=== PATIENT | male | born 1990 | race African-American/Black ===

== ENCOUNTER 2020-01-25 09:58 | Inpatient (IN) | payer SELFPAY ==
[2020-01-25] VITALS (23 sets, daily range): BP systolic 34–147; BP diastolic 19–110; PULSE 34–134; RESP 11–24; TEMP 36.2–38.3; O2SAT 81–100; BMI 35.2; BMI 36.3
--- NOTE | 2020-01-25 10:04 | EKG12_ITS ---
Test Reason : Blood Pressure : / mmHG Vent. Rate : 084 BPM Atrial Rate : 084 BPM P-R Int : 128 ms QRS Dur : 024 ms QT Int : 580 ms P-R-T Axes : 000 000 -76 degrees QTc Int : 685 ms Probable Normal sinus rhythm ;wide QRS Indeterminate axis ST elevation consider anterolateral injury or acute infarct Prolonged QT ACUTE SD / STEMI Abnormal ECG Confirmed by KELLY OLIVAS, TAI ([id number]), food editor AGUEDA ALEXANDER ([id number]) on 01/30/2020 1:46:59 PM Referred By: Confirmed By:MERCEDES MENDOZA MD
--- NOTE | 2020-01-25 10:06 | CT_ITS ---
STUDY: CT BRAIN WITHOUT CONTRAST REASON FOR EXAM: Male, 29 years old. Trauma, fell today c/o numbness and amp; tingling to legs, ETOH and amp; substance abuse last night/this morning, cardiac arrest on arrival to ER. RADIATION DOSAGE (If Supplied By Facility): CTDIvol = ( 44.99 ) mGy, DLP = ( 829.85 ) mGycm TECHNIQUE: Transaxial CT imaging of the brain was performed without administration of intravenous contrast material. Individualized dose optimization techniques were used for this CT. COMPARISON: No relevant priors. FINDINGS: An endotracheal tube is seen. Normal soft tissue structures. Normal calvarium. Normal size ventricles and extra-axial spaces for the patient''s age. Normal white matter tracts of the cerebral hemispheres. Normal basal ganglia and thalami. Normal brainstem. Normal cerebellum. There is no intracranial hemorrhage. There are no findings of an acute ischemic infarction. Normal visualized paranasal sinuses. CT/Brain/Head without Contrast IMPRESSION: Normal unenhanced CT scan of the brain. Electronically Signed: Sam Kamara, at 11:10 EDT , Service support ,
--- NOTE | 2020-01-25 10:06 | CT_ITS ---
STUDY: CT CERVICAL SPINE WITHOUT CONTRAST REASON FOR EXAM: Male, 29 years old. Trauma, fell today c/o numbness and amp; tingling to legs, ETOH and amp; substance abuse last night/this morning, cardiac arrest on arrival to ER. RADIATION DOSAGE (If Supplied By Facility): CTDIvol = ( 26.17 ) mGy, DLP = ( 553.95 ) mGycm TECHNIQUE: High resolution transaxial imaging was performed without contrast material. Sagittal and coronal images were reconstructed. Individualized dose optimization techniques were used for this CT. COMPARISON: None FINDINGS: Normal craniovertebral junction. Normal anterior atlantoaxial articulation. Normal odontoid process. There is straightening of the normal cervical lordosis. Normal vertebral bodies and posterior osseous elements. C2-3: Normal endplates. Normal disc height and morphology. Normal central canal and intervertebral neuroforamina. C3-4: Normal endplates. Normal disc height and morphology. Normal central canal and intervertebral neuroforamina. C4-5: Normal endplates. Normal disc height and morphology. Normal central canal and intervertebral neuroforamina. C5-6: Normal endplates. Normal disc height and morphology. Normal central canal and intervertebral neuroforamina. C6-7: Normal endplates. Normal disc height and morphology. Normal central canal and intervertebral neuroforamina. C7-T1: Normal endplates. Normal disc height and morphology. Normal central canal and intervertebral neuroforamina. And endotracheal tube as well as an orogastric tube is visualized. CT/Spine Cervical without Contras IMPRESSION: Straightening of the normal cervical lordosis. Electronically Signed: Sam Kamara, at 11:11 EDT , Service support ,
--- NOTE | 2020-01-25 10:09 | NURSING ---
NO OLD EKGS
--- NOTE | 2020-01-25 10:11 | ED.DCSUM_ITS ---
History of Present Illness Chief Complaint: ETOH Intox Informant: Senior Officer Limited: Intoxicated, Stupor Onset: Today - History is limited. No family present. Paramedics have left. Quality of Pain: - - Not able to determine Location: Not able to determine Current Severity: Patient with depressed level of consciousness and complains of numbness lower extremities Worsened by: Unknown Relieved by: Unknown Associated Symptoms: Parasthesias, Weakness, Inability to ambulate Length of loss of consciousness: UNkown Narrative: Per report transmitted by paramedics patient has been drinking all night and smoking marijuana. He apparently is from [place]. Nothing else is known. Patient requires verbal and tactile stimuli to answer questions. He appears to have vomited. He he rolls his legs when asked to lift. Brother arrived. Brother was upset with patient because he was doing drugs. Brother states he has a history of drug use. He apparently was at a half-way house. He is from [place]. He was complaining of weakness in his legs last evening. Brother thinks he was drinking. Brother believes he was in checking heroin and possibly fentanyl. He was last seen well at 2200 on January 23. There is no history of fall. He apparently stumbled getting off the sofa. Tetanus Immunization: Unknown Prior similar symptoms: No Recent Illness/Hospitalization: No Past Medical History - Allergies and Home Meds Allergies/Adverse Reactions: Allergies No Known Allergies Allergy (Verified 01/25/20 11:08) Primary Care Physician: NOT,DEFINED [NON-STAFF] - Prior records reviewed: No - Patient from out of town Lives: Alone Alcohol: Heavy Drugs: Marijuana Review of Systems ROS: Unable to Obtain Neurological: Reports: Parasthesia, Numbness Physical Exam Vital Signs/Narrative: Vital Signs Temp Pulse Resp BP Pulse Ox 01/25/20 09:59 98.1 F 57 L 22 H 102/53 L 93 Inital Vital Signs reviewed: Yes General: Well nourished, Well developed, Obese, - - Patient has emesis on face and chest Head: Normocephalic, Atraumatic Eyes: Perrl, EOMI. Negative for: Pale conjunctiva, Scleral icterus ENT: TM's clear, No hemotympanum or drainage, No trauma. Negative for: Otorrhea, Nasal trauma, Nasal septal hematoma Neck: - - C-collar was placed. Unable to assess for tenderness because of altered mental status Cardiovascular: Regular rate, Regular rhythm, Normal S1, Normal S2 Respiratory: CTA bilaterally, Chest nontender, - - Home this is question of apnea versus Abdomen: Soft, Nontender, Nondistended Rectal: Deferred Skin: Normal color, No rash Neurological: Oriented x3, Cranial nerves II-XII grossly intact. Negative for: Alert, Normal Strength, Normal Sensation, Normal DTR, Normal Gait - Glascow Coma Scale Eye Opening: Spontaneous Motor: Localizes to Pain Verbal: Oriented Coma Scale Total: 14 Diagnostic/Tx/Re-eval Chest X-Ray - ED: 1 View Single view portable chest x-ray reveals the left subclavian line to be in proper position. Endotracheal tube is in proper position. The x-ray was read by me at 1051. - Rhythm Strip Rhythm Strip: Wide-complex rhythm with pauses - EKG Initial EKG Interpretation: - - Wide-complex rhythm with a ventricular rate 84. Computer is reading AR interval 128 ms. QRS duration 240 ms. QT duration 580 ms with a QTC of 685 ms. Right computer is reading acute AL. Concerned this represents changes due to intracranial bleed versus hyperkalemia versus other causes Follow-up EKG Interpretation: Sinus Rhythm - Sinus rhythm with a ventricular rate 85. AR interval 200 ms. QRS duration 114 ms. QT duration 394 ms with a QTC of 468 ms. [place] is normal. There are ischemic changes noted in the anterior leads. This may represent a posterior AL. - Medical Decision Making With history of fall altered level of conscious trauma order set was initiated. I was asked to view patient's monitor. Patient has a wide-complex rhythm. This may represent hyperkalemia, patient may have a underlying intraventricular conduction abnormality. CT of the head was obtained to rule out subdural hematoma, epidural hematoma, traumatic subarachnoid hemorrhage or intraparenchymal contusion. C-spine was obtained because of complaint of numbness and unable to move legs and did not withdraw to noxious stimuli. Patient was orotracheally debated by RSI technique. Received 20 mg of etomidate and 100 mg rocuronium. Using glide scope a 8.0 endotracheal tube was placed. Breath sounds were confirmed and appropriate color change on capnometer. Patient subsequently lost pulses. He was treated for hyperkalemia/PEA. Patient's complex narrowed after calcium chloride and bicarb. Since patient has gross hematuria and potentially was lying on the floor for 12 hours a CPK was ordered to assess for rhabdomyolysis and an ultrasound to assess kidney function. The hospitalist was paged/central office equipment installer for admission to ICU. Critical care time 42 minutes which includes history, documentation, discussion with family at length, treatment for dysrhythmia and discussion with hospitalist and central office equipment installer. This excludes time required for procedures i.e. intubation, IO and left subclavian line. Dr. Barajas informed me that patient EF is 20%, which may represent start affect. He has global hypokinesis. Case was discussed with Dr. Jayson Craig. He requested a magnesium. The hospitalist was made aware patient and he will be admitted to the ICU. Procedures Procedure(s): 1. Oral tracheal intubation using glide scope by RSI technique. Endotracheal tube confirmed by chest x-ray. This was performed easily on first attempt. 2. Placement of IO left proximal humerus by me. 3. Attempt at left femoral vein placement by Dr. [place], unsuccessful. 4. Placement of trauma line left subclavian successfully on first attempt on the way in. Using Seldinger technique sheath was placed. Blood was drawn. 5. Transthoracic echo revealing profound global hypokinesis and bradycardia. Dr. Roly Barajas was paged for stat echo. ED Disposition - Plan for ED Patient: Disposition: Acute Care Hospital [facility] Diagnosis: Cardiopulmonary arrest with successful resuscitation, Hypocalcemia, Hyperkalemia, KEITH (acute kidney injury), Metabolic acidosis, increased anion gap, Respiratory failure with hypoxia, Pulseless electrical activity with heart block, Ventricular fibrillation seen on cytology teacher, Gross hematuria Referrals: NOT,DEFINED [NON-STAFF] -
--- NOTE | 2020-01-25 10:32 | CM.ED ---
Social Work Responding to Code [place]. No family present. Per nursing staff, need to get in contact with family. Patient came in through EMS today. No contact information listed on chart. Telephone call to dispatch. Dispatch to send officer out to residence where patient was picked up by EMS ([address] [place] [address]. [place], [place]). Chelsie MORALES, EM
--- NOTE | 2020-01-25 10:40 | CM.ED ---
Social Work Telephone call from dispatch, patient family is on the way. Chelsie Díaz MSW, EM
--- NOTE | 2020-01-25 10:45 | RAD_ITS ---
STUDY: X-RAY CHEST REASON FOR EXAM: Male, 29 years old. PT DRINKING AND DOING MAR [place] LAST NIGHT UNTIL 5AM TODAY. WOKE UP TO URINATE AND FELL. NOW C/O LEGS N/T -- ETT AND OG PLACEMENT TECHNIQUE: Single AP portable view of the chest. COMPARISON: None. FINDINGS: An endotracheal tube is in situ. The tip is at 3.2 cm proximal to the danielito. An orogastric tube is seen with the tip in the fundal portion of the stomach. Increased markings are seen at the lung bases more prominent on the left side suggests some bibasilar atelectasis. Cannot rule out possible aspiration pneumonia in the left lower lobe. There is no demonstrated pleural abnormality. Normal size heart. Normal mediastinum and ricki. Normal visualized pulmonary arteries. Normal visualized aortic arch and descending thoracic aorta. Normal visualized thoracic spine. Normal visualized ribs, clavicles, and shoulders. There is no demonstrated abnormality of the visualized soft tissue structures of the upper abdomen. RAD/Chest 1 View (Portable) IMPRESSION: The tip of the endotracheal tube is at 3.2 cm proximal to the danielito. The tip of the orogastric tube is in the fundal portion of the stomach. Increased markings at the lung bases more prominent on the left side suggestive of atelectasis although an aspiration pneumonia in the left lower lobe cannot be excluded. Electronically Signed: Sma Kamara, at 11:03 EDT , Service support ,
[2020-01-25 10:53] LABS: Hematocrit 39.5 % (40-54); Hemoglobin 12.7 g/dL (13.0-16.5); Mean Corp Hgb Conc 32.2 g/dL (32-36); Mean Corpuscular Hgb 30.3 pg (27.0-32.0); Mean Corpuscular Volume 94.3 fL (80-94); Mean Platelet Vol. 8.9 fl (6.2-12.0); POSITIVE COUNT YES; POSITIVE MORPHOLOGY YES; Platelet Count 250 K/mm3 (150-450); RBC Distribution Width CV 13.9 % (11.6-14.6); RBC Distribution Width SD 47.9 fl (35.1-43.9); Red Blood Count 4.19 M/mm3 (4.6-6.2); White Blood Count 16.3 K/mm3 (4.4-11.0)
[2020-01-25 10:57] LABS: Differential Indicated MANUAL DIFF
[2020-01-25 11:03] LABS: International Normalized Ratio 1.6; Prothrombin Time (Protime)PT. 18.5 SECONDS (11.7-14.9)
[2020-01-25 11:04] LABS: Partial Thromboplast Time 36.5 Seconds (24.1-36.2)
--- NOTE | 2020-01-25 11:15 | CM.ED ---
Social Work Met with patient brother, Nas Murillo and Nas's girlfriend in waiting room. Support provided. Tila Aparicio also present providing support. Dr. Welsh updated that family is here. Dr. Welsh meeting with patient family and providing medical update. This social group worker able to obtain contact information for Nas ([phone]) and patient mother, Jaleesa Murillo ([phone]). Per Nas patient recently moved to [place], [place] from [place]. Nas stating that patient does have a history of substance abuse/use and is concerned that this may have been what triggered patient medical emergency today. Nas concerned with family finding out as per Nas family is rejected patient due to substance abuse in the past. Patient has a history of rehabilitation for substance abuse as well. Nas stating to have helped patient move to [place] from [place] in hopes that patient would have better support to stop abusing/using substances. Active support and listening provided. Nas then wanting to leave as I am freaking out here. Nas not wanting to see patient as patient is not able to respond or talk with Nas at this time. Nas's girlfriend confirming to be able to be with Nas today and that Nas will not be alone. Nas is wanting to call patient mother prior to medical team contacting mother. Nas is wanting medical team to call patient mother. Updated medical team on above information. Chelsie Díaz MSW, EM
[2020-01-25 11:17] LABS: Alcohol, Blood (Medical)-Serum < 3.0 mg/dL
[2020-01-25 11:18] LABS: AST(SGOT) 1825 U/L (15-37); Alanine Aminotransfer ALT/SGPT 310 U/L (16-61); Albumin, Serum 1.9 g/dL (3.2-5.0); Alkaline Phosphatase 60 U/L (45-117); Anion Gap 14 (5-15); BUN 24 mg/dL (7-18); BUN/Creat Ratio 12.2 RATIO (10-20); Bilirubin, Direct 0.15 mg/dL (0.00-0.30); Calcium,Total 5.5 mg/dL (8.5-10.1); Chloride 113 mmol/L (98-107); Creatinine, Serum 1.97 mg/dL (0.70-1.30); EST Glomerular Filtration Rate 42 mL/min (>60); Est Glom Filt Rate - Afr Amer 51 mL/min (>60); Estimated Creatinine Clearance 60.18 ml/min; Globulin 2.7 g/dL (2.2-4.2); Glucose 160 mg/dL (74-106); Lymphocyte 6 % (19-41); Monocyte 5 % (0-10); Neutrophil-Band 4 % (0-5); Neutrophil-Segmented 85 % (47-70); Platelet Estimate ADEQUATE (ADEQ); Potassium 4.9 mmol/L (3.5-5.1); Protein, Total 4.6 g/dL (6.4-8.2); Red Cell Morphology NORM C+C NORMAL (NORM C&C); Sodium Level 144 mmol/L (136-145); Total Cells Counted 100 (MANUAL DIFF)
--- NOTE | 2020-01-25 11:18 | ED.RN ---
calcium 5.5 dr peña
[2020-01-25 11:20] LABS: Absolute Lymphocyte Count 0.98 X10^3/uL (0.83-4.51); Absolute Neutrophil Count 14.5 X10^3/uL (2.0-7.7)
--- NOTE | 2020-01-25 11:23 | US_ITS ---
STUDY: RENAL ULTRASOUND - COMPLETE REASON FOR EXAM: Male, 29 years old. HEMATURIA, RENAL FAILURE -- PATIENT ON VENTILATOR . Study is slightly limited due to the patient''s condition. TECHNIQUE: Ultrasound evaluation of the kidneys was performed with real-time and static andrews-scale imaging. COMPARISON: None. FINDINGS: RIGHT KIDNEY: Normal location of the right kidney, which is normal in size. The right kidney measures 11 cm x 7.7 cm x 5.4 cm. There is a normal cortex of the right kidney. The renal cortex measures 2.0 cm. There is no right renal mass or cyst. There are no right renal calculi. There is no right hydronephrosis. DISTAL RIGHT URETER: There is non-visualization of the distal right ureter. There is no demonstrated right ureterovesical junction calculus. There is no demonstrated right ureteral jet. LEFT KIDNEY: Normal location of the left kidney, which is normal in size. The left kidney measures 10.6 cm x 5.2 cm x 5.3 cm. There is a normal cortex of the left kidney. The renal cortex measures 1.6 cm. There is no left renal mass or cyst. There are no left renal calculi. There is no left hydronephrosis. DISTAL LEFT URETER: There is non-visualization of the distal left ureter. There is no demonstrated left ureterovesical junction calculus. There is no demonstrated left ureteral jet. BLADDER: A Novak catheter is seen within the urinary bladder. The bladder is empty. US/Kidney and Bladder IMPRESSION: Normal ultrasound of the kidneys . Electronically Signed: Sam Kamara, at 13:10 EDT , Service support ,
--- NOTE | 2020-01-25 11:35 | CM.ED ---
Social Work Telephone call to patient mother, Jaleesa. Voicemail left. Chelsie Díaz LYRIC WRITER, EM
--- NOTE | 2020-01-25 11:41 | NURSING ---
HOSPITALIST PAGED DR DIRK JIANG
--- NOTE | 2020-01-25 11:46 | NURSING ---
DR COTTON FOR DR COOLEY
--- NOTE | 2020-01-25 11:48 | CM.ED ---
Social Work Received return phone call for patient mother, Jaleesa. Jaleesa reporting to live in [place] and this is where Jaleesa is at this time. Explaining visitation policy at this time. Support provided and active listening. Jaleesa voices appearing calm and controlled/appropriate to current situation. Jaleesa thanking this social service director. Updated medical team that patient mother called in and contact information is on chart. Chelsie MORALES, EM
[2020-01-25 11:51] LABS: Amphetamine Urine VISTA NEGATIVE (<1000 ng/mL); Barbiturate Urine VISTA NEGATIVE (< 200 ng/mL); Benzodiazepine Urine VISTA NEGATIVE (< 200 ng/mL); Cocaine Urine VISTA POSITIVE (< 300 ng/mL); Ecstacy Urine VISTA NEGATIVE (< 500 ng/mL); Methadone Urine VISTA NEGATIVE (< 300 ng/mL); PCP Urine VISTA NEGATIVE (< 25 ng/mL); THC Urine VISTA POSITIVE (< 50 ng/mL); Vista UDS pH Range 6
--- NOTE | 2020-01-25 11:55 | NURSING ---
ICU [facility] CHF EXAC, HYPOXIC RESP FAILURE, AFIB W RVR
--- NOTE | 2020-01-25 12:00 | NURSING ---
ICU 4
--- NOTE | 2020-01-25 12:02 | CPS ---
Critical values on ABG given to Dr. Welsh
--- NOTE | 2020-01-25 12:10 | CHAPLAIN ---
Type of Pastoral Visit ___ Initial Visit ___ Follow-up Visit ___ On-call Visit ___ General Patient Visit ___ Spiritual Assessment ___ Family Conference ___ Bereavement ___ Rapid Response _x__ Code Blue ___ Other (describe below) Pastoral Care Referral From ___ Patient ___ Family ___ Nurse ___ Physician ___ Junior Account Executive ___ Remedial Teacher _x__ Other (describe below) Sacrament/Intervention ___ Active listening ___ Anointing ___ Rastafarian ___ Bereavement ___ Communion ___ Isidra exploration ___ ___ Life review ___ Prayer ___ Reconciliation ___ Sacrament of Sick _x__ Supportive presence ___ Wedding _x__ Other (describe below) Pastoral Comments met with brother of patient and his girlfriend when they arrived at ED; sat with family members as they learned of condition and offered supportive presence; family members left the building; stood at doorway to offer silent prayers for the patient
[2020-01-25 12:26] LABS: Base Excess -9 mmol/L (-2 to +2); Bicarbonate 19.5 mmol/L (22-26); PO2 321 mmHG (75-100); SO2 100 % (95-99); Total Carbon Dioxide 21 mmol/L; pCO2 56.1 mmHg (35-45); pH 7.15 (7.35-7.45)
--- NOTE | 2020-01-25 12:28 | EKG12_ITS ---
Test Reason : CODE Blood Pressure : / mmHG Vent. Rate : 085 BPM Atrial Rate : 085 BPM P-R Int : 200 ms QRS Dur : 114 ms QT Int : 394 ms P-R-T Axes : 000 071 066 degrees QTc Int : 468 ms Normal sinus rhythm ST & T wave abnormality, consider anterior ischemia Prolonged QT Abnormal ECG Confirmed by KELLY OLIVAS, TAI ([id number]), health editor AGUEDA ALEXANDER ([id number]) on 01/30/2020 1:50:23 PM Referred By: YASIR Confirmed By:MERCEDES MENDOZA MD
[2020-01-25 12:37] LABS: Blood Gas Specimen Type ART; SITE R BRACHIAL
[2020-01-25 12:38] LABS: FI02 100; Mode A-C; O2 Delivery Device Vent; PEEP 5; RR 16; Vt 500
--- NOTE | 2020-01-25 12:40 | HP.PCM_ITS ---
Problem List (1) Cardiopulmonary arrest with successful resuscitation Status: Acute (2) Hypocalcemia Status: Acute (3) Hyperkalemia Status: Acute (4) KEITH (acute kidney injury) Status: Acute History of Present Illness Date of Admission: 01/25/20 Chief Complaint: Lethargy, cardiopulmonary arrest - 1 day The patient is a 29 year old M with PMHx of polysubstance use who has been living in [place] with his uncle. Patient is originally from [place]. The EMS was called for patient was not complaining of leg pain since the night before. Patient was found lying on his back in front of the door. He was alert oriented x3. He was vomiting. He complained that he could not move his legs and that it went numb. He admitted to drinking and smoking marijuana. She was brought to the ED and apparently had evidence of emesis on his face and chest. His EKG had evidence of LVH, no ST segment elevation. Patient subsequently developed wide-complex rhythm on the monitor with no pulse. He underwent resuscitation with regain of spontaneous circulation. He was subsequently intubated and started on sedation. A subclavian line was placed. Received calcium chloride and bicarbonate. Vitals in the ED showed temperature of 98.1F, heart rate 57, blood pressure 102/53, respiratory rate was 22, SPO2 is 93% on room air. WBC count is 16.3, hemoglobin 12.7, platelet count 250, INR 1.6, odium 144, potassium 4.9, chloride 113, bicarbonate 17, BUN 24, creatinine 1.97, serum is 5.5, total bilirubin 0.6, WB 0.15, AST 1825, ALT 310, CK 147, 973. Patient's blood pressure dropped and was started also on Levophed. CT Scan of the brain, cervical spine CT were unremarkable. Renal ultrasound was also unremarkable. The echo showed an EF of 25%, severe global hypokinesis of the left ventricle. RVSP was 31. Discussed on phone with the patient's mother, Jaleesa( [phone]), has had a history of similar presentation in [place] and she believes it was rhabdomyolysis. Past Medical History Allergies No Known Allergies Allergy (Verified 01/25/20 11:08) Home Medications: Ambulatory Orders Medication Instructions Recorded NK 01/25/20 Surgical History: no surgical history Psychiatric History: No pertinent psych hx Lives: With Family Smoking Status: Current every day smoker Tobacco Use: Cigarettes Alcohol: Heavy Drugs: Marijuana Review of Systems Unable to obtain accurate/complete ROS d/t: Unable to do review of systems as patient is intubated and sedated VTE Information - Inpt Only VTE Present on Admission: No VTE Pharm Prophylaxis ordered?: Yes Patient Problems: Active and Suspected Problems Cardiopulmonary arrest with successful resuscitation (Acute) Hypocalcemia (Acute) Hyperkalemia (Acute) KEITH (acute kidney injury) (Acute) Metabolic acidosis, increased anion gap (Acute) Respiratory failure with hypoxia (Acute) Pulseless electrical activity with heart block (Acute) Ventricular fibrillation seen on cardiac rehabilitation specialist (Acute) Gross hematuria (Acute) - Physical Exam Vitals/I&O's: Vital Signs Temp Pulse Resp BP Pulse Ox 98.1 F 96 16 118/83 H 93 01/25/20 09:59 01/25/20 11:09 01/25/20 11:10 01/25/20 11:09 01/25/20 09:59 Oxygen Delivery Method Ambu-Bag Weight: 117.8 kg Body Mass Index (BMI) 35.2 General: Cooperative, - - sedated, intubated, on mechanical ventilator HEENT: Atraumatic, PERRLA, EOMI, Normocephalic Oral: Dry Mucosa Neck: Supple Lungs: Normal air movement, Diminished, - - left subclavian central line, bilateral gynaecomastia Cardiovascular: Regular rate, Regular Rhythm, Normal S1, Normal S2 Abdomen: Bowel Sounds Present, Soft, Non Tender, Non-Distended, No Hepato- splenomegaly, - - Novak catheter has gross hematuria Extremities: No edema Skin: No rashes Musculoskeletal: No Tenderness to Palpation of Joints or Extremities Lymphatic: No Cervical, Supraclavicular, or Inguinal Adenopathy Neurological: Cranial nerves II-XII grossly intact, Neuro grossly intact Psych/Mental Status: Normal Affect, Appropriate Laboratory Results 01/25/20 10:38: WBC 16.3 H, RBC 4.19 L, Hgb 12.7 L, Hct 39.5 L, MCV 94.3 H, MCH 30.3, MCHC 32.2, RDW Std Deviation 47.9 H, RDW Coeff of Jennifer 13.9, Plt Count 250, MPV 8.9, Neut % (Auto) Not Reportable, Absolute Neuts (auto) 14.5 H, Absolute Lymphs (auto) 0.98, Total Counted 100, Neutrophils % (Manual) 85 H, Band Neutrophils % 4, Lymphocytes % (Manual) 6 L, Monocytes % (Manual) 5, Diff Path Review December, Platelet Estimate ADEQUATE, RBC Morphology NORM C+C 01/25/20 10:38: Sodium 144, Potassium 4.9, Chloride 113 H, Carbon Dioxide 17.0 L , Anion Gap 14, BUN 24 H, Creatinine 1.97 H, Estim Creat Clear Calc 60.18, Est GFR (MDRD) Af Amer 51 L, Est GFR (MDRD) Non-Af 42 L, BUN/Creatinine Ratio 12.2, Glucose 160 H, Calcium 5.5 L*, Total Bilirubin 0.60, Direct Bilirubin 0.15, AST 1825 H, ALT 310 H, Alkaline Phosphatase 60, Total Protein 4.6 L, Albumin 1.9 L, Globulin 2.7 01/25/20 10:38: Ethyl Alcohol < 3.0 01/25/20 10:38: PT 18.5 H, INR 1.6, APTT 36.5 H 01/25/20 11:15: Urine Opiates Screen NEGATIVE, Urine Methadone Screen NEGATIVE, Ur Barbiturates Screen NEGATIVE, Ur Phencyclidine Scrn NEGATIVE, Ur Amphetamines Screen NEGATIVE, U Methamphetamin-MDMA NEGATIVE, U Benzodiazepines Scrn NEGATIVE, Urine Cocaine Screen POSITIVE H, U Cannabinoids Screen POSITIVE H, Ur Drug Screen Comment 01/25/20 11:58: Specimen Type ART, Sample Site R BRACHIAL, pH 7.15 L*, Bicarbonate Actual 19.5 L, POC Total CO2 21, Base Excess -9 L, O2 Saturation 100 H, O2 % 100, ABG pCO2 56.1 H, ABG pO2 321 H*, Jeffrey Test NA, Respiration Rate 16, O2 Delivery Device Vent, Vent Mode A-C, Tidal Volume 500, POC PEEP 5, Blood Gas Notified Whom ED 01/25/20 12:07: Sodium Pending, Potassium Pending, Chloride Pending, Carbon Dioxide Pending, Anion Gap Pending, BUN Pending, Creatinine Pending, Est GFR (MDRD) Af Amer Pending, Est GFR (MDRD) Non-Af Pending, BUN/Creatinine Ratio Pending, Glucose Pending, Calcium Pending, Magnesium Pending, Total Bilirubin Pending, AST Pending, ALT Pending, Alkaline Phosphatase Pending, Total Creatine Kinase Pending, Troponin I Pending, Total Protein Pending, Albumin Pending 01/25/20 12:07: Ionized Calcium Pending Current Medications Norepinephrine Bitartrate 8 mg (/ Sodium Chloride) 250 mls @ 9.375 mls/hr CONT INF .[id number] [facility]; Protocol Assessment/Plan All Active Problems Cardiopulmonary arrest with successful resuscitation (Acute) Hypocalcemia (Acute) Hyperkalemia (Acute) KEITH (acute kidney injury) (Acute) Metabolic acidosis, increased anion gap (Acute) Respiratory failure with hypoxia (Acute) Pulseless electrical activity with heart block (Acute) Ventricular fibrillation seen on cardiac rehabilitation specialist (Acute) Gross hematuria (Acute) 1. Acute respiratory failure secondary to cardiac arrest/possible aspiration pneumonia Patient is intubated On mechanical ventilator, relations manager consulted, Continue on propofol and fentanyl 2. Hypotension, possibly cardiogenic, unclear, less likely septic shock Patient is on Levophed, will continue to monitor vitals, Keep map more than 65 3. Acute rhabdomyolysis secondary to cocaine use CK is more than 1 47,000, Novak catheter has gross hematuria On IV fluids, repeat CK in a.m. 4. Acute kidney injury, likely prerenal, secondary to #3 We will continue on IV fluids and vasopressors Repeat blood work in a.m. 5. Hyperkalemia secondary to #3, repeat potassium is pending We will continue to trend potassium 6. Hypocalcemia secondary to #3, status post replacement Repeat blood work in a.m. 7. Elevated troponins, likely secondary to #3, Possible underlining cardiomyopathy, EF of 20%, Cardiology consulted 8. Polysubstance use, urine tox positive for cocaine and marijuana 9. Elevated liver function test secondary to #3, ALP is normal, Continue to trend liver enzymes 10. Possible aspiration pneumonia, patient is on Unasyn, will continue 11. DVT PPx- SCDs on account of gross hematoma 12. GI PPx - famotidine IV
[2020-01-25 12:41] LABS: VBG BASE EXCESS -13 mmol/L (-1.0-3.5); VBG Bicarbonate 15 mmol/L (22-26); VBG Oxygen Content 16 mmol/L (23-33); VBG PO2 53 mmHg (25-40); VBG SO2 79 % (50-70); VBG pCO2 39.5 mmHg (41-51); VBG pH 7.19 (7.32-7.42)
[2020-01-25 13:04] LABS: Blood Gas Specimen Type VEN; FI02 100
[2020-01-25 13:05] LABS: Time Given 1047
[2020-01-25] MEDS: Dextrose 50%-Water 25 GM/50 ML DISP.SYRIN IV (13:58)
[2020-01-25] MEDS: Calcium Gluconate 1 GM/10 ML Vial IV (13:58)
[2020-01-25] MEDS: Insulin Lispro 5 UNIT in Syringe 0 ML 3 UNIT IV (13:59)
[2020-01-25 14:04] LABS: ALB/GLOB Ratio 0.7 RATIO (0.9-2.4); AST(SGOT) 3395 U/L (15-37); Alanine Aminotransfer ALT/SGPT 682 U/L (16-61); Albumin, Serum 3.1 g/dL (3.2-5.0); Alkaline Phosphatase 103 U/L (45-117); Anion Gap 14 (5-15); BUN 29 mg/dL (7-18); BUN/Creat Ratio 10.8 RATIO (10-20); Calcium,Total 6.8 mg/dL (8.5-10.1); Chloride 100 mmol/L (98-107); Creatinine, Serum 2.69 mg/dL (0.70-1.30); EST Glomerular Filtration Rate 30 mL/min (>60); Est Glom Filt Rate - Afr Amer 36 mL/min (>60); Estimated Creatinine Clearance 44.07 ml/min; Globulin 4.4 g/dL (2.2-4.2); Glucose 166 mg/dL (74-106); Magnesium 4.1 mg/dL (1.6-2.6); Potassium 7.1 mmol/L (3.5-5.1); Protein, Total 7.5 g/dL (6.4-8.2); Sodium Level 136 mmol/L (136-145)
[2020-01-25] MEDS: Sodium Bicarbonate 8.4% 50 ML Syringe 50 MEQ IV (14:05)
[2020-01-25] MEDS: fentaNYL drip 100 ML 5 MCG IV (14:45)
[2020-01-25] MEDS: Propofol 10MG/Ml 1,000 MG/100 ML Bottle 7.7 MG CONT INF (14:45)
--- NOTE | 2020-01-25 14:57 | CON.PCM_ITS ---
Problem List (1) Cardiopulmonary arrest with successful resuscitation Status: Acute (2) Hypocalcemia Status: Acute (3) Hyperkalemia Status: Acute (4) KEITH (acute kidney injury) Status: Acute (5) Metabolic acidosis, increased anion gap Status: Acute (6) Respiratory failure with hypoxia Status: Acute Qualifiers: Chronicity: acute Qualified Code(s): J96.01 - Acute respiratory failure with hypoxia (7) Pulseless electrical activity with heart block Status: Acute (8) Ventricular fibrillation seen on laboratory monitor Status: Acute (9) Gross hematuria Status: Acute Reason for Consult Date of Consultation: 01/25/20 Reason for Consultation: Respiratory failure/arrest History of Present Illness: The patient is a 29 year old M, with unknown past medical history, who presented was [facility] [place], [place] on 01/25/2020 by paramedics secondary to inability to move his legs. Patient reportedly has been drinking all night and smoking marijuana. Patient had reportedly vomited on the scene and was unable to lift his legs. Patient's brother was reportedly upset in the ER secondary to concerns that the patient was using drugs. Patient is reportedly from [place] and had started to complain of leg weakness to his brother last evening. Patient reportedly is used heroin and fentanyl in the past. Patient was last seen well at 10 PM on January 23. Patient reportedly stumbled trying to get out of a sofa and EMS was called. In the ER, patient had a GCS of 14 initially. Patient's blood pressure was slightly low, but then he developed a wide-complex rhythm with pauses on telemetry. Patient's condition deteriorated and he had to be intubated by rapid sequence. Patient also had ventricular fibrillation noted and ACLS was performed. Patient was successfully resuscitated. Patient has started to have spontaneous movements following rocuronium used for intubation. Initial laboratory work-up did show significant hypocalcemia and hyperkalemia. Patient also had an emergent echocardiogram completed showing an EF of 20% with global hypokinesis. Patient had a left humeral IO and left subclavian trauma line placed while in the ER. Patient was evaluated by myself in the ER. Patient was unresponsive. Patient's uncles were at the bedside and did confirm that he has had some lifestyle issues in [place]. They could not elicit whether he had any past medical history or what the events overnight pertained. Patient's brother is reportedly the best historian and was not present during my evaluation. Patient reportedly is not and has no children leaving his mother as his next of kin. She is reportedly on her way from [place] at this time. Past Medical History Allergies No Known Allergies Allergy (Verified 01/25/20 11:08) Home Medications: Ambulatory Orders Medication Instructions Recorded NK 01/25/20 Lives: Alone Smoking Status: Unknown if ever smoked Alcohol: Heavy Drugs: Marijuana Review of Systems Unable to obtain accurate/complete ROS d/t: Intubated and paralyzed. Patient Problems: Active and Suspected Problems Cardiopulmonary arrest with successful resuscitation (Acute) Hypocalcemia (Acute) Hyperkalemia (Acute) KEITH (acute kidney injury) (Acute) Metabolic acidosis, increased anion gap (Acute) Respiratory failure with hypoxia (Acute) Pulseless electrical activity with heart block (Acute) Ventricular fibrillation seen on laboratory monitor (Acute) Gross hematuria (Acute) Objective: All imaging was personally reviewed. Echocardiogram in the ER showed an EF of 20% with global left ventricular stunning and slightly elevated pulmonary artery pressures. Chest x-ray was personally reviewed and showed a possible right lower lobe infiltrate. Patient also had a renal ultrasound showing no obstruction. CT of the head showed no acute bleed. - Physical Exam Vitals/I&O's: Vital Signs Temp Pulse Resp BP Pulse Ox 36.3 C L 88 16 119/72 100 01/25/20 13:04 01/25/20 14:45 01/25/20 14:45 01/25/20 13:04 01/25/20 14:45 Oxygen Delivery Method Mechanical Ventilator Weight: 128.7 kg Body Mass Index (BMI) 35.2 Finger Stick Blood Glucose 160 Intake and Output for Last 24 Hours 01/23/20 01/24/20 01/25/20 23:59 23:59 23:59 Intake Total 0.05 / 0.05 Balance 0.05 / 0.05 General: - - Intubated and paralyzed. Obese. Good ventilator synchrony. HEENT: Atraumatic, PERRLA, EOMI, Normocephalic, - - No scleral icterus or injection noted Oral: Moist Mucosa, No Gingival or Mucosal Lesions/ Ulcerations, - - Fair dentition Neck: Supple, No JVD, No Nodes, Trachea Midline Lungs: No wheeze, No rales, Diminished, Rhonchi - Right base, - - Symmetric expansion Cardiovascular: Regular rate, Regular Rhythm, Normal S1, Normal S2, No murmurs, No rub noted, No Gallop, - - Normal sinus rhythm noted on telemetry. Gynecomastia. Abdomen: Bowel Sounds Present, Soft, Non Tender, Non-Distended, Obese Extremities: No clubbing, No cyanosis, No edema, Capillary Refill Less than 3 Seconds Skin: No rashes, No breakdown, - - Bilateral hammertoes with skin changes Musculoskeletal: No Tenderness to Palpation of Joints or Extremities Lymphatic: No Cervical, Supraclavicular, or Inguinal Adenopathy Neurological: - - Recently paralyzed. Minimal spontaneous movements. Psych/Mental Status: Flat Affect Laboratory Results 01/25/20 10:38: WBC 16.3 H, RBC 4.19 L, Hgb 12.7 L, Hct 39.5 L, MCV 94.3 H, MCH 30.3, MCHC 32.2, RDW Std Deviation 47.9 H, RDW Coeff of Jennifer 13.9, Plt Count 250, MPV 8.9, Neut % (Auto) Not Reportable, Absolute Neuts (auto) 14.5 H, Absolute Lymphs (auto) 0.98, Total Counted 100, Neutrophils % (Manual) 85 H, Band Neutrophils % 4, Lymphocytes % (Manual) 6 L, Monocytes % (Manual) 5, Diff Path Review December, Platelet Estimate ADEQUATE, RBC Morphology NORM C+C 01/25/20 10:38: Sodium 144, Potassium 4.9, Chloride 113 H, Carbon Dioxide 17.0 L , Anion Gap 14, BUN 24 H, Creatinine 1.97 H, Estim Creat Clear Calc 60.18, Est GFR (MDRD) Af Amer 51 L, Est GFR (MDRD) Non-Af 42 L, BUN/Creatinine Ratio 12.2, Glucose 160 H, Calcium 5.5 L*, Total Bilirubin 0.60, Direct Bilirubin 0.15, AST 1825 H, ALT 310 H, Alkaline Phosphatase 60, Total Protein 4.6 L, Albumin 1.9 L, Globulin 2.7 01/25/20 10:38: Ethyl Alcohol < 3.0 01/25/20 10:38: PT 18.5 H, INR 1.6, APTT 36.5 H 01/25/20 10:47: Specimen Type ESTRELLITA, O2 % 100, VBG pH 7.19 L*, VBG pO2 53 H, VBG O2 Sat (Calc) 79 H, VBG O2 Content 16 L, VBG Base Excess -13 L, POC Mix VBG pCO2 Pt Tmp 39.5 L, O2 Delivery Device Ambu, Liter Flow 15.0, Blood Gas Notified Whom ED , Blood Gas Notified Time 1047 01/25/20 11:15: Urine Opiates Screen NEGATIVE, Urine Methadone Screen NEGATIVE, Ur Barbiturates Screen NEGATIVE, Ur Phencyclidine Scrn NEGATIVE, Ur Amphetamines Screen NEGATIVE, U Methamphetamin-MDMA NEGATIVE, U Benzodiazepines Scrn NEGATIVE, Urine Cocaine Screen POSITIVE H, U Cannabinoids Screen POSITIVE H, Ur Drug Screen Comment 01/25/20 11:58: Specimen Type ART, Sample Site R BRACHIAL, pH 7.15 L*, Bicarbonate Actual 19.5 L, POC Total CO2 21, Base Excess -9 L, O2 Saturation 100 H, O2 % 100, ABG pCO2 56.1 H, ABG pO2 321 H*, Jeffrey Test NA, Respiration Rate 16, O2 Delivery Device Vent, Vent Mode A-C, Tidal Volume 500, POC PEEP 5, Blood Gas Notified Whom ED 01/25/20 12:07: Sodium 136, Potassium 7.1 H*, Chloride 100, Carbon Dioxide 22.0, Anion Gap 14, BUN 29 H, Creatinine 2.69 H, Estim Creat Clear Calc 44.07, Est GFR (MDRD) Af Amer 36 L, Est GFR (MDRD) Non-Af 30 L, BUN/Creatinine Ratio 10.8, Glucose 166 H, Calcium 6.8 L, Magnesium 4.1 H, Total Bilirubin 1.20 H, AST 3395 H, ALT 682 H, Alkaline Phosphatase 103, Total Creatine Kinase 657807 H, Troponin I 1.090 H*, Total Protein 7.5, Albumin 3.1 L, Globulin 4.4 H, Albumin/Globulin Ratio 0.7 L 01/25/20 12:07: Ionized Calcium Pending Current Medications Albuterol Sulfate (Ventolin Aerosols) 2.5 mg INHALATION Q2H PRN PRN PRN Reason: WHEEZING Enoxaparin Sodium (Lovenox) 40 mg SC DAILY [facility] Norepinephrine Bitartrate 8 mg (/ Sodium Chloride) 250 mls @ 9.375 mls/hr CONT INF .[id number] [facility]; Protocol Last Admin: 01/25/20 13:02 Dose: Not Given Documented by: Fentanyl () 100 mls @ 5 mls/hr IV UD [facility]; Protocol Propofol (Diprivan) 1,000 mg in 100 mls @ 7.722 mls/hr CONT INF .Q12H [facility]; Protocol Clinical Impression(s) from Imaging Studies Brain CT 01/25/20 10:06 IMPRESSION: Normal unenhanced CT scan of the brain. Electronically Signed: Sam Kamara, at 11:10 EDT , Service support , Cervical Spine CT 01/25/20 10:06 IMPRESSION: Straightening of the normal cervical lordosis. Electronically Signed: Sam Kamara, at 11:11 EDT , Service support , Chest X-Ray 01/25/20 10:45 IMPRESSION: The tip of the endotracheal tube is at 3.2 cm proximal to the danielito. The tip of the orogastric tube is in the fundal portion of the stomach. Increased markings at the lung bases more prominent on the left side suggestive of atelectasis although an aspiration pneumonia in the left lower lobe cannot be excluded. Electronically Signed: Sam Kamara at 11:03 EDT , Service support , Renal Ultrasound 01/25/20 11:23 IMPRESSION: Normal ultrasound of the kidneys . Electronically Signed: Sam Kamara at 13:10 EDT , Service support , Assessment/Plan Active and Suspected Problems Cardiopulmonary arrest with successful resuscitation (Acute) Hypocalcemia (Acute) Hyperkalemia (Acute) KEITH (acute kidney injury) (Acute) Metabolic acidosis, increased anion gap (Acute) Respiratory failure with hypoxia (Acute) Pulseless electrical activity with heart block (Acute) Ventricular fibrillation seen on laboratory monitor (Acute) Gross hematuria (Acute) RECOMMENDATIONS: 1. Initiate empiric antibiotics 2. Aggressive fluid resuscitation 3. Bicarbonate drip to assist with urine alkalinization 4. Wean oxygen as tolerated 5. Initiate propofol and fentanyl 6. Spontaneous breathing and awakening trials per protocol 7. Attempt to obtain more information about past medical history IMPRESSIONS: 1. Acute hypoxic respiratory failure with possible aspiration secondary to possible opiates Unclear surrounding history. Patient appears to be developing a right lower lobe infiltrate and was found with emesis around his mouth. Concern for aspiration. Would start empiric therapy. Will initiate propofol and fentanyl to help with vent synchrony given recovery from paralytics. Spontaneous awakening and breathing trials per protocol. 2. Acute kidney injury secondary to rhabdomyolysis/hyperkalemia/hypocalcemia Concern for myoglobinuria leading to what appears to be hematuria. Patient had been reporting leg pain weakness prior to presentation. Patient may be having breakdown from toxic drug effects. Patient should have urine alkalized. Monitor renal function. Aggressive volume resuscitation. If not improving in the next 24 to 48 hours, may need to involve nephrology for renal replacement therapy. 3. Systolic congestive heart failure/ventricular fibrillation Patient with EF of 20% following arrest. Unclear if this is baseline versus new onset with shock. Patient was ordered Levophed initially, but this did not need to be initiated. Patient has tested positive for cocaine. Given young age and global defects, coronary artery disease is unlikely. Defer to hospitalist on possible involvement of cardiology 4. Polysubstance abuse Patient has tested positive for marijuana and cocaine on his tox screen. Patient also has reportedly used heroin and fentanyl in the past. Patient will be placed on fentanyl and propofol for vent synchrony, but will need to watch for withdrawal symptoms through the hospitalization. Will attempt to obtain more information from the family. 5. Poor history/obesity Complicates care, management, recovery and prognosis. DVT and GI prophylaxis. TIME: 45 minutes critical care time spent addressing patient's respiratory failure, acute kidney injury, CHF, review of all data and collaboration with care team. (2 PM to 3:13 PM) [phone]: [id number] Critical care first hour
[2020-01-25] MEDS: 0.9% Normal Saline 1,000 ML 500 ML IV (15:30)
[2020-01-25] MEDS: Lactated Ringers 1,000 ML 150 ML IV ×2 (15:30→22:40)
[2020-01-25] MEDS: 0.9% Saline Lock 10 ML Syringe IV (17:34)
--- NOTE | 2020-01-25 17:53 | NURSING ---
Spoke w/ pt's mother Jaleesa. Update given and questions answered.
[2020-01-25] MEDS: Aspirin 81 MG TAB.CHEW 324 MG PO (18:37)
[2020-01-25] MEDS: Sodium Polystyrene Sulfonate 15 GM/60 ML UDC 30 GM GT (20:26)
[2020-01-25] MEDS: Propofol 10MG/Ml 1,000 MG/100 ML Bottle 15.4 MG CONT INF (20:34)
[2020-01-25] MEDS: Famotidine 200 MG/20 ML MDV 20 MG in 0.9% Normal Saline (Pres. free 8 ML 300 MG IV (21:04)
[2020-01-25 21:12] LABS: Anion Gap 8 (5-15); BUN 35 mg/dL (7-18); BUN/Creat Ratio 12.9 RATIO (10-20); CPK Total, Creatine Kinase > 160000 U/L (39-308); Calcium,Total 6.4 mg/dL (8.5-10.1); Chloride 103 mmol/L (98-107); Creatinine, Serum 2.71 mg/dL (0.70-1.30); EST Glomerular Filtration Rate 29 mL/min (>60); Est Glom Filt Rate - Afr Amer 36 mL/min (>60); Estimated Creatinine Clearance 43.75 ml/min; Glucose 135 mg/dL (74-106); Potassium 7.8 mmol/L (3.5-5.1); Sodium Level 135 mmol/L (136-145); Triglycerides 112 mg/dL
[2020-01-25] MEDS: Chlorhexidine 15 ML PO (22:51)
[2020-01-26] VITALS (36 sets, daily range): BP systolic 116–163; BP diastolic 86–117; PULSE 83–114; RESP 13–26; TEMP 37.6–38.3; O2SAT 97–100; BMI 36.3
[2020-01-26] MEDS: fentaNYL drip 100 ML 12.5 MCG IV (01:15)
[2020-01-26] MEDS: Propofol 10MG/Ml 1,000 MG/100 ML Bottle 15.4 MG CONT INF (01:15)
[2020-01-26 04:51] LABS: Absolute Lymphocyte Count 0.77 X10^3/uL (0.83-4.51); Basophil# 0.05 X10^3/uL; Basophil% 0.2 % (0-1); Hematocrit 51.9 % (40-54); Hemoglobin 17.2 g/dL (13.0-16.5); Lymphocyte # 0.77 X10^3/ul (4.0); Lymphocyte % 3.6 % (19-41); Mean Corp Hgb Conc 33.1 g/dL (32-36); Mean Corpuscular Hgb 29.9 pg (27.0-32.0); Mean Corpuscular Volume 90.3 fL (80-94); Mean Platelet Vol. 8.9 fl (6.2-12.0); Monocyte# 2.29 X10^3/uL; Monocyte% 10.7 % (0-10); NRBC Flagged by Analyzer 0 % (0-5); Neutrophil # 18.02 X10^3/uL (2.7-7.7); Neutrophil % 84.4 % (47-70); POSITIVE DIFFERENTIAL YES; POSITIVE MORPHOLOGY YES; Platelet Count 277 K/mm3 (150-450); RBC Distribution Width CV 14.4 % (11.6-14.6); RBC Distribution Width SD 46.9 fl (35.1-43.9); Red Blood Count 5.75 M/mm3 (4.6-6.2); White Blood Count 21.4 K/mm3 (4.4-11.0)
[2020-01-26 04:57] LABS: Differential Indicated SCAN CRITERIA MET
[2020-01-26 05:11] LABS: Atypical Lymphocyte RARE %; Differential Comment SCANNED
[2020-01-26] MEDS: Lactated Ringers 1,000 ML 150 ML IV (05:24)
[2020-01-26] MEDS: Propofol 10MG/Ml 1,000 MG/100 ML Bottle 19.3 MG CONT INF (05:25)
[2020-01-26] MEDS: TITRATION PARAMETER CHANGE 1 EACH IV (05:46)
--- NOTE | 2020-01-26 05:55 | EKG12_ITS ---
Test Reason : AM EKG Blood Pressure : / mmHG Vent. Rate : 108 BPM Atrial Rate : 108 BPM P-R Int : 156 ms QRS Dur : 122 ms QT Int : 390 ms P-R-T Axes : 044 043 035 degrees QTc Int : 522 ms Sinus tachycardia Left ventricular hypertrophy with QRS widening Abnormal ECG Confirmed by JAH OLIVAS, PATRICK ([id number]), editor farm journal AGUEDA ALEXANDER ([id number]) on 02/01/2020 1:17:12 PM Referred By: LULA Confirmed By:PATRICK TYSON MD
[2020-01-26 06:23] LABS: ALB/GLOB Ratio 0.5 RATIO (0.9-2.4); AST(SGOT) 5198 U/L (15-37); Alanine Aminotransfer ALT/SGPT 922 U/L (16-61); Albumin, Serum 2.4 g/dL (3.2-5.0); Alkaline Phosphatase 96 U/L (45-117); Anion Gap 8 (5-15); BUN 44 mg/dL (7-18); BUN/Creat Ratio 12.1 RATIO (10-20); Chloride 100 mmol/L (98-107); Creatinine, Serum 3.63 mg/dL (0.70-1.30); EST Glomerular Filtration Rate 21 mL/min (>60); Est Glom Filt Rate - Afr Amer 25 mL/min (>60); Estimated Creatinine Clearance 32.66 ml/min; Globulin 4.5 g/dL (2.2-4.2); Glucose 123 mg/dL (74-106); Magnesium 3.4 mg/dL (1.6-2.6); Phosphorus 7.2 mg/dL (2.5-4.9); Potassium 7.8 mmol/L (3.5-5.1); Protein, Total 6.9 g/dL (6.4-8.2); Sodium Level 134 mmol/L (136-145)
[2020-01-26] MEDS: Polyethylene Glycol 3350 17 GM PACKET PO (06:27)
--- NOTE | 2020-01-26 06:35 | PCM.PN.INT ---
Subjective: Patient did okay overnight. Patient continues to have urine output, but has remained dark. Patient with elevated troponins overnight, but no significant ectopy was reported. No endotracheal secretions were reported. Patient with significant discomfort with palpation of any extremities, especially lower. General: - - Intubated and sedated. RASS -1. Good ventilator synchrony. Obese. HEENT: Atraumatic, PERRLA, EOMI, Normocephalic, - - No scleral icterus or injection noted Oral: No Gingival or Mucosal Lesions/ Ulcerations, Dry Mucosa Neck: Supple, No JVD, No Nodes, Trachea Midline Lungs: Clear to auscultation, Normal air movement, No rhonchi, No wheeze, No rales, - - Symmetric expansion. No dullness to percussion. Cardiovascular: Normal S1, Normal S2, No murmurs, No rub noted, No Gallop, Tachycardic Abdomen: Bowel Sounds Present, Soft, Non Tender, Distended - Slightly Extremities: No clubbing, No cyanosis, Capillary Refill Less than 3 Seconds, Edema Skin: - Musculoskeletal: Tenderness - No significant change compared to previous Lymphatic: No Cervical, Supraclavicular, or Inguinal Adenopathy Neurological: Cranial nerves II-XII grossly intact, Neuro grossly intact - Weak Muscle strength, but nonfocal exam Psych/Mental Status: Flat Affect Vital Signs Temp Pulse Resp BP Pulse Ox 38.1 C H 105 H 24 H 138/100 H 99 01/26/20 06:00 01/26/20 06:00 01/26/20 06:00 01/26/20 06:00 01/26/20 06:00 Oxygen Delivery Method Mechanical Ventilator Weight: 121.9 kg Body Mass Index (BMI) 36.3 Finger Stick Blood Glucose 160 Intake and Output for Last 24 Hours 01/24/20 01/25/20 01/26/20 23:59 23:59 23:59 Intake Total 3395.49 / 3417.14 1789.13 / 1789.13 Output Total 1350 / 1350 250 / 250 Balance 2045.49 / 2067.14 1539.13 / 1539.13 Labs (Last 48 Hours) 01/25/20 01/25/20 01/25/20 10:38 10:38 10:38 WBC 16.3 H RBC 4.19 L Hgb 12.7 L Hct 39.5 L MCV 94.3 H MCH 30.3 MCHC 32.2 RDW Std Deviation 47.9 H RDW Coeff of Jennifer 13.9 Plt Count 250 MPV 8.9 Immature Gran % (Auto) Neut % (Auto) Not Reportable Lymph % (Auto) [place] % (Auto) Eos % (Auto) Baso % (Auto) Absolute Neuts (auto) 14.5 H Absolute Lymphs (auto) 0.98 Total Counted 100 Neutrophils % (Manual) 85 H Band Neutrophils % 4 Lymphocytes % (Manual) 6 L Monocytes % (Manual) 5 Nucleated RBC % Differential Comment Diff Path Review May foll Atypical Lymphocytes Platelet Estimate ADEQUATE RBC Morphology NORM C+C PT INR APTT Specimen Type Sample Site pH Bicarbonate Actual POC Total CO2 Base Excess O2 Saturation O2 % ABG pCO2 ABG pO2 Jeffrey Test VBG pH VBG pO2 VBG O2 Sat (Calc) VBG O2 Content VBG Base Excess POC Mix VBG pCO2 Pt Tmp Respiration Rate O2 Delivery Device Liter Flow Vent Mode Tidal Volume POC PEEP Blood Gas Notified Whom Blood Gas Notified Time Sodium 144 Potassium 4.9 Chloride 113 H Carbon Dioxide 17.0 L Anion Gap 14 BUN 24 H Creatinine 1.97 H Estim Creat Clear Calc 60.18 Est GFR (MDRD) Af Amer 51 L Est GFR (MDRD) Non-Af 42 L BUN/Creatinine Ratio 12.2 Glucose 160 H Calcium 5.5 L* Ionized Calcium Phosphorus Magnesium Total Bilirubin 0.60 Direct Bilirubin 0.15 AST 1825 H ALT 310 H Alkaline Phosphatase 60 Total Creatine Kinase Troponin I Total Protein 4.6 L Albumin 1.9 L Globulin 2.7 Albumin/Globulin Ratio Triglycerides Urine Opiates Screen Urine Methadone Screen Ur Barbiturates Screen Ur Phencyclidine Scrn Ur Amphetamines Screen U Methamphetamin-MDMA U Benzodiazepines Scrn Urine Cocaine Screen U Cannabinoids Screen Ur Drug Screen Comment Ethyl Alcohol < 3.0 01/25/20 01/25/20 01/25/20 10:38 10:47 11:15 WBC RBC Hgb Hct MCV MCH MCHC RDW Std Deviation RDW Coeff of Jennifer Plt Count MPV Immature Gran % (Auto) Neut % (Auto) Lymph % (Auto) [place] % (Auto) Eos % (Auto) Baso % (Auto) Absolute Neuts (auto) Absolute Lymphs (auto) Total Counted Neutrophils % (Manual) Band Neutrophils % Lymphocytes % (Manual) Monocytes % (Manual) Nucleated RBC % Differential Comment Diff Path Review Atypical Lymphocytes Platelet Estimate RBC Morphology PT 18.5 H INR 1.6 APTT 36.5 H Specimen Type ESTRELLITA Sample Site pH Bicarbonate Actual POC Total CO2 Base Excess O2 Saturation O2 % 100 ABG pCO2 ABG pO2 Jeffrey Test VBG pH 7.19 L* VBG pO2 53 H VBG O2 Sat (Calc) 79 H VBG O2 Content 16 L VBG Base Excess -13 L POC Mix VBG pCO2 Pt Tmp 39.5 L Respiration Rate O2 Delivery Device Ambu Liter Flow 15.0 Vent Mode Tidal Volume POC PEEP Blood Gas Notified Whom ED MD Blood Gas Notified Time 1047 Sodium Potassium Chloride Carbon Dioxide Anion Gap BUN Creatinine Estim Creat Clear Calc Est GFR (MDRD) Af Amer Est GFR (MDRD) Non-Af BUN/Creatinine Ratio Glucose Calcium Ionized Calcium Phosphorus Magnesium Total Bilirubin Direct Bilirubin AST ALT Alkaline Phosphatase Total Creatine Kinase Troponin I Total Protein Albumin Globulin Albumin/Globulin Ratio Triglycerides Urine Opiates Screen NEGATIVE Urine Methadone Screen NEGATIVE Ur Barbiturates Screen NEGATIVE Ur Phencyclidine Scrn NEGATIVE Ur Amphetamines Screen NEGATIVE U Methamphetamin-MDMA NEGATIVE U Benzodiazepines Scrn NEGATIVE Urine Cocaine Screen POSITIVE H U Cannabinoids Screen POSITIVE H Ur Drug Screen Comment Ethyl Alcohol 01/25/20 01/25/20 01/25/20 11:58 12:07 12:07 WBC RBC Hgb Hct MCV MCH MCHC RDW Std Deviation RDW Coeff of Jennifer Plt Count MPV Immature Gran % (Auto) Neut % (Auto) Lymph % (Auto) [place] % (Auto) Eos % (Auto) Baso % (Auto) Absolute Neuts (auto) Absolute Lymphs (auto) Total Counted Neutrophils % (Manual) Band Neutrophils % Lymphocytes % (Manual) Monocytes % (Manual) Nucleated RBC % Differential Comment Diff Path Review Atypical Lymphocytes Platelet Estimate RBC Morphology PT INR APTT Specimen Type ART Sample Site R BRACHIAL pH 7.15 L* Bicarbonate Actual 19.5 L POC Total CO2 21 Base Excess -9 L O2 Saturation 100 H O2 % 100 ABG pCO2 56.1 H ABG pO2 321 H* Jeffrey Test NA VBG pH VBG pO2 VBG O2 Sat (Calc) VBG O2 Content VBG Base Excess POC Mix VBG pCO2 Pt Tmp Respiration Rate 16 O2 Delivery Device Vent Liter Flow Vent Mode A-C Tidal Volume 500 POC PEEP 5 Blood Gas Notified Whom ED Blood Gas Notified Time Sodium 136 Potassium 7.1 H* Chloride 100 Carbon Dioxide 22.0 Anion Gap 14 BUN 29 H Creatinine 2.69 H Estim Creat Clear Calc 44.07 Est GFR (MDRD) Af Amer 36 L Est GFR (MDRD) Non-Af 30 L BUN/Creatinine Ratio 10.8 Glucose 166 H Calcium 6.8 L Ionized Calcium Pending Phosphorus Magnesium 4.1 H Total Bilirubin 1.20 H Direct Bilirubin AST 3395 H ALT 682 H Alkaline Phosphatase 103 Total Creatine Kinase 995700 H Troponin I 1.090 H* Total Protein 7.5 Albumin 3.1 L Globulin 4.4 H Albumin/Globulin Ratio 0.7 L Triglycerides Urine Opiates Screen Urine Methadone Screen Ur Barbiturates Screen Ur Phencyclidine Scrn Ur Amphetamines Screen U Methamphetamin-MDMA U Benzodiazepines Scrn Urine Cocaine Screen U Cannabinoids Screen Ur Drug Screen Comment Ethyl Alcohol 01/25/20 01/25/20 01/25/20 15:40 16:58 17:50 WBC RBC Hgb Hct MCV MCH MCHC RDW Std Deviation RDW Coeff of Jennifer Plt Count MPV Immature Gran % (Auto) Neut % (Auto) Lymph % (Auto) [place] % (Auto) Eos % (Auto) Baso % (Auto) Absolute Neuts (auto) Absolute Lymphs (auto) Total Counted Neutrophils % (Manual) Band Neutrophils % Lymphocytes % (Manual) Monocytes % (Manual) Nucleated RBC % Differential Comment Diff Path Review Atypical Lymphocytes Platelet Estimate RBC Morphology PT INR APTT Specimen Type Sample Site pH Bicarbonate Actual POC Total CO2 Base Excess O2 Saturation O2 % ABG pCO2 ABG pO2 Jeffrey Test VBG pH VBG pO2 VBG O2 Sat (Calc) VBG O2 Content VBG Base Excess POC Mix VBG pCO2 Pt Tmp Respiration Rate O2 Delivery Device Liter Flow Vent Mode Tidal Volume POC PEEP Blood Gas Notified Whom Blood Gas Notified Time Sodium Cancelled Cancelled 135 L Potassium Cancelled Cancelled 7.8 H* Chloride Cancelled Cancelled 103 Carbon Dioxide Cancelled Cancelled 24.0 Anion Gap Cancelled Cancelled 8 BUN Cancelled Cancelled 35 H Creatinine Cancelled Cancelled 2.71 H Estim Creat Clear Calc Cancelled Cancelled 43.75 Est GFR (MDRD) Af Amer Cancelled Cancelled 36 L Est GFR (MDRD) Non-Af Cancelled Cancelled 29 L BUN/Creatinine Ratio Cancelled Cancelled 12.9 Glucose Cancelled Cancelled 135 H Calcium Cancelled Cancelled 6.4 L* Ionized Calcium Phosphorus Magnesium Total Bilirubin Direct Bilirubin AST ALT Alkaline Phosphatase Total Creatine Kinase > 310867 H Troponin I Cancelled Cancelled 14.400 H* Total Protein Albumin Globulin Albumin/Globulin Ratio Triglycerides 112 Urine Opiates Screen Urine Methadone Screen Ur Barbiturates Screen Ur Phencyclidine Scrn Ur Amphetamines Screen U Methamphetamin-MDMA U Benzodiazepines Scrn Urine Cocaine Screen U Cannabinoids Screen Ur Drug Screen Comment Ethyl Alcohol 01/25/20 01/26/20 01/26/20 20:41 04:45 04:45 WBC 21.4 H RBC 5.75 Hgb 17.2 H Hct 51.9 MCV 90.3 MCH 29.9 MCHC 33.1 RDW Std Deviation 46.9 H RDW Coeff of Jennifer 14.4 Plt Count 277 MPV 8.9 Immature Gran % (Auto) 1.100 H Neut % (Auto) 84.4 H Lymph % (Auto) 3.6 L [place] % (Auto) 10.7 H Eos % (Auto) 0.0 Baso % (Auto) 0.2 Absolute Neuts (auto) 18.0 H Absolute Lymphs (auto) 0.77 L Total Counted Neutrophils % (Manual) Band Neutrophils % Lymphocytes % (Manual) Monocytes % (Manual) Nucleated RBC % 0 Differential Comment SCANNED Diff Path Review May foll Atypical Lymphocytes RARE Platelet Estimate RBC Morphology PT INR APTT Specimen Type Sample Site pH Bicarbonate Actual POC Total CO2 Base Excess O2 Saturation O2 % ABG pCO2 ABG pO2 Jeffrey Test VBG pH VBG pO2 VBG O2 Sat (Calc) VBG O2 Content VBG Base Excess POC Mix VBG pCO2 Pt Tmp Respiration Rate O2 Delivery Device Liter Flow Vent Mode Tidal Volume POC PEEP Blood Gas Notified Whom Blood Gas Notified Time Sodium 134 L Potassium 7.8 H* Chloride 100 Carbon Dioxide 26.0 Anion Gap 8 BUN 44 H Creatinine 3.63 H Estim Creat Clear Calc 32.66 Est GFR (MDRD) Af Amer 25 L Est GFR (MDRD) Non-Af 21 L BUN/Creatinine Ratio 12.1 Glucose 123 H Calcium 6.0 L* Ionized Calcium Phosphorus 7.2 H Magnesium 3.4 H Total Bilirubin 0.90 Direct Bilirubin AST 5198 H ALT 922 H Alkaline Phosphatase 96 Total Creatine Kinase 810677 H Troponin I 20.200 H* Total Protein 6.9 Albumin 2.4 L Globulin 4.5 H Albumin/Globulin Ratio 0.5 L Triglycerides Urine Opiates Screen Urine Methadone Screen Ur Barbiturates Screen Ur Phencyclidine Scrn Ur Amphetamines Screen U Methamphetamin-MDMA U Benzodiazepines Scrn Urine Cocaine Screen U Cannabinoids Screen Ur Drug Screen Comment Ethyl Alcohol Clinical Impression(s) from Imaging Studies Brain CT 01/25/20 10:06 IMPRESSION: Normal unenhanced CT scan of the brain. Electronically Signed: Sam Kamara, at 11:10 EDT , Service support , Cervical Spine CT 01/25/20 10:06 IMPRESSION: Straightening of the normal cervical lordosis. Electronically Signed: Sam Kamara at 11:11 EDT , Service support , Chest X-Ray 01/25/20 10:45 IMPRESSION: The tip of the endotracheal tube is at 3.2 cm proximal to the danielito. The tip of the orogastric tube is in the fundal portion of the stomach. Increased markings at the lung bases more prominent on the left side suggestive of atelectasis although an aspiration pneumonia in the left lower lobe cannot be excluded. Electronically Signed: Sam Kamara at 11:03 EDT , Service support , Renal Ultrasound 01/25/20 11:23 IMPRESSION: Normal ultrasound of the kidneys . Electronically Signed: Sam Kamara at 13:10 EDT , Service support , Medical Necessity - Tobacco Use Smoking Status: Current every day smoker Tobacco Use: Cigarettes Assessment/Plan All Active Problems Cardiopulmonary arrest with successful resuscitation (Acute) Hypocalcemia (Acute) Hyperkalemia (Acute) KEITH (acute kidney injury) (Acute) Metabolic acidosis, increased anion gap (Acute) Respiratory failure with hypoxia (Acute) Pulseless electrical activity with heart block (Acute) Ventricular fibrillation seen on cardiac care nurse (Acute) Gross hematuria (Acute) LV dysfunction (Acute) Non-STEMI (non-ST elevated myocardial infarction) (Acute) RECOMMENDATIONS: 1. Continue empiric antibiotics until culture negative 2. Continue aggressive fluid resuscitation with bicarbonate drip for urine alkalinization 3. Consult nephrology for probable hemodialysis 4. Initiate tube feeds 5. Continue propofol and fentanyl for vent synchrony 6. Spontaneous breathing and awakening trials per protocol 7. Await cardiology recommendations IMPRESSIONS: 1. Acute hypoxic respiratory failure with possible aspiration secondary to possible opiates Unclear surrounding history. Patient appears to be developing a right lower lobe infiltrate and was found with emesis around his mouth. Concern for aspiration. Patient remains on empiric therapy for now. Lung exam is relatively unremarkable. Oxygenation has improved dramatically, so will hold off on repeat imaging for now. Spontaneous awakening and breathing trials per protocol. 2. Acute kidney injury secondary to rhabdomyolysis/hyperkalemia/hypocalcemia Concern for myoglobinuria leading to what appears to be hematuria. Patient had been reporting leg pain weakness prior to presentation. Patient may be having breakdown from toxic drug effects. Patient has not responded to alkalinization of urine and CPK continues to increase. Will consult nephrology as patient will likely require hemodialysis. This should address the hyperkalemia, hypocalcemia and CPK. Aggressive volume resuscitation. 3. Systolic congestive heart failure/ventricular fibrillation/non-ST elevation VT Patient with EF of 20% following arrest. Significant increase in troponin overnight. Unclear if this is baseline versus new onset with shock. Patient was ordered Levophed initially, but this did not need to be initiated. This will be discontinued. Patient has tested positive for cocaine. Given young age and global defects, coronary artery disease is unlikely. Await cardiology recommendations 4. Polysubstance abuse Patient has tested positive for marijuana and cocaine on his tox screen. Patient also has reportedly used heroin and fentanyl in the past. Patient will be placed on fentanyl and propofol for vent synchrony, but will need to watch for withdrawal symptoms through the hospitalization. Will attempt to obtain more information from the family. 5. Shock liver Significant elevation of AST and ALT despite normotension. Cannot exclude toxic effects versus decreased perfusion during code leading to current findings. Will check coagulation studies for metabolic function. Albumin is decreased, but there has been significant volume resuscitation efforts. 6. Poor history/obesity Complicates care, management, recovery and prognosis. DVT and GI prophylaxis. TIME: 55 minutes critical care time spent, excluding procedures, addressing patient's respiratory failure, acute kidney injury, CHF, review of all data and collaboration with care team. (5:30 AM to 6:45 AM) [id number]: [id number] Critical care first hour
[2020-01-26] MEDS: Calcium Chloride 1 GM/10 ML Syringe 2 GM IV (06:37)
[2020-01-26] MEDS: 0.9% Saline Lock 10 ML Syringe IV ×3 (06:46→22:29)
--- NOTE | 2020-01-26 07:10 | PN_ITS ---
Patient Problems: Active and Suspected Problems Cardiopulmonary arrest with successful resuscitation (Acute) Hypocalcemia (Acute) Hyperkalemia (Acute) KEITH (acute kidney injury) (Acute) Metabolic acidosis, increased anion gap (Acute) Respiratory failure with hypoxia (Acute) Pulseless electrical activity with heart block (Acute) Ventricular fibrillation seen on court recording monitor (Acute) Gross hematuria (Acute) LV dysfunction (Acute) Non-STEMI (non-ST elevated myocardial infarction) (Acute) Reason for Visit: Follow-up for acute rhabdo myelitis/acute kidney injury/shock liver Subjective: Patient was seen and examined. Urine output has been fair overnight. He remains hyperkalemic with EKG changes. He was given Kayexalate last night. No bowel movements. Discussed with nephrology, patient will be getting a temporary dialysis catheter for emergent dialysis. Noted low-grade fevers; 100.7F Objective: Physical exam: General: Cooperative, - - sedated, intubated, on mechanical ventilator HEENT: Atraumatic, PERRLA, EOMI, Normocephalic Oral: Dry Mucosa Neck: Supple Lungs: Normal air movement, Diminished, - - left subclavian central line, bilateral gynaecomastia Cardiovascular: Regular rate, Regular Rhythm, Normal S1, Normal S2 Abdomen: Bowel Sounds Present, Soft, Non Tender, Non-Distended, No Hepato- splenomegaly, - - Novak catheter has gross hematuria Extremities: No edema Skin: No rashes Musculoskeletal: No Tenderness to Palpation of Joints or Extremities Lymphatic: No Cervical, Supraclavicular, or Inguinal Adenopathy Neurological: Cranial nerves II-XII grossly intact, Neuro grossly intact Psych/Mental Status: Normal Affect, Appropriate Vitals/I&O's: Vital Signs Temp Pulse Resp BP Pulse Ox 100.5 F H 105 H 24 H 138/100 H 99 01/26/20 06:00 01/26/20 06:00 01/26/20 06:00 01/26/20 06:00 01/26/20 06:00 Oxygen Delivery Method Mechanical Ventilator Weight: 121.9 kg Body Mass Index (BMI) 36.3 Finger Stick Blood Glucose 160 Intake and Output for Last 24 Hours 01/24/20 01/25/20 01/26/20 23:59 23:59 23:59 Intake Total 3395.49 / 3417.14 1789.13 / 1789.13 Output Total 1350 / 1350 250 / 250 Balance 2045.49 / 2067.14 1539.13 / 1539.13 Laboratory Results 01/25/20 10:38: WBC 16.3 H, RBC 4.19 L, Hgb 12.7 L, Hct 39.5 L, MCV 94.3 H, MCH 30.3, MCHC 32.2, RDW Std Deviation 47.9 H, RDW Coeff of Jennifer 13.9, Plt Count 250, MPV 8.9, Neut % (Auto) Not Reportable, Absolute Neuts (auto) 14.5 H, Absolute Lymphs (auto) 0.98, Total Counted 100, Neutrophils % (Manual) 85 H, Band Neutrophils % 4, Lymphocytes % (Manual) 6 L, Monocytes % (Manual) 5, Diff Path Review December, Platelet Estimate ADEQUATE, RBC Morphology NORM C+C 01/25/20 10:38: Sodium 144, Potassium 4.9, Chloride 113 H, Carbon Dioxide 17.0 L , Anion Gap 14, BUN 24 H, Creatinine 1.97 H, Estim Creat Clear Calc 60.18, Est GFR (MDRD) Af Amer 51 L, Est GFR (MDRD) Non-Af 42 L, BUN/Creatinine Ratio 12.2, Glucose 160 H, Calcium 5.5 L*, Total Bilirubin 0.60, Direct Bilirubin 0.15, AST 1825 H, ALT 310 H, Alkaline Phosphatase 60, Total Protein 4.6 L, Albumin 1.9 L, Globulin 2.7 01/25/20 10:38: Ethyl Alcohol < 3.0 01/25/20 10:38: PT 18.5 H, INR 1.6, APTT 36.5 H 01/25/20 10:47: Specimen Type ESTRELLITA, O2 % 100, VBG pH 7.19 L*, VBG pO2 53 H, VBG O2 Sat (Calc) 79 H, VBG O2 Content 16 L, VBG Base Excess -13 L, POC Mix VBG pCO2 Pt Tmp 39.5 L, O2 Delivery Device Ambu, Liter Flow 15.0, Blood Gas Notified Whom ED , Blood Gas Notified Time 1045 01/25/20 11:15: Urine Opiates Screen NEGATIVE, Urine Methadone Screen NEGATIVE, Ur Barbiturates Screen NEGATIVE, Ur Phencyclidine Scrn NEGATIVE, Ur Amphetamines Screen NEGATIVE, U Methamphetamin-MDMA NEGATIVE, U Benzodiazepines Scrn NEGATIVE, Urine Cocaine Screen POSITIVE H, U Cannabinoids Screen POSITIVE H, Ur Drug Screen Comment 01/25/20 11:58: Specimen Type ART, Sample Site R BRACHIAL, pH 7.15 L*, Bicarbonate Actual 19.5 L, POC Total CO2 21, Base Excess -9 L, O2 Saturation 100 H, O2 % 100, ABG pCO2 56.1 H, ABG pO2 321 H*, Jeffrey Test NA, Respiration Rate 16, O2 Delivery Device Vent, Vent Mode A-C, Tidal Volume 500, POC PEEP 5, Blood Gas Notified Whom ED 01/25/20 12:07: Sodium 136, Potassium 7.1 H*, Chloride 100, Carbon Dioxide 22.0, Anion Gap 14, BUN 29 H, Creatinine 2.69 H, Estim Creat Clear Calc 44.07, Est GFR (MDRD) Af Amer 36 L, Est GFR (MDRD) Non-Af 30 L, BUN/Creatinine Ratio 10.8, Glucose 166 H, Calcium 6.8 L, Magnesium 4.1 H, Total Bilirubin 1.20 H, AST 3395 H, ALT 682 H, Alkaline Phosphatase 103, Total Creatine Kinase 763611 H, Troponin I 1.090 H*, Total Protein 7.5, Albumin 3.1 L, Globulin 4.4 H, Albumin/Globulin Ratio 0.7 L 01/25/20 12:07: Ionized Calcium Pending 01/25/20 15:40: Sodium Cancelled, Potassium Cancelled, Chloride Cancelled, Carbon Dioxide Cancelled, Anion Gap Cancelled, BUN Cancelled, Creatinine Cancelled, Estim Creat Clear Calc Cancelled, Est GFR (MDRD) Af Amer Cancelled, Est GFR (MDRD) Non-Af Cancelled, BUN/Creatinine Ratio Cancelled, Glucose Cancelled, Calcium Cancelled, Troponin I Cancelled 01/25/20 16:58: Sodium Cancelled, Potassium Cancelled, Chloride Cancelled, Carbon Dioxide Cancelled, Anion Gap Cancelled, BUN Cancelled, Creatinine Cancelled, Estim Creat Clear Calc Cancelled, Est GFR (MDRD) Af Amer Cancelled, Est GFR (MDRD) Non-Af Cancelled, BUN/Creatinine Ratio Cancelled, Glucose Cancelled, Calcium Cancelled, Troponin I Cancelled 01/25/20 17:50: Sodium 135 L, Potassium 7.8 H*, Chloride 103, Carbon Dioxide 24.0, Anion Gap 8, BUN 35 H, Creatinine 2.71 H, Estim Creat Clear Calc 43.75, Est GFR (MDRD) Af Amer 36 L, Est GFR (MDRD) Non-Af 29 L, BUN/Creatinine Ratio 12.9, Glucose 135 H, Calcium 6.4 L*, Total Creatine Kinase > 817115 H, Troponin I 14.400 H*, Triglycerides 112 01/25/20 20:41: Troponin I 20.200 H* 01/26/20 04:45: WBC 21.4 H, RBC 5.75, Hgb 17.2 H, Hct 51.9, MCV 90.3, MCH 29.9, MCHC 33.1, RDW Std Deviation 46.9 H, RDW Coeff of Jennifer 14.4, Plt Count 277, MPV 8.9, Immature Gran % (Auto) 1.100 H, Neut % (Auto) 84.4 H, Lymph % (Auto) 3.6 L, [place] % (Auto) 10.7 H, Eos % (Auto) 0.0, Baso % (Auto) 0.2, Absolute Neuts (auto) 18.0 H, Absolute Lymphs (auto) 0.77 L, Nucleated RBC % 0, Differential Comment SCANNED, Diff Path Review [facility], Atypical Lymphocytes RARE 01/26/20 04:45: Sodium 134 L, Potassium 7.8 H*, Chloride 100, Carbon Dioxide 26.0, Anion Gap 8, BUN 44 H, Creatinine 3.63 H, Estim Creat Clear Calc 32.66, Est GFR (MDRD) Af Amer 25 L, Est GFR (MDRD) Non-Af 21 L, BUN/Creatinine Ratio 12.1, Glucose 123 H, Calcium 6.0 L*, Phosphorus 7.2 H, Magnesium 3.4 H, Total Bilirubin 0.90, AST 5198 H, ALT 922 H, Alkaline Phosphatase 96, Total Creatine Kinase 744974 H, Total Protein 6.9, Albumin 2.4 L, Globulin 4.5 H, Albumin/Globulin Ratio 0.5 L Current Medications Albuterol Sulfate (Ventolin Aerosols) 2.5 mg INHALATION Q2H PRN PRN PRN Reason: WHEEZING Chlorhexidine Gluconate () 15 ml PO BID HEMAL Last Admin: 01/25/20 22:51 Dose: 15 ml Documented by: Fentanyl () 100 mls @ 5 mls/hr IV UD FOR[facility]LY [facility], 1928[facility]1983; Protocol Last Titration: 01/26/20 06:00 Dose: 150 mcg/hr, 15 mls/hr Documented by: Propofol (Diprivan) 1,000 mg in 100 mls @ 7.314 mls/hr CONT INF .Q12H HEMAL; Protocol Last Titration: 01/26/20 06:00 Dose: 25 mcg/kg/min, 18.3 mls/hr Documented by: Sodium Chloride () 250 mls @ 15 mls/hr IV .[id number] PRN PRN Reason: Saline Flush Sodium Chloride () 250 mls @ 15 mls/hr IV .[id number] PRN PRN Reason: Additional IVPB Infusion Ampicillin Sodium/Sulbactam Sodium 1,500 mg/ Sodium Chloride 50 mls @ 100 mls/hr IV Q8 FOR[facility]LY [facility], 1928–1983 Last Infusion: 01/26/20 05:58 Dose: Infused Documented by: Sodium Bicarbonate 150 meq/ (Dextrose) 1,150 mls @ 75 mls/hr IV .[id number] FOR[facility], 1928–1983 Last Infusion: 01/26/20 05:59 Dose: 75 mls/hr Documented by: Famotidine 20 mg/ Sodium (Chloride) 10 mls @ 300 mls/hr IV Q12 FOR[facility], [facility]1983 Last Infusion: 01/25/20 21:16 Dose: Infused Documented by: Sodium Chloride () 1,000 mls @ 150 mls/hr IV .[id number] [facility], [facility]1983 Sodium Chloride () 10 - 40 ml IV UD PRN PRN Reason: SALINE FLUSH Last Admin: 01/26/20 06:46 Dose: 20 ml Documented by: STROKE Vital Signs/Narrative: Vital Signs Temp Pulse Resp BP Pulse Ox 01/26/20 06:00 100.5 F H 105 H 24 H 138/100 H 99 01/26/20 05:32 107 H 13 98 01/26/20 05:00 100.7 F H 108 H 16 139/97 H 98 01/26/20 04:00 100.7 F H 108 H 19 H 135/100 H 98 01/26/20 03:45 105 H 16 99 Medical Necessity - Tobacco Use Smoking Status: Current every day smoker Tobacco Use: Cigarettes Assessment/Plan All Active Problems Cardiopulmonary arrest with successful resuscitation (Acute) Hypocalcemia (Acute) Hyperkalemia (Acute) KEITH (acute kidney injury) (Acute) Metabolic acidosis, increased anion gap (Acute) Respiratory failure with hypoxia (Acute) Pulseless electrical activity with heart block (Acute) Ventricular fibrillation seen on court recording monitor (Acute) Gross hematuria (Acute) LV dysfunction (Acute) Non-STEMI (non-ST elevated myocardial infarction) (Acute) 1. Acute respiratory failure secondary to cardiac arrest/possible aspiration pneumonia, remains intubated On mechanical ventilator, linen room houseperson following Continue on propofol and fentanyl 2. Hyperkalemia, status post Kayexalate, no bowel movements Nephrology consulted, emergent dialysis planned 3. Hypotension, resolved 4. Acute rhabdomyolysis secondary to cocaine use, worsening CK is more than 250,000, Novak catheter has hematuria, looks content strategist On IV fluids, repeat CK in a.m. 5. Acute kidney injury, likely prerenal, secondary to #3, worsening Nephrology consulted, dialysis planned, continue on IV fluids Repeat blood work in a.m. 6. Hypocalcemia secondary to #3, status post replacement Repeat blood work in a.m. 7. Elevated troponins, likely secondary to #3, Possible underlining cardiomyopathy, EF of 20%, Cardiology consulted 8. Polysubstance use, urine tox positive for cocaine and marijuana 9. Shock liver secondary to cocaine use, ALP is normal, Continue to trend liver enzymes 10. Possible aspiration pneumonia, on Unasyn, will continue 11. DVT PPx- SCDs on account of gross hematoma 12. GI PPx - famotidine IV Inpatient E&M: [id number] [facility] Hosp L3
[2020-01-26] MEDS: fentaNYL drip 100 ML 15 MCG IV (07:30)
[2020-01-26 08:26] LABS: International Normalized Ratio 1.3; Partial Thromboplast Time 27.6 Seconds (24.1-36.2); Prothrombin Time (Protime)PT. 15.8 SECONDS (11.7-14.9)
[2020-01-26] MEDS: 0.9% Normal Saline 1,000 ML 150 ML IV (08:52)
--- NOTE | 2020-01-26 09:15 | PCM.CONS.C ---
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 fib arrest, hyperkalemia, abnormal EKG, non-STEMI History of Present Illness: The patient is a 29 year old M, currently intubated, opens his eyes asked, but does not obey commands, who apparently is visiting from [place], and apparently was found down and unresponsive. The patient was brought to [facility] ER, where his condition deteriorated requiring a CODE BLUE to be called. Patient appeared to have suffered from a drug overdose of some kind. Patient went CPR and emergent intubation. He was found to be hypotensive with CKs over 100,000. Emergent stat echocardiogram at the bedside demonstrated global LV dysfunction with an EF around 25%, and the patient was brought to the ICU. Patient is found to be profoundly hyperkalemic, with EKG showing peaked T waves and sinus tachycardia. The patient had no further ventricular arrhythmias overnight. He was found to have an increase in his CKs to over 250,000, and appears to have patricia blood in his urine versus rhabdomyolysis. Patient's max troponin is 20 at this time. No other history is available at this time. Patient also appears to have shock liver with elevated and increasing liver function test. He is awaiting initiation of dialysis for his hyperkalemia [] Past Medical History Allergies/Adverse Reactions: Allergies No Known Allergies Allergy (Verified 01/25/20 11:08) Home Medications: Ambulatory Orders Medication Instructions Recorded NK 01/25/20 Surgical History: no surgical history Psychiatric History: No pertinent psych hx Lives: With Family Smoking Status: Current every day smoker Tobacco Use: Cigarettes Alcohol: Heavy Drugs: Marijuana Review of Systems - Review of Systems General: Denies: Fever, Night Sweats, Fatigue Cardiovascular: Denies: Chest Discomfort, Shortness of Breath, Orthopnea, PND, Peripheral Edema, Palpitations, Lightheadedness, Dizziness, Near Syncope, Syncope Respiratory: Denies: Cough, Sputum Production, Hemoptysis Gastrointestinal: Denies: Hematemesis, Hematochezia, Melena Genitourinary: Denies: Dysuria, Hematuria Skin: Denies: Rash Subjectve: Patient intubated, does wake up, does not obey commands. He is sedated. Objective: Vital Signs Temp Pulse Resp BP Pulse Ox 100.5 F H 105 H 24 H 138/100 H 99 01/26/20 06:00 01/26/20 06:00 01/26/20 06:00 01/26/20 06:00 01/26/20 06:00 Oxygen Delivery Method Mechanical Ventilator Weight: 268 lb 11.896 oz Body Mass Index (BMI) 36.3 Finger Stick Blood Glucose 160 Intake and Output for Last 24 Hours 01/24/20 01/25/20 01/26/20 23:59 23:59 23:59 Intake Total 3395.49 / 3417.14 2556.63 / 2556.63 Output Total 1350 / 1350 250 / 250 Balance 2045.49 / 2067.14 2306.63 / 2306.63 General: Awake, Alert, Oriented x 3 HEENT: PERRL, EOMI, Sclera Non Icteric Neck: Supple, Good ROM, No Lymph Node Enlargement Lungs: Clear to auscultation Cardiovascular: Regular Rhythm, Normal S1, Normal S2, No Murmurs, No Rubs, No Gallops Vascular: No Carotid Bruits, Normal Femoral Pulses, Normal Radial Pulses, Normal Dorsalis Pedal Pulse, Normal Posterior Tibial Pulses Abdomen: Bowel Sounds Present, Soft, Non Tender, No HSM, No Organomegaly Extremities: No Cyanosis, No Clubbing, No edema Neurological: No Focal Motor or Sensory Deficit 01/25/20 10:38: WBC 16.3 H, RBC 4.19 L, Hgb 12.7 L, Hct 39.5 L, MCV 94.3 H, MCH 30.3, MCHC 32.2, Plt Count 250, MPV 8.9, Neut % (Auto) Not Reportable, Absolute Neuts (auto) 14.5 H, Total Counted 100, Neutrophils % (Manual) 85 H, Band Neutrophils % 4, Lymphocytes % (Manual) 6 L, Monocytes % (Manual) 5 01/25/20 10:38: Sodium 144, Potassium 4.9, Chloride 113 H, Carbon Dioxide 17.0 L, Anion Gap 14, BUN 24 H, Creatinine 1.97 H, Est GFR (MDRD) Af Amer 51 L, Est GFR (MDRD) Non-Af 42 L, BUN/Creatinine Ratio 12.2, Glucose 160 H, Calcium 5.5 L*, Total Bilirubin 0.60, Direct Bilirubin 0.15 01/25/20 10:38: PT 18.5 H, INR 1.6, APTT 36.5 H 01/25/20 10:47: VBG pH 7.19 L*, VBG pO2 53 H, VBG O2 Sat (Calc) 79 H, VBG O2 Content 16 L, VBG Base Excess -13 L 01/25/20 11:58: pH 7.15 L*, Bicarbonate Actual 19.5 L, POC Total CO2 21, Base Excess -9 L, O2 Saturation 100 H, ABG pCO2 56.1 H, ABG pO2 321 H*, Jeffrey Test NA 01/25/20 12:07: Sodium 136, Potassium 7.1 H*, Chloride 100, Carbon Dioxide 22.0, Anion Gap 14, BUN 29 H, Creatinine 2.69 H, Est GFR (MDRD) Af Amer 36 L, Est GFR (MDRD) Non-Af 30 L, BUN/Creatinine Ratio 10.8, Glucose 166 H, Calcium 6.8 L, Magnesium 4.1 H, Total Bilirubin 1.20 H, Troponin I 1.090 H* 01/25/20 15:40: Sodium Cancelled, Potassium Cancelled, Chloride Cancelled, Carbon Dioxide Cancelled, Anion Gap Cancelled, BUN Cancelled, Creatinine Cancelled, Est GFR (MDRD) Af Amer Cancelled, Est GFR (MDRD) Non-Af Cancelled, BUN/Creatinine Ratio Cancelled, Glucose Cancelled, Calcium Cancelled, Troponin I Cancelled 01/25/20 16:58: Sodium Cancelled, Potassium Cancelled, Chloride Cancelled, Carbon Dioxide Cancelled, Anion Gap Cancelled, BUN Cancelled, Creatinine Cancelled, Est GFR (MDRD) Af Amer Cancelled, Est GFR (MDRD) Non-Af Cancelled, BUN/Creatinine Ratio Cancelled, Glucose Cancelled, Calcium Cancelled, Troponin I Cancelled 01/25/20 17:50: Sodium 135 L, Potassium 7.8 H*, Chloride 103, Carbon Dioxide 24.0, Anion Gap 8, BUN 35 H, Creatinine 2.71 H, Est GFR (MDRD) Af Amer 36 L, Est GFR (MDRD) Non-Af 29 L, BUN/Creatinine Ratio 12.9, Glucose 135 H, Calcium 6.4 L*, Troponin I 14.400 H*, Triglycerides 112 01/25/20 20:41: Troponin I 20.200 H* 01/26/20 04:45: WBC 21.4 H, RBC 5.75, Hgb 17.2 H, Hct 51.9, MCV 90.3, MCH 29.9, MCHC 33.1, Plt Count 277, MPV 8.9, Immature Gran % (Auto) 1.100 H, Neut % (Auto) 84.4 H, Lymph % (Auto) 3.6 L, [place] % (Auto) 10.7 H, Eos % (Auto) 0.0, Baso % (Auto) 0.2, Absolute Neuts (auto) 18.0 H, Nucleated RBC % 0 01/26/20 04:45: Sodium 134 L, Potassium 7.8 H*, Chloride 100, Carbon Dioxide 26.0, Anion Gap 8, BUN 44 H, Creatinine 3.63 H, Est GFR (MDRD) Af Amer 25 L, Est GFR (MDRD) Non-Af 21 L, BUN/Creatinine Ratio 12.1, Glucose 123 H, Calcium 6.0 L*, Phosphorus 7.2 H, Magnesium 3.4 H, Total Bilirubin 0.90 01/26/20 08:10: PT 15.8 H, INR 1.3, APTT 27.6 Rhythm: EKG: Sinus tachycardia with peaked T waves, no acute changes. ECHO: Stress Test: Cardiac Cath: PCI: CT Surgery: Holter monitor: EPS: PPM: CXR: Chest CT Scan: Assessment/Plan 1. Non-STEMI: Patient presents with acute metabolic insufficiency, CODE BLUE was called due to hypotension and the patient apparently has been down for several hours at home. He is now in the full throes of rhabdomyolysis, shock liver, acute renal failure, superimposed on newly discovered severe LV dysfunction and non-STEMI. Given the patient's acute renal failure, I would hold off on proceeding with left heart catheterization at this time. The patient has no ventricular arrhythmias, or evidence of hypotension that would mandate additional evaluation of his coronary anatomy. Given his young age, it is unlikely that he has significant coronary occlusive disease although being a drug user may have affected his LV function both acutely and chronically. At this point I would do medical management with baby aspirin, hold off on heparin given his hematuria, and use supportive care. I agree with initiating hemodialysis to reduce his potassium down to normal levels. His EKG has thus far peak T waves consistent with hyperkalemia but no evidence of widening of his QRS. His hyperkalemia is being managed currently by ICU staff. Once the patient's renal function has declared itself, he may require a diagnostic coronary angiogram to confirm/deny the presence of significant coronary [place] disease. I would hold off on Plavix therapy as well given his lack of ST segment elevation or depression. His troponin release is most likely a manifestation of his rhabdomyolysis and perhaps acute LV dysfunction. I recommend an echocardiogram in several days time to determine if his LV function is improving particularly if you are having difficulty weaning him from his ventilator. The patient is unable to be weaned for no other reason he may require diagnostic coronary angiogram, and/or an intra-aortic balloon pump for supportive care. However, I would hold off on this at this time. He does not require pressor agents and his blood pressure is actually hypertensive. 2. Shock liver: The patient has evidence of a sending LFTs consistent with shock liver. I would not recommend any antilipid therapy at this time or hepatic process medications. Continue supportive care. 3. Discussed with Dr. Craig. Thank you very much for the opportunity to participate in the cardiac care of your patient. Consultation time between 8 AM and 8:40 AM.
[2020-01-26] MEDS: Propofol 10MG/Ml 1,000 MG/100 ML Bottle 25.6 MG CONT INF ×5 (09:45→23:55)
[2020-01-26 09:47] LABS: Pathologist Review Reviewed
[2020-01-26 09:49] LABS: Pathologist Review Reviewed
--- NOTE | 2020-01-26 09:50 | NT.THERAPY_ITS ---
Nutrition Therapy Report - History Nutrition Services has been consulted to:: Manage enteral nutrition Current diet / nutrition support order:: NPO - Anthropometric Measurements Height:: 6 ft 0.05 in Weight:: 121.9 kg Body Mass Index (BMI):: 36.3 - Relevant Labs Relevant Labs:: WBC 21.4 K/mm3 (4.4-11.0) H 01/26/20 04:45 RBC 4.19 M/mm3 (4.6-6.2) L 01/25/20 10:38 Hgb 17.2 g/dL (13.0-16.5) H 01/26/20 04:45 Hct 39.5 % (40-54) L 01/25/20 10:38 MCV 94.3 fL (80-94) H 01/25/20 10:38 RDW Std Deviation 46.9 fl (35.1-43.9) H 01/26/20 04:45 Immature Gran % (Auto) 1.100 % (0.0-0.9) H 01/26/20 04:45 Neut % (Auto) 84.4 % (47-70) H 01/26/20 04:45 Lymph % (Auto) 3.6 % (19-41) L 01/26/20 04:45 [place] % (Auto) 10.7 % (0-10) H 01/26/20 04:45 Absolute Neuts (auto) 18.0 X10^3/uL (2.0-7.7) H 01/26/20 04:45 Absolute Lymphs (auto) 0.77 X10^3/uL (0.83-4.51) L 01/26/20 04:45 Neutrophils % (Manual) 85 % (47-70) H 01/25/20 10:38 Lymphocytes % (Manual) 6 % (19-41) L 01/25/20 10:38 PT 15.8 SECONDS (11.7-14.9) H 01/26/20 08:10 APTT 36.5 Seconds (24.1-36.2) H 01/25/20 10:38 Sodium 134 mmol/L (136-145) L 01/26/20 04:45 Potassium 7.8 mmol/L (3.5-5.1) H* 01/26/20 04:45 Chloride 113 mmol/L (98-107) H 01/25/20 10:38 Carbon Dioxide 17.0 mmol/L (21.0-32.0) L 01/25/20 10:38 BUN 44 mg/dL (7-18) H 01/26/20 04:45 Creatinine 3.63 mg/dL (0.70-1.30) H 01/26/20 04:45 Est GFR (MDRD) Af Amer 25 mL/min (>60) L 01/26/20 04:45 Est GFR (MDRD) Non-Af 21 mL/min (>60) L 01/26/20 04:45 Glucose 123 mg/dL (74-106) H 01/26/20 04:45 Calcium 6.0 mg/dL (8.5-10.1) L* 01/26/20 04:45 Phosphorus 7.2 mg/dL (2.5-4.9) H 01/26/20 04:45 Magnesium 3.4 mg/dL (1.6-2.6) H 01/26/20 04:45 Total Bilirubin 1.20 mg/dL (0.20-1.00) H 01/25/20 12:07 AST 5198 U/L (15-37) H 01/26/20 04:45 ALT 922 U/L (16-61) H 01/26/20 04:45 Total Creatine Kinase 406747 U/L (39-308) H 01/26/20 04:45 Troponin I 20.200 ng/mL (<0.045) H* 01/25/20 20:41 Total Protein 4.6 g/dL (6.4-8.2) L 01/25/20 10:38 Albumin 2.4 g/dL (3.2-5.0) L 01/26/20 04:45 Globulin 4.5 g/dL (2.2-4.2) H 01/26/20 04:45 Albumin/Globulin Ratio 0.5 RATIO (0.9-2.4) L 01/26/20 04:45 - Assessment Food / Nutrition-Related History:: Discussed in ICU rounds. Pt currently intubated. OG in place. No wt hx available in EMR. Nephrology consulted. Plans for dialysis today. Per Dr. Bert majano to start tube feeds today. - Nutrition Diagnosis Problem / Etiology / Signs & Symptoms (PES):: Inadequate oral intake r/t intubation as evidenced by no PO intake since admission Evidence of Malnutrition Exists:: No - Nutrition Intervention Nutrition Prescription:: Will use ASPEN guidelines for critically ill obese patients: 1.2 g protein/kg current body wt and 22-25 calories/kg ideal body wt (80kg). 5355-5929 calories/day, 130-150 g protein/day - Food / Nutrient Delivery Interventions Summary of nutrition intervention:: Will start trophic feeds via enteral nutrition. Renal function expected to improve w/ diaylsis today. Will start Vital AF 1.2 via OG at 20mL/hour w/ 50mL H2O flush every 4 hours to provide 576 calories, 36 g protein, and 689mL total fluid per day. As tube feeds are tolerated and renal function improves, will increase by 15mL/hour every 8 to 12 hours as tolerated to goal rate of 70mL/hour w/125mL H2O flush every 4 hours to provide 2016 calories, 125 g protein, and 2112mL fluid/day. Nutrition support ordered as / adjusted to:: Will start Vital AF 1.2 via OG at 20mL/hour w/ 50mL H2O flush every 4 hours to provide 576 calories, 36 g protein, and 689mL total fluid per day Nutrition education provided?: No - MNT Monitoring Further MNT monitoring and evaluation required?: Yes MNT Follow-up in:: 1-2 days
--- NOTE | 2020-01-26 09:53 | CASEMGMT ---
Social Work Note SW participated in ICU rounds. Pt remains on vent. SW to continue to follow regarding substance abuse. Tona Kirby ASTRO TECHNICIAN, ROUTE SALES MANAGER
--- NOTE | 2020-01-26 10:00 | NURSING ---
0945 Dr. Craig present in pt room, begin line placement HR 107 R 16 BP 147/97 SpO2 100 0950 HR 109 R 16 BP 134/105 SpO2 100 rare PVC 0955 HR 110 R 16 BP 139/91 SpO2 100 1000 HR 107 R 16 BP 1035/86 SpO2 100 RIJ TDC placed w/out diff.
--- NOTE | 2020-01-26 10:15 | RAD_ITS ---
STUDY: X-RAY CHEST REASON FOR EXAM: Male, 29 years old. LINE PLACEMENT TECHNIQUE: Single AP portable view of the chest. COMPARISON: Comparison is made with prior study dated January 25, 2020 at 10:41 AM. FINDINGS: An endotracheal tube is in situ. The tip is at 3.4 cm proximal to the danielito. An oral gastric tube is seen within the body of the stomach. A right-sided central venous catheter has been placed. The tip is at the junction of the superior vena cava and right atrium. Mild degree of increased markings at the lung bases suggestive of bibasilar atelectasis. This is essentially unchanged. There is no demonstrated pleural abnormality. Normal size heart. Normal mediastinum and ricki. Normal visualized pulmonary arteries. Normal visualized aortic arch and descending thoracic aorta. Normal visualized thoracic spine. Normal visualized ribs, clavicles, and shoulders. There is no demonstrated abnormality of the visualized soft tissue structures of the upper abdomen. RAD/CXR for Line Placement IMPRESSION: All the support tubes are in good position. Increased linear markings at the lung bases suggestive of bibasilar atelectasis. Electronically Signed: Sam Kamara, at 10:36 EDT , Service support ,
--- NOTE | 2020-01-26 10:20 | PCM.OP.PRO ---
Problem List (1) Cardiopulmonary arrest with successful resuscitation Status: Acute (2) Hypocalcemia Status: Acute (3) Hyperkalemia Status: Acute (4) KEITH (acute kidney injury) Status: Acute (5) Metabolic acidosis, increased anion gap Status: Acute (6) Respiratory failure with hypoxia Status: Acute Qualifiers: Chronicity: acute Qualified Code(s): J96.01 - Acute respiratory failure with hypoxia (7) Pulseless electrical activity with heart block Status: Acute (8) Ventricular fibrillation seen on die inspector Status: Acute (9) Gross hematuria Status: Acute Procedure Report Date of Procedure: 01/26/20 - Dialysis line placement IJ was visualized on both sides using ultrasound guidance. Readily collapsible in the semirecumbent position, distention improved with lying flat. It was determined to use the right IJ in a flat position. Patient did not tolerate reverse Trendelenburg. After confirmation of informed consent, the patient was prepped in the usual fashion using full barrier precautions.Area was anesthetized using subcutaneous lidocaine. IJ was visualized using ultrasonic guidance and cannulized using a modified Seldinger technique. Guidewire was advanced easily and placement was verified using ultrasound guidance. After verification of guidewire, area was reanesthetized and dilated using serial dilations. Catheter was placed without complication in position and secured with associated sutures using an interrupted fashion. Both ports flushed easily and dwelled with heparin. Chest x-ray postprocedure was personally reviewed. Showed appropriate placement without complication. Patient tolerated the procedure well with less than 5 cc of blood loss. Procedures: 30408 Insert Non-tunnel CV Cath
[2020-01-26] MEDS: Chlorhexidine 15 ML PO ×2 (10:45→22:29)
--- NOTE | 2020-01-26 11:20 | CASEMGMT ---
RN CM Assessment Note Pt unable to participate in assessment @ this time due to critical condition, intubation. Mother is used car salesperson, lives in [place]. Nursing/physician is updating her on pt's condition. Plan is for placement of dialysis catheter and to start dialysis. Mother gave verbal consent for procedures. Diagnosis: ETOH intoxication, intubated. History of recent drug use. PMH: drug use, alcohol use. Is from [place]- hx of living in half [address] house. PCP: none in area Specialists: none Insurance: self pay Preferred Pharmacy: [facility]- will likely need hospital assist for pharmacy Prescription Benefit: none LNOK: Mother, Jaleesa Murillo KIRSTIE consult: Drug use, etoh use. DC Plan: undetermined. SW to evaluate and speak with pt re: home situation/drug/etoh abuse. CM available for discharge planning coordination. Contact CM for any concerns/needs that may arise. Ginny OLSON RN ACM
--- NOTE | 2020-01-26 11:36 | PCM.CONS.R ---
Consultation - Renal 01/26/20 PCP/ Referring MD: Requesting physician: [] Primary care physician: No Primary Care Phys - History of Present Illness History of Present Illness: The patient is a 29 year old M who presented to the emergency room after he was found down and unresponsive. He coded for V. fib. He was emergently intubated. He was found to be in shock with a CK over 100,000. Emergency echo showed a EF around 25% and he was admitted to the ICU after he was intubated. His EKG showed cardiology peaked T waves and secondary to hyperkalemia. His CK increased range of 250,000 and had oswald cola colored urine. His troponin went up in the 20 range. The patient cannot provide any history or review of systems. A line was emergently placed this morning when the consult was put for nephrology and he is undergoing dialysis as of now. He is not on pressors now. - Allergies Allergies: Allergies No Known Allergies Allergy (Verified 01/25/20 11:08) - Current Medications Current Medications: Current Medications Albuterol Sulfate (Ventolin Aerosols) 2.5 mg INHALATION Q2H PRN PRN PRN Reason: WHEEZING Chlorhexidine Gluconate () 15 ml PO BID HEMAL Last Admin: 01/25/20 22:51 Dose: 15 ml Documented by: Heparin Sodium (Porcine) () 5,000 units SC Q8 HEMAL Fentanyl () 100 mls @ 5 mls/hr IV UD [facility]; Protocol Last Titration: 01/26/20 10:00 Dose: 200 mcg/hr, 20 mls/hr Documented by: Propofol (Diprivan) 1,000 mg in 100 mls @ 7.314 mls/hr CONT INF .Q12H [facility]; Protocol Last Titration: 01/26/20 10:00 Dose: 35 mcg/kg/min, 25.6 mls/hr Documented by: Sodium Chloride () 250 mls @ 15 mls/hr IV .[id number] PRN PRN Reason: Saline Flush Sodium Chloride () 250 mls @ 15 mls/hr IV .[id number] PRN PRN Reason: Additional IVPB Infusion Ampicillin Sodium/Sulbactam Sodium 1,500 mg/ Sodium Chloride 50 mls @ 100 mls/hr IV Q8 [facility] Last Infusion: 01/26/20 05:58 Dose: Infused Documented by: Sodium Bicarbonate 150 meq/ (Dextrose) 1,150 mls @ 75 mls/hr IV .[id number] HEMAL Last Admin: 01/26/20 08:50 Dose: 75 mls/hr Documented by: Sodium Chloride () 1,000 mls @ 200 mls/hr IV .Q5H [facility]EMAL Last Admin: 01/26/20 08:52 Dose: 150 mls/hr Documented by: Famotidine 20 mg/ Sodium (Chloride) 10 mls @ 300 mls/hr IV DAILY [facility] Enteral Nutritional Formula (Vital Af 1.2 González Liquid) 1,000 mls @ 20 mls/hr GT .Q48H [facility] Senna/Docusate Sodium (Senokot-S, Rosalba-Colace) 2 tablet GT BID PRN PRN PRN Reason: Constipation Sodium Chloride () 10 - 40 ml IV UD PRN PRN Reason: SALINE FLUSH Last Admin: 01/26/20 06:46 Dose: 20 ml Documented by: - Past Surgical History Surgical History: no surgical history - Social History Smoking Status: Current every day smoker Alcohol: Heavy Drugs: Marijuana Review of Systems Eyes: Reports: - - cannot be obtained as the patient is intubated. Patient Problems: Active and Suspected Problems Cardiopulmonary arrest with successful resuscitation (Acute) Hypocalcemia (Acute) Hyperkalemia (Acute) KEITH (acute kidney injury) (Acute) Metabolic acidosis, increased anion gap (Acute) Respiratory failure with hypoxia (Acute) Pulseless electrical activity with heart block (Acute) Ventricular fibrillation seen on environmental monitoring specialist (Acute) Gross hematuria (Acute) LV dysfunction (Acute) Non-STEMI (non-ST elevated myocardial infarction) (Acute) - Physical Exam Vitals/I&O's: Vital Signs Temp Pulse Resp BP Pulse Ox 100.5 F H 113 H 16 138/100 H 99 01/26/20 06:00 01/26/20 11:00 01/26/20 09:00 01/26/20 06:00 01/26/20 09:00 Oxygen Delivery Method Mechanical Ventilator Weight: 121.9 kg Body Mass Index (BMI) 36.3 Finger Stick Blood Glucose 160 Intake and Output for Last 24 Hours 01/24/20 01/25/20 01/26/20 23:59 23:59 23:59 Intake Total 3395.49 / 3417.14 2680.81 / 2680.81 Output Total 1350 / 1350 250 / 250 Balance 2045.49 / 2067.14 2430.81 / 2430.81 General: No apparent distress HEENT: Atraumatic Neck: Trachea Midline, - - intubated Lungs: Clear to auscultation, Normal air movement, - - Coarse breath sounds anteriorly Abdomen: Soft Extremities: No clubbing, No edema - sedated on propofol and fentanyl drips Laboratory Results 01/25/20 10:38: Diff Path Review Reviewed 01/25/20 10:47: Specimen Type ESTRELLITA, O2 % 100, VBG pH 7.19 L*, VBG pO2 53 H, VBG O2 Sat (Calc) 79 H, VBG O2 Content 16 L, VBG Base Excess -13 L, POC Mix VBG pCO2 Pt Tmp 39.5 L, O2 Delivery Device Ambu, Liter Flow 15.0, Blood Gas Notified Whom ED , Blood Gas Notified Time 1047 01/25/20 11:15: Urine Opiates Screen NEGATIVE, Urine Methadone Screen NEGATIVE, Ur Barbiturates Screen NEGATIVE, Ur Phencyclidine Scrn NEGATIVE, Ur Amphetamines Screen NEGATIVE, U Methamphetamin-MDMA NEGATIVE, U Benzodiazepines Scrn NEGATIVE, Urine Cocaine Screen POSITIVE H, U Cannabinoids Screen POSITIVE H 01/25/20 11:58: Specimen Type ART, Sample Site R BRACHIAL, pH 7.15 L*, Bicarbonate Actual 19.5 L, POC Total CO2 21, Base Excess -9 L, O2 Saturation 100 H, O2 % 100, ABG pCO2 56.1 H, ABG pO2 321 H*, Jeffrey Test NA, Respiration Rate 16, O2 Delivery Device Vent, Vent Mode A-C, Tidal Volume 500, POC PEEP 5, Blood Gas Notified Whom ED 01/25/20 12:07: Sodium 136, Potassium 7.1 H*, Chloride 100, Carbon Dioxide 22.0, Anion Gap 14, BUN 29 H, Creatinine 2.69 H, Estim Creat Clear Calc 44.07, Est GFR (MDRD) Af Amer 36 L, Est GFR (MDRD) Non-Af 30 L, BUN/Creatinine Ratio 10.8, Glucose 166 H, Calcium 6.8 L, Magnesium 4.1 H, Total Bilirubin 1.20 H, AST 3395 H, ALT 682 H, Alkaline Phosphatase 103, Total Creatine Kinase 472449 H, Troponin I 1.090 H*, Total Protein 7.5, Albumin 3.1 L, Globulin 4.4 H, Albumin/Globulin Ratio 0.7 L 01/25/20 12:07: Ionized Calcium Pending 01/25/20 15:40: Sodium Cancelled, Potassium Cancelled, Chloride Cancelled, Carbon Dioxide Cancelled, Anion Gap Cancelled, BUN Cancelled, Creatinine Cancelled, Estim Creat Clear Calc Cancelled, Est GFR (MDRD) Af Amer Cancelled, Est GFR (MDRD) Non-Af Cancelled, BUN/Creatinine Ratio Cancelled, Glucose Cancelled, Calcium Cancelled, Troponin I Cancelled 01/25/20 16:58: Sodium Cancelled, Potassium Cancelled, Chloride Cancelled, Carbon Dioxide Cancelled, Anion Gap Cancelled, BUN Cancelled, Creatinine Cancelled, Estim Creat Clear Calc Cancelled, Est GFR (MDRD) Af Amer Cancelled, Est GFR (MDRD) Non-Af Cancelled, BUN/Creatinine Ratio Cancelled, Glucose Cancelled, Calcium Cancelled, Troponin I Cancelled 01/25/20 17:50: Sodium 135 L, Potassium 7.8 H*, Chloride 103, Carbon Dioxide 24.0, Anion Gap 8, BUN 35 H, Creatinine 2.71 H, Estim Creat Clear Calc 43.75, Est GFR (MDRD) Af Amer 36 L, Est GFR (MDRD) Non-Af 29 L, BUN/Creatinine Ratio 12.9, Glucose 135 H, Calcium 6.4 L*, Total Creatine Kinase > 405570 H, Troponin I 14.400 H*, Triglycerides 112 01/25/20 20:41: Troponin I 20.200 H* 01/26/20 04:45: WBC 21.4 H, RBC 5.75, Hgb 17.2 H, Hct 51.9, MCV 90.3, MCH 29.9, MCHC 33.1, RDW Std Deviation 46.9 H, RDW Coeff of Jennifer 14.4, Plt Count 277, MPV 8.9, Immature Gran % (Auto) 1.100 H, Neut % (Auto) 84.4 H, Lymph % (Auto) 3.6 L, Martin % (Auto) 10.7 H, Eos % (Auto) 0.0, Baso % (Auto) 0.2, Absolute Neuts (auto) 18.0 H, Absolute Lymphs (auto) 0.77 L, Nucleated RBC % 0, Differential Comment SCANNED, Diff Path Review Reviewed, Atypical Lymphocytes RARE 01/26/20 04:45: Sodium 134 L, Potassium 7.8 H*, Chloride 100, Carbon Dioxide 26.0, Anion Gap 8, BUN 44 H, Creatinine 3.63 H, Estim Creat Clear Calc 32.66, Est GFR (MDRD) Af Amer 25 L, Est GFR (MDRD) Non-Af 21 L, BUN/Creatinine Ratio 12.1, Glucose 123 H, Calcium 6.0 L*, Phosphorus 7.2 H, Magnesium 3.4 H, Total Bilirubin 0.90, AST 5198 H, ALT 922 H, Alkaline Phosphatase 96, Total Creatine Kinase 737286 H, Total Protein 6.9, Albumin 2.4 L, Globulin 4.5 H, Albumin/Globulin Ratio 0.5 L 01/26/20 08:10: PT 15.8 H, INR 1.3, APTT 27.6 01/26/20 08:10: Hepatitis A IgM Ab Pending, Hep Bs Antigen Pending, Hep B Core IgM Ab Pending, Hepatitis C Ab (EIA) Pending Current Medications Albuterol Sulfate (Ventolin Aerosols) 2.5 mg INHALATION Q2H PRN PRN PRN Reason: WHEEZING Chlorhexidine Gluconate () 15 ml PO BID [facility]EMAL Last Admin: 01/25/20 22:51 Dose: 15 ml Documented by: Heparin Sodium (Porcine) () 5,000 units SC Q8 [facility] Fentanyl () 100 mls @ 5 mls/hr IV UD [facility]; Protocol Last Titration: 01/26/20 10:00 Dose: 200 mcg/hr, 20 mls/hr Documented by: Propofol (Diprivan) 1,000 mg in 100 mls @ 7.314 mls/hr CONT INF .Q12H [facility]; Protocol Last Titration: 01/26/20 10:00 Dose: 35 mcg/kg/min, 25.6 mls/hr Documented by: Sodium Chloride () 250 mls @ 15 mls/hr IV .[id number] PRN PRN Reason: Saline Flush Sodium Chloride () 250 mls @ 15 mls/hr IV .[id number] PRN PRN Reason: Additional IVPB Infusion Ampicillin Sodium/Sulbactam Sodium 1,500 mg/ Sodium Chloride 50 mls @ 100 mls/hr IV Q8 [facility] Last Infusion: 01/26/20 05:58 Dose: Infused Documented by: Sodium Bicarbonate 150 meq/ (Dextrose) 1,150 mls @ 75 mls/hr IV .[id number] [facility] Last Admin: 01/26/20 08:50 Dose: 75 mls/hr Documented by: Sodium Chloride () 1,000 mls @ 200 mls/hr IV .Q5H [facility] Last Admin: 01/26/20 08:52 Dose: 150 mls/hr Documented by: Famotidine 20 mg/ Sodium (Chloride) 10 mls @ 300 mls/hr IV DAILY [facility] Enteral Nutritional Formula (Vital Af 1.2 González Liquid) 1,000 mls @ 20 mls/hr GT .Q48H [facility] Senna/Docusate Sodium (Senokot-S, Rosalba-Colace) 2 tablet GT BID PRN PRN PRN Reason: Constipation Sodium Chloride () 10 - 40 ml IV UD PRN PRN Reason: SALINE FLUSH Last Admin: 01/26/20 06:46 Dose: 20 ml Documented by: Assessment/Plan All Active Problems Cardiopulmonary arrest with successful resuscitation (Acute) Hypocalcemia (Acute) Hyperkalemia (Acute) KEITH (acute kidney injury) (Acute) Metabolic acidosis, increased anion gap (Acute) Respiratory failure with hypoxia (Acute) Pulseless electrical activity with heart block (Acute) Ventricular fibrillation seen on environmental monitoring specialist (Acute) Gross hematuria (Acute) LV dysfunction (Acute) Non-STEMI (non-ST elevated myocardial infarction) (Acute) KEITH -ATN Hyperkalemia severe Rhabdomyolysis NSTEMI Polysubstance abuse Respiratory failure s/p intubation Shock liver HF Continue with dialysis today via right IJ temporary dialysis catheter. Recheck BMP this evening. Continue IV fluids. Monitor I's and O's. Check UA. Avoid nephrotoxins Check BMP and phosphorus in a.m. Keep MAP more than 65 Renal Ultrasound reviewed and it was normal Very much for allowing me to participate in the care of this patient. Please do not hesitate to call if you have any questions or concerns. I d/w with dialysis nurse ICU nurse and Dr. Sultana
[2020-01-26] MEDS: fentaNYL drip 100 ML 20 MCG IV ×3 (12:18→22:50)
[2020-01-26] MEDS: 0.9% Normal Saline 1,000 ML 200 ML IV ×2 (14:46→19:50)
--- NOTE | 2020-01-26 14:51 | DIALYSIS ---
HD today as ordered. 4hr 2k uf ran even no issues stable run RIJ closed to fill with heparin 1000units/ml report to Nicole DELUNA
[2020-01-26] MEDS: hydrALAZINE 20 MG/ML Vial 5 MG IV (16:00)
[2020-01-26] MEDS: Famotidine 200 MG/20 ML MDV 20 MG in 0.9% Normal Saline (Pres. free 8 ML 300 MG IV (16:01)
[2020-01-26 16:32] LABS: Bacteria 0 SEEN /hpf (None Seen); Mucous, Urine 0 SEEN /hpf (<or=2+); Squamous Epithelial Cells - UA 0 SEEN /hpf (0-5)
[2020-01-26 16:40] LABS: Color, Urine Brown (Yellow); Glucose, Dipstick 50 mg/dl (Normal); Ketone-Dipstick 15 mg/dl (Negative); Leukocyte Esterase-Dipstick 100 /ul (Negative); Nitrite-Dipstick Negative (Negative); Occult Blood-Urine 250 /ul (Negative); Protein-Dipstick 500 mg/dl (Negative); Specific Gravity, Urine 1.015 (1.002-1.030); Urine Bilirubin Dipstick Negative (Negative); Urine Clarity Turbid (Clear); Urine Urobilinogen Normal (Normal)
[2020-01-26 16:52] LABS: Amorphous Sediment 3+
[2020-01-26 16:53] LABS: Red Blood Cells-Urine 10-25 SEEN /hpf (0-5); White Blood Cells 0-5 SEEN /hpf (0-5)
[2020-01-26 16:54] LABS: Renal Epithelial Cells 0-5 SEEN /hpf (0-5); Transitional Epithelial - Ur 0-5 SEEN /hpf (0-5)
[2020-01-26] MEDS: Vital AF 1.2 Cal Liquid 1,000 ML 20 ML GT (19:21)
[2020-01-26 21:15] LABS: Anion Gap 5 (5-15); BUN 34 mg/dL (7-18); BUN/Creat Ratio 8.5 RATIO (10-20); Calcium,Total 6.4 mg/dL (8.5-10.1); Chloride 102 mmol/L (98-107); EST Glomerular Filtration Rate 19 mL/min (>60); Est Glom Filt Rate - Afr Amer 23 mL/min (>60); Estimated Creatinine Clearance 29.64 ml/min; Glucose 102 mg/dL (74-106); Potassium 5.9 mmol/L (3.5-5.1); Sodium Level 135 mmol/L (136-145)
[2020-01-26] MEDS: hydrALAZINE 20 MG/ML Vial 10 MG IV (22:11)
[2020-01-26] MEDS: Heparin Injection 5,000 UNITS/ML Syringe 5000 UNITS SC (22:23)
[2020-01-27] VITALS (35 sets, daily range): BP systolic 144–183; BP diastolic 89–113; PULSE 76–123; RESP 11–21; TEMP 37.4–38.2; O2SAT 89–100
[2020-01-27] MEDS: 0.9% Normal Saline 1,000 ML 200 ML IV ×5 (01:20→21:13)
[2020-01-27 03:52] LABS: Absolute Lymphocyte Count 1.04 X10^3/uL (0.83-4.51); Absolute Neutrophil Count 13.5 X10^3/uL (2.0-7.7); Basophil# 0.04 X10^3/uL; Basophil% 0.2 % (0-1); Eosinophil# 0.01 X10^3/uL; Eosinophils% 0.1 % (0-5); Hemoglobin 13.8 g/dL (13.0-16.5); Lymphocyte # 1.04 X10^3/ul (4.0); Lymphocyte % 6.2 % (19-41); Mean Corp Hgb Conc 32.9 g/dL (32-36); Mean Corpuscular Hgb 29.7 pg (27.0-32.0); Mean Corpuscular Volume 90.3 fL (80-94); Mean Platelet Vol. 9.1 fl (6.2-12.0); Monocyte# 2.21 X10^3/uL; Monocyte% 13.1 % (0-10); NRBC Flagged by Analyzer 0 % (0-5); Neutrophil # 13.48 X10^3/uL (2.7-7.7); Neutrophil % 79.6 % (47-70); POSITIVE DIFFERENTIAL YES; Platelet Count 210 K/mm3 (150-450); RBC Distribution Width CV 14.3 % (11.6-14.6); RBC Distribution Width SD 47.4 fl (35.1-43.9); Red Blood Count 4.65 M/mm3 (4.6-6.2); White Blood Count 16.9 K/mm3 (4.4-11.0)
[2020-01-27 03:56] LABS: Differential Indicated SCAN CRITERIA MET
[2020-01-27] MEDS: fentaNYL drip 100 ML 10 MCG IV (04:00)
--- NOTE | 2020-01-27 04:07 | NURSING ---
Decreased Fentanyl gtt by 50% for SBT this AM.
[2020-01-27] MEDS: hydrALAZINE 20 MG/ML Vial 10 MG IV (04:09)
[2020-01-27] MEDS: 0.9% Saline Lock 10 ML Syringe IV ×2 (04:24→04:31)
[2020-01-27 04:25] LABS: ALB/GLOB Ratio 0.5 RATIO (0.9-2.4); AST(SGOT) 4020 U/L (15-37); Alanine Aminotransfer ALT/SGPT 823 U/L (16-61); Albumin, Serum 1.8 g/dL (3.2-5.0); Alkaline Phosphatase 87 U/L (45-117); Anion Gap 8 (5-15); BUN 41 mg/dL (7-18); BUN/Creat Ratio 8.4 RATIO (10-20); Calcium,Total 6.1 mg/dL (8.5-10.1); Chloride 100 mmol/L (98-107); Creatinine, Serum 4.88 mg/dL (0.70-1.30); EST Glomerular Filtration Rate 15 mL/min (>60); Est Glom Filt Rate - Afr Amer 18 mL/min (>60); Estimated Creatinine Clearance 24.29 ml/min; Globulin 3.9 g/dL (2.2-4.2); Glucose 111 mg/dL (74-106); Potassium 5.5 mmol/L (3.5-5.1); Protein, Total 5.7 g/dL (6.4-8.2); Sodium Level 135 mmol/L (136-145)
[2020-01-27 04:30] LABS: Differential Comment SCANNED
[2020-01-27] MEDS: proCHLORPERazine 10 MG/2 ML Vial 5 MG IV (04:30)
[2020-01-27 05:06] LABS: HEPATITIS B SURFACE AG Negative (Negative); Hepatitis A IgM Antibody Negative (Negative); Hepatitis B Core AB IgM Negative (Negative)
[2020-01-27] MEDS: Heparin Injection 5,000 UNITS/ML Syringe 5000 UNITS SC (05:46)
[2020-01-27 06:05] LABS: Base Excess 0 mmol/L (-2 to +2); Bicarbonate 24.5 mmol/L (22-26); PO2 111 mmHG (75-100); SO2 98 % (95-99); Total Carbon Dioxide 26 mmol/L; pCO2 37.7 mmHg (35-45); pH 7.42 (7.35-7.45)
[2020-01-27 06:07] LABS: Allen Test POS; Blood Gas Specimen Type ART; FI02 30; Mode CPAP; PEEP 5; PS 5; SITE L RADIAL
[2020-01-27 06:08] LABS: Time Given 552
--- NOTE | 2020-01-27 06:10 | NURSING ---
Pt. extubated by respiratory. Tolerated well. On 3L NC.
--- NOTE | 2020-01-27 06:34 | PCM.PN.INT ---
Subjective: Patient did okay overnight. Patient did have episodes of hypertension requiring intervention with hydralazine. Patient also had some tachycardia, but was able to tolerate spontaneous breathing trial this morning. Patient continues to report whole body soreness. General: Alert, Cooperative, No apparent distress, - - Good vent synchrony previously. No stridor noted post extubation. HEENT: Atraumatic, PERRLA, EOMI, Normocephalic, - - Slight scleral injection without icterus Oral: Moist Mucosa, No Gingival or Mucosal Lesions/ Ulcerations Neck: Supple, No JVD, No Nodes, Trachea Midline Lungs: No rhonchi, No wheeze, No rales, Diminished, - - Patient did have a mucous plug this morning that was successfully suctioned per respiratory Cardiovascular: Normal S1, Normal S2, No murmurs, No rub noted, No Gallop, Tachycardic Abdomen: Bowel Sounds Present, Soft, Non Tender, Non-Distended, Obese Extremities: No clubbing, No cyanosis, Capillary Refill Less than 3 Seconds, Edema Skin: No rashes, No breakdown Musculoskeletal: Tenderness - Soft tissue palpation of the extremities Lymphatic: No Cervical, Supraclavicular, or Inguinal Adenopathy Neurological: Cranial nerves II-XII grossly intact, Neuro grossly intact - Muscle weakness, but nonfocal Psych/Mental Status: Alert and oriented to time, place, person, mood and affect Vital Signs Temp Pulse Resp BP Pulse Ox 38.1 C H 116 H 18 178/106 H 98 01/27/20 06:00 01/27/20 06:10 01/27/20 06:10 01/27/20 06:00 01/27/20 06:10 Oxygen Flow Rate (L/min) 3 Oxygen Delivery Method Nasal Cannula Weight: 126.1 kg Body Mass Index (BMI) 36.3 Finger Stick Blood Glucose 160 Intake and Output for Last 24 Hours 01/25/20 01/26/20 01/27/20 23:59 23:59 23:59 Intake Total 3395.49 / 3417.14 6300.24 / 6322.37 2093.67 / 2093.67 Output Total 1350 / 1350 590 / 590 75 / 75 Balance 2045.49 / 2067.14 5710.24 / 5732.37 / Labs (Last 48 Hours) 01/25/20 01/25/2001/24/20 10:38 10:38 10:38 WBC 16.3 H RBC 4.19 L Hgb 12.7 L Hct 39.5 L MCV 94.3 H MCH 30.3 MCHC 32.2 RDW Std Deviation 47.9 H RDW Coeff of Jennifer 13.9 Plt Count 250 MPV 8.9 Immature Gran % (Auto) Neut % (Auto) Not Reportable Lymph % (Auto) [place] % (Auto) Eos % (Auto) Baso % (Auto) Absolute Neuts (auto) 14.5 H Absolute Lymphs (auto) 0.98 Total Counted 100 Neutrophils % (Manual) 85 H Band Neutrophils % 4 Lymphocytes % (Manual) 6 L Monocytes % (Manual) 5 Nucleated RBC % Differential Comment Diff Path Review Reviewed Atypical Lymphocytes Platelet Estimate ADEQUATE RBC Morphology NORM C+C PT INR APTT Specimen Type Sample Site pH Bicarbonate Actual POC Total CO2 Base Excess O2 Saturation O2 % ABG pCO2 ABG pO2 Jeffrey Test VBG pH VBG pO2 VBG O2 Sat (Calc) VBG O2 Content VBG Base Excess POC Mix VBG pCO2 Pt Tmp Respiration Rate O2 Delivery Device Liter Flow Vent Mode Tidal Volume POC PEEP POC Pressure Suppt Blood Gas Notified Whom Blood Gas Notified Time Sodium 144 Potassium 4.9 Chloride 113 H Carbon Dioxide 17.0 L Anion Gap 14 BUN 24 H Creatinine 1.97 H Estim Creat Clear Calc 60.18 Est GFR (MDRD) Af Amer 51 L Est GFR (MDRD) Non-Af 42 L BUN/Creatinine Ratio 12.2 Glucose 160 H Calcium 5.5 L* Ionized Calcium Phosphorus Magnesium Total Bilirubin 0.60 Direct Bilirubin 0.15 AST 1825 H ALT 310 H Alkaline Phosphatase 60 Total Creatine Kinase Troponin I Total Protein 4.6 L Albumin 1.9 L Globulin 2.7 Albumin/Globulin Ratio Triglycerides Urine Color Urine Clarity Urine pH Ur Specific [place] Urine Protein Urine Glucose (UA) Urine Ketones Urine Occult Blood Urine Nitrite Urine Bilirubin Urine Urobilinogen Ur Leukocyte Esterase Urine RBC Urine WBC Ur Squamous Epith Cells Ur Transition Epith Cell Ur Renal Epithelial Cell Amorphous Sediment Urine Bacteria Urine Mucus Urine Opiates Screen Urine Methadone Screen Ur Barbiturates Screen Ur Phencyclidine Scrn Ur Amphetamines Screen U Methamphetamin-MDMA U Benzodiazepines Scrn Urine Cocaine Screen U Cannabinoids Screen Ur Drug Screen Comment Ethyl Alcohol < 3.0 Hepatitis A IgM Ab Hep Bs Antigen Hep B Core IgM Ab Hepatitis C Ab (EIA) 01/25/20 01/25/20 01/25/20 10:38 10:47 11:15 WBC RBC Hgb Hct MCV MCH MCHC RDW Std Deviation RDW Coeff of Jennifer Plt Count MPV Immature Gran % (Auto) Neut % (Auto) Lymph % (Auto) [place] % (Auto) Eos % (Auto) Baso % (Auto) Absolute Neuts (auto) Absolute Lymphs (auto) Total Counted Neutrophils % (Manual) Band Neutrophils % Lymphocytes % (Manual) Monocytes % (Manual) Nucleated RBC % Differential Comment Diff Path Review Atypical Lymphocytes Platelet Estimate RBC Morphology PT 18.5 H INR 1.6 APTT 36.5 H Specimen Type ESTRELLITA Sample Site pH Bicarbonate Actual POC Total CO2 Base Excess O2 Saturation O2 % 100 ABG pCO2 ABG pO2 Jeffrey Test VBG pH 7.19 L* VBG pO2 53 H VBG O2 Sat (Calc) 79 H VBG O2 Content 16 L VBG Base Excess -13 L POC Mix VBG pCO2 Pt Tmp 39.5 L Respiration Rate O2 Delivery Device Ambu Liter Flow 15.0 Vent Mode Tidal Volume POC PEEP POC Pressure Suppt Blood Gas Notified Whom ED MD Blood Gas Notified Time 1047 Sodium Potassium Chloride Carbon Dioxide Anion Gap BUN Creatinine Estim Creat Clear Calc Est GFR (MDRD) Af Amer Est GFR (MDRD) Non-Af BUN/Creatinine Ratio Glucose Calcium Ionized Calcium Phosphorus Magnesium Total Bilirubin Direct Bilirubin AST ALT Alkaline Phosphatase Total Creatine Kinase Troponin I Total Protein Albumin Globulin Albumin/Globulin Ratio Triglycerides Urine Color Urine Clarity Urine pH Ur Specific [place] Urine Protein Urine Glucose (UA) Urine Ketones Urine Occult Blood Urine Nitrite Urine Bilirubin Urine Urobilinogen Ur Leukocyte Esterase Urine RBC Urine WBC Ur Squamous Epith Cells Ur Transition Epith Cell Ur Renal Epithelial Cell Amorphous Sediment Urine Bacteria Urine Mucus Urine Opiates Screen NEGATIVE Urine Methadone Screen NEGATIVE Ur Barbiturates Screen NEGATIVE Ur Phencyclidine Scrn NEGATIVE Ur Amphetamines Screen NEGATIVE U Methamphetamin-MDMA NEGATIVE U Benzodiazepines Scrn NEGATIVE Urine Cocaine Screen POSITIVE H U Cannabinoids Screen POSITIVE H Ur Drug Screen Comment Ethyl Alcohol Hepatitis A IgM Ab Hep Bs Antigen Hep B Core IgM Ab Hepatitis C Ab (EIA) 01/25/20 01/25/20 01/25/20 11:58 12:07 12:07 WBC RBC Hgb Hct MCV MCH MCHC RDW Std Deviation RDW Coeff of Jennifer Plt Count MPV Immature Gran % (Auto) Neut % (Auto) Lymph % (Auto) [place] % (Auto) Eos % (Auto) Baso % (Auto) Absolute Neuts (auto) Absolute Lymphs (auto) Total Counted Neutrophils % (Manual) Band Neutrophils % Lymphocytes % (Manual) Monocytes % (Manual) Nucleated RBC % Differential Comment Diff Path Review Atypical Lymphocytes Platelet Estimate RBC Morphology PT INR APTT Specimen Type ART Sample Site R BRACHIAL pH 7.15 L* Bicarbonate Actual 19.5 L POC Total CO2 21 Base Excess -9 L O2 Saturation 100 H O2 % 100 ABG pCO2 56.1 H ABG pO2 321 H* Jeffrey Test NA VBG pH VBG pO2 VBG O2 Sat (Calc) VBG O2 Content VBG Base Excess POC Mix VBG pCO2 Pt Tmp Respiration Rate 16 O2 Delivery Device Vent Liter Flow Vent Mode A-C Tidal Volume 500 POC PEEP 5 POC Pressure Suppt Blood Gas Notified Whom ED Blood Gas Notified Time Sodium 136 Potassium 7.1 H* Chloride 100 Carbon Dioxide 22.0 Anion Gap 14 BUN 29 H Creatinine 2.69 H Estim Creat Clear Calc 44.07 Est GFR (MDRD) Af Amer 36 L Est GFR (MDRD) Non-Af 30 L BUN/Creatinine Ratio 10.8 Glucose 166 H Calcium 6.8 L Ionized Calcium 3.2 L Phosphorus Magnesium 4.1 H Total Bilirubin 1.20 H Direct Bilirubin AST 3395 H ALT 682 H Alkaline Phosphatase 103 Total Creatine Kinase 018446 H Troponin I 1.090 H* Total Protein 7.5 Albumin 3.1 L Globulin 4.4 H Albumin/Globulin Ratio 0.7 L Triglycerides Urine Color Urine Clarity Urine pH Ur Specific [place] Urine Protein Urine Glucose (UA) Urine Ketones Urine Occult Blood Urine Nitrite Urine Bilirubin Urine Urobilinogen Ur Leukocyte Esterase Urine RBC Urine WBC Ur Squamous Epith Cells Ur Transition Epith Cell Ur Renal Epithelial Cell Amorphous Sediment Urine Bacteria Urine Mucus Urine Opiates Screen Urine Methadone Screen Ur Barbiturates Screen Ur Phencyclidine Scrn Ur Amphetamines Screen U Methamphetamin-MDMA U Benzodiazepines Scrn Urine Cocaine Screen U Cannabinoids Screen Ur Drug Screen Comment Ethyl Alcohol Hepatitis A IgM Ab Hep Bs Antigen Hep B Core IgM Ab Hepatitis C Ab (EIA) 01/25/20 01/25/20 01/25/20 15:40 16:58 17:50 WBC RBC Hgb Hct MCV MCH MCHC RDW Std Deviation RDW Coeff of Jennifer Plt Count MPV Immature Gran % (Auto) Neut % (Auto) Lymph % (Auto) [place] % (Auto) Eos % (Auto) Baso % (Auto) Absolute Neuts (auto) Absolute Lymphs (auto) Total Counted Neutrophils % (Manual) Band Neutrophils % Lymphocytes % (Manual) Monocytes % (Manual) Nucleated RBC % Differential Comment Diff Path Review Atypical Lymphocytes Platelet Estimate RBC Morphology PT INR APTT Specimen Type Sample Site pH Bicarbonate Actual POC Total CO2 Base Excess O2 Saturation O2 % ABG pCO2 ABG pO2 Jeffrey Test VBG pH VBG pO2 VBG O2 Sat (Calc) VBG O2 Content VBG Base Excess POC Mix VBG pCO2 Pt Tmp Respiration Rate O2 Delivery Device Liter Flow Vent Mode Tidal Volume POC PEEP POC Pressure Suppt Blood Gas Notified Whom Blood Gas Notified Time Sodium Cancelled Cancelled 135 L Potassium Cancelled Cancelled 7.8 H* Chloride Cancelled Cancelled 103 Carbon Dioxide Cancelled Cancelled 24.0 Anion Gap Cancelled Cancelled 8 BUN Cancelled Cancelled 35 H Creatinine Cancelled Cancelled 2.71 H Estim Creat Clear Calc Cancelled Cancelled 43.75 Est GFR (MDRD) Af Amer Cancelled Cancelled 36 L Est GFR (MDRD) Non-Af Cancelled Cancelled 29 L BUN/Creatinine Ratio Cancelled Cancelled 12.9 Glucose Cancelled Cancelled 135 H Calcium Cancelled Cancelled 6.4 L* Ionized Calcium Phosphorus Magnesium Total Bilirubin Direct Bilirubin AST ALT Alkaline Phosphatase Total Creatine Kinase > 899511 H Troponin I Cancelled Cancelled 14.400 H* Total Protein Albumin Globulin Albumin/Globulin Ratio Triglycerides 112 Urine Color Urine Clarity Urine pH Ur Specific [place] Urine Protein Urine Glucose (UA) Urine Ketones Urine Occult Blood Urine Nitrite Urine Bilirubin Urine Urobilinogen Ur Leukocyte Esterase Urine RBC Urine WBC Ur Squamous Epith Cells Ur Transition Epith Cell Ur Renal Epithelial Cell Amorphous Sediment Urine Bacteria Urine Mucus Urine Opiates Screen Urine Methadone Screen Ur Barbiturates Screen Ur Phencyclidine Scrn Ur Amphetamines Screen U Methamphetamin-MDMA U Benzodiazepines Scrn Urine Cocaine Screen U Cannabinoids Screen Ur Drug Screen Comment Ethyl Alcohol Hepatitis A IgM Ab Hep Bs Antigen Hep B Core IgM Ab Hepatitis C Ab (EIA) 01/25/20 01/26/20 01/26/20 20:41 04:45 04:45 WBC 21.4 H RBC 5.75 Hgb 17.2 H Hct 51.9 MCV 90.3 MCH 29.9 MCHC 33.1 RDW Std Deviation 46.9 H RDW Coeff of Jennifer 14.4 Plt Count 277 MPV 8.9 Immature Gran % (Auto) 1.100 H Neut % (Auto) 84.4 H Lymph % (Auto) 3.6 L [place] % (Auto) 10.7 H Eos % (Auto) 0.0 Baso % (Auto) 0.2 Absolute Neuts (auto) 18.0 H Absolute Lymphs (auto) 0.77 L Total Counted Neutrophils % (Manual) Band Neutrophils % Lymphocytes % (Manual) Monocytes % (Manual) Nucleated RBC % 0 Differential Comment SCANNED Diff Path Review Reviewed Atypical Lymphocytes RARE Platelet Estimate RBC Morphology PT INR APTT Specimen Type Sample Site pH Bicarbonate Actual POC Total CO2 Base Excess O2 Saturation O2 % ABG pCO2 ABG pO2 Jeffrey Test VBG pH VBG pO2 VBG O2 Sat (Calc) VBG O2 Content VBG Base Excess POC Mix VBG pCO2 Pt Tmp Respiration Rate O2 Delivery Device Liter Flow Vent Mode Tidal Volume POC PEEP POC Pressure Suppt Blood Gas Notified Whom Blood Gas Notified Time Sodium 134 L Potassium 7.8 H* Chloride 100 Carbon Dioxide 26.0 Anion Gap 8 BUN 44 H Creatinine 3.63 H Estim Creat Clear Calc 32.66 Est GFR (MDRD) Af Amer 25 L Est GFR (MDRD) Non-Af 21 L BUN/Creatinine Ratio 12.1 Glucose 123 H Calcium 6.0 L* Ionized Calcium Phosphorus 7.2 H Magnesium 3.4 H Total Bilirubin 0.90 Direct Bilirubin AST 5198 H ALT 922 H Alkaline Phosphatase 96 Total Creatine Kinase 025911 H Troponin I 20.200 H* Total Protein 6.9 Albumin 2.4 L Globulin 4.5 H Albumin/Globulin Ratio 0.5 L Triglycerides Urine Color Urine Clarity Urine pH Ur Specific [place] Urine Protein Urine Glucose (UA) Urine Ketones Urine Occult Blood Urine Nitrite Urine Bilirubin Urine Urobilinogen Ur Leukocyte Esterase Urine RBC Urine WBC Ur Squamous Epith Cells Ur Transition Epith Cell Ur Renal Epithelial Cell Amorphous Sediment Urine Bacteria Urine Mucus Urine Opiates Screen Urine Methadone Screen Ur Barbiturates Screen Ur Phencyclidine Scrn Ur Amphetamines Screen U Methamphetamin-MDMA U Benzodiazepines Scrn Urine Cocaine Screen U Cannabinoids Screen Ur Drug Screen Comment Ethyl Alcohol Hepatitis A IgM Ab Hep Bs Antigen Hep B Core IgM Ab Hepatitis C Ab (EIA) 01/26/20 01/26/20 01/26/20 08:10 08:10 16:20 WBC RBC Hgb Hct MCV MCH MCHC RDW Std Deviation RDW Coeff of Jennifer Plt Count MPV Immature Gran % (Auto) Neut % (Auto) Lymph % (Auto) [place] % (Auto) Eos % (Auto) Baso % (Auto) Absolute Neuts (auto) Absolute Lymphs (auto) Total Counted Neutrophils % (Manual) Band Neutrophils % Lymphocytes % (Manual) Monocytes % (Manual) Nucleated RBC % Differential Comment Diff Path Review Atypical Lymphocytes Platelet Estimate RBC Morphology PT 15.8 H INR 1.3 APTT 27.6 Specimen Type Sample Site pH Bicarbonate Actual POC Total CO2 Base Excess O2 Saturation O2 % ABG pCO2 ABG pO2 Jeffrey Test VBG pH VBG pO2 VBG O2 Sat (Calc) VBG O2 Content VBG Base Excess POC Mix VBG pCO2 Pt Tmp Respiration Rate O2 Delivery Device Liter Flow Vent Mode Tidal Volume POC PEEP POC Pressure Suppt Blood Gas Notified Whom Blood Gas Notified Time Sodium Potassium Chloride Carbon Dioxide Anion Gap BUN Creatinine Estim Creat Clear Calc Est GFR (MDRD) Af Amer Est GFR (MDRD) Non-Af BUN/Creatinine Ratio Glucose Calcium Ionized Calcium Phosphorus Magnesium Total Bilirubin Direct Bilirubin AST ALT Alkaline Phosphatase Total Creatine Kinase Troponin I Total Protein Albumin Globulin Albumin/Globulin Ratio Triglycerides Urine Color Brown Urine Clarity Turbid Urine pH 7.0 Ur Specific [place] 1.015 Urine Protein 500 H Urine Glucose (UA) 50 H Urine Ketones 15 H Urine Occult Blood 250 H Urine Nitrite Negative Urine Bilirubin Negative Urine Urobilinogen Normal Ur Leukocyte Esterase 100 H Urine RBC 10-25 SEEN Urine WBC 0-5 SEEN Ur Squamous Epith Cells 0 SEEN Ur Transition Epith Cell 0-5 SEEN Ur Renal Epithelial Cell 0-5 SEEN Amorphous Sediment 3+ Urine Bacteria 0 SEEN Urine Mucus 0 SEEN Urine Opiates Screen Urine Methadone Screen Ur Barbiturates Screen Ur Phencyclidine Scrn Ur Amphetamines Screen U Methamphetamin-MDMA U Benzodiazepines Scrn Urine Cocaine Screen U Cannabinoids Screen Ur Drug Screen Comment Ethyl Alcohol Hepatitis A IgM Ab Pending Hep Bs Antigen Pending Hep B Core IgM Ab Pending Hepatitis C Ab (EIA) Pending 01/26/20 01/27/20 01/27/20 20:30 03:45 03:45 WBC 16.9 H RBC 4.65 Hgb 13.8 Hct 42.0 MCV 90.3 MCH 29.7 MCHC 32.9 RDW Std Deviation 47.4 H RDW Coeff of Ejnnifer 14.3 Plt Count 210 MPV 9.1 Immature Gran % (Auto) 0.800 Neut % (Auto) 79.6 H Lymph % (Auto) 6.2 L [place] % (Auto) 13.1 H Eos % (Auto) 0.1 Baso % (Auto) 0.2 Absolute Neuts (auto) 13.5 H Absolute Lymphs (auto) 1.04 Total Counted Neutrophils % (Manual) Band Neutrophils % Lymphocytes % (Manual) Monocytes % (Manual) Nucleated RBC % 0 Differential Comment SCANNED Diff Path Review May foll Atypical Lymphocytes Platelet Estimate RBC Morphology PT INR APTT Specimen Type Sample Site pH Bicarbonate Actual POC Total CO2 Base Excess O2 Saturation O2 % ABG pCO2 ABG pO2 Jeffrey Test VBG pH VBG pO2 VBG O2 Sat (Calc) VBG O2 Content VBG Base Excess POC Mix VBG pCO2 Pt Tmp Respiration Rate O2 Delivery Device Liter Flow Vent Mode Tidal Volume POC PEEP POC Pressure Suppt Blood Gas Notified Whom Blood Gas Notified Time Sodium 135 L 135 L Potassium 5.9 H 5.5 H Chloride 102 100 Carbon Dioxide 28.0 27.0 Anion Gap 5 8 BUN 34 H 41 H Creatinine 4.00 H 4.88 H Estim Creat Clear Calc 29.64 24.29 Est GFR (MDRD) Af Amer 23 L 18 L Est GFR (MDRD) Non-Af 19 L 15 L BUN/Creatinine Ratio 8.5 L 8.4 L Glucose 102 111 H Calcium 6.4 L* 6.1 L* Ionized Calcium Phosphorus Magnesium Total Bilirubin 0.70 Direct Bilirubin AST 4020 H ALT 823 H Alkaline Phosphatase 87 Total Creatine Kinase Troponin I Total Protein 5.7 L Albumin 1.8 L Globulin 3.9 Albumin/Globulin Ratio 0.5 L Triglycerides Urine Color Urine Clarity Urine pH Ur Specific [place] Urine Protein Urine Glucose (UA) Urine Ketones Urine Occult Blood Urine Nitrite Urine Bilirubin Urine Urobilinogen Ur Leukocyte Esterase Urine RBC Urine WBC Ur Squamous Epith Cells Ur Transition Epith Cell Ur Renal Epithelial Cell Amorphous Sediment Urine Bacteria Urine Mucus Urine Opiates Screen Urine Methadone Screen Ur Barbiturates Screen Ur Phencyclidine Scrn Ur Amphetamines Screen U Methamphetamin-MDMA U Benzodiazepines Scrn Urine Cocaine Screen U Cannabinoids Screen Ur Drug Screen Comment Ethyl Alcohol Hepatitis A IgM Ab Hep Bs Antigen Hep B Core IgM Ab Hepatitis C Ab (EIA) 01/27/20 01/27/20 03:45 05:52 WBC RBC Hgb Hct MCV MCH MCHC RDW Std Deviation RDW Coeff of Jennifer Plt Count MPV Immature Gran % (Auto) Neut % (Auto) Lymph % (Auto) [place] % (Auto) Eos % (Auto) Baso % (Auto) Absolute Neuts (auto) Absolute Lymphs (auto) Total Counted Neutrophils % (Manual) Band Neutrophils % Lymphocytes % (Manual) Monocytes % (Manual) Nucleated RBC % Differential Comment Diff Path Review Atypical Lymphocytes Platelet Estimate RBC Morphology PT INR APTT Specimen Type ART Sample Site L RADIAL pH 7.42 Bicarbonate Actual 24.5 POC Total CO2 26 Base Excess 0 O2 Saturation 98 O2 % 30 ABG pCO2 37.7 ABG pO2 111 H Jeffrey Test POS VBG pH VBG pO2 VBG O2 Sat (Calc) VBG O2 Content VBG Base Excess POC Mix VBG pCO2 Pt Tmp Respiration Rate O2 Delivery Device Liter Flow Vent Mode CPAP Tidal Volume POC PEEP 5 POC Pressure Suppt 5 Blood Gas Notified Whom ICU MD Blood Gas Notified Time 552 Sodium Potassium Chloride Carbon Dioxide Anion Gap BUN Creatinine Estim Creat Clear Calc Est GFR (MDRD) Af Amer Est GFR (MDRD) Non-Af BUN/Creatinine Ratio Glucose Calcium Ionized Calcium Phosphorus Magnesium Total Bilirubin Direct Bilirubin AST ALT Alkaline Phosphatase Total Creatine Kinase Pending Troponin I Total Protein Albumin Globulin Albumin/Globulin Ratio Triglycerides Urine Color Urine Clarity Urine pH Ur Specific [place] Urine Protein Urine Glucose (UA) Urine Ketones Urine Occult Blood Urine Nitrite Urine Bilirubin Urine Urobilinogen Ur Leukocyte Esterase Urine RBC Urine WBC Ur Squamous Epith Cells Ur Transition Epith Cell Ur Renal Epithelial Cell Amorphous Sediment Urine Bacteria Urine Mucus Urine Opiates Screen Urine Methadone Screen Ur Barbiturates Screen Ur Phencyclidine Scrn Ur Amphetamines Screen U Methamphetamin-MDMA U Benzodiazepines Scrn Urine Cocaine Screen U Cannabinoids Screen Ur Drug Screen Comment Ethyl Alcohol Hepatitis A IgM Ab Hep Bs Antigen Hep B Core IgM Ab Hepatitis C Ab (EIA) Clinical Impression(s) from Imaging Studies Chest X-Ray 01/26/20 10:15 IMPRESSION: All the support tubes are in good position. Increased linear markings at the lung bases suggestive of bibasilar atelectasis. Electronically Signed: Sam Kamara, at 10:36 EDT , Service support , Medical Necessity - Tobacco Use Smoking Status: Current every day smoker Tobacco Use: Cigarettes Assessment/Plan All Active Problems Cardiopulmonary arrest with successful resuscitation (Acute) Hypocalcemia (Acute) Hyperkalemia (Acute) KEITH (acute kidney injury) (Acute) Metabolic acidosis, increased anion gap (Acute) Respiratory failure with hypoxia (Acute) Pulseless electrical activity with heart block (Acute) Ventricular fibrillation seen on security monitor (Acute) Gross hematuria (Acute) LV dysfunction (Acute) Non-STEMI (non-ST elevated myocardial infarction) (Acute) RECOMMENDATIONS: 1. Continue empiric antibiotics to complete a 5-day course 2. Hemodialysis per nephrology 3. Bedside swallow evaluation prior to p.o. diet 4. Initiate therapies (PT/OT) 5. Await cardiology recommendations (? Repeat echo) IMPRESSIONS: 1. Acute hypoxic respiratory failure with possible aspiration secondary to possible opiates Unclear surrounding history. Patient appears to be developing a right lower lobe infiltrate and was found with emesis around his mouth. Concern for aspiration. Given overnight mucous plugging, will treat for total of 5 days with empiric antibiotics. Lung exam is relatively unremarkable. Wean oxygen as tolerated. Encourage incentive spirometer. 2. Acute kidney injury secondary to rhabdomyolysis/hyperkalemia/hypocalcemia Concern for myoglobinuria leading to what appears to be hematuria. Patient had been reporting leg pain weakness prior to presentation. Patient may be having breakdown from toxic drug effects. Alkalinization of urine has been discontinued. Patient did receive hemodialysis yesterday. Defer to nephrology on if this is going to be repeated today. Repeat CPK is currently pending. Patient continues to make some urine 3. Systolic congestive heart failure/ventricular fibrillation/non-ST elevation [place] Patient with EF of 20% following arrest. Significant increase in troponin initially. Unclear if this is baseline versus new onset with shock. No pressors have been required. Patient has tested positive for cocaine. Given young age and global defects, coronary artery disease is unlikely. Await cardiology recommendations. Unclear if it is too soon to repeat echocardiogram, but patient has been significantly hypertensive overnight 4. Polysubstance abuse Patient has tested positive for marijuana and cocaine on his tox screen. Patient also has reportedly used heroin and fentanyl in the past. Patient has had hypertension and tachycardia overnight. Will see how patient adjusts to being extubated. This may be signs of withdrawal. 5. Shock liver Significant elevation of AST and ALT despite normotension. Cannot exclude toxic effects versus decreased perfusion during code leading to current findings. Improvement in LFTs may be secondary to dialysis more than improvement in liver function. Albumin is decreased, but there has been significant volume resuscitation efforts. 6. Poor history/obesity Complicates care, management, recovery and prognosis. DVT and GI prophylaxis. TIME: 34 minutes critical care time spent, excluding procedures, addressing patient's respiratory failure, acute kidney injury, CHF, review of all data and collaboration with care team. (5:30 AM to 6:30 AM) [id number] Critical care first hour
--- NOTE | 2020-01-27 07:05 | PCM.PN.HOSP ---
Patient Problems: Active and Suspected Problems Cardiopulmonary arrest with successful resuscitation (Acute) Hypocalcemia (Acute) Hyperkalemia (Acute) KEITH (acute kidney injury) (Acute) Metabolic acidosis, increased anion gap (Acute) Respiratory failure with hypoxia (Acute) Pulseless electrical activity with heart block (Acute) Ventricular fibrillation seen on personnel monitor (Acute) Gross hematuria (Acute) LV dysfunction (Acute) Non-STEMI (non-ST elevated myocardial infarction) (Acute) Reason for Visit: Follow-up on acute renal failure/rhabdomyolysis/acute kidney injury/uncontrolled hypertension Subjective: Patient was seen and examined. He was extubated this morning. He is currently on 3 L oxygen on room air. He is alert oriented x3. Complains of bilateral leg pain and numbness. Denies chest pain, SOB, abdominal pain Objective: Physical exam: General: Cooperative, alert, oriented x 3 HEENT: Atraumatic, PERRLA, EOMI, Normocephalic Oral: Moist Mucosa Neck: Supple Lungs: Normal air movement, Diminished, - - left subclavian central line, bilateral gynaecomastia Cardiovascular: Regular rate, Regular Rhythm, Normal S1, Normal S2 Abdomen: Bowel Sounds Present, Soft, Non Tender, Non-Distended, No Hepato-splenomegaly, - - Novak catheter has clearing hematuria with sediment Extremities: No edema Skin: No rashes Musculoskeletal: No Tenderness to Palpation of Joints or Extremities Lymphatic: No Cervical, Supraclavicular, or Inguinal Adenopathy Neurological: Cranial nerves II-XII grossly intact, Neuro grossly intact Psych/Mental Status: Normal Affect, Appropriate Vitals/I&O's: Vital Signs Temp Pulse Resp BP Pulse Ox 100.5 F H 116 H 18 178/106 H 98 01/27/20 06:00 01/27/20 06:10 01/27/20 06:10 01/27/20 06:00 01/27/20 06:10 Oxygen Flow Rate (L/min) 3 Oxygen Delivery Method Nasal Cannula Weight: 126.1 kg Body Mass Index (BMI) 36.3 Finger Stick Blood Glucose 160 Intake and Output for Last 24 Hours 01/25/20 01/26/20 01/27/20 23:59 23:59 23:59 Intake Total 3395.49 / 3417.14 6300.24 / 6322.37 2102.17 / 2102.17 Output Total 1350 / 1350 590 / 590 75 / 75 Balance 2044.49 / 2066.14 5710.24 / 5732.37 2026.17 / Laboratory Results 01/25/20 10:38: Diff Path Review Reviewed 01/25/20 12:07: Ionized Calcium 3.2 L 01/26/20 04:45: Diff Path Review Reviewed 01/26/20 08:10: PT 15.8 H, INR 1.3, APTT 27.6 01/26/20 08:10: Hepatitis A IgM Ab Pending, Hep Bs Antigen Pending, Hep B Core IgM Ab Pending, Hepatitis C Ab (EIA) Pending 01/26/20 16:20: Urine Color Brown, Urine Clarity Turbid, Urine pH 7.0, Ur Specific [place] 1.015, Urine Protein 500 H, Urine Glucose (UA) 50 H, Urine Ketones 15 H, Urine Occult Blood 250 H, Urine Nitrite Negative, Urine Bilirubin Negative, Urine Urobilinogen Normal, Ur Leukocyte Esterase 100 H, Urine RBC 10-25 SEEN, Urine WBC 0-5 SEEN, Ur Squamous Epith Cells 0 SEEN, Ur Transition Epith Cell 0-5 SEEN, Ur Renal Epithelial Cell 0-5 SEEN, Amorphous Sediment 3+, Urine Bacteria 0 SEEN, Urine Mucus 0 SEEN 01/26/20 20:30: Sodium 135 L, Potassium 5.9 H, Chloride 102, Carbon Dioxide 28.0, Anion Gap 5, BUN 34 H, Creatinine 4.00 H, Estim Creat Clear Calc 29.64, Est GFR (MDRD) Af Amer 23 L, Est GFR (MDRD) Non-Af 19 L, BUN/Creatinine Ratio 8.5 L, Glucose 102, Calcium 6.4 L* 01/27/20 03:45: WBC 16.9 H, RBC 4.65, Hgb 13.8, Hct 42.0, MCV 90.3, MCH 29.7, MCHC 32.9, RDW Std Deviation 47.4 H, RDW Coeff of Jennifer 14.3, Plt Count 210, MPV 9.1, Immature Gran % (Auto) 0.800, Neut % (Auto) 79.6 H, Lymph % (Auto) 6.2 L, [place] % (Auto) 13.1 H, Eos % (Auto) 0.1, Baso % (Auto) 0.2, Absolute Neuts (auto) 13.5 H, Absolute Lymphs (auto) 1.04, Nucleated RBC % 0, Differential Comment SCANNED, Diff Path Review December01/27/20 03:45: Sodium 135 L, Potassium 5.5 H, Chloride 100, Carbon Dioxide 27.0, Anion Gap 8, BUN 41 H, Creatinine 4.88 H, Estim Creat Clear Calc 24.29, Est GFR (MDRD) Af Amer 18 L, Est GFR (MDRD) Non-Af 15 L, BUN/Creatinine Ratio 8.4 L, Glucose 111 H, Calcium 6.1 L*, Total Bilirubin 0.70, AST 4020 H, ALT 823 H, Alkaline Phosphatase 87, Total Protein 5.7 L, Albumin 1.8 L, Globulin 3.9, Albumin/Globulin Ratio 0.5 L 01/27/20 03:45: Total Creatine Kinase Pending 01/27/20 05:52: Specimen Type ART, Sample Site L RADIAL, pH 7.42, Bicarbonate Actual 24.5, POC Total CO2 26, Base Excess 0, O2 Saturation 98, O2 % 30, ABG pCO2 37.7, ABG pO2 111 H, Jeffrey Test POS, Vent Mode CPAP, POC PEEP 5, POC Pressure Suppt 5, Blood Gas Notified Whom ICU MD, Blood Gas Notified Time 552 Current Medications Albuterol Sulfate (Ventolin Aerosols) 2.5 mg INHALATION Q2H PRN PRN PRN Reason: WHEEZING Heparin Sodium (Porcine) () 5,000 units SC Q8 [facility] Last Admin: 01/27/20 05:46 Dose: 5,000 units Documented by: Hydralazine HCl (Apresoline Iv) 10 mg IV Q6H PRN PRN PRN Reason: SBP>160 or DBP>100 Last Admin: 01/27/20 04:09 Dose: 10 mg Documented by: Sodium Chloride () 250 mls @ 15 mls/hr IV .[id number] PRN PRN Reason: Saline Flush Sodium Chloride () 250 mls @ 15 mls/hr IV .[id number] PRN PRN Reason: Additional IVPB Infusion Ampicillin Sodium/Sulbactam Sodium 1,500 mg/ Sodium Chloride 50 mls @ 100 mls/hr IV Q8 [facility] Last Infusion: 01/27/20 06:14 Dose: Infused Documented by: Sodium Chloride () 1,000 mls @ 200 mls/hr IV .Q5H HEMAL Last Admin: 01/27/20 06:20 Dose: 200 mls/hr Documented by: Famotidine 20 mg/ Sodium (Chloride) 10 mls @ 300 mls/hr IV DAILY HEMAL Last Infusion: 01/26/20 16:03 Dose: Infused Documented by: Prochlorperazine Edisylate (Compazine Iv) 5 mg IV Q6H PRN PRN PRN Reason: NAUSEA/VOMITING Last Admin: 01/27/20 04:30 Dose: 5 mg Documented by: Senna/Docusate Sodium (Senokot-S, Rosalba-Colace) 2 tablet GT BID PRN PRN PRN Reason: Constipation Sodium Chloride () 10 - 40 ml IV UD PRN PRN Reason: SALINE FLUSH Last Admin: 01/27/20 04:31 Dose: 10 ml Documented by: STROKE Vital Signs/Narrative: Vital Signs Temp Pulse Resp BP BP Pulse Ox 01/27/20 06:10 116 H 18 98 01/27/20 06:00 100.5 F H 113 H 11 L 178/106 H 100 01/27/20 05:00 100 F H 113 H 12 183/93 H 100 01/27/20 04:20 123 H 20 H 100 01/27/20 04:09 107 H 171/113 H 01/27/20 04:00 99.8 F H 121 H 17 171/113 H 100 01/27/20 03:30 108 H 16 100 01/27/20 03:15 109 H Medical Necessity - Tobacco Use Smoking Status: Current every day smoker Tobacco Use: Cigarettes Assessment/Plan All Active Problems Cardiopulmonary arrest with successful resuscitation (Acute) Hypocalcemia (Acute) Hyperkalemia (Acute) KEITH (acute kidney injury) (Acute) Metabolic acidosis, increased anion gap (Acute) Respiratory failure with hypoxia (Acute) Pulseless electrical activity with heart block (Acute) Ventricular fibrillation seen on personnel monitor (Acute) Gross hematuria (Acute) LV dysfunction (Acute) Non-STEMI (non-ST elevated myocardial infarction) (Acute) 1. Acute respiratory failure secondary to cardiac arrest/possible aspiration pneumonia, resolved Extubated today 01/27/20. On 3L oxygen. Encourage use of incentive spirometer 2. Hyperkalemia, improved with dialysis K 5.5. 2nd dialysis planned today by nephrology 3. Hypotension, resolved, now with elevated BP Received multiple doses of hydralazine IV Will start on amlodipine 10mg po daily and monitor 4. Acute rhabdomyolysis secondary to cocaine use, mildly improved today CK improved to 150,000 from 250, 000. On IV fluids, repeat CK in a.m. 5. Acute kidney injury, likely prerenal, secondary to #4, Cr remains worse On dialysis, nephrology following Continue on IV fluids Repeat blood work in a.m. 6. Hypocalcemia secondary to #4, will replace Repeat blood work in a.m. 7. Elevated troponins, likely secondary to #4, Possible underlining cardiomyopathy, EF of 20%, Cardiology consulted 8. Polysubstance use, urine tox positive for cocaine and marijuana 9. Elevated liver enzymes( AST/ALT) secondary to #4, less likely from shock liver, improving ALP is normal, continue to trend liver enzymes 10. Aspiration pneumonitis/pneumonia, on Unasyn, will continue 11. DVT PPx- SCDs on account of gross hematoma 12. GI PPx - famotidine po Inpatient E&M: 20112 Subs Hosp L3
[2020-01-27 07:23] LABS: Phosphorus 7.9 mg/dL (2.5-4.9)
[2020-01-27] MEDS: Famotidine 20 MG Tablet PO (10:33)
[2020-01-27] MEDS: Gabapentin 400 MG Capsule PO ×2 (10:33→21:11)
--- NOTE | 2020-01-27 11:24 | PN.CARD_ITS ---
Subjectve: Patient extubated this morning.Currently awake, alert, answers questions appropriately. Swallow evaluation pending. Patient denies any previous history of LV dysfunction, congestive heart failure, coronary disease. Denies knowing that his LV function was reduced.States that he smokes cigarettes and marijuana, but denies cocaine in the past.Patient had dialysis yesterday, with dark red urine in his Novak bag. Objective: Vital Signs Temp Pulse Resp BP Pulse Ox 99.7 F H 108 H 19 H 150/91 H 99 01/27/20 11:00 01/27/20 11:00 01/27/20 11:00 01/27/20 11:00 01/27/20 11:00 Oxygen Flow Rate (L/min) 2 Oxygen Delivery Method Room Air Weight: 278 lb 0.046 oz Body Mass Index (BMI) 36.3 Finger Stick Blood Glucose 160 Intake and Output for Last 24 Hours 01/25/20 01/26/20 01/27/20 23:59 23:59 23:59 Intake Total 3395.49 / 3417.14 6300.24 / 6322.37 3102.17 / 3102.17 Output Total 1350 / 1350 590 / 590 175 / 175 Balance 2045.49 / 2067.14 5710.24 / 5732.37 2927.17 / 2927.17 General: Awake, Alert, Oriented x 3 HEENT: PERRL, EOMI, Sclera Non Icteric Neck: Supple, Good ROM, No Lymph Node Enlargement Lungs: Clear to auscultation Cardiovascular: Regular Rhythm, Normal S1, Normal S2, No Murmurs, No Rubs, No Gallops Vascular: No Carotid Bruits, Normal Femoral Pulses, Normal Radial Pulses, Normal Dorsalis Pedal Pulse, Normal Posterior Tibial Pulses Abdomen: Bowel Sounds Present, Soft, Non Tender, No HSM, No Organomegaly Extremities: No Cyanosis, No Clubbing, No edema Neurological: No Focal Motor or Sensory Deficit 01/25/20 12:07: Ionized Calcium 3.2 L 01/26/20 16:20: Urine Color Brown, Urine Clarity Turbid, Urine pH 7.0, Ur Specific [place] 1.015, Urine Protein 500 H, Urine Glucose (UA) 50 H, Urine Ketones 15 H, Urine Occult Blood 250 H, Urine Nitrite Negative, Urine Bilirubin Negative, Urine Urobilinogen Normal, Ur Leukocyte Esterase 100 H, Urine RBC 10- 25 SEEN, Urine WBC 0-5 SEEN 01/26/20 20:30: Sodium 135 L, Potassium 5.9 H, Chloride 102, Carbon Dioxide 28.0, Anion Gap 5, BUN 34 H, Creatinine 4.00 H, Est GFR (MDRD) Af Amer 23 L, Est GFR (MDRD) Non-Af 19 L, BUN/Creatinine Ratio 8.5 L, Glucose 102, Calcium 6.4 L* 01/27/20 03:45: WBC 16.9 H, RBC 4.65, Hgb 13.8, Hct 42.0, MCV 90.3, MCH 29.7, MCHC 32.9, Plt Count 210, MPV 9.1, Immature Gran % (Auto) 0.800, Neut % (Auto) 79.6 H, Lymph % (Auto) 6.2 L, [place] % (Auto) 13.1 H, Eos % (Auto) 0.1, Baso % (Auto) 0.2, Absolute Neuts (auto) 13.5 H, Nucleated RBC % 0 01/27/20 03:45: Sodium 135 L, Potassium 5.5 H, Chloride 100, Carbon Dioxide 27.0, Anion Gap 8, BUN 41 H, Creatinine 4.88 H, Est GFR (MDRD) Af Amer 18 L, Est GFR (MDRD) Non-Af 15 L, BUN/Creatinine Ratio 8.4 L, Glucose 111 H, Calcium 6.1 L*, Total Bilirubin 0.70 01/27/20 03:45: Phosphorus 7.9 H 01/27/20 05:52: pH 7.42, Bicarbonate Actual 24.5, POC Total CO2 26, Base Excess 0, O2 Saturation 98, ABG pCO2 37.7, ABG pO2 111 H, Jeffrey Test POS Rhythm: EKG: ECHO: Stress Test: Cardiac Cath: PCI: CT Surgery: Holter monitor: EPS: PPM: CXR: Chest CT Scan: Medical Necessity - Tobacco Use Smoking Status: Current every day smoker Tobacco Use: Cigarettes Assessment/Plan 1. Non-STEMI: Patient presents with acute metabolic insufficiency, CODE BLUE was called due to hypotension and the patient apparently has been down for several hours at home. He is now in the full throes of rhabdomyolysis, shock liver, acute renal failure, superimposed on newly discovered severe LV dysfunction and non-STEMI. Given the patient's acute renal failure, I would hold off on proceeding with left heart catheterization at this timeGiven his clinical events, and renal insufficiency. The patient has no ventricular arrhythmias, or evidence of hypotension that would mandate additional evaluation of his coronary anatomy. Given his young age, it is unlikely that he has significant coronary occlusive disease although being a drug user may have affected his LV function both acutely and chronically. At this point I would do medical management with baby aspirin, Continue subcu DVT prophylaxis heparin, and use supportive care. I agree withContinuing hemodialysis If necessaryto reduce his potassium down to normal levels. Once the patient's renal function has declared itself, he may require a diagnostic coronary angiogram to confirm/deny the presence of significant coronary [place] disease. I would hold off on Plavix therapy as well given his lack of ST segment elevation or depression. His troponin release is most likely a manifestation of his rhabdomyolysis and perhaps acute LV dysfunction. I recommend an echocardiogram This upcoming Thursday to determine if his LV function is improving. Hopefully if he has demonstrated evidence of improved LV function, we will not need to proceed with left heart catheterization which may further injure his kidneys.Patient has been successfully extubated today, is awake, alert, and answers questions appropriately. Recommend starting him on Coreg 3.125 mg p.o. twice daily for heart rate and hypertension control as well as afterload reduction given the alpha blockade component of the Coreg. I would hold off on HUMBERTO inhibitor's or ARB use at this time given his acute renal failure. If additional afterload reduction is necessary he may benefit from hydralazine 10 mg p.o. 3 times daily and titrate up from there. I would maximize his Coreg first before adding hydralazine however. 2. Shock liver: His LFTs appear to be improving and declining. Continue supportive care. 3. Discussed with Dr. Craig. Thank you very much for the opportunity to participate in the cardiac care of your patient. Inpatient E&M: 00079 Subs Hosp L2
--- NOTE | 2020-01-27 11:30 | PCM.PN.REN ---
Patient Problems: Active and Suspected Problems Cardiopulmonary arrest with successful resuscitation (Acute) Hypocalcemia (Acute) Hyperkalemia (Acute) KEITH (acute kidney injury) (Acute) Metabolic acidosis, increased anion gap (Acute) Respiratory failure with hypoxia (Acute) Pulseless electrical activity with heart block (Acute) Ventricular fibrillation seen on quality assurance monitor body (Acute) Gross hematuria (Acute) LV dysfunction (Acute) Non-STEMI (non-ST elevated myocardial infarction) (Acute) Subjective: c/o leg pain no sob no other c/o - Physical Exam Vitals/I&O's: Vital Signs Temp Pulse Resp BP Pulse Ox 99.7 F H 108 H 19 H 150/91 H 99 01/27/20 11:00 01/27/20 11:00 01/27/20 11:00 01/27/20 11:00 01/27/20 11:00 Oxygen Flow Rate (L/min) 2 Oxygen Delivery Method Room Air Weight: 126.1 kg Body Mass Index (BMI) 36.3 Finger Stick Blood Glucose 160 Intake and Output for Last 24 Hours 01/25/20 01/26/20 01/27/20 23:59 23:59 23:59 Intake Total 3395.49 / 3417.14 6300.24 / 6322.37 3102.17 / 3102.17 Output Total 1350 / 1350 590 / 590 175 / 175 Balance 2045.49 / 2067.14 5710.24 / 5732.37 2927.17 / 2927.17 General: Alert, Cooperative HEENT: Atraumatic, Normocephalic Oral: Moist Mucosa Neck: Supple Lungs: Clear to auscultation, Normal air movement, No rales Cardiovascular: Regular rate, Regular Rhythm, Normal S1, Normal S2 Abdomen: Bowel Sounds Present, Soft, Non Tender Extremities: No edema Laboratory Results 01/25/20 12:07: Ionized Calcium 3.2 L 01/26/20 16:20: Urine Color Brown, Urine Clarity Turbid, Urine pH 7.0, Ur Specific [place] 1.015, Urine Protein 500 H, Urine Glucose (UA) 50 H, Urine Ketones 15 H, Urine Occult Blood 250 H, Urine Nitrite Negative, Urine Bilirubin Negative, Urine Urobilinogen Normal, Ur Leukocyte Esterase 100 H, Urine RBC 10-25 SEEN, Urine WBC 0-5 SEEN, Ur Squamous Epith Cells 0 SEEN, Ur Transition Epith Cell 0-5 SEEN, Ur Renal Epithelial Cell 0-5 SEEN, Amorphous Sediment 3+, Urine Bacteria 0 SEEN, Urine Mucus 0 SEEN 01/26/20 20:30: Sodium 135 L, Potassium 5.9 H, Chloride 102, Carbon Dioxide 28.0, Anion Gap 5, BUN 34 H, Creatinine 4.00 H, Estim Creat Clear Calc 29.64, Est GFR (MDRD) Af Amer 23 L, Est GFR (MDRD) Non-Af 19 L, BUN/Creatinine Ratio 8.5 L, Glucose 102, Calcium 6.4 L* 01/27/20 03:45: WBC 16.9 H, RBC 4.65, Hgb 13.8, Hct 42.0, MCV 90.3, MCH 29.7, MCHC 32.9, RDW Std Deviation 47.4 H, RDW Coeff of Jennifer 14.3, Plt Count 210, MPV 9.1, Immature Gran % (Auto) 0.800, Neut % (Auto) 79.6 H, Lymph % (Auto) 6.2 L, [place] % (Auto) 13.1 H, Eos % (Auto) 0.1, Baso % (Auto) 0.2, Absolute Neuts (auto) 13.5 H, Absolute Lymphs (auto) 1.04, Nucleated RBC % 0, Differential Comment SCANNED, Diff Path Review December01/27/20 03:45: Sodium 135 L, Potassium 5.5 H, Chloride 100, Carbon Dioxide 27.0, Anion Gap 8, BUN 41 H, Creatinine 4.88 H, Estim Creat Clear Calc 24.29, Est GFR (MDRD) Af Amer 18 L, Est GFR (MDRD) Non-Af 15 L, BUN/Creatinine Ratio 8.4 L, Glucose 111 H, Calcium 6.1 L*, Total Bilirubin 0.70, AST 4020 H, ALT 823 H, Alkaline Phosphatase 87, Total Protein 5.7 L, Albumin 1.8 L, Globulin 3.9, Albumin/Globulin Ratio 0.5 L 01/27/20 03:45: Total Creatine Kinase 573810 H 01/27/20 03:45: Phosphorus 7.9 H 01/27/20 05:52: Specimen Type ART, Sample Site L RADIAL, pH 7.42, Bicarbonate Actual 24.5, POC Total CO2 26, Base Excess 0, O2 Saturation 98, O2 % 30, ABG pCO2 37.7, ABG pO2 111 H, Jeffrey Test POS, Vent Mode CPAP, POC PEEP 5, POC Pressure Suppt 5, Blood Gas Notified Whom ICU MD, Blood Gas Notified Time 552 Current Medications Albuterol Sulfate (Ventolin Aerosols) 2.5 mg INHALATION Q2H PRN PRN PRN Reason: WHEEZING Carvedilol (Coreg) 3.125 mg PO BID [facility] Famotidine (Pepcid) 20 mg PO DAILY [facility] Last Admin: 01/27/20 10:33 Dose: 20 mg Documented by: Gabap[facility] ([facility]urontin) [address] Last Admin: 01/27/20 10:33 Dose: 400 mg Documented by: Heparin Sodium (Porcine) (Heparin Na) 5,000 unit SC Q8 [facility] Hydralazine HCl (Apresoline Iv) 10 mg IV Q6H PRN PRN PRN Reason: SBP>160 or DBP>100 Last Admin: 01/27/20 04:09 Dose: 10 mg Documented by: Sodium Chloride () 250 mls @ 15 mls/hr IV .[id number] PRN PRN Reason: Saline Flush Sodium Chloride () 250 mls @ 15 mls/hr IV .[id number] PRN PRN Reason: Additional IVPB Infusion Ampicillin Sodium/Sulbactam Sodium 1,500 mg/ Sodium Chloride 50 mls @ 100 mls/hr IV Q8 [facility] Last Infusion: 01/27/20 06:14 Dose: Infused Documented by: Sodium Chloride () 1,000 mls @ 200 mls/hr IV .Q5H [facility] Last Admin: 01/27/20 11:23 Dose: 200 mls/hr Documented by: Calcium Gluconate 2 gm/ Sodium (Chloride) 120 mls @ 60 mls/hr IV X1 ONE Stop: 01/27/20 12:59 Last Admin: 01/27/20 11:23 Dose: 60 mls/hr Documented by: Prochlorperazine Edisylate (Compazine Iv) 5 mg IV Q6H PRN PRN PRN Reason: NAUSEA/VOMITING Last Admin: 01/27/20 04:30 Dose: 5 mg Documented by: Senna/Docusate Sodium (Senokot-S, Rosalba-Colace) 2 tablet GT BID PRN PRN PRN Reason: Constipation Sodium Chloride () 10 - 40 ml IV UD PRN PRN Reason: SALINE FLUSH Last Admin: 01/27/20 04:31 Dose: 10 ml Documented by: Medical Necessity - Tobacco Use Smoking Status: Current every day smoker Tobacco Use: Cigarettes Assessment/Plan All Active Problems Cardiopulmonary arrest with successful resuscitation (Acute) Hypocalcemia (Acute) Hyperkalemia (Acute) KEITH (acute kidney injury) (Acute) Metabolic acidosis, increased anion gap (Acute) Respiratory failure with hypoxia (Acute) Pulseless electrical activity with heart block (Acute) Ventricular fibrillation seen on quality assurance monitor body (Acute) Gross hematuria (Acute) LV dysfunction (Acute) Non-STEMI (non-ST elevated myocardial infarction) (Acute) KEITH -ATN Hyperkalemia Hyperphosphatemia Hypocalcemia Rhabdomyolysis NSTEMI Polysubstance abuse Respiratory failure s/p extubation Shock liver HF Continue with dialysis today via right IJ temporary dialysis catheter.The patient was seen during dialysis and he is tolerating well dialysis. Continue IV fluids. There is no clear clinical evidence to support benefit from fluid with bicarbonate compared with NS diuresis use and his calcium is very low with risk of arrhytmias if bicarb iv used and also has hyperphosphatemia so will continue NS Monitor I's and O's. Avoid nephrotoxins Better CK noted urine colour is supervisor edging Check BMP and phosphorus in a.m. Keep MAP more than 65 d/w patient HD RN and [employer]
[2020-01-27] MEDS: Carvedilol 3.125 MG TABLET PO (11:31)
[2020-01-27 11:50] LABS: Pathologist Review Reviewed
[2020-01-27 13:23] LABS: Hep C Antibodies <0.1 s/co ratio (0.0-0.9)
--- NOTE | 2020-01-27 15:18 | DIALYSIS ---
Pt tolerated 4hr HD tx well. Net UF Even. See flow record for tx data.
[2020-01-27] MEDS: Heparin Injection (Vial) 5,000 UNIT/ML VIAL 5000 UNIT SC ×2 (15:42→21:12)
[2020-01-27] MEDS: oxyCODONE 5 MG Tablet PO (18:45)
[2020-01-27] MEDS: Acetaminophen 325 MG Tablet 650 MG PO (21:11)
[2020-01-27] MEDS: Carvedilol 6.25 MG Tablet PO (21:13)
--- NOTE | 2020-01-27 21:22 | NURSING ---
Pt given PRN Tylenol for cont temp 100.8F
[2020-01-28] VITALS (26 sets, daily range): BP systolic 120–163; BP diastolic 72–99; PULSE 63–89; RESP 14–23; TEMP 37.3–38; O2SAT 92–100
[2020-01-28] MEDS: hydrALAZINE 20 MG/ML Vial 10 MG IV (00:30)
[2020-01-28] MEDS: oxyCODONE 5 MG Tablet PO ×4 (00:49→21:23)
[2020-01-28] MEDS: 0.9% Normal Saline 1,000 ML 200 ML IV ×2 (02:13→07:21)
[2020-01-28 04:09] LABS: Absolute Lymphocyte Count 0.74 X10^3/uL (0.83-4.51); Absolute Neutrophil Count 8.9 X10^3/uL (2.0-7.7); Basophil# 0.02 X10^3/uL; Basophil% 0.2 % (0-1); Eosinophil# 0.02 X10^3/uL; Eosinophils% 0.2 % (0-5); Hematocrit 32.6 % (40-54); Hemoglobin 10.8 g/dL (13.0-16.5); Lymphocyte # 0.74 X10^3/ul (4.0); Lymphocyte % 6.6 % (19-41); Mean Corp Hgb Conc 33.1 g/dL (32-36); Mean Corpuscular Hgb 29.8 pg (27.0-32.0); Mean Corpuscular Volume 89.8 fL (80-94); Mean Platelet Vol. 9.3 fl (6.2-12.0); Monocyte% 14.2 % (0-10); NRBC Flagged by Analyzer 0 % (0-5); Neutrophil # 8.85 X10^3/uL (2.7-7.7); Neutrophil % 78.3 % (47-70); POSITIVE DIFFERENTIAL YES; Platelet Count 156 K/mm3 (150-450); RBC Distribution Width CV 14.2 % (11.6-14.6); RBC Distribution Width SD 46.5 fl (35.1-43.9); Red Blood Count 3.63 M/mm3 (4.6-6.2); White Blood Count 11.3 K/mm3 (4.4-11.0)
[2020-01-28 04:27] LABS: Differential Indicated SCAN CRITERIA MET
[2020-01-28 04:52] LABS: ALB/GLOB Ratio 0.5 RATIO (0.9-2.4); AST(SGOT) 4483 U/L (15-37); Alanine Aminotransfer ALT/SGPT 928 U/L (16-61); Alkaline Phosphatase 72 U/L (45-117); Anion Gap 8 (5-15); BUN 36 mg/dL (7-18); BUN/Creat Ratio 7.1 RATIO (10-20); Calcium,Total 6.1 mg/dL (8.5-10.1); Chloride 98 mmol/L (98-107); Creatinine, Serum 5.04 mg/dL (0.70-1.30); EST Glomerular Filtration Rate 14 mL/min (>60); Est Glom Filt Rate - Afr Amer 17 mL/min (>60); Estimated Creatinine Clearance 23.52 ml/min; Globulin 3.7 g/dL (2.2-4.2); Glucose 86 mg/dL (74-106); Phosphorus 5.8 mg/dL (2.5-4.9); Potassium 4.3 mmol/L (3.5-5.1); Protein, Total 5.7 g/dL (6.4-8.2); Sodium Level 134 mmol/L (136-145)
[2020-01-28 05:40] LABS: Differential Comment SCANNED
[2020-01-28] MEDS: Heparin Injection (Vial) 5,000 UNIT/ML VIAL 5000 UNIT SC ×3 (06:10→21:24)
--- NOTE | 2020-01-28 06:37 | PN_ITS ---
Subjective: Patient did okay overnight. Urine output has been decreasing. Attempts at flushing the Novak this morning did not yield additional urine. Patient's weight is up significantly. Patient is reporting improvement in pain, but still has tenderness to palpation. General: Alert, Oriented x3, Cooperative, No apparent distress, - - Morbidly obese. Speaking in full sentences. HEENT: Atraumatic, PERRLA, EOMI, Normocephalic, - - Slight scleral injection without icterus Oral: Moist Mucosa, No Gingival or Mucosal Lesions/ Ulcerations Neck: Supple, No JVD, No Nodes, Trachea Midline Lungs: No rhonchi, No wheeze, No rales, Diminished, - - Symmetric expansion. No dullness to percussion. Cardiovascular: Regular rate, Regular Rhythm, Normal S1, Normal S2, No murmurs, No rub noted, No Gallop Abdomen: Bowel Sounds Present, Soft, Non Tender, Distended - Slightly, Obese Extremities: No clubbing, No cyanosis, Edema Skin: No rashes, No breakdown Musculoskeletal: No Tenderness to Palpation of Joints or Extremities Lymphatic: No Cervical, Supraclavicular, or Inguinal Adenopathy Neurological: Cranial nerves II-XII grossly intact, Neuro grossly intact, - - Some decrease in sensation bilateral lower extremities. Psych/Mental Status: Alert and oriented to time, place, person, mood and affect Vital Signs Temp Pulse Resp BP Pulse Ox 37.7 C H 73 20 H 151/97 H 99 01/28/20 06:00 01/28/20 06:00 01/28/20 06:00 01/28/20 06:01/28/20 04:00 Oxygen Flow Rate (L/min) 2 Oxygen Delivery Method Nasal Cannula Weight: 136.7 kg Body Mass Index (BMI) 36.3 Finger Stick Blood Glucose 160 Intake and Output for Last 24 Hours 01/26/20 01/27/20 01/28/20 23:59 23:59 23:59 Intake Total 6300.24 / 6322.37 5898.84 / 5898.84 1676.67 / 1676.67 Output Total 590 / 590 255 / 255 40 / 40 Balance 5710.24 / 5732.37 5643.84 / 5643.84 1636.67 / 1636.67 Labs (Last 48 Hours) 01/25/20 01/25/20 01/26/20 10:38 12:07 04:45 WBC RBC Hgb Hct MCV MCH MCHC RDW Std Deviation RDW Coeff of Jennifer Plt Count MPV Immature Gran % (Auto) Neut % (Auto) Lymph % (Auto) [place] % (Auto) Eos % (Auto) Baso % (Auto) Absolute Neuts (auto) Absolute Lymphs (auto) Nucleated RBC % Differential Comment Diff Path Review Reviewed Reviewed PT INR APTT Specimen Type Sample Site pH Bicarbonate Actual POC Total CO2 Base Excess O2 Saturation O2 % ABG pCO2 ABG pO2 Jeffrey Test Vent Mode POC PEEP POC Pressure Suppt Blood Gas Notified Whom Blood Gas Notified Time Sodium Potassium Chloride Carbon Dioxide Anion Gap BUN Creatinine Estim Creat Clear Calc Est GFR (MDRD) Af Amer Est GFR (MDRD) Non-Af BUN/Creatinine Ratio Glucose Calcium Ionized Calcium 3.2 L Phosphorus Total Bilirubin AST ALT Alkaline Phosphatase Total Creatine Kinase Total Protein Albumin Globulin Albumin/Globulin Ratio Urine Color Urine Clarity Urine pH Ur Specific [place] Urine Protein Urine Glucose (UA) Urine Ketones Urine Occult Blood Urine Nitrite Urine Bilirubin Urine Urobilinogen Ur Leukocyte Esterase Urine RBC Urine WBC Ur Squamous Epith Cells Ur Transition Epith Cell Ur Renal Epithelial Cell Amorphous Sediment Urine Bacteria Urine Mucus Hepatitis A IgM Ab Hep Bs Antigen Hep B Core IgM Ab Hepatitis C Ab (EIA) 01/26/20 01/26/20 01/26/20 08:10 08:10 16:20 WBC RBC Hgb Hct MCV MCH MCHC RDW Std Deviation RDW Coeff of Jennifer Plt Count MPV Immature Gran % (Auto) Neut % (Auto) Lymph % (Auto) [place] % (Auto) Eos % (Auto) Baso % (Auto) Absolute Neuts (auto) Absolute Lymphs (auto) Nucleated RBC % Differential Comment Diff Path Review PT 15.8 H INR 1.3 APTT 27.6 Specimen Type Sample Site pH Bicarbonate Actual POC Total CO2 Base Excess O2 Saturation O2 % ABG pCO2 ABG pO2 Jeffrey Test Vent Mode POC PEEP POC Pressure Suppt Blood Gas Notified Whom Blood Gas Notified Time Sodium Potassium Chloride Carbon Dioxide Anion Gap BUN Creatinine Estim Creat Clear Calc Est GFR (MDRD) Af Amer Est GFR (MDRD) Non-Af BUN/Creatinine Ratio Glucose Calcium Ionized Calcium Phosphorus Total Bilirubin AST ALT Alkaline Phosphatase Total Creatine Kinase Total Protein Albumin Globulin Albumin/Globulin Ratio Urine Color Brown Urine Clarity Turbid Urine pH 7.0 Ur Specific [place] 1.015 Urine Protein 500 H Urine Glucose (UA) 50 H Urine Ketones 15 H Urine Occult Blood 250 H Urine Nitrite Negative Urine Bilirubin Negative Urine Urobilinogen Normal Ur Leukocyte Esterase 100 H Urine RBC 10-25 SEEN Urine WBC 0-5 SEEN Ur Squamous Epith Cells 0 SEEN Ur Transition Epith Cell 0-5 SEEN Ur Renal Epithelial Cell 0-5 SEEN Amorphous Sediment 3+ Urine Bacteria 0 SEEN Urine Mucus 0 SEEN Hepatitis A IgM Ab Negative Hep Bs Antigen Negative Hep B Core IgM Ab Negative Hepatitis C Ab (EIA) <0.1 01/26/20 01/27/20 01/27/20 20:30 03:45 03:45 WBC 16.9 H RBC 4.65 Hgb 13.8 Hct 42.0 MCV 90.3 MCH 29.7 MCHC 32.9 RDW Std Deviation 47.4 H RDW Coeff of Jennifer 14.3 Plt Count 210 MPV 9.1 Immature Gran % (Auto) 0.800 Neut % (Auto) 79.6 H Lymph % (Auto) 6.2 L [place] % (Auto) 13.1 H Eos % (Auto) 0.1 Baso % (Auto) 0.2 Absolute Neuts (auto) 13.5 H Absolute Lymphs (auto) 1.04 Nucleated RBC % 0 Differential Comment SCANNED Diff Path Review Reviewed PT INR APTT Specimen Type Sample Site pH Bicarbonate Actual POC Total CO2 Base Excess O2 Saturation O2 % ABG pCO2 ABG pO2 Jeffrey Test Vent Mode POC PEEP POC Pressure Suppt Blood Gas Notified Whom Blood Gas Notified Time Sodium 135 L 135 L Potassium 5.9 H 5.5 H Chloride 102 100 Carbon Dioxide 28.0 27.0 Anion Gap 5 8 BUN 34 H 41 H Creatinine 4.00 H 4.88 H Estim Creat Clear Calc 29.64 24.29 Est GFR (MDRD) Af Amer 23 L 18 L Est GFR (MDRD) Non-Af 19 L 15 L BUN/Creatinine Ratio 8.5 L 8.4 L Glucose 102 111 H Calcium 6.4 L* 6.1 L* Ionized Calcium Phosphorus Total Bilirubin 0.70 AST 4020 H ALT 823 H Alkaline Phosphatase 87 Total Creatine Kinase Total Protein 5.7 L Albumin 1.8 L Globulin 3.9 Albumin/Globulin Ratio 0.5 L Urine Color Urine Clarity Urine pH Ur Specific [place] Urine Protein Urine Glucose (UA) Urine Ketones Urine Occult Blood Urine Nitrite Urine Bilirubin Urine Urobilinogen Ur Leukocyte Esterase Urine RBC Urine WBC Ur Squamous Epith Cells Ur Transition Epith Cell Ur Renal Epithelial Cell Amorphous Sediment Urine Bacteria Urine Mucus Hepatitis A IgM Ab Hep Bs Antigen Hep B Core IgM Ab Hepatitis C Ab (EIA) 01/27/20 01/27/20 01/27/20 03:45 03:45 05:52 WBC RBC Hgb Hct MCV MCH MCHC RDW Std Deviation RDW Coeff of Jennifer Plt Count MPV Immature Gran % (Auto) Neut % (Auto) Lymph % (Auto) [place] % (Auto) Eos % (Auto) Baso % (Auto) Absolute Neuts (auto) Absolute Lymphs (auto) Nucleated RBC % Differential Comment Diff Path Review PT INR APTT Specimen Type ART Sample Site L RADIAL pH 7.42 Bicarbonate Actual 24.5 POC Total CO2 26 Base Excess 0 O2 Saturation 98 O2 % 30 ABG pCO2 37.7 ABG pO2 111 H Jeffrey Test POS Vent Mode CPAP POC PEEP 5 POC Pressure Suppt 5 Blood Gas Notified Whom ICU MD Blood Gas Notified Time 552 Sodium Potassium Chloride Carbon Dioxide Anion Gap BUN Creatinine Estim Creat Clear Calc Est GFR (MDRD) Af Amer Est GFR (MDRD) Non-Af BUN/Creatinine Ratio Glucose Calcium Ionized Calcium Phosphorus 7.9 H Total Bilirubin AST ALT Alkaline Phosphatase Total Creatine Kinase 136186 H Total Protein Albumin Globulin Albumin/Globulin Ratio Urine Color Urine Clarity Urine pH Ur Specific [place] Urine Protein Urine Glucose (UA) Urine Ketones Urine Occult Blood Urine Nitrite Urine Bilirubin Urine Urobilinogen Ur Leukocyte Esterase Urine RBC Urine WBC Ur Squamous Epith Cells Ur Transition Epith Cell Ur Renal Epithelial Cell Amorphous Sediment Urine Bacteria Urine Mucus Hepatitis A IgM Ab Hep Bs Antigen Hep B Core IgM Ab Hepatitis C Ab (EIA) 01/28/20 01/28/20 01/28/20 03:55 03:55 03:55 WBC 11.3 H RBC 3.63 L Hgb 10.8 L Hct 32.6 L MCV 89.8 MCH 29.8 MCHC 33.1 RDW Std Deviation 46.5 H RDW Coeff of Jennifer 14.2 Plt Count 156 MPV 9.3 Immature Gran % (Auto) 0.500 Neut % (Auto) 78.3 H Lymph % (Auto) 6.6 L [place] % (Auto) 14.2 H Eos % (Auto) 0.2 Baso % (Auto) 0.2 Absolute Neuts (auto) 8.9 H Absolute Lymphs (auto) 0.74 L Nucleated RBC % 0 Differential Comment SCANNED Diff Path Review May foll PT INR APTT Specimen Type Sample Site pH Bicarbonate Actual POC Total CO2 Base Excess O2 Saturation O2 % ABG pCO2 ABG pO2 Jeffrey Test Vent Mode POC PEEP POC Pressure Suppt Blood Gas Notified Whom Blood Gas Notified Time Sodium 134 L Potassium 4.3 Chloride 98 Carbon Dioxide 28.0 Anion Gap 8 BUN 36 H Creatinine 5.04 H Estim Creat Clear Calc 23.52 Est GFR (MDRD) Af Amer 17 L Est GFR (MDRD) Non-Af 14 L BUN/Creatinine Ratio 7.1 L Glucose 86 Calcium 6.1 L* Ionized Calcium Phosphorus 5.8 H Total Bilirubin 0.90 AST 4483 H ALT 928 H Alkaline Phosphatase 72 Total Creatine Kinase 600276 H Total Protein 5.7 L Albumin 2.0 L Globulin 3.7 Albumin/Globulin Ratio 0.5 L Urine Color Urine Clarity Urine pH Ur Specific [place] Urine Protein Urine Glucose (UA) Urine Ketones Urine Occult Blood Urine Nitrite Urine Bilirubin Urine Urobilinogen Ur Leukocyte Esterase Urine RBC Urine WBC Ur Squamous Epith Cells Ur Transition Epith Cell Ur Renal Epithelial Cell Amorphous Sediment Urine Bacteria Urine Mucus Hepatitis A IgM Ab Hep Bs Antigen Hep B Core IgM Ab Hepatitis C Ab (EIA) Medical Necessity - Tobacco Use Smoking Status: Current every day smoker Tobacco Use: Cigarettes Assessment/Plan All Active Problems Cardiopulmonary arrest with successful resuscitation (Acute) Hypocalcemia (Acute) Hyperkalemia (Acute) KEITH (acute kidney injury) (Acute) Metabolic acidosis, increased anion gap (Acute) Respiratory failure with hypoxia (Acute) Pulseless electrical activity with heart block (Acute) Ventricular fibrillation seen on night monitor (Acute) Gross hematuria (Acute) LV dysfunction (Acute) Non-STEMI (non-ST elevated myocardial infarction) (Acute) RECOMMENDATIONS: 1. Continue empiric antibiotics to complete a 5-day course 2. Hemodialysis per nephrology. Consider volume removal 3. Titrate up Coreg 4. Initiate therapies (PT/OT) 5. Anticipate repeat echocardiogram on Thursday 6. Okay to leave the intensive care unit from my perspective IMPRESSIONS: 1. Acute hypoxic respiratory failure with possible aspiration secondary to possible opiates Unclear surrounding history. Patient is denying exposure to cocaine despite positive tox screen. Patient appears to be developing a right lower lobe infiltrate and was found with emesis around his mouth. Concern for aspira tion. Given overnight mucous plugging while on the vent, will treat for total of 5 days with empiric antibiotics. Lung exam is relatively unremarkable. Wean oxygen as tolerated. Encourage incentive spirometer. 2. Acute kidney injury secondary to rhabdomyolysis/hyperkalemia/hypocalcemia Concern for myoglobinuria leading to what appears to be hematuria. Patient had been reporting leg pain weakness prior to presentation. Patient may be having breakdown from toxic drug effects. Patient has continued to receive hemodialysis, but CK is up today, along with weight. This is likely secondary to increased perfusion of the muscle tissue. Would prefer some volume removal. Defer to nephrology on if this is going to be repeated today. Urine output appears to be following. 3. Systolic congestive heart failure/ventricular fibrillation/non-ST elevation NH Patient with EF of 20% following arrest. Significant increase in troponin initially. Unclear if this is baseline versus new onset with shock. No pressors have been required. Patient has tested positive for cocaine. Given young age and global defects, coronary artery disease is unlikely. Cardiology is recommending titration of beta-og with repeat echocardiogram possibly on Thursday. 4. Polysubstance abuse Patient has tested positive for marijuana and cocaine on his tox screen. Patient also has reportedly used heroin and fentanyl in the past. Patient has had hypertension and tachycardia overnight. Patient is receiving some opiates secondary to back pain. 5. Shock liver Significant elevation of AST and ALT despite normotension. Cannot exclude toxic effects versus decreased perfusion during code leading to current findings. Congestive hepatitis may be leading to elevation of LFTs today. Albumin is decreased, but there has been significant increase in volume over the course of the hospitalization. 6. Poor history/obesity Complicates care, management, recovery and prognosis. DVT and GI prophylaxis. Inpatient E&M: [id number] [facility] Hosp L3
--- NOTE | 2020-01-28 06:38 | NURSING ---
Pt's F/C flushed w/55ml sterile NS for immediate return of 60ml eusebio/pink colored urine w/sm amt sediment particles;pt reggie all well.
--- NOTE | 2020-01-28 07:26 | PCM.PN.HOSP ---
Patient Problems: Active and Suspected Problems Cardiopulmonary arrest with successful resuscitation (Acute) Hypocalcemia (Acute) Hyperkalemia (Acute) KEITH (acute kidney injury) (Acute) Metabolic acidosis, increased anion gap (Acute) Respiratory failure with hypoxia (Acute) Pulseless electrical activity with heart block (Acute) Ventricular fibrillation seen on threat monitoring analyst (Acute) Gross hematuria (Acute) LV dysfunction (Acute) Non-STEMI (non-ST elevated myocardial infarction) (Acute) Reason for Visit: Follow-up on acute renal failure/rhabdomyolysis/acute kidney injury/uncontrolled hypertension Subjective: Patient was seen and examined. He is alert oriented x3. He complains of pain in his lower extremities. He says his legs are painful. Given oxycodone this morning for pain. Started also on gabapentin. Blood pressure remains high. Coreg dose increased. Objective: Physical exam: General: Cooperative, alert, oriented x 3 HEENT: Atraumatic, PERRLA, EOMI, Normocephalic Oral: Moist Mucosa Neck: Supple Lungs: Normal air movement, Diminished, - - left subclavian central line, bilateral gynaecomastia Cardiovascular: Regular rate, Regular Rhythm, Normal S1, Normal S2 Abdomen: Bowel Sounds Present, Soft, Non Tender, Non-Distended, No Hepato-splenomegaly, - - Novak catheter has clearing hematuria with sediment Extremities: No edema Skin: No rashes Musculoskeletal: No Tenderness to Palpation of Joints or Extremities Lymphatic: No Cervical, Supraclavicular, or Inguinal Adenopathy Neurological: Cranial nerves II-XII grossly intact, Neuro grossly intact Psych/Mental Status: Normal Affect, Appropriate Vitals/I&O's: Vital Signs Temp Pulse Resp BP Pulse Ox 100 F H 73 20 H 151/97 H 99 01/28/20 06:00 01/28/20 06:00 01/28/20 06:00 01/28/20 06:00 01/28/20 04:00 Oxygen Flow Rate (L/min) 2 Oxygen Delivery Method Room Air Weight: 134.7 kg Body Mass Index (BMI) 36.3 Finger Stick Blood Glucose 160 Intake and Output for Last 24 Hours 01/26/20 01/27/20 01/28/20 23:59 23:59 23:59 Intake Total 6300.24 / 6322.37 5898.84 / 5898.84 2455.00 / 2455.00 Output Total 590 / 590 255 / 255 145 / 145 Balance 5710.24 / 5732.37 5643.84 / 5643.84 2310.00 / 2310.00 Laboratory Results 01/26/20 08:10: Hepatitis A IgM Ab Negative, Hep Bs Antigen Negative, Hep B Core IgM Ab Negative, Hepatitis C Ab (EIA) <0.1 01/27/20 03:45: Diff Path Review Reviewed 01/28/20 03:55: WBC 11.3 H, RBC 3.63 L, Hgb 10.8 L, Hct 32.6 L, MCV 89.8, MCH 29.8, MCHC 33.1, RDW Std Deviation 46.5 H, RDW Coeff of Jennifer 14.2, Plt Count 156, MPV 9.3, Immature Gran % (Auto) 0.500, Neut % (Auto) 78.3 H, Lymph % (Auto) 6.6 L, [place] % (Auto) 14.2 H, Eos % (Auto) 0.2, Baso % (Auto) 0.2, Absolute Neuts (auto) 8.9 H, Absolute Lymphs (auto) 0.74 L, Nucleated RBC % 0, Differential Comment SCANNED, Diff Path Review May foll 01/28/20 03:55: Sodium 134 L, Potassium 4.3, Chloride 98, Carbon Dioxide 28.0, Anion Gap 8, BUN 36 H, Creatinine 5.04 H, Estim Creat Clear Calc 23.52, Est GFR (MDRD) Af Amer 17 L, Est GFR (MDRD) Non-Af 14 L, BUN/Creatinine Ratio 7.1 L, Glucose 86, Calcium 6.1 L*, Phosphorus 5.8 H, Total Bilirubin 0.90, AST 4483 H, ALT 928 H, Alkaline Phosphatase 72, Total Protein 5.7 L, Albumin 2.0 L, Globulin 3.7, Albumin/Globulin Ratio 0.5 L 01/28/20 03:55: Total Creatine Kinase 389989 H Current Medications Acetaminophen (Tylenol) 650 mg PO Q6H PRN PRN PRN Reason: Pain (1-11/24) or Fever Last Admin: 01/27/20 21:11 Dose: 650 mg Documented by: Albuterol Sulfate (Ventolin Aerosols) 2.5 mg INHALATION Q2H PRN PRN PRN Reason: WHEEZING Carvedilol (Coreg) 12.5 mg PO BID [facility] Famotidine (Pepcid) 20 mg PO DAILY [facility] Last Admin: 01/27/20 10:33 Dose: 20 mg Documented by: Gabapentin (Neurontin) 400 mg PO BID [facility] Last Admin: 01/27/20 21:11 Dose: 400 mg Documented by: Heparin Sodium (Porcine) (Heparin Na) 5,000 unit SC Q8 [facility] Last Admin: 01/28/20 06:10 Dose: 5,000 unit Documented by: Hydralazine HCl (Apresoline Iv) 10 mg IV Q6H PRN PRN PRN Reason: SBP>160 or DBP>100 Last Admin: 01/28/20 00:30 Dose: 10 mg Documented by: Sodium Chloride () 250 mls @ 15 mls/hr IV .[id number] PRN PRN Reason: Saline Flush Sodium Chloride () 250 mls @ 15 mls/hr IV .[id number] PRN PRN Reason: Additional IVPB Infusion Ampicillin Sodium/Sulbactam Sodium 1,500 mg/ Sodium Chloride 50 mls @ 100 mls/hr IV Q8 [facility] Last Infusion: 01/28/20 06:49 Dose: Infused Documented by: Sodium Chloride () 1,000 mls @ 200 mls/hr IV .Q5H [facility] Last Admin: 01/28/20 07:21 Dose: 200 mls/hr Documented by: Calcium Gluconate 2 gm/ (Dextrose) 120 mls @ 60 mls/hr IV X1 ONE Stop: 01/28/20 09:59 Oxycodone HCl (Oxyir) 5 mg PO Q6H PRN PRN PRN Reason: Pain Score 5-10/10 Last Admin: 01/28/20 07:21 Dose: 5 mg Documented by: Prochlorperazine Edisylate (Compazine Iv) 5 mg IV Q6H PRN PRN PRN Reason: NAUSEA/VOMITING Last Admin: 01/27/20 04:30 Dose: 5 mg Documented by: Senna/Docusate Sodium (Senokot-S, Rosalba-Colace) 2 tablet GT BID PRN PRN PRN Reason: Constipation Sodium Chloride () 10 - 40 ml IV UD PRN PRN Reason: SALINE FLUSH Last Admin: 01/27/20 04:31 Dose: 10 ml Documented by: STROKE Vital Signs/Narrative: Vital Signs Temp Pulse Resp BP Pulse Ox 01/28/20 06:00 100 F H 73 20 H 151/97 H 01/28/20 05:00 99.7 F H 82 20 H 151/82 H 01/28/20 04:00 99.7 F H 76 18 153/95 H 99 01/28/20 03:41 78 Medical Necessity - Tobacco Use Smoking Status: Current every day smoker Tobacco Use: Cigarettes Assessment/Plan All Active Problems Cardiopulmonary arrest with successful resuscitation (Acute) Hypocalcemia (Acute) Hyperkalemia (Acute) KEITH (acute kidney injury) (Acute) Metabolic acidosis, increased anion gap (Acute) Respiratory failure with hypoxia (Acute) Pulseless electrical activity with heart block (Acute) Ventricular fibrillation seen on threat monitoring analyst (Acute) Gross hematuria (Acute) LV dysfunction (Acute) Non-STEMI (non-ST elevated myocardial infarction) (Acute) 1. Acute respiratory failure secondary to cardiac arrest/possible aspiration pneumonia, resolved Extubated today 01/27/20. On 3L oxygen. CXR on 01/26/20 showed atelectasis. Encourage use of incentive spirometer 2. Hyperkalemia, improved with dialysis, resolved K 4.3. 3rd dialysis planned today by nephrology 3. Hypertension, remains elevated, on Coreg 12.5 mg twice daily 4. Acute rhabdomyolysis secondary to cocaine use, mildly improved today CK is elevated to 225,000 Continue on IV fluids, repeat CK in a.m. 5. Acute kidney injury, likely prerenal, secondary to #4, Cr remains worse On dialysis, nephrology following Continue on IV fluids Repeat blood work in a.m. 6. Hypocalcemia secondary to #4, will replace Repeat blood work in a.m. 7. Elevated troponins, likely secondary to #4, Possible underlining cardiomyopathy, EF of 20%, Cardiology consulted 8. Polysubstance use, urine tox positive for cocaine and marijuana 9. Elevated liver enzymes( AST/ALT) secondary to #4, less likely from shock liver, improving ALP is normal, continue to trend liver enzymes 10. Aspiration pneumonitis/pneumonia, still with low grade fever On Unasyn, will continue 11. DVT PPx- SCDs on account of gross hematoma 12. GI PPx - famotidine po Inpatient E&M: [id number] [facility] Hosp L2
[2020-01-28] MEDS: Gabapentin 400 MG Capsule PO ×2 (09:36→21:27)
[2020-01-28] MEDS: Famotidine 20 MG Tablet PO (09:37)
--- NOTE | 2020-01-28 10:10 | NURSING ---
0845 spoke with bri mancuso on phone and provided with update on patient.
[2020-01-28] MEDS: Heparin 10,000 UNITS/10 ML Vial IV (14:32)
--- NOTE | 2020-01-28 14:46 | DIALYSIS ---
hemodialysis x 4 hours. -4000ml off today. Stable t/o and tolerated fluid removal very well. CVC closed with heparin to each lumen fill volume. Report from/to Michelle DELUNA
[2020-01-28] MEDS: Carvedilol 12.5 MG Tablet PO ×2 (14:55→21:24)
[2020-01-28] MEDS: 0.9% Saline Lock 10 ML Syringe IV (14:56)
[2020-01-28] MEDS: Acetaminophen 325 MG Tablet 650 MG PO (16:24)
[2020-01-29] VITALS (11 sets, daily range): BP systolic 139–166; BP diastolic 72–92; PULSE 62–88; RESP 16–18; TEMP 36.9–38.3; O2SAT 94–100
[2020-01-29] MEDS: oxyCODONE 5 MG Tablet PO ×3 (03:29→21:11)
[2020-01-29 05:34] LABS: Absolute Lymphocyte Count 0.73 X10^3/uL (0.83-4.51); Absolute Neutrophil Count 6.1 X10^3/uL (2.0-7.7); Basophil# 0.02 X10^3/uL; Basophil% 0.2 % (0-1); Eosinophil# 0.04 X10^3/uL; Eosinophils% 0.5 % (0-5); Hematocrit 36.5 % (40-54); Hemoglobin 10.8 g/dL (13.0-16.5); Lymphocyte # 0.73 X10^3/ul (4.0); Lymphocyte % 8.3 % (19-41); Mean Corp Hgb Conc 29.6 g/dL (32-36); Mean Corpuscular Hgb 29.2 pg (27.0-32.0); Mean Corpuscular Volume 98.6 fL (80-94); Mean Platelet Vol. 9.2 fl (6.2-12.0); Monocyte# 1.86 X10^3/uL; Monocyte% 21.1 % (0-10); NRBC Flagged by Analyzer 0 % (0-5); Neutrophil # 6.11 X10^3/uL (2.7-7.7); Neutrophil % 69.2 % (47-70); POSITIVE DIFFERENTIAL YES; Platelet Count 161 K/mm3 (150-450); RBC Distribution Width CV 13.7 % (11.6-14.6); RBC Distribution Width SD 49.6 fl (35.1-43.9); White Blood Count 8.8 K/mm3 (4.4-11.0)
[2020-01-29] MEDS: Heparin Injection (Vial) 5,000 UNIT/ML VIAL 5000 UNIT SC ×3 (05:37→21:14)
[2020-01-29 05:43] LABS: Differential Indicated SCAN CRITERIA MET
[2020-01-29 06:43] LABS: Differential Comment SCANNED
[2020-01-29 07:14] LABS: ALB/GLOB Ratio 0.5 RATIO (0.9-2.4); AST(SGOT) 4474 U/L (15-37); Alanine Aminotransfer ALT/SGPT 1017 U/L (16-61); Albumin, Serum 1.9 g/dL (3.2-5.0); Alkaline Phosphatase 73 U/L (45-117); Anion Gap 11 (5-15); BUN 41 mg/dL (7-18); BUN/Creat Ratio 7.4 RATIO (10-20); Calcium,Total 6.9 mg/dL (8.5-10.1); Chloride 95 mmol/L (98-107); Creatinine, Serum 5.57 mg/dL (0.70-1.30); EST Glomerular Filtration Rate 13 mL/min (>60); Est Glom Filt Rate - Afr Amer 16 mL/min (>60); Estimated Creatinine Clearance 21.28 ml/min; Globulin 4.1 g/dL (2.2-4.2); Glucose 74 mg/dL (74-106); Sodium Level 130 mmol/L (136-145)
--- NOTE | 2020-01-29 07:25 | PN_ITS ---
Patient Problems: Active and Suspected Problems Cardiopulmonary arrest with successful resuscitation (Acute) Hypocalcemia (Acute) Hyperkalemia (Acute) KEITH (acute kidney injury) (Acute) Metabolic acidosis, increased anion gap (Acute) Respiratory failure with hypoxia (Acute) Pulseless electrical activity with heart block (Acute) Ventricular fibrillation seen on equipment monitor phototypesetting (Acute) Gross hematuria (Acute) LV dysfunction (Acute) Non-STEMI (non-ST elevated myocardial infarction) (Acute) Reason for Visit: Follow-up on acute renal failure/rhabdomyolysis/acute kidney injury/uncontrolled hypertension Subjective: Patient was seen and examined. He complains of soreness in legs. Has more numbness in left leg. No fever or chest pain Objective: Physical exam: General: Cooperative, alert, oriented x 3 HEENT: Atraumatic, PERRLA, EOMI, Normocephalic Oral: Moist Mucosa Neck: Supple Lungs: Normal air movement, Diminished, - - left subclavian central line, bilateral gynecomastia Cardiovascular: Regular rate, Regular Rhythm, Normal S1, Normal S2 Abdomen: Bowel Sounds Present, Soft, Non Tender, Non-Distended, No Hepato-splenomegaly, - - [place] catheter has clearing hematuria with sediment Extremities: No edema Skin: No rashes Musculoskeletal: No Tenderness to Palpation of Joints or Extremities Lymphatic: No Cervical, Supraclavicular, or Inguinal Adenopathy Neurological: Cranial nerves II-XII grossly intact, Neuro grossly intact Psych/Mental Status: Normal Affect, Appropriate Vitals/I&O's: Vital Signs Temp Pulse Resp BP Pulse Ox 98.7 F 70 17 141/72 H 95 01/29/20 03:20 01/29/20 06:56 01/29/20 03:20 01/29/20 03:20 01/29/20 03:20 Oxygen Flow Rate (L/min) 2 Oxygen Delivery Method Room Air Weight: 134.8 kg Body Mass Index (BMI) 36.3 Finger Stick Blood Glucose 160 Intake and Output for Last 24 Hours 01/27/20 01/28/20 01/29/20 23:59 23:59 23:59 Intake Total 5898.84 / 5898.84 4587.50 / 4807.50 545 / 545 Output Total 255 / 255 4320 / 4320 50 / 50 Balance 5643.84 / 5643.84 267.50 / 487.50 495 / 495 Laboratory Results 01/29/20 05:25: WBC 8.8, RBC 3.70 L, Hgb 10.8 L, Hct 36.5 L, MCV 98.6 H D, MCH 29.2, MCHC 29.6 L D, RDW Std Deviation 49.6 H, RDW Coeff of Jennifer 13.7, Plt Count 161, MPV 9.2, Immature Gran % (Auto) 0.700, Neut % (Auto) 69.2, Lymph % (Auto) 8.3 L, [place] % (Auto) 21.1 H, Eos % (Auto) 0.5, Baso % (Auto) 0.2, Absolute Neuts (auto) 6.1, Absolute Lymphs (auto) 0.73 L, Nucleated RBC % 0, Differential Comment SCANNED 01/29/20 05:25: Sodium 130 L, Potassium 4.0, Chloride 95 L, Carbon Dioxide 24.0, Anion Gap 11, BUN 41 H, Creatinine 5.57 H, Estim Creat Clear Calc 21.28, Est GFR (MDRD) Af Amer 16 L, Est GFR (MDRD) Non-Af 13 L, BUN/Creatinine Ratio 7.4 L, Glucose 74, Calcium 6.9 L, Total Bilirubin 0.90, AST 4474 H, ALT 1017 H, Alkaline Phosphatase 73, Total Creatine Kinase 327787 H, Total Protein 6.0 L, Albumin 1.9 L, Globulin 4.1, Albumin/Globulin Ratio 0.5 L Current Medications Acetaminophen (Tylenol) 650 mg PO Q6H PRN PRN PRN Reason: Pain (1-4/10) or Fever Last Admin: 01/28/20 16:24 Dose: 650 mg Documented by: Albuterol Sulfate (Ventolin Aerosols) 2.5 mg INHALATION Q2H PRN PRN PRN Reason: WHEEZING Carvedilol (Coreg) 12.5 mg PO BID [facility] Last Admin: 01/28/20 21:24 Dose: 12.5 mg Documented by: Famotidine (Pepcid) 20 mg PO DAILY [facility] Last Admin: 01/28/20 09:37 Dose: 20 mg Documented by: Gabapentin (Neurontin) 400 mg PO BID [facility] Last Admin: 01/28/20 21:27 Dose: 400 mg Documented by: Heparin Sodium (Porcine) (Heparin Na) 5,000 unit SC Q8 [facility] Last Admin: 01/29/20 05:37 Dose: 5,000 unit Documented by: Hydralazine HCl (Apresoline Iv) 10 mg IV Q6H PRN PRN PRN Reason: SBP>160 or DBP>100 Last Admin: 01/28/20 00:30 Dose: 10 mg Documented by: Sodium Chloride () 250 mls @ 15 mls/hr IV .[id number] PRN PRN Reason: Saline Flush Sodium Chloride () 250 mls @ 15 mls/hr IV .[id number] PRN PRN Reason: Additional IVPB Infusion Ampicillin Sodium/Sulbactam Sodium 1,500 mg/ Sodium Chloride 50 mls @ 100 mls/hr IV Q12 [facility] Stop: 01/30/20 22:01 Last Infusion: 01/28/20 23:50 Dose: Infused Documented by: Oxycodone HCl (Oxyir) 5 mg PO Q6H PRN PRN PRN Reason: Pain Score 5-10/10 Last Admin: 01/29/20 03:29 Dose: 5 mg Documented by: Prochlorperazine Edisylate (Compazine Iv) 5 mg IV Q6H PRN PRN PRN Reason: NAUSEA/VOMITING Last Admin: 01/27/20 04:30 Dose: 5 mg Documented by: Senna/Docusate Sodium (Senokot-S, Rosalba-Colace) 2 tablet GT BID PRN PRN PRN Reason: Constipation Sodium Chloride () 10 - 40 ml IV UD PRN PRN Reason: SALINE FLUSH Last Admin: 01/28/20 14:56 Dose: 10 ml Documented by: STROKE Vital Signs/Narrative: Vital Signs Pulse 01/29/20 06:56 70 01/29/20 03:43 64 Medical Necessity - Tobacco Use Smoking Status: Current every day smoker Tobacco Use: Cigarettes Assessment/Plan All Active Problems Cardiopulmonary arrest with successful resuscitation (Acute) Hypocalcemia (Acute) Hyperkalemia (Acute) KEITH (acute kidney injury) (Acute) Metabolic acidosis, increased anion gap (Acute) Respiratory failure with hypoxia (Acute) Pulseless electrical activity with heart block (Acute) Ventricular fibrillation seen on equipment monitor phototypesetting (Acute) Gross hematuria (Acute) LV dysfunction (Acute) Non-STEMI (non-ST elevated myocardial infarction) (Acute) 1. Acute respiratory failure secondary to cardiac arrest/possible aspiration pneumonia, resolved Extubated today 01/27/20. off oxygen CXR on 01/26/20 showed atelectasis. Encourage use of incentive spirometer 2. Hyperkalemia, improved with dialysis, resolved K 4.0. s/p 3 dialysis sessions. Last one was on 01/28/20 3. Hypertension, controlled, on Coreg 12.5 mg twice daily 4. Acute rhabdomyolysis secondary to cocaine use, mildly improved today CK is 165, 000 from 225,000 Continue on IV fluids, repeat CK in a.m. 5. Acute kidney injury, likely prerenal, secondary to #4, Cr remains worse On dialysis, nephrology following Continue on IV fluids Repeat blood work in a.m. 6. Hypocalcemia secondary to #4, will replace Repeat blood work in a.m. 7. Elevated troponins, likely secondary to #4, Possible underlining cardiomyopathy, EF of 20%, Cardiology consulted 8. Polysubstance use, urine tox positive for cocaine and marijuana 9. Elevated liver enzymes( AST/ALT) secondary to #4, less likely from shock liver, improving ALP is normal, continue to trend liver enzymes 10. Aspiration pneumonitis/pneumonia, still with low grade fever On Unasyn, will continue 11. DVT PPx- SCDs on account of gross hematoma 12. GI PPx - famotidine po Inpatient E&M: 84478 Subs Hosp L2
--- NOTE | 2020-01-29 07:36 | PN_ITS ---
Subjective: Patient did well overnight. Patient continues to have muscle soreness, but overall feels well. Patient able to tolerate hemodialysis yesterday with 4 L removed. Patient is tolerating p.o. diet. General: Alert, Oriented x3, Cooperative, No apparent distress, Well developed, Well nourished, - - Morbidly obese. Speaking in full sentences. HEENT: Atraumatic, PERRLA, EOMI, Normocephalic, - - No scleral icterus or injection noted Oral: Moist Mucosa, No Gingival or Mucosal Lesions/ Ulcerations Neck: Supple, No JVD, No Nodes, Trachea Midline Lungs: Clear to auscultation, Normal air movement, No rhonchi, No wheeze, No ra les Cardiovascular: Regular rate, Regular Rhythm, Normal S1, Normal S2, No murmurs, No rub noted, No Gallop Abdomen: Bowel Sounds Present, Soft, Non Tender, Non-Distended, Obese Extremities: No clubbing, No cyanosis, Edema Skin: No rashes, No breakdown Musculoskeletal: Tenderness - Improved from previous Lymphatic: No Cervical, Supraclavicular, or Inguinal Adenopathy Neurological: Cranial nerves II-XII grossly intact, Neuro grossly intact, Motor Exam 5/5 strength throughout Psych/Mental Status: Alert and oriented to time, place, person, mood and affect Vital Signs Temp Pulse Resp BP Pulse Ox 37.1 C 70 17 141/72 H 95 01/29/20 03:20 01/29/20 06:56 01/29/20 03:20 01/29/20 03:20 01/29/20 03:20 Oxygen Flow Rate (L/min) 2 Oxygen Delivery Method Room Air Weight: 134.8 kg Body Mass Index (BMI) 36.3 Finger Stick Blood Glucose 160 Intake and Output for Last 24 Hours 01/27/20 01/28/20 01/29/20 23:59 23:59 23:59 Intake Total 5898.84 / 5898.84 4587.50 / 4807.50 545 / 545 Output Total 255 / 255 4320 / 4320 50 / 50 Balance 5643.84 / 5643.84 267.50 / 487.50 495 / 495 Labs (Last 48 Hours) 01/26/20 01/27/20 01/28/20 08:10 03:45 03:55 WBC 11.3 H RBC 3.63 L Hgb 10.8 L Hct 32.6 L MCV 89.8 MCH 29.8 MCHC 33.1 RDW Std Deviation 46.5 H RDW Coeff of Jennifer 14.2 Plt Count 156 MPV 9.3 Immature Gran % (Auto) 0.500 Neut % (Auto) 78.3 H Lymph % (Auto) 6.6 L [place] % (Auto) 14.2 H Eos % (Auto) 0.2 Baso % (Auto) 0.2 Absolute Neuts (auto) 8.9 H Absolute Lymphs (auto) 0.74 L Nucleated RBC % 0 Differential Comment SCANNED Diff Path Review Reviewed December foll Sodium Potassium Chloride Carbon Dioxide Anion Gap BUN Creatinine Estim Creat Clear Calc Est GFR (MDRD) Af Amer Est GFR (MDRD) Non-Af BUN/Creatinine Ratio Glucose Calcium Phosphorus Total Bilirubin AST ALT Alkaline Phosphatase Total Creatine Kinase Total Protein Albumin Globulin Albumin/Globulin Ratio Hepatitis A IgM Ab Negative Hep Bs Antigen Negative Hep B Core IgM Ab Negative Hepatitis C Ab (EIA) <0.1 01/28/20 01/28/20 01/29/20 03:55 03:55 05:25 WBC 8.8 RBC 3.70 L Hgb 10.8 L Hct 36.5 L MCV 98.6 H D MCH 29.2 MCHC 29.6 L D RDW Std Deviation 49.6 H RDW Coeff of Jennifer 13.7 Plt Count 161 MPV 9.2 Immature Gran % (Auto) 0.700 Neut % (Auto) 69.2 Lymph % (Auto) 8.3 L [place] % (Auto) 21.1 H Eos % (Auto) 0.5 Baso % (Auto) 0.2 Absolute Neuts (auto) 6.1 Absolute Lymphs (auto) 0.73 L Nucleated RBC % 0 Differential Comment SCANNED Diff Path Review Sodium 134 L Potassium 4.3 Chloride 98 Carbon Dioxide 28.0 Anion Gap 8 BUN 36 H Creatinine 5.04 H Estim Creat Clear Calc 23.52 Est GFR (MDRD) Af Amer 17 L Est GFR (MDRD) Non-Af 14 L BUN/Creatinine Ratio 7.1 L Glucose 86 Calcium 6.1 L* Phosphorus 5.8 H Total Bilirubin 0.90 AST 4483 H ALT 928 H Alkaline Phosphatase 72 Total Creatine Kinase 742551 H Total Protein 5.7 L Albumin 2.0 L Globulin 3.7 Albumin/Globulin Ratio 0.5 L Hepatitis A IgM Ab Hep Bs Antigen Hep B Core IgM Ab Hepatitis C Ab (EIA) 01/29/20 05:25 WBC RBC Hgb Hct MCV MCH MCHC RDW Std Deviation RDW Coeff of Jennifer Plt Count MPV Immature Gran % (Auto) Neut % (Auto) Lymph % (Auto) [place] % (Auto) Eos % (Auto) Baso % (Auto) Absolute Neuts (auto) Absolute Lymphs (auto) Nucleated RBC % Differential Comment Diff Path Review Sodium 130 L Potassium 4.0 Chloride 95 L Carbon Dioxide 24.0 Anion Gap 11 BUN 41 H Creatinine 5.57 H Estim Creat Clear Calc 21.28 Est GFR (MDRD) Af Amer 16 L Est GFR (MDRD) Non-Af 13 L BUN/Creatinine Ratio 7.4 L Glucose 74 Calcium 6.9 L Phosphorus Total Bilirubin 0.90 AST 4474 H ALT 1017 H Alkaline Phosphatase 73 Total Creatine Kinase 357483 H Total Protein 6.0 L Albumin 1.9 L Globulin 4.1 Albumin/Globulin Ratio 0.5 L Hepatitis A IgM Ab Hep Bs Antigen Hep B Core IgM Ab Hepatitis C Ab (EIA) Medical Necessity - Tobacco Use Smoking Status: Current every day smoker Tobacco Use: Cigarettes Assessment/Plan All Active Problems Cardiopulmonary arrest with successful resuscitation (Acute) Hypocalcemia (Acute) Hyperkalemia (Acute) KEITH (acute kidney injury) (Acute) Metabolic acidosis, increased anion gap (Acute) Respiratory failure with hypoxia (Acute) Pulseless electrical activity with heart block (Acute) Ventricular fibrillation seen on radiation monitor (Acute) Gross hematuria (Acute) LV dysfunction (Acute) Non-STEMI (non-ST elevated myocardial infarction) (Acute) RECOMMENDATIONS: 1. Continue empiric antibiotics to complete a 5-day course 2. Hemodialysis per nephrology. Consider volume removal 3. Continue Coreg 4. Initiate therapies (PT/OT) 5. Anticipate repeat echocardiogram on Thursday 6. Dynamically stable on room air. Will sign off from a critical care perspective IMPRESSIONS: 1. Acute hypoxic respiratory failure with possible aspiration secondary to possible opiates Unclear surrounding history. Patient is denying exposure to cocaine despite positive tox screen. Patient appears to be developing a right lower lobe infiltrate and was found with emesis around his mouth. Concern for aspiration. Given overnight mucous plugging while on the vent, will treat for total of 5 days with empiric antibiotics. Antibiotics have been dosed for renal function. Lung exam is relatively unremarkable. Encourage incentive spirometer. 2. Acute kidney injury secondary to rhabdomyolysis/hyperkalemia/hypocalcemia Concern for myoglobinuria leading to what appears to be hematuria. Patient had been reporting leg pain weakness prior to presentation. Patient may be having breakdown from toxic drug effects. Patient has continued to receive hemodialysis, but CK improved today, along with weight. Would prefer some volume removal. Defer to nephrology on if this is going to be repeated today. Urine output appears to be slightly improved, but still marginal for size. 3. Systolic congestive heart failure/ventricular fibrillation/non-ST elevation [place] Patient with EF of 20% following arrest. Significant increase in troponin initially. Unclear if this is baseline versus new onset with shock. No pressors have been required. Patient has tested positive for cocaine. Given young age and global defects, coronary artery disease is unlikely. Cardiology is recommending titration of beta-og with repeat echocardiogram possibly on Thursday. 4. Polysubstance abuse Patient has tested positive for marijuana and cocaine on his tox screen. Patient also has reportedly used heroin and fentanyl in the past. Patient has had hypertension and tachycardia overnight. Patient is receiving some opiates secondary to back pain. 5. Shock liver Significant elevation of AST and ALT despite normotension. Cannot exclude toxic effects versus decreased perfusion during code leading to current findings. Congestive hepatitis may be leading to elevation of LFTs today. Albumin is decreased, but there has been significant increase in volume over the course of the hospitalization. 6. Poor history/obesity Complicates care, management, recovery and prognosis. DVT and GI prophylaxis. Inpatient E&M: 37719 Subs Hosp L2
[2020-01-29] MEDS: Carvedilol 12.5 MG Tablet PO ×2 (08:48→21:11)
[2020-01-29] MEDS: Famotidine 20 MG Tablet PO (08:49)
[2020-01-29] MEDS: Gabapentin 400 MG Capsule PO ×2 (08:49→21:12)
[2020-01-29] MEDS: Acetaminophen 325 MG Tablet 650 MG PO ×2 (08:51→16:34)
[2020-01-29] MEDS: 0.9% Normal Saline 1,000 ML 200 ML IV (10:26)
--- NOTE | 2020-01-29 12:05 | NURSING ---
Updated patient's mother, Jaleesa, over the phone on patient and POC
--- NOTE | 2020-01-29 15:38 | PCM.PN.REN ---
Patient Problems: Active and Suspected Problems Cardiopulmonary arrest with successful resuscitation (Acute) Hypocalcemia (Acute) Hyperkalemia (Acute) KEITH (acute kidney injury) (Acute) Metabolic acidosis, increased anion gap (Acute) Respiratory failure with hypoxia (Acute) Pulseless electrical activity with heart block (Acute) Ventricular fibrillation seen on cardiac monitor technician (Acute) Gross hematuria (Acute) LV dysfunction (Acute) Non-STEMI (non-ST elevated myocardial infarction) (Acute) Subjective: The patient has no complaints except lower extremity. He denies shortness of breath - Physical Exam Vitals/I&O's: Vital Signs Temp Pulse Resp BP Pulse Ox 99.1 F 69 16 157/90 H 94 01/29/20 14:45 01/29/20 15:04 01/29/20 14:45 01/29/20 14:45 01/29/20 14:45 Oxygen Flow Rate (L/min) 2 Oxygen Delivery Method Room Air Weight: 134.8 kg Body Mass Index (BMI) 36.3 Finger Stick Blood Glucose 160 Intake and Output for Last 24 Hours 01/27/20 01/28/20 01/29/20 23:59 23:59 23:59 Intake Total 5898.84 / 5898.84 4587.50 / 4807.50 1273.33 / 1273.33 Output Total 255 / 255 4320 / 4320 100 / 100 Balance 5643.84 / 5643.84 267.50 / 487.50 1173.33 / 1173.33 General: Alert, Cooperative HEENT: Atraumatic, Normocephalic Neck: Supple Lungs: Clear to auscultation, Normal air movement Cardiovascular: Regular rate, Regular Rhythm, Normal S1, Normal S2 Abdomen: Bowel Sounds Present, Soft Extremities: No clubbing, No edema Neurological: - - Alert awake Laboratory Results 01/29/20 05:25: WBC 8.8, RBC 3.70 L, Hgb 10.8 L, Hct 36.5 L, MCV 98.6 H D, MCH 29.2, MCHC 29.6 L D, RDW Std Deviation 49.6 H, RDW Coeff of Jennifer 13.7, Plt Count 161, MPV 9.2, Immature Gran % (Auto) 0.700, Neut % (Auto) 69.2, Lymph % (Auto) 8.3 L, [place] % (Auto) 21.1 H, Eos % (Auto) 0.5, Baso % (Auto) 0.2, Absolute Neuts (auto) 6.1, Absolute Lymphs (auto) 0.73 L, Nucleated RBC % 0, Differential Comment SCANNED 01/29/20 05:25: Sodium 130 L, Potassium 4.0, Chloride 95 L, Carbon Dioxide 24.0, Anion Gap 11, BUN 41 H, Creatinine 5.57 H, Estim Creat Clear Calc 21.28, Est GFR (MDRD) Af Amer 16 L, Est GFR (MDRD) Non-Af 13 L, BUN/Creatinine Ratio 7.4 L, Glucose 74, Calcium 6.9 L, Total Bilirubin 0.90, AST 4474 H, ALT 1017 H, Alkaline Phosphatase 73, Total Creatine Kinase 490164 H, Total Protein 6.0 L, Albumin 1.9 L, Globulin 4.1, Albumin/Globulin Ratio 0.5 L Current Medications Acetaminophen (Tylenol) 650 mg PO Q6H PRN PRN PRN Reason: Pain (-11/24) or Fever Last Admin: 01/29/20 08:51 Dose: 650 mg Documented by: Albuterol Sulfate (Ventolin Aerosols) 2.5 mg INHALATION Q2H PRN PRN PRN Reason: WHEEZING Carvedilol (Coreg) 12.5 mg PO BID [facility] Last Admin: 01/29/20 08:48 Dose: 12.5 mg Documented by: Famotidine (Pepcid) 20 mg PO DAILY [facility] Last Admin: 01/29/20 08:49 Dose: 20 mg Documented by: Gabapentin (Neurontin) 400 mg PO BID [facility] Last Admin: 01/29/20 08:49 Dose: 400 mg Documented by: Heparin Sodium (Porcine) (Heparin Na) 5,000 unit SC Q8 [facility] Last Admin: 01/29/20 13:19 Dose: 5,000 unit Documented by: Hydralazine HCl (Apresoline Iv) 10 mg IV Q6H PRN PRN PRN Reason: SBP>160 or DBP>100 Last Admin: 01/28/20 00:30 Dose: 10 mg Documented by: Sodium Chloride () 250 mls @ 15 mls/hr IV .[id number] PRN PRN Reason: Saline Flush Sodium Chloride () 250 mls @ 15 mls/hr IV .[id number] PRN PRN Reason: Additional IVPB Infusion Ampicillin Sodium/Sulbactam Sodium 1,500 mg/ Sodium Chloride 50 mls @ 100 mls/hr IV Q12 [facility] Stop: 01/30/20 22:01 Last Infusion: 01/29/20 10:20 Dose: Infused Documented by: Sodium Chloride () 1,000 mls @ 150 mls/hr IV .[id number] [facility] Stop: 01/29/20 20:09 Last Infusion: 01/29/20 14:30 Dose: 150 mls/hr Documented by: Oxycodone HCl (Oxyir) 5 mg PO Q6H PRN PRN PRN Reason: Pain Score 5-10/10 Last Admin: 01/29/20 13:30 Dose: 5 mg Documented by: Prochlorperazine Edisylate (Compazine Iv) 5 mg IV Q6H PRN PRN PRN Reason: NAUSEA/VOMITING Last Admin: 01/27/20 04:30 Dose: 5 mg Documented by: Senna/Docusate Sodium (Senokot-S, Rosalba-Colace) 2 tablet GT BID PRN PRN PRN Reason: Constipation Sodium Chloride () 10 - 40 ml IV UD PRN PRN Reason: SALINE FLUSH Last Admin: 01/28/20 14:56 Dose: 10 ml Documented by: Medical Necessity - Tobacco Use Smoking Status: Current every day smoker Tobacco Use: Cigarettes Assessment/Plan All Active Problems Cardiopulmonary arrest with successful resuscitation (Acute) Hypocalcemia (Acute) Hyperkalemia (Acute) KEITH (acute kidney injury) (Acute) Metabolic acidosis, increased anion gap (Acute) Respiratory failure with hypoxia (Acute) Pulseless electrical activity with heart block (Acute) Ventricular fibrillation seen on cardiac monitor technician (Acute) Gross hematuria (Acute) LV dysfunction (Acute) Non-STEMI (non-ST elevated myocardial infarction) (Acute) KEITH -ATN Hyperphosphatemia Hypocalcemia Rhabdomyolysis NSTEMI Polysubstance abuse Respiratory failure s/p extubation Shock liver HF Dialysis tomorrow with ultrafiltration as tolerated. Monitor I's and O's. bmp phosphorus in a.m. echo in am asx hypocalcemia Avoid nephrotoxins Fluids were stopped because of hypervolemia yesterday d/w patient
[2020-01-29] MEDS: 0.9% Normal Saline 1,000 ML 150 ML IV (18:42)
--- NOTE | 2020-01-29 19:00 | PCM.PN.CARD ---
Subjectve: Patient did well overnight. Patient continues to have muscle soreness, but overall feels well. Patient able to tolerate hemodialysis yesterday with 4 L removed. Patient is tolerating p.o. diet. Objective: Vital Signs Temp Pulse Resp BP Pulse Ox 99.1 F 69 16 157/90 H 94 01/29/20 14:45 01/29/20 15:04 01/29/20 14:45 01/29/20 14:45 01/29/20 14:45 Oxygen Flow Rate (L/min) 2 Oxygen Delivery Method Room Air Weight: 297 lb 2.93 oz Body Mass Index (BMI) 36.3 Finger Stick Blood Glucose 160 Intake and Output for Last 24 Hours 01/27/20 01/28/20 01/29/20 23:59 23:59 23:59 Intake Total 5898.84 / 5898.84 4587.50 / 4807.50 2269.50 / 2269.50 Output Total 255 / 255 4320 / 4320 125 / 125 Balance 5643.84 / 5643.84 267.50 / 487.50 2144.50 / 2144.50 General: Awake, Alert, Oriented x 3 HEENT: Atraumatic Oral: Moist Mucosa Neck: Supple Abdomen: Soft Extremities: No edema Skin: No Rashes Psych/Mental Status: Appropriate 01/29/20 05:25: WBC 8.8, RBC 3.70 L, Hgb 10.8 L, Hct 36.5 L, MCV 98.6 H D, MCH 29.2, MCHC 29.6 L D, Plt Count 161, MPV 9.2, Immature Gran % (Auto) 0.700, Neut % (Auto) 69.2, Lymph % (Auto) 8.3 L, [place] % (Auto) 21.1 H, Eos % (Auto) 0.5, Baso % (Auto) 0.2, Absolute Neuts (auto) 6.1, Nucleated RBC % 0 01/29/20 05:25: Sodium 130 L, Potassium 4.0, Chloride 95 L, Carbon Dioxide 24.0, Anion Gap 11, BUN 41 H, Creatinine 5.57 H, Est GFR (MDRD) Af Amer 16 L, Est GFR (MDRD) Non-Af 13 L, BUN/Creatinine Ratio 7.4 L, Glucose 74, Calcium 6.9 L, Total Bilirubin 0.90 Rhythm: EKG: ECHO: Stress Test: Cardiac Cath: PCI: CT Surgery: Holter monitor: EPS: PPM: CXR: Chest CT Scan: Medical Necessity - Tobacco Use Smoking Status: Current every day smoker Tobacco Use: Cigarettes Assessment/Plan 1. Non-STEMI: Patient presented with cardiac arrest, rhabdomyolysis, new onset severe LV dysfunction, elevated troponin, substance abuse, acute renal failure. Major component of the troponin elevation could be related to his rhabdomyolysis with possible contribution from LV dysfunction and less likely underlying coronary artery disease. Reasonable to provide supportive care from this standpoint at this time. Continue current medications. 2D echo tomorrow to see if there is any improvement in his LV function. At some point we could consider coronary angiography. However it is not emergent at this time especially in view of this multisystem failure including acute renal failure. If blood pressure remains elevated overnight we can increase the Coreg to 25 mg p.o. twice daily tomorrow.
[2020-01-30] VITALS (10 sets, daily range): BP systolic 139–153; BP diastolic 73–96; PULSE 75–94; RESP 14–18; TEMP 37.1–37.7; O2SAT 94–100
[2020-01-30 05:28] LABS: Absolute Lymphocyte Count 0.98 X10^3/uL (0.83-4.51); Absolute Neutrophil Count 8.1 X10^3/uL (2.0-7.7); Basophil# 0.03 X10^3/uL; Basophil% 0.3 % (0-1); Eosinophil# 0.21 X10^3/uL; Eosinophils% 1.8 % (0-5); Hematocrit 33.7 % (40-54); Hemoglobin 11.3 g/dL (13.0-16.5); Lymphocyte # 0.98 X10^3/ul (4.0); Lymphocyte % 8.5 % (19-41); Mean Corp Hgb Conc 33.5 g/dL (32-36); Mean Corpuscular Hgb 29.9 pg (27.0-32.0); Mean Corpuscular Volume 89.2 fL (80-94); Mean Platelet Vol. 9.5 fl (6.2-12.0); Monocyte# 2.06 X10^3/uL; Monocyte% 17.8 % (0-10); NRBC Flagged by Analyzer 0 % (0-5); Neutrophil # 8.11 X10^3/uL (2.7-7.7); Neutrophil % 70.2 % (47-70); POSITIVE DIFFERENTIAL YES; Platelet Count 212 K/mm3 (150-450); RBC Distribution Width CV 13.3 % (11.6-14.6); RBC Distribution Width SD 43.4 fl (35.1-43.9); Red Blood Count 3.78 M/mm3 (4.6-6.2); White Blood Count 11.6 K/mm3 (4.4-11.0)
[2020-01-30 05:30] LABS: Differential Indicated SCAN CRITERIA MET
[2020-01-30] MEDS: Heparin Injection (Vial) 5,000 UNIT/ML VIAL 5000 UNIT SC ×3 (05:31→21:23)
[2020-01-30 05:53] LABS: Differential Comment SCANNED
[2020-01-30 07:02] LABS: ALB/GLOB Ratio 0.6 RATIO (0.9-2.4); AST(SGOT) 3177 U/L (15-37); Alanine Aminotransfer ALT/SGPT 904 U/L (16-61); Albumin, Serum 1.8 g/dL (3.2-5.0); Alkaline Phosphatase 65 U/L (45-117); Anion Gap 12 (5-15); BUN 65 mg/dL (7-18); BUN/Creat Ratio 8.2 RATIO (10-20); Calcium,Total 7.1 mg/dL (8.5-10.1); Chloride 94 mmol/L (98-107); Creatinine, Serum 7.89 mg/dL (0.70-1.30); EST Glomerular Filtration Rate 9 mL/min (>60); Est Glom Filt Rate - Afr Amer 10 mL/min (>60); Estimated Creatinine Clearance 15.03 ml/min; Globulin 3.2 g/dL (2.2-4.2); Glucose 87 mg/dL (74-106); Potassium 4.3 mmol/L (3.5-5.1); Sodium Level 131 mmol/L (136-145)
--- NOTE | 2020-01-30 08:53 | CASEMGMT ---
Addendum entered by Tona Kirby 01/30/20 09:07: KIRSTIE spoke with Mindy at [facility]. Keyon will be in today to see pt. Original Note: Social Work Note KIRSTIE placed a call to Mindy at [facility] regarding pt. Tona Kirby [employer] HEL[employer], [employer]YRE [employer]TER
--- NOTE | 2020-01-30 09:50 | CASEMGMT ---
SW went to patient's room to work on Medicaid application. He was sleeping and on dialysis. He did wake up and answered KIRSTIE's questions as well as signed application. KIRSTIE asked if he would be willing to go to a [facility] facility for short term physical rehab. He said he would think about it. Adrienne STRICKLAND MSW
[2020-01-30] MEDS: oxyCODONE 5 MG Tablet PO ×2 (11:09→18:18)
--- NOTE | 2020-01-30 11:13 | CASEMGMT ---
Anam from [facility] spoke with patient regarding possible treatment options. Per Anam he told him he does not use drugs and only drinks once in awhile. Therefore he was not receptive to any resources. Adrienne STRICKLAND MSW
--- NOTE | 2020-01-30 11:21 | NURSING ---
pt's mother updated on pt and poc by this RN
--- NOTE | 2020-01-30 11:30 | NURSING ---
pt's bother Nas update on pt and poc by this RN
--- NOTE | 2020-01-30 12:10 | PCM.PN.HOSP ---
<Gino Blancas - Last Filed: 01/30/20 12:10> Patient Problems: Active and Suspected Problems Cardiopulmonary arrest with successful resuscitation (Acute) Hypocalcemia (Acute) Hyperkalemia (Acute) KEITH (acute kidney injury) (Acute) Metabolic acidosis, increased anion gap (Acute) Respiratory failure with hypoxia (Acute) Pulseless electrical activity with heart block (Acute) Ventricular fibrillation seen on vehicle monitor technician (Acute) Gross hematuria (Acute) LV dysfunction (Acute) Non-STEMI (non-ST elevated myocardial infarction) (Acute) Fever (Acute) Reason for Visit: SOB Subjective: Patient complains of ongoing shortness of breath, cough with clear sputum production, no fevers or chills, ongoing pleuritic chest pain with stabbing pain on coughing and deep breath. Vitals/I&O's: Vital Signs Temp Pulse Resp BP Pulse Ox 99.3 F H 75 16 147/73 H 94 01/30/20 09:00 01/30/20 09:00 01/30/20 09:00 01/30/20 09:00 01/30/20 09:00 Oxygen Flow Rate (L/min) 2 Oxygen Delivery Method Room Air Weight: 297 lb 9.985 oz Body Mass Index (BMI) 36.3 Finger Stick Blood Glucose 160 Intake and Output for Last 24 Hours 01/28/20 01/29/20 01/30/20 23:59 23:59 23:59 Intake Total 4587.50 / 4807.50 3132.00 / 3132.00 575 / 575 Output Total 4320 / 4320 155 / 155 100 / 100 Balance 267.50 / 487.50 2977.00 / 2977.00 475 / 475 General: Alert, Oriented x3, Cooperative HEENT: Atraumatic, PERRLA, EOMI, Normocephalic Neck: Supple, No JVD, Negative Carotid Bruits Lungs: Diminished, Rales - BL Lower shields Cardiovascular: Regular rate, No murmurs Abdomen: Bowel Sounds Present, Soft, Non Tender Extremities: No edema, Capillary Refill Less than 3 Seconds Skin: No rashes, No breakdown Musculoskeletal: No Tenderness to Palpation of Joints or Extremities Neurological: Cranial nerves II-XII grossly intact Psych/Mental Status: Normal Affect, Appropriate, Alert and oriented to time, place, person, mood and affect Laboratory Results 01/30/20 04:52: WBC 11.6 H, RBC 3.78 L, Hgb 11.3 L, Hct 33.7 L, MCV 89.2 D, MCH 29.9, MCHC 33.5 D, RDW Std Deviation 43.4, RDW Coeff of Jennifer 13.3, Plt Count 212, MPV 9.5, Immature Gran % (Auto) 1.400 H, Neut % (Auto) 70.2 H, Lymph % (Auto) 8.5 L, Hartley % (Auto) 17.8 H, Eos % (Auto) 1.8, Baso % (Auto) 0.3, Absolute Neuts (auto) 8.1 H, Absolute Lymphs (auto) 0.98, Nucleated RBC % 0, Differential Comment SCANNED, Diff Path Review December01/30/20 04:52: Sodium 131 L, Potassium 4.3, Chloride 94 L, Carbon Dioxide 25.0, Anion Gap 12, BUN 65 H, Creatinine 7.89 H*, Estim Creat Clear Calc 15.03, Est GFR (MDRD) Af Amer 10 L, Est GFR (MDRD) Non-Af 9 L, BUN/Creatinine Ratio 8.2 L, Glucose 87, Calcium 7.1 L, Total Bilirubin 0.70, AST 3177 H, ALT 904 H, Alkaline Phosphatase 65, Total Creatine Kinase 515636 H, Total Protein 5.0 L, Albumin 1.8 L, Globulin 3.2, Albumin/Globulin Ratio 0.6 L Current Medications Acetaminophen (Tylenol) 650 mg PO Q6H PRN PRN PRN Reason: Pain (1-4/10) or Fever Last Admin: 01/29/20 16:34 Dose: 650 mg Documented by: Albuterol Sulfate (Ventolin Aerosols) 2.5 mg INHALATION Q2H PRN PRN PRN Reason: WHEEZING Carvedilol (Coreg) 12.5 mg PO BID [facility] Last Admin: 01/29/20 21:11 Dose: 12.5 mg Documented by: Famotidine (Pepcid) 20 mg PO DAILY [facility] Last Admin: 01/29/20 08:49 Dose: 20 mg Documented by: Gabapentin (Neurontin) 400 mg PO BID [facility] Last Admin: 01/29/20 21:12 Dose: 400 mg Documented by: Heparin Sodium (Porcine) (Heparin Na) 5,000 unit SC Q8 [facility] Last Admin: 01/30/20 05:31 Dose: 5,000 unit Documented by: Hydralazine HCl (Apresoline Iv) 10 mg IV Q6H PRN PRN PRN Reason: SBP>160 or DBP>100 Last Admin: 01/28/20 00:30 Dose: 10 mg Documented by: Sodium Chloride () 250 mls @ 15 mls/hr IV .[id number] PRN PRN Reason: Saline Flush Sodium Chloride () 250 mls @ 15 mls/hr IV .[id number] PRN PRN Reason: Additional IVPB Infusion Ampicillin Sodium/Sulbactam Sodium 1,500 mg/ Sodium Chloride 50 mls @ 100 mls/hr IV Q12 [facility] Stop: 01/30/20 22:01 Last Infusion: 01/29/20 22:00 Dose: Infused Documented by: Vancomycin IV Pharmacy to Dose (1 ea/ Sodium Chloride) 500 mls @ 250 mls/hr IV X1 PRN; Protocol PRN Reason: Rx to Dose Oxycodone HCl (Oxyir) 5 mg PO Q6H PRN PRN PRN Reason: Pain Score 5-10/10 Last Admin: 01/30/20 11:09 Dose: 5 mg Documented by: Prochlorperazine Edisylate (Compazine Iv) 5 mg IV Q6H PRN PRN PRN Reason: NAUSEA/VOMITING Last Admin: 01/27/20 04:30 Dose: 5 mg Documented by: Senna/Docusate Sodium (Senokot-S, Rosalba-Colace) 2 tablet GT BID PRN PRN PRN Reason: Constipation Sodium Chloride () 10 - 40 ml IV UD PRN PRN Reason: SALINE FLUSH Last Admin: 01/28/20 14:56 Dose: 10 ml Documented by: STROKE Vital Signs/Narrative: Vital Signs Temp Pulse Resp BP Pulse Ox 01/30/20 09:00 99.3 F H 75 16 147/73 H 94 Medical Necessity - Tobacco Use Smoking Status: Current every day smoker Tobacco Use: Cigarettes Assessment/Plan All Active Problems Cardiopulmonary arrest with successful resuscitation (Acute) Hypocalcemia (Acute) Hyperkalemia (Acute) KEITH (acute kidney injury) (Acute) Metabolic acidosis, increased anion gap (Acute) Respiratory failure with hypoxia (Acute) Pulseless electrical activity with heart block (Acute) Ventricular fibrillation seen on vehicle monitor technician (Acute) Gross hematuria (Acute) LV dysfunction (Acute) Non-STEMI (non-ST elevated myocardial infarction) (Acute) Fever (Acute) 1. Acute hypoxic resp failure 2/2 cardiac arrest, pna, cardiomyopathy and volume overload - extubated 01/26. Inc WBC and fever last night + left shift. With recent ventilation will add Vanco and consult ID for pna which is still significantly symptomatic. Continue unasyn. He has been weaned off o2 to 94% on RA. 2. KEITH, hyperkalemia, hypocalcemia, hyperphosphatemia, acute rhabdo - dialysis today. nephro following. CPK improving. 3. Abnormal LFTs due to shock liver - improved. hep panel neg. 4. Cardiomyopathy - unclear type, ?cocaine induced. EF 20%. Cardiology following. Weight is significantly up, aggressive fluid removal with dialysis. 5. Elevated troponins - cardio following - no CP at this time 6. Polysubstance abuse - cocaine, marijuana 7. Anemia - normocytic. improved. DVT ppx: SCDs - has had patricia hematuria. This patient was seen by Gino Blancas PA-C under the supervision of Doctor Gurdeep. <Jignesh Mackenzie - Last Filed: 01/30/20 13:42> Vitals/I&O's: Vital Signs Temp Pulse Resp BP Pulse Ox 98.8 F 76 16 153/86 H 94 01/30/20 12:38 01/30/20 12:38 01/30/20 12:38 01/30/20 12:38 01/30/20 09:00 Oxygen Flow Rate (L/min) 2 Oxygen Delivery Method Room Air Weight: 135 kg Body Mass Index (BMI) 36.3 Finger Stick Blood Glucose 160 Intake and Output for Last 24 Hours 01/28/20 01/29/20 01/30/20 23:59 23:59 23:59 Intake Total 4587.50 / 4807.50 3132.00 / 3132.00 575 / 575 Output Total 4320 / 4320 155 / 155 100 / 100 Balance 267.50 / 487.50 2977.00 / 2977.00 475 / 475 Laboratory Results 01/28/20 03:55: Diff Path Review Reviewed 01/30/20 04:52: WBC 11.6 H, RBC 3.78 L, Hgb 11.3 L, Hct 33.7 L, MCV 89.2 D, MCH 29.9, MCHC 33.5 D, RDW Std Deviation 43.4, RDW Coeff of Jennifer 13.3, Plt Count 212, MPV 9.5, Immature Gran % (Auto) 1.400 H, Neut % (Auto) 70.2 H, Lymph % (Auto) 8.5 L, Hartley % (Auto) 17.8 H, Eos % (Auto) 1.8, Baso % (Auto) 0.3, Absolute Neuts (auto) 8.1 H, Absolute Lymphs (auto) 0.98, Nucleated RBC % 0, Differential Comment SCANNED, Diff Path Review Reviewed 01/30/20 04:52: Sodium 131 L, Potassium 4.3, Chloride 94 L, Carbon Dioxide 25.0, Anion Gap 12, BUN 65 H, Creatinine 7.89 H*, Estim Creat Clear Calc 15.03, Est GFR (MDRD) Af Amer 10 L, Est GFR (MDRD) Non-Af 9 L, BUN/Creatinine Ratio 8.2 L, Glucose 87, Calcium 7.1 L, Total Bilirubin 0.70, AST 3177 H, ALT 904 H, Alkaline Phosphatase 65, Total Creatine Kinase 995542 H, Total Protein 5.0 L, Albumin 1.8 L, Globulin 3.2, Albumin/Globulin Ratio 0.6 L Current Medications Acetaminophen (Tylenol) 650 mg PO Q6H PRN PRN PRN Reason: Pain (1-4/10) or Fever Last Admin: 01/29/20 16:34 Dose: 650 mg Documented by: Albuterol Sulfate (Ventolin Aerosols) 2.5 mg INHALATION Q2H PRN PRN PRN Reason: WHEEZING Carvedilol (Coreg) 12.5 mg PO BID [facility] Last Admin: 01/30/20 12:51 Dose: 12.5 mg Documented by: Famotidine (Pepcid) 20 mg PO DAILY [facility] Last Admin: 01/30/20 12:51 Dose: 20 mg Documented by: Gabapentin (Neurontin) 400 mg PO BID [facility] Last Admin: 01/30/20 12:51 Dose: 400 mg Documented by: Heparin Sodium (Porcine) (Heparin Na) 5,000 unit SC Q8 [facility] Last Admin: 01/30/20 12:54 Dose: 5,000 unit Documented by: Hydralazine HCl (Apresoline Iv) 10 mg IV Q6H PRN PRN PRN Reason: SBP>160 or DBP>100 Last Admin: 01/28/20 00:30 Dose: 10 mg Documented by: Sodium Chloride () 250 mls @ 15 mls/hr IV .[id number] PRN PRN Reason: Saline Flush Sodium Chloride () 250 mls @ 15 mls/hr IV .[id number] PRN PRN Reason: Additional IVPB Infusion Ampicillin Sodium/Sulbactam Sodium 1,500 mg/ Sodium Chloride 50 mls @ 100 mls/hr IV Q12 [facility] Stop: 01/30/20 22:01 Last Admin: 01/30/20 12:53 Dose: 100 mls/hr Documented by: Oxycodone HCl (Oxyir) 5 mg PO Q6H PRN PRN PRN Reason: Pain Score 5-10/10 Last Admin: 01/30/20 11:09 Dose: 5 mg Documented by: Prochlorperazine Edisylate (Compazine Iv) 5 mg IV Q6H PRN PRN PRN Reason: NAUSEA/VOMITING Last Admin: 01/27/20 04:30 Dose: 5 mg Documented by: Senna/Docusate Sodium (Senokot-S, Rosalba-Colace) 2 tablet GT BID PRN PRN PRN Reason: Constipation Sodium Chloride () 10 - 40 ml IV UD PRN PRN Reason: SALINE FLUSH Last Admin: 01/28/20 14:56 Dose: 10 ml Documented by: STROKE Vital Signs/Narrative: Vital Signs Temp Pulse Resp BP 01/30/20 12:38 98.8 F 76 16 153/86 H Assessment/Plan This patient was seen in conjunction with Gino Blancas PA-C . I have independently interviewed and examined the patient and reviewed pertinent historical, laboratory, and other data. Please refer to Gino Blancas PA-C note for details of this patient's presentation, findings, and recommendations. I have reviewed Gino Blancas PA-C note and concur with documented findings. In brief, patient is 29-year-old gentleman admitted with cardiac arrest Physical Examination: GENERAL: cooperative HEENT: Atraumatic; EYES; Anicteric, Normal Conjunctiva NECK; supple, normal thyroid, RESPIRATORY: Diminished to auscultation CARDIOVASCULAR: Regular S1 S2, GI: soft, normoactive bowel sounds, : No Renal angle tenderness; EXTREMITIES: No edema, no clubbing, MUSCULOSKELETAL: no muscle waisting NEURO: Awake; no lateralizing signs. SKIN: No Rash PSYCH; Flat affect Assessment: 1. Acute hypoxic respiratory failure secondary to cardiac arrest 2. Drug induced cardiac arrest 3. Cardiomyopathy with ejection fraction of 30% 4. Elevated troponin secondary to acute non-STEMI as a result of cocaine 5. Acute kidney injury requiring dialysis 8. Hypocalcemia 7. Hyperkalemia 8. Hypophosphatemia 9. Acute rhabdomyolysis 10. Anemia 11. Acute hepatitis secondary to shock liver 12. Polysubstance abuse 13. DVT Prophylaxis?SCDs Recommendations: 1. I have discussed the results of my overview and impressions with the patient 2. Options for management were reviewed Inpatient E&M: 11812 [facility] H[facility] L3
[2020-01-30 12:16] LABS: Pathologist Review Reviewed
[2020-01-30 12:19] LABS: Pathologist Review Reviewed
--- NOTE | 2020-01-30 12:39 | DIALYSIS ---
HD discontinued 27 minutes early d/t clotted system. Able to return the blood. Dr. Ritter is aware. Tolerated tx well. Ran on 3k bath. UF of 4100ml. Used right IJ catheter. Catheter closed with heparin per fill volume. Caps placed. Dressing is intact. Report was given to MIKIE Olvera.
[2020-01-30] MEDS: Heparin 10,000 UNITS/10 ML Vial IV (12:50)
[2020-01-30] MEDS: Famotidine 20 MG Tablet PO (12:51)
[2020-01-30] MEDS: Carvedilol 12.5 MG Tablet PO (12:51)
[2020-01-30] MEDS: Gabapentin 400 MG Capsule PO ×2 (12:51→21:22)
--- NOTE | 2020-01-30 13:22 | PCM.PN.REN ---
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 - Physical Exam Vitals/I&O's: Vital Signs Temp Pulse Resp BP Pulse Ox 98.8 F 76 16 153/86 H 94 01/30/20 12:38 01/30/20 12:38 01/30/20 12:38 01/30/20 12:38 01/30/20 09:00 Oxygen Flow Rate (L/min) 2 Oxygen Delivery Method Room Air Weight: 135 kg Body Mass Index (BMI) 36.3 Finger Stick Blood Glucose 160 Intake and Output for Last 24 Hours 01/28/20 01/29/20 01/30/20 23:59 23:59 23:59 Intake Total 4587.50 / 4807.50 3132.00 / 3132.00 575 / 575 Output Total 4320 / 4320 155 / 155 100 / 100 Balance 267.50 / 487.50 2977.00 / 2977.00 475 / 475 General: Alert, Cooperative HEENT: Atraumatic, Normocephalic Oral: Moist Mucosa Neck: Supple, Trachea Midline Lungs: Clear to auscultation, Normal air movement Cardiovascular: Regular rate, Regular Rhythm, Normal S1, Normal S2 Abdomen: Bowel Sounds Present, Soft, Non Tender Laboratory Results 01/28/20 03:55: Diff Path Review Reviewed 01/30/20 04:52: WBC 11.6 H, RBC 3.78 L, Hgb 11.3 L, Hct 33.7 L, MCV 89.2 D, MCH 29.9, MCHC 33.5 D, RDW Std Deviation 43.4, RDW Coeff of Jennifer 13.3, Plt Count 212, MPV 9.5, Immature Gran % (Auto) 1.400 H, Neut % (Auto) 70.2 H, Lymph % (Auto) 8.5 L, Sunflower % (Auto) 17.8 H, Eos % (Auto) 1.8, Baso % (Auto) 0.3, Absolute Neuts (auto) 8.1 H, Absolute Lymphs (auto) 0.98, Nucleated RBC % 0, Differential Comment SCANNED, Diff Path Review Reviewed 01/30/20 04:52: Sodium 131 L, Potassium 4.3, Chloride 94 L, Carbon Dioxide 25.0, Anion Gap 12, BUN 65 H, Creatinine 7.89 H*, Estim Creat Clear Calc 15.03, Est GFR (MDRD) Af Amer 10 L, Est GFR (MDRD) Non-Af 9 L, BUN/Creatinine Ratio 8.2 L, Glucose 87, Calcium 7.1 L, Total Bilirubin 0.70, AST 3177 H, ALT 904 H, Alkaline Phosphatase 65, Total Creatine Kinase 603693 H, Total Protein 5.0 L, Albumin 1.8 L, Globulin 3.2, Albumin/Globulin Ratio 0.6 L Current Medications Acetaminophen (Tylenol) 650 mg PO Q6H PRN PRN PRN Reason: Pain (-11/24) or Fever Last Admin: 01/29/20 16:34 Dose: 650 mg Documented by: Albuterol Sulfate (Ventolin Aerosols) 2.5 mg INHALATION Q2H PRN PRN PRN Reason: WHEEZING Carvedilol (Coreg) 12.5 mg PO BID [facility] Last Admin: 01/30/20 12:51 Dose: 12.5 mg Documented by: Famotidine (Pepcid) 20 mg PO DAILY [facility] Last Admin: 01/30/20 12:51 Dose: 20 mg Documented by: Gabapentin (Neurontin) 400 mg PO BID [facility] Last Admin: 01/30/20 12:51 Dose: 400 mg Documented by: Heparin Sodium (Porcine) (Heparin Na) 5,000 unit SC Q8 [facility] Last Admin: 01/30/20 12:54 Dose: 5,000 unit Documented by: Hydralazine HCl (Apresoline Iv) 10 mg IV Q6H PRN PRN PRN Reason: SBP>160 or DBP>100 Last Admin: 01/28/20 00:30 Dose: 10 mg Documented by: Sodium Chloride () 250 mls @ 15 mls/hr IV .[id number] PRN PRN Reason: Saline Flush Sodium Chloride () 250 mls @ 15 mls/hr IV .[id number] PRN PRN Reason: Additional IVPB Infusion Ampicillin Sodium/Sulbactam Sodium 1,500 mg/ Sodium Chloride 50 mls @ 100 mls/hr IV Q12 [facility] Stop: 01/30/20 22:01 Last Admin: 01/30/20 12:53 Dose: 100 mls/hr Documented by: Vancomycin IV Pharmacy to Dose (1 ea/ Sodium Chloride) 500 mls @ 250 mls/hr IV X1 PRN; Protocol PRN Reason: Rx to Dose Oxycodone HCl (Oxyir) 5 mg PO Q6H PRN PRN PRN Reason: Pain Score 5-10/10 Last Admin: 01/30/20 11:09 Dose: 5 mg Documented by: Prochlorperazine Edisylate (Compazine Iv) 5 mg IV Q6H PRN PRN PRN Reason: NAUSEA/VOMITING Last Admin: 01/27/20 04:30 Dose: 5 mg Documented by: Senna/Docusate Sodium (Senokot-S, Rosalba-Colace) 2 tablet GT BID PRN PRN PRN Reason: Constipation Sodium Chloride () 10 - 40 ml IV UD PRN PRN Reason: SALINE FLUSH Last Admin: 01/28/20 14:56 Dose: 10 ml Documented by: Medical Necessity - Tobacco Use Smoking Status: Current every day smoker Tobacco Use: Cigarettes Assessment/Plan All Active Problems Cardiopulmonary arrest with successful resuscitation (Acute) Hypocalcemia (Acute) Hyperkalemia (Acute) KEITH (acute kidney injury) (Acute) Metabolic acidosis, increased anion gap (Acute) Respiratory failure with hypoxia (Acute) Pulseless electrical activity with heart block (Acute) Ventricular fibrillation seen on diagnostic cardiac sonographer (Acute) Gross hematuria (Acute) LV dysfunction (Acute) Non-STEMI (non-ST elevated myocardial infarction) (Acute) KEITH -ATN Hyperphosphatemia Hypocalcemia Rhabdomyolysis NSTEMI Polysubstance abuse Respiratory failure s/p extubation Shock liver HF Dialysis tomorrow with ultrafiltration as tolerated again 4 liters uf today Monitor I's and O's. asx hypocalcemia better 7.1 Avoid nephrotoxins for likely TDC when cleared by ID now having more w/u for fever covid 19 test etc d/w patient and the dialysis nurse. As per dialysis nurse the patient tolerated dialysis well. We will likely use heparin with next dialysis.
--- NOTE | 2020-01-30 13:26 | CON.PCM_ITS ---
Problem List (1) Fever Status: Acute Reason for Consult: fever Consulted by: Dr. Mackenzie History of Present Illness: The patient is a 29 year old M with h/o polysubstance abuse, denies IVDU, presented to ED 01/24 after being down on the floor after drinking and smoking marijuana. Tox also (+) cocaine. Was having leg pain, emesis. Had severe rhabdo, KEITH. Now out of icu, remains on dialysis. Has been on unasyn since admit. Still with fever here, but no subjective fever. Some chest soreness/dyspnea. No sore throat. Some congestion. No taste/smell changes. No n/v/d now. No sick contacts. Thinks covid is not real but had been mask ing/isolating. Full ROS performed and neg except as noted above. - Medical History Surgical History: reviewed Allergies/Adverse Reactions: Allergies No Known Allergies Allergy (Verified 01/25/20 11:08) Home Medications: Ambulatory Orders Medication Instructions Recorded NK 01/25/20 - Social History SMOKING STATUS:: Current every day smoker Drug Use: cocaine, marijuana Vital Signs Temp Pulse Resp BP Pulse Ox 98.8 F 76 16 153/86 H 94 01/30/20 12:38 01/30/20 12:38 01/30/20 12:38 01/30/20 12:38 01/30/20 09:00 Oxygen Flow Rate (L/min) 2 Oxygen Delivery Method Room Air Weight: 135 kg Body Mass Index (BMI) 36.3 Finger Stick Blood Glucose 160 Laboratory Tests Past 24 Hrs 01/28/20 01/30/20 01/30/20 03:55 04:52 04:52 WBC 11.6 H RBC 3.78 L Hgb 11.3 L Hct 33.7 L MCV 89.2 D MCH 29.9 MCHC 33.5 D RDW Std Deviation 43.4 RDW Coeff of Jennifer 13.3 Plt Count 212 MPV 9.5 Immature Gran % (Auto) 1.400 H Neut % (Auto) 70.2 H Lymph % (Auto) 8.5 L Terry % (Auto) 17.8 H Eos % (Auto) 1.8 Baso % (Auto) 0.3 Absolute Neuts (auto) 8.1 H Absolute Lymphs (auto) 0.98 Nucleated RBC % 0 Differential Comment SCANNED Diff Path Review Reviewed Reviewed Sodium 131 L Potassium 4.3 Chloride 94 L Carbon Dioxide 25.0 Anion Gap 12 BUN 65 H Creatinine 7.89 H* Estim Creat Clear Calc 15.03 Est GFR (MDRD) Af Amer 10 L Est GFR (MDRD) Non-Af 9 L BUN/Creatinine Ratio 8.2 L Glucose 87 Calcium 7.1 L Total Bilirubin 0.70 AST 3177 H ALT 904 H Alkaline Phosphatase 65 Total Creatine Kinase 176637 H Total Protein 5.0 L Albumin 1.8 L Globulin 3.2 Albumin/Globulin Ratio 0.6 L - Other Studies Radiology: [] reviewed Other Studies: [] Route of nutrition/ use of supplements: [] Nutritional Intake: [] IV Site: [] Novak Catheter: [] - Physical Exam General: Alert, Oriented x3, Cooperative, No apparent distress HEENT: Atraumatic, PERRLA, EOMI Neck: Supple, No Nodes Lungs: Clear to auscultation, Normal air movement Cardiovascular: Regular rate, Regular Rhythm, No murmurs Abdomen: Soft, Non Tender, Non-Distended Extremities: Edema Skin: No rashes IV Site: Central Line, without redness Musculoskeletal: No Tenderness to Palpation of Joints or Extremities Neurological: Cranial nerves II-XII grossly intact - Assessment/Plan Antibiotics: [] Assessment/Plan: [] Active and Suspected Problems Cardiopulmonary arrest with successful resuscitation (Acute) Hypocalcemia (Acute) Hyperkalemia (Acute) KEITH (acute kidney injury) (Acute) Metabolic acidosis, increased anion gap (Acute) Respiratory failure with hypoxia (Acute) Pulseless electrical activity with heart block (Acute) Ventricular fibrillation seen on diagnostic cardiac sonographer (Acute) Gross hematuria (Acute) LV dysfunction (Acute) Non-STEMI (non-ST elevated myocardial infarction) (Acute) fever, leukocytosis with rhabdo, keith, cardiac arrest - low suspicion for covid, but will check to rule it out and help with future placement. Has been on unasyn for suspected aspiration, minimal changes on cxr on admit. Overall fever curve is improving and wbc much improved. Will hold off on adding vanc. Will check covid, bcx x2, and repeat cxr. Ongoing low grade fever may be explained by ongoing severe rhabdo. Will follow, thank you, d/w Dr. iRtter and rn field case manager.
--- NOTE | 2020-01-30 13:30 | RAD_ITS ---
STUDY: X-RAY CHEST REASON FOR EXAM: Male, 29 years old. Syncopal episode. TECHNIQUE: Single AP portable view of the chest. COMPARISON: Comparison is made with prior examination dated January 26, 2020. FINDINGS: The endotracheal tube and orogastric tube have been removed. A right-sided vascular sheath is seen in the internal jugular vein with the tip at the junction of the superior vena cava and right atrium. EKG electrodes are seen. The lungs are clear and expanded. There is no demonstrated pleural abnormality. Normal size heart. Normal mediastinum and ricki. Normal visualized pulmonary arteries. Normal visualized aortic arch and descending thoracic aorta. Normal visualized thoracic spine. Normal visualized ribs, clavicles, and shoulders. There is no demonstrated abnormality of the visualized soft tissue structures of the upper abdomen. RAD/Chest 1 View (Portable) IMPRESSION: No acute abnormality is seen. Electronically Signed: Sam Kamara, at 13:51 EDT , Service support ,
[2020-01-30 15:05] LABS: Phosphorus 4.5 mg/dL (2.5-4.9)
--- NOTE | 2020-01-30 15:28 | CASEMGMT ---
Medicaid application was faxed to [facility]. KIRSTIE spoke with patient. He has been in [place] for about 4 months, he lost a couple of jobs recently due to the [employer] lay offs. SW explained the pending Medicaid and possibly having to go to a mcc that does on site dialysis. SW explained the closest facility would be about 30 minutes away. He said he had Medicaid, [facility] in [place]. He gave SW permission to call around to try and find someone that could take him. KIRSTIE spoke with a few nursing homes who said they only do chronic dialysis on site. The ones that have [facility] on site said the dialysis set up would still go through [facility] admissions. [facility] does not accept pending Medicaid for patients. SW then called [facility] and they do accept pending Medicaid. Therefore patient could go to a mcc that has [facility] on site or go to a local SNF on pending Medicaid and go to [facility] as an outpatient. KIRSTIE called [facility] with referral as well as [facility]. However, the energy administrator at [facility] said they normally do not accept patients that are active drug users, but they will look at the referral. KIRSTIE faxed referral to both [facility] and [facility]. SW to follow up tomorrow with both facilities. Adrienne STRICKLAND MSW
--- NOTE | 2020-01-30 16:20 | PN.CARD_ITS ---
Subjectve: Denies any cardiac complaints. Objective: Vital Signs Temp Pulse Resp BP Pulse Ox 98.7 F 94 14 139/96 H 100 01/30/20 15:34 01/30/20 15:34 01/30/20 15:34 01/30/20 15:34 01/30/20 15:34 Oxygen Flow Rate (L/min) 2 Oxygen Delivery Method Room Air Weight: 297 lb 9.985 oz Body Mass Index (BMI) 36.3 Finger Stick Blood Glucose 160 Intake and Output for Last 24 Hours 01/28/20 01/29/20 01/30/20 23:59 23:59 23:59 Intake Total 4587.50 / 4807.50 3132.00 / 3132.00 625 / 625 Output Total 4320 / 4320 155 / 155 100 / 100 Balance 267.50 / 487.50 2977.00 / 2977.00 525 / 525 General: Awake, Alert, Oriented x 3 HEENT: Atraumatic Oral: Moist Mucosa Neck: Supple Skin: No Rashes Psych/Mental Status: Appropriate 01/30/20 04:52: WBC 11.6 H, RBC 3.78 L, Hgb 11.3 L, Hct 33.7 L, MCV 89.2 D, MCH 29.9, MCHC 33.5 D, Plt Count 212, MPV 9.5, Immature Gran % (Auto) 1.400 H, Neut % (Auto) 70.2 H, Lymph % (Auto) 8.5 L, [place] % (Auto) 17.8 H, Eos % (Auto) 1.8, Baso % (Auto) 0.3, Absolute Neuts (auto) 8.1 H, Nucleated RBC % 0 01/30/20 04:52: Sodium 131 L, Potassium 4.3, Chloride 94 L, Carbon Dioxide 25.0, Anion Gap 12, BUN 65 H, Creatinine 7.89 H*, Est GFR (MDRD) Af Amer 10 L, Est GFR (MDRD) Non-Af 9 L, BUN/Creatinine Ratio 8.2 L, Glucose 87, Calcium 7.1 L, Total Bilirubin 0.70 01/30/20 04:52: Phosphorus 4.5 Rhythm: EKG: ECHO: Stress Test: Cardiac Cath: PCI: CT Surgery: Holter monitor: EPS: PPM: CXR: Chest CT Scan: Medical Necessity - Tobacco Use Smoking Status: Current every day smoker Tobacco Use: Cigarettes Assessment/Plan 1. Non-STEMI: Patient presented with cardiac arrest, rhabdomyolysis, new onset severe LV dysfunction, elevated troponin, substance abuse, acute renal failure. Major component of the troponin elevation could be related to his rhabdomyolysis with possible contribution from LV dysfunction and less likely underlying coronary artery disease. Reasonable to provide supportive care from this standpoint at this time. Continue current medications. At some point we could consider coronary angiography. However it is not emergent at this time especially in view of this multisystem failure including acute renal failure. Increase the Coreg to 25 mg p.o. twice daily.
[2020-01-30 17:13] LABS: Probe Check PASS; Specimen Processing Control PASS
[2020-01-30] MEDS: 0.9% Saline Lock 10 ML Syringe IV (21:20)
[2020-01-30] MEDS: Carvedilol 25 MG Tablet PO (21:27)
[2020-01-31] VITALS (11 sets, daily range): BP systolic 143–163; BP diastolic 76–87; PULSE 73–87; RESP 14–18; TEMP 36.7–38.1; O2SAT 95–100
[2020-01-31] MEDS: Heparin Injection (Vial) 5,000 UNIT/ML VIAL 5000 UNIT SC ×2 (05:30→22:22)
[2020-01-31 06:02] LABS: Absolute Lymphocyte Count 1.27 X10^3/uL (0.83-4.51); Absolute Neutrophil Count 9.2 X10^3/uL (2.0-7.7); Basophil# 0.03 X10^3/uL; Basophil% 0.2 % (0-1); Eosinophil# 0.32 X10^3/uL; Eosinophils% 2.3 % (0-5); Hematocrit 33.4 % (40-54); Hemoglobin 11.2 g/dL (13.0-16.5); Lymphocyte # 1.27 X10^3/ul (4.0); Lymphocyte % 9.1 % (19-41); Mean Corp Hgb Conc 33.5 g/dL (32-36); Mean Corpuscular Hgb 29.9 pg (27.0-32.0); Mean Corpuscular Volume 89.1 fL (80-94); Mean Platelet Vol. 9.2 fl (6.2-12.0); Monocyte# 2.92 X10^3/uL; Monocyte% 20.8 % (0-10); NRBC Flagged by Analyzer 0 % (0-5); Neutrophil # 9.18 X10^3/uL (2.7-7.7); Neutrophil % 65.4 % (47-70); POSITIVE DIFFERENTIAL YES; Platelet Count 214 K/mm3 (150-450); RBC Distribution Width CV 13.8 % (11.6-14.6); RBC Distribution Width SD 43.9 fl (35.1-43.9); Red Blood Count 3.75 M/mm3 (4.6-6.2)
[2020-01-31 06:18] LABS: Differential Indicated SCAN CRITERIA MET
[2020-01-31 06:33] LABS: Differential Comment SCANNED
[2020-01-31 07:35] LABS: ALB/GLOB Ratio 0.5 RATIO (0.9-2.4); AST(SGOT) 2620 U/L (15-37); Alanine Aminotransfer ALT/SGPT 873 U/L (16-61); Albumin, Serum 1.8 g/dL (3.2-5.0); Alkaline Phosphatase 57 U/L (45-117); Anion Gap 9 (5-15); BUN 59 mg/dL (7-18); BUN/Creat Ratio 7.6 RATIO (10-20); Calcium,Total 7.6 mg/dL (8.5-10.1); Chloride 94 mmol/L (98-107); Creatinine, Serum 7.74 mg/dL (0.70-1.30); EST Glomerular Filtration Rate 9 mL/min (>60); Est Glom Filt Rate - Afr Amer 11 mL/min (>60); Estimated Creatinine Clearance 15.32 ml/min; Globulin 3.9 g/dL (2.2-4.2); Glucose 87 mg/dL (74-106); Potassium 4.2 mmol/L (3.5-5.1); Protein, Total 5.7 g/dL (6.4-8.2); Sodium Level 130 mmol/L (136-145)
[2020-01-31] MEDS: oxyCODONE 5 MG Tablet PO ×3 (08:59→22:34)
[2020-01-31] MEDS: Gabapentin 400 MG Capsule PO ×2 (08:59→22:22)
[2020-01-31] MEDS: Famotidine 20 MG Tablet PO (08:59)
[2020-01-31] MEDS: Carvedilol 25 MG Tablet PO ×2 (08:59→22:22)
--- NOTE | 2020-01-31 10:10 | PN.ID_ITS ---
Patient Problems: Active and Suspected Problems Cardiopulmonary arrest with successful resuscitation (Acute) Hypocalcemia (Acute) Hyperkalemia (Acute) KEITH (acute kidney injury) (Acute) Metabolic acidosis, increased anion gap (Acute) Respiratory failure with hypoxia (Acute) Pulseless electrical activity with heart block (Acute) Ventricular fibrillation seen on night monitor (Acute) Gross hematuria (Acute) LV dysfunction (Acute) Non-STEMI (non-ST elevated myocardial infarction) (Acute) Fever (Acute) Subjective: Feeling better, no fever - Physical Exam Vitals/I&O's: Vital Signs Temp Pulse Resp BP Pulse Ox 99.3 F H 73 14 163/87 H 99 01/31/20 09:16 01/31/20 09:16 01/31/20 09:16 01/31/20 09:16 01/31/20 09:16 Oxygen Flow Rate (L/min) 2 Oxygen Delivery Method Room Air Weight: 133.9 kg Body Mass Index (BMI) 36.3 Finger Stick Blood Glucose 160 Intake and Output for Last 24 Hours 01/29/20 01/30/20 01/31/20 23:59 23:59 23:59 Intake Total 3132.00 / 3132.00 1325 / 1325 125 / 125 Output Total 155 / 155 250 / 250 75 / 75 Balance 2977.00 / 2977.00 1075 / 1075 50 / 50 General: Alert, Cooperative, No apparent distress Lungs: Clear to auscultation, Normal air movement Cardiovascular: Regular rate, Regular Rhythm Abdomen: Soft, Non Tender, Non-Distended Skin: No rashes Laboratory Results 01/28/20 03:55: Diff Path Review Reviewed 01/30/20 04:52: Diff Path Review Reviewed 01/30/20 04:52: Phosphorus 4.5 01/30/20 14:30: COVID-19 (JANENE) Negative 01/31/20 05:30: Sodium 130 L, Potassium 4.2, Chloride 94 L, Carbon Dioxide 27.0, Anion Gap 9, BUN 59 H, Creatinine 7.74 H*, Estim Creat Clear Calc 15.32, Est GFR (MDRD) Af Amer 11 L, Est GFR (MDRD) Non-Af 9 L, BUN/Creatinine Ratio 7.6 L, Glucose 87, Calcium 7.6 L, Phosphorus 4.0, Total Bilirubin 0.80, AST 2620 H, ALT 873 H, Alkaline Phosphatase 57, Total Creatine Kinase 86576 H, Total Protein 5.7 L, Albumin 1.8 L, Globulin 3.9, Albumin/Globulin Ratio 0.5 L 01/31/20 05:30: WBC 14.0 H, RBC 3.75 L, Hgb 11.2 L, Hct 33.4 L, MCV 89.1, MCH 29.9, MCHC 33.5, RDW Std Deviation 43.9, RDW Coeff of Jennifer 13.8, Plt Count 214, MPV 9.2, Immature Gran % (Auto) 2.200 H, Neut % (Auto) 65.4, Lymph % (Auto) 9.1 L, [place] % (Auto) 20.8 H, Eos % (Auto) 2.3, Baso % (Auto) 0.2, Absolute Neuts (auto) 9.2 H, Absolute Lymphs (auto) 1.27, Nucleated RBC % 0, Differential Comment SCANNED, Diff Path Review May foll Current Medications Acetaminophen (Tylenol) 650 mg PO Q6H PRN PRN PRN Reason: Pain (1-410) or Fever Last Admin: 01/29/20 16:34 Dose: 650 mg Documented by: Albuterol Sulfate (Ventolin Aerosols) 2.5 mg INHALATION Q2H PRN PRN PRN Reason: WHEEZING Carvedilol (Coreg) 25 mg PO BID [facility] Last Admin: 01/31/20 08:59 Dose: 25 mg Documented by: Famotidine (Pepcid) 20 mg PO DAILY [facility] Last Admin: 01/31/20 08:59 Dose: 20 mg Documented by: Gabapentin (Neurontin) 400 mg PO BID [facility] Last Admin: 01/31/20 08:59 Dose: 400 mg Documented by: Heparin Sodium (Porcine) (Heparin Na) 5,000 unit SC Q8 [facility] Last Admin: 01/31/20 05:30 Dose: 5,000 unit Documented by: Hydralazine HCl (Apresoline Iv) 10 mg IV Q6H PRN PRN PRN Reason: SBP>160 or DBP>100 Last Admin: 01/28/20 00:30 Dose: 10 mg Documented by: Sodium Chloride () 250 mls @ 15 mls/hr IV .[id number] PRN PRN Reason: Saline Flush Sodium Chloride () 250 mls @ 15 mls/hr IV .[id number] PRN PRN Reason: Additional IVPB Infusion Oxycodone HCl (Oxyir) 5 mg PO Q6H PRN PRN PRN Reason: Pain Score 5-10/10 Last Admin: 01/31/20 08:59 Dose: 5 mg Documented by: Prochlorperazine Edisylate (Compazine Iv) 5 mg IV Q6H PRN PRN PRN Reason: NAUSEA/VOMITING Last Admin: 01/27/20 04:30 Dose: 5 mg Documented by: Senna/Docusate Sodium (Senokot-S, Rosalba-Colace) 2 tablet GT BID PRN PRN PRN Reason: Constipation Sodium Chloride () 10 - 40 ml IV UD PRN PRN Reason: SALINE FLUSH Last Admin: 01/30/20 21:20 Dose: 10 ml Documented by: Medical Necessity - Tobacco Use Smoking Status: Current every day smoker Tobacco Use: Cigarettes Route of nutrition/ use of supplements: [] Nutritional Intake: [] IV Site: [] Novak Catheter: [] - Assessment/Plan Antibiotics: [] Assessment/Plan: [] Active and Suspected Problems Cardiopulmonary arrest with successful resuscitation (Acute) Hypocalcemia (Acute) Hyperkalemia (Acute) KEITH (acute kidney injury) (Acute) Metabolic acidosis, increased anion gap (Acute) Respiratory failure with hypoxia (Acute) Pulseless electrical activity with heart block (Acute) Ventricular fibrillation seen on night monitor (Acute) Gross hematuria (Acute) LV dysfunction (Acute) Non-STEMI (non-ST elevated myocardial infarction) (Acute) fever, leukocytosis with rhabdo, keith, cardiac arrest - covid neg. Repeat cxr clear. Now afebrile. Bcx neg so far. Does have rising wbc past 2 days. Now off unasyn, will monitor. Hep panel neg. Will follow, d/w primary team.
--- NOTE | 2020-01-31 10:41 | CASEMGMT ---
Addendum entered by Tona Pascual 01/31/20 12:07: Call from Pastor at [facility] to clarify some pt details at this time. Pastor states that Lorenzo will be the health care marketing manager for pt and will call this RN CM with any questions. Kimberly DELUNA CM Original Note: Per [facility] dialysis, they will take pt on pending DINESH. Pending DINESH number obtained for pt at this time and referral faxed to [facility] at this time. Kimberly DELUNA CM
[2020-01-31] MEDS: Heparin 10,000 UNITS/10 ML Vial 2000 UNITS IV (10:45)
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
--- NOTE | 2020-01-31 11:18 | PCM.PN.HOSP ---
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 ongoing productive cough with pleuritic pain. Denies fever/chills. He is more lethargic this AM and difficult to keep awake for questioning. Vitals/I&O's: Vital Signs Temp Pulse Resp BP Pulse Ox 99.3 F H 73 14 163/87 H 99 01/31/20 09:16 01/31/20 09:16 01/31/20 09:16 01/31/20 09:16 01/31/20 09:16 Oxygen Flow Rate (L/min) 2 Oxygen Delivery Method Room Air Weight: 295 lb 3.183 oz Body Mass Index (BMI) 36.3 Finger Stick Blood Glucose 160 Intake and Output for Last 24 Hours 01/29/20 01/30/20 01/31/20 23:59 23:59 23:59 Intake Total 3132.00 / 3132.00 1325 / 1325 125 / 125 Output Total 155 / 155 250 / 250 75 / 75 Balance 2977.00 / 2977.00 1075 / 1075 50 / 50 General: Alert, Oriented x3, Cooperative, Lethargic HEENT: Atraumatic, PERRLA, EOMI, Normocephalic Neck: Supple, No JVD, Negative Carotid Bruits Lungs: Clear to auscultation, Normal air movement Cardiovascular: Regular rate, No murmurs Abdomen: Bowel Sounds Present, Soft, Non Tender Extremities: Capillary Refill Less than 3 Seconds, Edema - BL LE 1-2 + pitting edema Skin: No rashes, No breakdown, - - central line site without acute changes. Musculoskeletal: No Tenderness to Palpation of Joints or Extremities Neurological: Cranial nerves II-XII grossly intact Psych/Mental Status: Normal Affect, Appropriate, Alert and oriented to time, place, person, mood and affect Laboratory Results 01/28/20 03:55: Diff Path Review Reviewed 01/30/20 04:52: Diff Path Review Reviewed 01/30/20 04:52: Phosphorus 4.5 01/30/20 14:30: COVID-19 (JANENE) Negative 01/31/20 05:30: Sodium 130 L, Potassium 4.2, Chloride 94 L, Carbon Dioxide 27.0, Anion Gap 9, BUN 59 H, Creatinine 7.74 H*, Estim Creat Clear Calc 15.32, Est GFR (MDRD) Af Amer 11 L, Est GFR (MDRD) Non-Af 9 L, BUN/Creatinine Ratio 7.6 L, Glucose 87, Calcium 7.6 L, Phosphorus 4.0, Total Bilirubin 0.80, AST 2620 H, ALT 873 H, Alkaline Phosphatase 57, Total Creatine Kinase 99444 H, Total Protein 5.7 L, Albumin 1.8 L, Globulin 3.9, Albumin/Globulin Ratio 0.5 L 01/31/20 05:30: WBC 14.0 H, RBC 3.75 L, Hgb 11.2 L, Hct 33.4 L, MCV 89.1, MCH 29.9, MCHC 33.5, RDW Std Deviation 43.9, RDW Coeff of Jennifer 13.8, Plt Count 214, MPV 9.2, Immature Gran % (Auto) 2.200 H, Neut % (Auto) 65.4, Lymph % (Auto) 9.1 L, [place] % (Auto) 20.8 H, Eos % (Auto) 2.3, Baso % (Auto) 0.2, Absolute Neuts (auto) 9.2 H, Absolute Lymphs (auto) 1.27, Nucleated RBC % 0, Differential Comment SCANNED, Diff Path Review May foll Current Medications Acetaminophen (Tylenol) 650 mg PO Q6H PRN PRN PRN Reason: Pain (1-11/24) or Fever Last Admin: 01/29/20 16:34 Dose: 650 mg Documented by: Albuterol Sulfate (Ventolin Aerosols) 2.5 mg INHALATION Q2H PRN PRN PRN Reason: WHEEZING Carvedilol (Coreg) 25 mg PO BID [facility] Last Admin: 01/31/20 08:59 Dose: 25 mg Documented by: Famotidine (Pepcid) 20 mg PO DAILY [facility] Last Admin: 01/31/20 08:59 Dose: 20 mg Documented by: Gabapentin (Neurontin) 400 mg PO BID [facility] Last Admin: 01/31/20 08:59 Dose: 400 mg Documented by: Heparin Sodium (Porcine) (Heparin Na) 5,000 unit SC Q8 [facility] Last Admin: 01/31/20 05:30 Dose: 5,000 unit Documented by: Hydralazine HCl (Apresoline Iv) 10 mg IV Q6H PRN PRN PRN Reason: SBP>160 or DBP>100 Last Admin: 01/28/20 00:30 Dose: 10 mg Documented by: Sodium Chloride () 250 mls @ 15 mls/hr IV .[id number] PRN PRN Reason: Saline Flush Sodium Chloride () 250 mls @ 15 mls/hr IV .[id number] PRN PRN Reason: Additional IVPB Infusion Oxycodone HCl (Oxyir) 5 mg PO Q6H PRN PRN PRN Reason: Pain Score 5-10/10 Last Admin: 01/31/20 08:59 Dose: 5 mg Documented by: Prochlorperazine Edisylate (Compazine Iv) 5 mg IV Q6H PRN PRN PRN Reason: NAUSEA/VOMITING Last Admin: 01/27/20 04:30 Dose: 5 mg Documented by: Senna/Docusate Sodium (Senokot-S, Rosalba-Colace) 2 tablet GT BID PRN PRN PRN Reason: Constipation Sodium Chloride () 10 - 40 ml IV UD PRN PRN Reason: SALINE FLUSH Last Admin: 01/30/20 21:20 Dose: 10 ml Documented by: STROKE Vital Signs/Narrative: Vital Signs Temp Pulse Resp BP Pulse Ox 01/31/20 09:16 99.3 F H 73 14 163/87 H 99 Medical Necessity - Tobacco Use Smoking Status: Current every day smoker Tobacco Use: Cigarettes Assessment/Plan All Active Problems Cardiopulmonary arrest with successful resuscitation (Acute) Hypocalcemia (Acute) Hyperkalemia (Acute) KEITH (acute kidney injury) (Acute) Metabolic acidosis, increased anion gap (Acute) Respiratory failure with hypoxia (Acute) Pulseless electrical activity with heart block (Acute) Ventricular fibrillation seen on floral manager (Acute) Gross hematuria (Acute) LV dysfunction (Acute) Non-STEMI (non-ST elevated myocardial infarction) (Acute) Fever (Acute) 1. Acute hypoxic resp failure 2/2 cardiac arrest, pna, cardiomyopathy and volume overload - extubated 01/26. Likely needs another round of dialysis with fluid removal as tolerated today. Pt off o2. Still complains of ongoing cough with clear sputum production and SOB. Abx held. WBC increasing with left shift. Low grade temps but no fever >100.4 in over 24 hours. Covid test pending. Infectious disease following. CXR negative. 2. KEITH, hyperkalemia, hypocalcemia, hyperphosphatemia, acute rhabdo - dialyzed yesterday, may need another round of dialysis today. Urine output about 250 cc yesterday. 3. Abnormal LFTs due to shock liver - improved. hep panel neg. 4. Cardiomyopathy - unclear type, ?cocaine induced. EF 20%. Cardiology following. Weight is significantly up, aggressive fluid removal with dialysis. 5. Elevated troponins - cardio following - no CP at this time. Elevation may be at least partially due to acute rhabdo. 6. Polysubstance abuse - cocaine, marijuana 7. Anemia - normocytic. stable. DVT ppx: heparin This patient was seen by Gino Blancas PA-C under the supervision of Doctor Gurdeep. <Jignesh Mackenzie - Last Filed: 01/31/20 12:59> Vitals/I&O's: Vital Signs Temp Pulse Resp BP Pulse Ox 99.3 F H 73 14 163/87 H 99 01/31/20 09:16 01/31/20 09:16 01/31/20 09:16 01/31/20 09:16 01/31/20 09:16 Oxygen Flow Rate (L/min) 2 Oxygen Delivery Method Room Air Weight: 133.9 kg Body Mass Index (BMI) 36.3 Finger Stick Blood Glucose 160 Intake and Output for Last 24 Hours 01/29/20 01/30/20 01/31/20 23:59 23:59 23:59 Intake Total 3132.00 / 3132.00 1325 / 1325 365 / 365 Output Total 155 / 155 250 / 250 125 / 125 Balance 2977.00 / 2977.00 1075 / 1075 240 / 240 Laboratory Results 01/30/20 04:52: Phosphorus 4.5 01/30/20 14:30: COVID-19 (JANENE) Negative 01/31/20 05:30: Sodium 130 L, Potassium 4.2, Chloride 94 L, Carbon Dioxide 27.0, Anion Gap 9, BUN 59 H, Creatinine 7.74 H*, Estim Creat Clear Calc 15.32, Est GFR (MDRD) Af Amer 11 L, Est GFR (MDRD) Non-Af 9 L, BUN/Creatinine Ratio 7.6 L, Glucose 87, Calcium 7.6 L, Phosphorus 4.0, Total Bilirubin 0.80, AST 2620 H, ALT 873 H, Alkaline Phosphatase 57, Total Creatine Kinase 79944 H, Total Protein 5.7 L, Albumin 1.8 L, Globulin 3.9, Albumin/Globulin Ratio 0.5 L 01/31/20 05:30: WBC 14.0 H, RBC 3.75 L, Hgb 11.2 L, Hct 33.4 L, MCV 89.1, MCH 29.9, MCHC 33.5, RDW Std Deviation 43.9, RDW Coeff of Jennifer 13.8, Plt Count 214, MPV 9.2, Immature Gran % (Auto) 2.200 H, Neut % (Auto) 65.4, Lymph % (Auto) 9.1 L, [place] % (Auto) 20.8 H, Eos % (Auto) 2.3, Baso % (Auto) 0.2, Absolute Neuts (auto) 9.2 H, Absolute Lymphs (auto) 1.27, Nucleated RBC % 0, Differential Comment SCANNED, Diff Path Review May foll Current Medications Acetaminophen (Tylenol) 650 mg PO Q6H PRN PRN PRN Reason: Pain (1-410) or Fever Last Admin: 01/29/20 16:34 Dose: 650 mg Documented by: Albuterol Sulfate (Ventolin Aerosols) 2.5 mg INHALATION Q2H PRN PRN PRN Reason: WHEEZING Carvedilol (Coreg) 25 mg PO BID [facility] Last Admin: 01/31/20 08:59 Dose: 25 mg Documented by: Famotidine (Pepcid) 20 mg PO DAILY [facility] Last Admin: 01/31/20 08:59 Dose: 20 mg Documented by: Gabapentin (Neurontin) 400 mg PO BID [facility] Last Admin: 01/31/20 08:59 Dose: 400 mg Documented by: Heparin Sodium (Porcine) (Heparin Na) 5,000 unit SC Q8 [facility] Last Admin: 01/31/20 05:30 Dose: 5,000 unit Documented by: Hydralazine HCl (Apresoline Iv) 10 mg IV Q6H PRN PRN PRN Reason: SBP>160 or DBP>100 Last Admin: 01/28/20 00:30 Dose: 10 mg Documented by: Sodium Chloride () 250 mls @ 15 mls/hr IV .[id number] PRN PRN Reason: Saline Flush Sodium Chloride () 250 mls @ 15 mls/hr IV .[id number] PRN PRN Reason: Additional IVPB Infusion Ondansetron HCl (Zofran Odt) 4 mg PO Q6H PRN PRN PRN Reason: NAUSEA Oxycodone HCl (Oxyir) 5 mg PO Q6H PRN PRN PRN Reason: Pain Score 5-10/10 Last Admin: 01/31/20 08:59 Dose: 5 mg Documented by: Senna/Docusate Sodium (Senokot-S, Rosalba-Colace) 2 tablet GT BID PRN PRN PRN Reason: Constipation Sodium Chloride () 10 - 40 ml IV UD PRN PRN Reason: SALINE FLUSH Last Admin: 01/30/20 21:20 Dose: 10 ml Documented by: STROKE Vital Signs/Narrative: Vital Signs Temp Pulse Resp BP Pulse Ox 01/31/20 09:16 99.3 F H 73 14 163/87 H 99 Assessment/Plan This patient was seen in conjunction with Gino Blancas PA-C . I have independently interviewed and examined the patient and reviewed pertinent historical, laboratory, and other data. Please refer to Gino Blancas PA-C note for details of this patient's presentation, findings, and recommendations. I have reviewed Gino Blancas PA-C note and concur with documented findings. In brief, patient is 29-year-old gentleman admitted with cardiac arrest 01/31/2020: Patient seen more lethargic than usual. No significant improvement in his kidney function. Patient currently undergoing dialysis. CPK levels trending down Physical Examination: GENERAL: cooperative HEENT: Atraumatic; EYES; Anicteric, Normal Conjunctiva NECK; supple, normal thyroid, RESPIRATORY: Diminished to auscultation CARDIOVASCULAR: Regular S1 S2, GI: soft, normoactive bowel sounds, : No Renal angle tenderness; EXTREMITIES: No edema, no clubbing, MUSCULOSKELETAL: no muscle waisting NEURO: Awake; no lateralizing signs. SKIN: No Rash PSYCH; Flat affect Assessment: 1. Acute hypoxic respiratory failure secondary to cardiac arrest 2. Drug induced cardiac arrest 3. Cardiomyopathy with ejection fraction of 30% 4. Elevated troponin secondary to acute non-STEMI as a result of cocaine 5. Acute kidney injury requiring dialysis 8. Hypocalcemia 7. Hyperkalemia 8. Hypophosphatemia 9. Acute rhabdomyolysis 10. Anemia 11. Acute hepatitis secondary to shock liver 12. Polysubstance abuse 13. DVT Prophylaxis?SCDs Recommendations: 1. I have discussed the results of my overview and impressions with the patient 2. Options for management were reviewed Inpatient E&M: [id number] [facility]
--- NOTE | 2020-01-31 12:59 | PN.RENAL_ITS ---
Patient Problems: Active and Suspected Problems Cardiopulmonary arrest with successful resuscitation (Acute) Hypocalcemia (Acute) Hyperkalemia (Acute) KEITH (acute kidney injury) (Acute) Metabolic acidosis, increased anion gap (Acute) Respiratory failure with hypoxia (Acute) Pulseless electrical activity with heart block (Acute) Ventricular fibrillation seen on alarm security or surveillance monitor (Acute) Gross hematuria (Acute) LV dysfunction (Acute) Non-STEMI (non-ST elevated myocardial infarction) (Acute) Fever (Acute) Subjective: The patient states that the pain in his lower extremities is better denies shortness of breath seen on dialysis tolerating dialysis well - Physical Exam Vitals/I&O's: Vital Signs Temp Pulse Resp BP Pulse Ox 99.3 F H 73 14 163/87 H 99 01/31/20 09:16 01/31/20 09:16 01/31/20 09:16 01/31/20 09:16 01/31/20 09:16 Oxygen Flow Rate (L/min) 2 Oxygen Delivery Method Room Air Weight: 133.9 kg Body Mass Index (BMI) 36.3 Finger Stick Blood Glucose 160 Intake and Output for Last 24 Hours 01/29/20 01/30/20 01/31/20 23:59 23:59 23:59 Intake Total 3132.00 / 3132.00 1325 / 1325 365 / 365 Output Total 155 / 155 250 / 250 125 / 125 Balance 2977.00 / 2977.00 1075 / 1075 240 / 240 General: Alert, Cooperative HEENT: Atraumatic, Normocephalic Oral: Moist Mucosa Neck: Supple Lungs: Clear to auscultation, Normal air movement Cardiovascular: Regular rate, Regular Rhythm, Normal S1, Normal S2 Abdomen: Bowel Sounds Present, Soft Extremities: No clubbing, Edema Laboratory Results 01/30/20 04:52: Phosphorus 4.5 01/30/20 14:30: COVID-19 (JANENE) Negative 01/31/20 05:30: Sodium 130 L, Potassium 4.2, Chloride 94 L, Carbon Dioxide 27.0, Anion Gap 9, BUN 59 H, Creatinine 7.74 H*, Estim Creat Clear Calc 15.32, Est GFR (MDRD) Af Amer 11 L, Est GFR (MDRD) Non-Af 9 L, BUN/Creatinine Ratio 7.6 L, Glucose 87, Calcium 7.6 L, Phosphorus 4.0, Total Bilirubin 0.80, AST 2620 H, ALT 873 H, Alkaline Phosphatase 57, Total Creatine Kinase 60231 H, Total Protein 5.7 L, Albumin 1.8 L, Globulin 3.9, Albumin/Globulin Ratio 0.5 L 01/31/20 05:30: WBC 14.0 H, RBC 3.75 L, Hgb 11.2 L, Hct 33.4 L, MCV 89.1, MCH 29.9, MCHC 33.5, RDW Std Deviation 43.9, RDW Coeff of Jennifer 13.8, Plt Count 214, MPV 9.2, Immature Gran % (Auto) 2.200 H, Neut % (Auto) 65.4, Lymph % (Auto) 9.1 L, [place] % (Auto) 20.8 H, Eos % (Auto) 2.3, Baso % (Auto) 0.2, Absolute Neuts (auto) 9.2 H, Absolute Lymphs (auto) 1.27, Nucleated RBC % 0, Differential Comment SCANNED, Diff Path Review May foll Current Medications Acetaminophen (Tylenol) 650 mg PO Q6H PRN PRN PRN Reason: Pain (-11/24) or Fever Last Admin: 01/29/20 16:34 Dose: 650 mg Documented by: Albuterol Sulfate (Ventolin Aerosols) 2.5 mg INHALATION Q2H PRN PRN PRN Reason: WHEEZING Carvedilol (Coreg) 25 mg PO BID [facility] Last Admin: 01/31/20 08:59 Dose: 25 mg Documented by: Famotidine (Pepcid) 20 mg PO DAILY [facility] Last Admin: 01/31/20 08:59 Dose: 20 mg Documented by: Gabapentin (Neurontin) 400 mg PO BID [facility] Last Admin: 01/31/20 08:59 Dose: 400 mg Documented by: Heparin Sodium (Porcine) (Heparin Na) 5,000 unit SC Q8 [facility] Last Admin: 01/31/20 05:30 Dose: 5,000 unit Documented by: Hydralazine HCl (Apresoline Iv) 10 mg IV Q6H PRN PRN PRN Reason: SBP>160 or DBP>100 Last Admin: 01/28/20 00:30 Dose: 10 mg Documented by: Sodium Chloride () 250 mls @ 15 mls/hr IV .[id number] PRN PRN Reason: Saline Flush Sodium Chloride () 250 mls @ 15 mls/hr IV .[id number] PRN PRN Reason: Additional IVPB Infusion Ondansetron HCl (Zofran Odt) 4 mg PO Q6H PRN PRN PRN Reason: NAUSEA Oxycodone HCl (Oxyir) 5 mg PO Q6H PRN PRN PRN Reason: Pain Score 5-10/10 Last Admin: 01/31/20 08:59 Dose: 5 mg Documented by: Senna/Docusate Sodium (Senokot-S, Rosalba-Colace) 2 tablet GT BID PRN PRN PRN Reason: Constipation Sodium Chloride () 10 - 40 ml IV UD PRN PRN Reason: SALINE FLUSH Last Admin: 01/30/20 21:20 Dose: 10 ml Documented by: Medical Necessity - Tobacco Use Smoking Status: Current every day smoker Tobacco Use: Cigarettes Assessment/Plan All Active Problems Cardiopulmonary arrest with successful resuscitation (Acute) Hypocalcemia (Acute) Hyperkalemia (Acute) KEITH (acute kidney injury) (Acute) Metabolic acidosis, increased anion gap (Acute) Respiratory failure with hypoxia (Acute) Pulseless electrical activity with heart block (Acute) Ventricular fibrillation seen on alarm security or surveillance monitor (Acute) Gross hematuria (Acute) LV dysfunction (Acute) Non-STEMI (non-ST elevated myocardial infarction) (Acute) Fever (Acute) KEITH -ATN Hyperphosphatemia Hypocalcemia Rhabdomyolysis NSTEMI Polysubstance abuse Respiratory failure s/p extubation Shock liver HF Dialysis tomorrow with ultrafiltration as tolerated again 4 liters uf today IF tolerated Patient was seen on dialysis tolerating dialysis well. Monitor I's and O's. Will place tunneled dialysis catheter tomorrow if cleared by ID he still has some pending cultures. Avoid nephrotoxins d/w patient and the dialysis nurse and primary team.
--- NOTE | 2020-01-31 14:16 | CASEMGMT ---
KIRSTIE called [facility] as SW has not heard back from them regarding patient. KIRSTIE left a voice mail. Adrienne STRICKLAND MSW
[2020-01-31] MEDS: Heparin 10,000 UNITS/10 ML Vial IV (14:26)
--- NOTE | 2020-01-31 14:29 | CASEMGMT ---
SW called [facility] and Sangeetha said they can take patient. They will work on transportation as soon as SW gets a dialysis schedule. SW will let patient know. Plan: [facility] pending receipt of level of care, and dialysis schedule, and patient being medically ready. Adrienne MORALES
--- NOTE | 2020-01-31 14:31 | NURSING ---
This RN taking over care at this time
--- NOTE | 2020-01-31 15:11 | DIALYSIS ---
Hemodialysis completed as ordered x 4 hours today. -4000ml off. tolerated very well. CVC dressing changed and closed with heparin to each lumen fill volume. Stable t/o. Report to Tequila DELUNA
--- NOTE | 2020-01-31 15:51 | CHAPLAIN ---
Type of Pastoral Visit _x__ Initial Visit ___ Follow-up Visit ___ On-call Visit ___ General Patient Visit ___ Spiritual Assessment ___ Family Conference ___ Bereavement ___ Rapid Response ___ Code Blue ___ Other (describe below) Pastoral Care Referral From ___ Patient ___ Family ___ Nurse ___ Physician ___ Cigarette Making Machine Hopper Feeder ___ E Commerce Project Manager _x__ Other (describe below) Sacrament/Intervention _x__ Active listening ___ Anointing ___ Protestant ___ Bereavement ___ Communion ___ Isidra exploration ___ ___ Life review _x__ Prayer ___ Reconciliation ___ Sacrament of Sick _x__ Supportive presence ___ Wedding ___ Other (describe below) Pastoral Comments this cattle broker responded to code blue for this patient when he was initially brought into the hospital; this cattle broker had met brother of this patient at that time; follow up conducted with this patient who did welcome cattle broker to visit; pt was completing dialysis at this time; pt was tired but did respond appropriately to questions; pt did welcome prayer and would accept future visits from this cattle broker for follow up;
[2020-01-31] MEDS: Acetaminophen 325 MG Tablet 650 MG PO ×2 (16:30→22:34)
--- NOTE | 2020-01-31 17:20 | PN.CARD_ITS ---
Subjectve: No new cardiac events. Patient has musculoskeletal chest pain from CPR. Objective: Vital Signs Temp Pulse Resp BP Pulse Ox 100.5 F H 87 18 143/76 H 100 01/31/20 16:30 01/31/20 16:30 01/31/20 16:30 01/31/20 16:30 01/31/20 16:30 Oxygen Flow Rate (L/min) 2 Oxygen Delivery Method Room Air Weight: 295 lb 3.183 oz Body Mass Index (BMI) 36.3 Finger Stick Blood Glucose 160 Intake and Output for Last 24 Hours 01/29/20 01/30/20 01/31/20 23:59 23:59 23:59 Intake Total 3132.00 / 3132.00 1325 / 1325 605 / 605 Output Total 155 / 155 250 / 250 4125 / 4125 Balance 2977.00 / 2977.00 1075 / 1075 -3520 / -3520 General: - - Drowsy HEENT: Atraumatic Oral: Moist Mucosa Neck: Supple Extremities: No edema Skin: No Rashes 01/31/20 05:30: Sodium 130 L, Potassium 4.2, Chloride 94 L, Carbon Dioxide 27.0, Anion Gap 9, BUN 59 H, Creatinine 7.74 H*, Est GFR (MDRD) Af Amer 11 L, Est GFR (MDRD) Non-Af 9 L, BUN/Creatinine Ratio 7.6 L, Glucose 87, Calcium 7.6 L, Phosphorus 4.0, Total Bilirubin 0.80 01/31/20 05:30: WBC 14.0 H, RBC 3.75 L, Hgb 11.2 L, Hct 33.4 L, MCV 89.1, MCH 29.9, MCHC 33.5, Plt Count 214, MPV 9.2, Immature Gran % (Auto) 2.200 H, Neut % (Auto) 65.4, Lymph % (Auto) 9.1 L, [place] % (Auto) 20.8 H, Eos % (Auto) 2.3, Baso % (Auto) 0.2, Absolute Neuts (auto) 9.2 H, Nucleated RBC % 0 Rhythm: EKG: ECHO: Stress Test: Cardiac Cath: PCI: CT Surgery: Holter monitor: EPS: PPM: CXR: Chest CT Scan: Medical Necessity - Tobacco Use Smoking Status: Current every day smoker Tobacco Use: Cigarettes Assessment/Plan 1. Non-STEMI: Patient presented with cardiac arrest, rhabdomyolysis, new onset severe LV dysfunction, elevated troponin, substance abuse, acute renal failure. Major component of the troponin elevation could be related to his rhabdomyolysis with possible contribution from LV dysfunction and less likely underlying coronary artery disease. Reasonable to provide supportive care from this standpoint at this time. Continue current medications. At some point we could consider coronary angiography. However it is not emergent at this time especially in view of this multisystem failure including acute renal failure.
[2020-02-01] VITALS (16 sets, daily range): BP systolic 138–165; BP diastolic 72–100; PULSE 77–87; RESP 16–18; TEMP 36.8–37.6; O2SAT 97–100
[2020-02-01 05:29] LABS: Absolute Lymphocyte Count 1.63 X10^3/uL (0.83-4.51); Absolute Neutrophil Count 7.4 X10^3/uL (2.0-7.7); Basophil% 0.8 % (0-1); Eosinophil# 0.36 X10^3/uL; Eosinophils% 2.9 % (0-5); Hematocrit 36.7 % (40-54); Hemoglobin 11.1 g/dL (13.0-16.5); Lymphocyte # 1.63 X10^3/ul (4.0); Lymphocyte % 13.3 % (19-41); Mean Corp Hgb Conc 30.2 g/dL (32-36); Mean Corpuscular Hgb 29.7 pg (27.0-32.0); Mean Corpuscular Volume 98.1 fL (80-94); Mean Platelet Vol. 9.4 fl (6.2-12.0); Monocyte# 2.31 X10^3/uL; Monocyte% 18.9 % (0-10); NRBC Flagged by Analyzer 0 % (0-5); Neutrophil # 7.39 X10^3/uL (2.7-7.7); Neutrophil % 60.4 % (47-70); POSITIVE DIFFERENTIAL YES; Platelet Count 210 K/mm3 (150-450); RBC Distribution Width CV 13.9 % (11.6-14.6); Red Blood Count 3.74 M/mm3 (4.6-6.2); White Blood Count 12.2 K/mm3 (4.4-11.0)
[2020-02-01 05:33] LABS: Differential Indicated SCAN CRITERIA MET
[2020-02-01 05:48] LABS: Anion Gap 10 (5-15); BUN 45 mg/dL (7-18); Calcium,Total 7.9 mg/dL (8.5-10.1); Chloride 99 mmol/L (98-107); Creatinine, Serum 4.98 mg/dL (0.70-1.30); EST Glomerular Filtration Rate 15 mL/min (>60); Est Glom Filt Rate - Afr Amer 18 mL/min (>60); Estimated Creatinine Clearance 23.81 ml/min; Glucose 149 mg/dL (74-106); Potassium 4.4 mmol/L (3.5-5.1); Sodium Level 129 mmol/L (136-145)
[2020-02-01] MEDS: Heparin Injection (Vial) 5,000 UNIT/ML VIAL 5000 UNIT SC ×3 (05:49→23:04)
[2020-02-01 06:01] LABS: Differential Comment SCANNED
[2020-02-01] MEDS: Acetaminophen 325 MG Tablet 650 MG PO ×2 (07:59→16:33)
[2020-02-01] MEDS: oxyCODONE 5 MG Tablet PO ×3 (07:59→23:10)
--- NOTE | 2020-02-01 08:32 | VDLE_ITS ---
Reason For Study: Swelling RIGHT LEFT GSV is normal. GSV is normal. CFV is compressible, spontaneous, phasic, CFV is compressible, spontaneous, phasic, competent and demonstrates normal competent, and demonstrates normal augmentation. augmentation. FV is compressible, spontaneous, phasic, Turbulent flow noted in CFV, unable to competent and demonstrates normal identify connection. augmentation. FV is compressible, spontaneous, phasic, POP V is compressible, spontaneous, phasic, competent and demonstrates normal competent and demonstrates normal augmentation. augmentation. POP V is compressible, spontaneous, phasic, T/P Trunk is compressible. competent and demonstrates normal PTV is compressible. augmentation. RT PerV is compressible. T/P Trunk is compressible. Procedure PTV is compressible. Exam performed portable in patient room. LT PerV is compressible. A preliminary report was called and/or faxed to PCU. Interpretation Summary No evidence for acute deep venous thrombosis bilateral lower extremities with patent and compressible bilateral great saphenous veins. Turbulent flow is noted within the left common femoral vein. A distinct arteriovenous fistulous track cannot be identified but needs to be considered as a possibility. Clinical correlation with any interventions in this area need to be reviewed Ordering Physician: Gino Blancas Performed By: Tona Posey RVT
--- NOTE | 2020-02-01 09:10 | PN.RENAL_ITS ---
Patient Problems: Active and Suspected Problems Cardiopulmonary arrest with successful resuscitation (Acute) Hypocalcemia (Acute) Hyperkalemia (Acute) KEITH (acute kidney injury) (Acute) Metabolic acidosis, increased anion gap (Acute) Respiratory failure with hypoxia (Acute) Pulseless electrical activity with heart block (Acute) Ventricular fibrillation seen on monitor and storage bin tender (Acute) Gross hematuria (Acute) LV dysfunction (Acute) Non-STEMI (non-ST elevated myocardial infarction) (Acute) Fever (Acute) Subjective: no sob/cp - Physical Exam Vitals/I&O's: Vital Signs Temp Pulse Resp BP Pulse Ox 98.2 F 83 18 138/72 H 97 02/01/20 04:00 02/01/20 06:52 02/01/20 04:00 02/01/20 04:00 02/01/20 04:00 Oxygen Flow Rate (L/min) 2 Oxygen Delivery Method Room Air Weight: 134.8 kg Body Mass Index (BMI) 36.3 Finger Stick Blood Glucose 160 Intake and Output for Last 24 Hours 01/30/20 01/31/20 02/01/20 23:59 23:59 23:59 Intake Total 1325 / 1325 755 / 755 1000 / 1000 Output Total 250 / 250 4200 / 4200 50 / 50 Balance 1075 / 1075 -3445 / -3445 950 / 950 General: Alert, Cooperative HEENT: Atraumatic, Normocephalic Neck: Supple, Trachea Midline Lungs: Clear to auscultation, Normal air movement Cardiovascular: Regular rate, Regular Rhythm, Normal S1, Normal S2 Abdomen: Bowel Sounds Present, Soft, Non Tender Extremities: No clubbing Skin: No rashes Laboratory Results 01/26/20 : Hep Bs Antibody Cancelled 01/31/20 : Hepatitis Be Antibody Pending 02/01/20 04:56: WBC 12.2 H, RBC 3.74 L, Hgb 11.1 L, Hct 36.7 L, MCV 98.1 H D, MCH 29.7, MCHC 30.2 L D, RDW Std Deviation 50.0 H, RDW Coeff of Jennifer 13.9, Plt Count 210, MPV 9.4, Immature Gran % (Auto) 3.700 H, Neut % (Auto) 60.4, Lymph % (Auto) 13.3 L, [place] % (Auto) 18.9 H, Eos % (Auto) 2.9, Baso % (Auto) 0.8, Absolute Neuts (auto) 7.4, Absolute Lymphs (auto) 1.63, Nucleated RBC % 0, Differential Comment SCANNED, Diff Path Review December foll 02/01/20 04:56: Sodium 129 L, Potassium 4.4, Chloride 99, Carbon Dioxide 20.0 L, Anion Gap 10, BUN 45 H, Creatinine 4.98 H, Estim Creat Clear Calc 23.81, Est GFR (MDRD) Af Amer 18 L, Est GFR (MDRD) Non-Af 15 L, BUN/Creatinine Ratio 9.0 L, Glucose 149 H, Calcium 7.9 L Current Medications Acetaminophen (Tylenol) 650 mg PO Q6H PRN PRN PRN Reason: Pain (-11/24) or Fever Last Admin: 02/01/20 07:59 Dose: 650 mg Documented by: Albuterol Sulfate (Ventolin Aerosols) 2.5 mg INHALATION Q2H PRN PRN PRN Reason: WHEEZING Carvedilol (Coreg) 25 mg PO BID [facility] Last Admin: 01/31/20 22:22 Dose: 25 mg Documented by: Famotidine (Pepcid) 20 mg PO DAILY [facility] Last Admin: 01/31/20 08:59 Dose: 20 mg Documented by: Gabapentin (Neurontin) 400 mg PO BID [facility] Last Admin: 01/31/20 22:22 Dose: 400 mg Documented by: Heparin Sodium (Porcine) (Heparin Na) 5,000 unit SC Q8 [facility] Last Admin: 02/01/20 05:49 Dose: 5,000 unit Documented by: Hydralazine HCl (Apresoline Iv) 10 mg IV Q6H PRN PRN PRN Reason: SBP>160 or DBP>100 Last Admin: 01/28/20 00:30 Dose: 10 mg Documented by: Sodium Chloride () 250 mls @ 15 mls/hr IV .[id number] PRN PRN Reason: Saline Flush Sodium Chloride () 250 mls @ 15 mls/hr IV .[id number] PRN PRN Reason: Additional IVPB Infusion Ondansetron HCl (Zofran Odt) 4 mg PO Q6H PRN PRN PRN Reason: NAUSEA Oxycodone HCl (Oxyir) 5 mg PO Q6H PRN PRN PRN Reason: Pain Score 5-10/10 Last Admin: 02/01/20 07:59 Dose: 5 mg Documented by: Senna/Docusate Sodium (Senokot-S, Rosalba-Colace) 2 tablet GT BID PRN PRN PRN Reason: Constipation Sodium Chloride () 10 - 40 ml IV UD PRN PRN Reason: SALINE FLUSH Last Admin: 01/30/20 21:20 Dose: 10 ml Documented by: Medical Necessity - Tobacco Use Smoking Status: Current every day smoker Tobacco Use: Cigarettes Assessment/Plan All Active Problems Cardiopulmonary arrest with successful resuscitation (Acute) Hypocalcemia (Acute) Hyperkalemia (Acute) KEITH (acute kidney injury) (Acute) Metabolic acidosis, increased anion gap (Acute) Respiratory failure with hypoxia (Acute) Pulseless electrical activity with heart block (Acute) Ventricular fibrillation seen on monitor and storage bin tender (Acute) Gross hematuria (Acute) LV dysfunction (Acute) Non-STEMI (non-ST elevated myocardial infarction) (Acute) Fever (Acute) KEITH -ATN Hyperphosphatemia resolved Hypocalcemia Rhabdomyolysis NSTEMI Polysubstance abuse Respiratory failure s/p extubation Shock liver HF Dialysis today with ultrafiltration as tolerated edema LE much better 4 liters uf today IF tolerated Monitor I's and O's. Will place tunneled dialysis catheter as ID agreed with placement of TDC. Avoid nephrotoxins d/w patient and primary team.
--- NOTE | 2020-02-01 09:26 | CASEMGMT ---
Addendum entered by Emily Villa 02/01/20 15:42: Operative report for Tunneled dialysis catheter and CXR confirmation of placement faxed to [facility] at this time. Original Note: MIKIE PARTIDA NOTE: Dr Ritter updated that pt will be going to [facility] at discharge and dialysis is set up through [facility] d/t [facility] does not take pending [facility] patients. Dr Ritter requests for Dr Mccray to see pt for OP dialysis. Tunnelled catheter insertion being arranged and Hep B results remain pending. Per Dr Ritter, pt can be discharged once Tunnelled catheter placed and chair time confirmed. Call placed to [facility] and spoke w/Starr. Starr made aware Dr Ritter is asking for Dr Mccray to follow pt for OP dialysis. Starr states pt has a tentative chair time schedule for MWF, but the director of automation still needs to review for finalization. Starr states she will return call to this RN CM once this has been finalized. Will fax tunnelled catheter insertion report and Hep B results to [facility] once available. Jailene OLSON RN CM
[2020-02-01 09:46] LABS: Bacteria 0 SEEN /hpf (None Seen); Mucous, Urine 0 SEEN /hpf (<or=2+); Squamous Epithelial Cells - UA 0 SEEN /hpf (0-5)
[2020-02-01 09:54] LABS: Color, Urine Yellow (Yellow); Glucose, Dipstick 50 mg/dl (Normal); Ketone-Dipstick 5 mg/dl (Negative); Leukocyte Esterase-Dipstick 500 /ul (Negative); Nitrite-Dipstick Negative (Negative); Occult Blood-Urine 250 /ul (Negative); Protein-Dipstick 100 mg/dl (Negative); Urine Bilirubin Dipstick Negative (Negative); Urine Clarity Cloudy (Clear); Urine Urobilinogen Normal (Normal)
[2020-02-01] MEDS: 0.9% Normal Saline 1,000 ML 50 ML IV (10:00)
[2020-02-01 10:14] LABS: Red Blood Cells-Urine > 100 SEEN /hpf (0-5); White Blood Cells >100 SEEN /hpf (0-5)
--- NOTE | 2020-02-01 10:18 | CON.PCM_ITS ---
Problem List (1) KEITH (acute kidney injury) Status: Acute Reason for Consult Date of Consultation: 02/01/20 History of Present Illness: The patient is a 29 year old M who I have been asked to see by Gino Blancas PA-C and a written copy of my surgical consult recommendations will be returned to him. We have been asked to placed same-day tunneled dialysis catheters on this 29-year-old gentleman. On chart review he was hospitalized on January 25, 2020. R esented in acute cardiopulmonary arrest with successful resuscitation he had hypo-González C. Dinah hyper per kalemia acute kidney injury. In addition he suffered from metabolic acidosis and respiratory failure and pulseless electrical activity and ventricular fibrillation gross hematuria and left ventricular dysfunction as well as a non-ST segment IA infarction and fever. By report he had a right internal jugular temporary dialysis catheter placed in the ICU he also apparently had a left subclavian trauma line in place but that is since been removed. The patient has been receiving daily dialysis via his percutaneous right IJ line. His additional medical problems include chronic tobacco use polysubstance abuse and shock liver. Apparently the patient is to be discharged to a chcf very soon. White blood cell count as of earlier today 12.2 with a hemo-11.1 hematocrit 36.7 platelet count 210,000. 60% neutrophils. Sodium is low at 129 BUN is 45 and creatinine is 4.98. Potassium is 4.4. Appears that blood cultures from January 29 are pending. Urine culture from January 31 pending. Past Medical History Allergies No Known Allergies Allergy (Verified 01/25/20 11:08) Home Medications: Ambulatory Orders Medication Instructions Recorded NK 01/25/20 Surgical History: no surgical history Psychiatric History: No pertinent psych hx Lives: With Family Smoking Status: Current every day smoker Tobacco Use: Cigarettes Alcohol: Heavy Drugs: Marijuana Review of Systems Constitutional: Reports: Fever, Malaise, Weakness HEENT: Denies: Difficulty Swallowing Respiratory: Reports: Shortness of Breath Gastrointestinal: Denies: Abdominal Pain Patient Problems: Active and Suspected Problems Cardiopulmonary arrest with successful resuscitation (Acute) Hypocalcemia (Acute) Hyperkalemia (Acute) KEITH (acute kidney injury) (Acute) Metabolic acidosis, increased anion gap (Acute) Respiratory failure with hypoxia (Acute) Pulseless electrical activity with heart block (Acute) Ventricular fibrillation seen on extension agent (Acute) Gross hematuria (Acute) LV dysfunction (Acute) Non-STEMI (non-ST elevated myocardial infarction) (Acute) Fever (Acute) - Physical Exam Vitals/I&O's: Vital Signs Temp Pulse Resp BP Pulse Ox 98.2 F 83 18 138/72 H 97 02/01/20 04:00 02/01/20 06:52 02/01/20 04:00 02/01/20 04:00 02/01/20 04:00 Oxygen Flow Rate (L/min) 2 Oxygen Delivery Method Room Air Weight: 297 lb 2.93 oz Body Mass Index (BMI) 36.3 Finger Stick Blood Glucose 160 Intake and Output for Last 24 Hours 01/30/20 01/31/20 02/01/20 23:59 23:59 23:59 Intake Total 1325 / 1325 755 / 755 1000 / 1000 Output Total 250 / 250 4200 / 4200 50 / 50 Balance 1075 / 1075 -3445 / -3445 950 / 950 General: Alert, Oriented x3, Cooperative, No apparent distress Neck: Supple Lungs: Clear to auscultation, Normal air movement Cardiovascular: Regular rate, Regular Rhythm Abdomen: Soft Extremities: Edema - Bilateral lower extremities Laboratory Results 01/26/20 : Hep Bs Antibody Cancelled 01/31/20 : Hepatitis Be Antibody Pending 02/01/20 04:56: WBC 12.2 H, RBC 3.74 L, Hgb 11.1 L, Hct 36.7 L, MCV 98.1 H D, MCH 29.7, MCHC 30.2 L D, RDW Std Deviation 50.0 H, RDW Coeff of Jennifer 13.9, Plt Count 210, MPV 9.4, Immature Gran % (Auto) 3.700 H, Neut % (Auto) 60.4, Lymph % (Auto) 13.3 L, [place] % (Auto) 18.9 H, Eos % (Auto) 2.9, Baso % (Auto) 0.8, Absolute Neuts (auto) 7.4, Absolute Lymphs (auto) 1.63, Nucleated RBC % 0, Dif ferential Comment SCANNED, Diff Path Review December02/01/20 04:56: Sodium 129 L, Potassium 4.4, Chloride 99, Carbon Dioxide 20.0 L, Anion Gap 10, BUN 45 H, Creatinine 4.98 H, Estim Creat Clear Calc 23.81, Est GFR (MDRD) Af Amer 18 L, Est GFR (MDRD) Non-Af 15 L, BUN/Creatinine Ratio 9.0 L, Glucose 149 H, Calcium 7.9 L 02/01/20 09:35: Urine Color Yellow, Urine Clarity Cloudy, Urine pH 8.0, Ur Specific [place] 1.010, Urine Protein 100 H, Urine Glucose (UA) 50 H, Urine Ketones 5 H, Urine Occult Blood 250 H, Urine Nitrite Negative, Urine Bilirubin Negative, Urine Urobilinogen Normal, Ur Leukocyte Esterase 500 H, Urine RBC > 100 SEEN, Urine WBC >100 SEEN, Ur Squamous Epith Cells 0 SEEN, Urine Bacteria 0 SEEN, Urine Mucus 0 SEEN 02/01/20 09:52: Total Creatine Kinase Pending Current Medications Acetaminophen (Tylenol) 650 mg PO Q6H PRN PRN PRN Reason: Pain (-11/24) or Fever Last Admin: 02/01/20 07:59 Dose: 650 mg Documented by: Albuterol Sulfate (Ventolin Aerosols) 2.5 mg INHALATION Q2H PRN PRN PRN Reason: WHEEZING Carvedilol (Coreg) 25 mg PO BID [facility] Last Admin: 01/31/20 22:22 Dose: 25 mg Documented by: Famotidine (Pepcid) 20 mg PO DAILY [facility] Last Admin: 01/31/20 08:59 Dose: 20 mg Documented by: Gabapentin (Neurontin) 400 mg PO BID [facility] Last Admin: 01/31/20 22:22 Dose: 400 mg Documented by: Heparin Sodium (Porcine) (Heparin Na) 5,000 unit SC Q8 [facility] Last Admin: 02/01/20 05:49 Dose: 5,000 unit Documented by: Hydralazine HCl (Apresoline Iv) 10 mg IV Q6H PRN PRN PRN Reason: SBP>160 or DBP>100 Last Admin: 01/28/20 00:30 Dose: 10 mg Documented by: Sodium Chloride () 250 mls @ 15 mls/hr IV .[id number] PRN PRN Reason: Saline Flush Sodium Chloride () 250 mls @ 15 mls/hr IV .[id number] PRN PRN Reason: Additional IVPB Infusion Cefazolin Sodium 3 gm/ Sodium (Chloride) 115 mls @ 150 mls/hr IV X1 ONE Stop: 02/01/20 13:45 Cefazolin Sodium 2 gm/ Sodium (Chloride) 110 mls @ 150 mls/hr IV X1 ONE Stop: 02/01/20 10:57 Ondansetron HCl (Zofran Odt) 4 mg PO Q6H PRN PRN PRN Reason: NAUSEA Oxycodone HCl (Oxyir) 5 mg PO Q6H PRN PRN PRN Reason: Pain Score 5-10/10 Last Admin: 02/01/20 07:59 Dose: 5 mg Documented by: Senna/Docusate Sodium (Senokot-S, Rosalba-Colace) 2 tablet GT BID PRN PRN PRN Reason: Constipation Sodium Chloride () 10 - 40 ml IV UD PRN PRN Reason: SALINE FLUSH Last Admin: 01/30/20 21:20 Dose: 10 ml Documented by: Assessment/Plan All Active Problems Cardiopulmonary arrest with successful resuscitation (Acute) Hypocalcemia (Acute) Hyperkalemia (Acute) KEITH (acute kidney injury) (Acute) Metabolic acidosis, increased anion gap (Acute) Respiratory failure with hypoxia (Acute) Pulseless electrical activity with heart block (Acute) Ventricular fibrillation seen on extension agent (Acute) Gross hematuria (Acute) LV dysfunction (Acute) Non-STEMI (non-ST elevated myocardial infarction) (Acute) Fever (Acute) 37-year-old gentleman with multiple significant medical comorbidities seemingly as a result of polysubstance abuse and cardiac arrest. He has had a previous left subclavian trauma line but that is previously been removed. Discussed the temporary catheters the right IJ. We will try to achieve a left IJ tunneled dialysis catheter placement and I have discussed the technique, benefit, risk and alternatives with the patient. By report he is to be discharged to a chcf. The request for the tunneled line is being made by nephrology. Apparently infectious disease has reviewed the condition as well. Clearly this patient is at increased risk for placement and increased risk for continued abuse with a line in place. He has had an opportunity to ask and have questions answered. We will proceed with line placement. Constantin Roa M.D., F.A.C.S.
[2020-02-01] MEDS: Bupivacaine Mpf 0.5% 30 ML VIAL (10:57)
[2020-02-01] MEDS: Heparin 10,000 UNITS/10 ML Vial 10000 UNITS (11:08)
--- NOTE | 2020-02-01 11:18 | OP.PCM_ITS ---
Problem List (1) KEITH (acute kidney injury) Status: Acute Report of Operation Date of Procedure: 02/01/20 Pre-Operative Diagnosis: Acute kidney injury requiring hemodialysis Post-Operative Diagnosis: Same Surgery/Procedure Performed:: Left internal jugular 23 cm pre-curved palindrome double-lumen hemodialysis catheter placement. Reference #[id number]. Lot #[id number]. Primary date 03/23/2024 Description of Surgical Findings:: Timeout and informed consent was obtained. 29-year-old gentleman was taken to the operating place upon the table underwent monitored anesthesia care. Ancef 3 g were given intravenously. The left neck and chest were sterilely prepped and draped. Ultrasound was used to identify the left internal jugular vein. Under ultrasound guidance 1% lidocaine mixed 50-50 with 0.5% Marcaine was used as a local anesthetic. A total of 20 cc was used. Local was instilled micropuncture needle inserted ultrasound guidance in the left internal jugular vein followed b y Seldinger wire advancement. Fluoroscopy demonstrated excellent positioning. Local was instilled down upon the chest wall and exit site was selected the double-lumen catheter was advanced from the chest to the neck site. Micropuncture sheath was placed. An 035 J-wire was inserted. Fluoroscopy demonstrated good positioning. Serial dilatation was performed. Under fluoroscopic guidance the sheath dilator was inserted. The dilator and wire were removed. The catheter was advanced through the sheath. The sheath was split. The catheter was positioned at the SVC atrial junction. It had a good curvilinear position. It aspirated very easily. It was flushed with saline and then 2 cc heparinized saline per channel. The catheter was secured at the exit site with 3-0 nylon. The neck site was closed with interrupted 5-0 Vicryl subdermal stitch. Steri-Strip Telfa OpSite dressing applied to the neck silver dressing was applied to the chest exit site. The patient had a previous wound from a trauma line subclavian that was treated with topical antibiotic ointment Telfa OpSite. Specimens none. Drains none. Blood loss 20 cc. He tolerated the procedure well was taken to the recovery room in satisfactory addition without apparent complication. Stat portable chest x-ray is pending. Constantin Roa M.D., F.A.C.S. Type of Anesthesia:: Local MAC Anesthesiologist: Clay Loomis
--- NOTE | 2020-02-01 11:27 | PCM.PN.HOSP ---
<Gino Blancas - Last Filed: 02/01/20 11:27> Patient Problems: Active and Suspected Problems Cardiopulmonary arrest with successful resuscitation (Acute) Hypocalcemia (Acute) Hyperkalemia (Acute) KEITH (acute kidney injury) (Acute) Metabolic acidosis, increased anion gap (Acute) Respiratory failure with hypoxia (Acute) Pulseless electrical activity with heart block (Acute) Ventricular fibrillation seen on nurse monitoring (Acute) Gross hematuria (Acute) LV dysfunction (Acute) Non-STEMI (non-ST elevated myocardial infarction) (Acute) Fever (Acute) Reason for Visit: KEITH Subjective: Pt with minimal improvement in LE edema. Ongoing CP. SOB improved. Cough with clear sputum production. No fever or chills. complains that the emerson cath is irritating. More rousable today. Vitals/I&O's: Vital Signs Temp Pulse Resp BP Pulse Ox 98.2 F 83 18 138/72 H 97 02/01/20 04:00 02/01/20 06:52 02/01/20 04:00 02/01/20 04:00 02/01/20 04:00 Oxygen Flow Rate (L/min) 2 Oxygen Delivery Method Room Air Weight: 297 lb 2.93 oz Body Mass Index (BMI) 36.3 Finger Stick Blood Glucose 160 Intake and Output for Last 24 Hours 01/30/20 01/31/20 02/01/20 23:59 23:59 23:59 Intake Total 1325 / 1325 755 / 755 1000 / 1000 Output Total 250 / 250 4200 / 4200 50 / 50 Balance 1075 / 1075 -3445 / -3445 950 / 950 General: Alert, Oriented x3, Cooperative, Lethargic HEENT: Atraumatic, PERRLA, EOMI, Normocephalic Neck: Supple, No JVD, Negative Carotid Bruits Lungs: Clear to auscultation, Normal air movement Cardiovascular: Regular rate, No murmurs Abdomen: Bowel Sounds Present, Soft, Non Tender Extremities: No edema, Capillary Refill Less than 3 Seconds Skin: No rashes, No breakdown Musculoskeletal: No Tenderness to Palpation of Joints or Extremities Neurological: Cranial nerves II-XII grossly intact Psych/Mental Status: Normal Affect, Appropriate, Alert and oriented to time, place, person, mood and affect Laboratory Results 01/26/20 : Hep Bs Antibody Cancelled 01/31/20 : Hepatitis Be Antibody Pending 02/01/20 04:56: WBC 12.2 H, RBC 3.74 L, Hgb 11.1 L, Hct 36.7 L, MCV 98.1 H D, MCH 29.7, MCHC 30.2 L D, RDW Std Deviation 50.0 H, RDW Coeff of Jennifer 13.9, Plt Count 210, MPV 9.4, Immature Gran % (Auto) 3.700 H, Neut % (Auto) 60.4, Lymph % (Auto) 13.3 L, [place] % (Auto) 18.9 H, Eos % (Auto) 2.9, Baso % (Auto) 0.8, Absolute Neuts (auto) 7.4, Absolute Lymphs (auto) 1.63, Nucleated RBC % 0, Differential Comment SCANNED, Diff Path Review December02/01/20 04:56: Sodium 129 L, Potassium 4.4, Chloride 99, Carbon Dioxide 20.0 L, Anion Gap 10, BUN 45 H, Creatinine 4.98 H, Estim Creat Clear Calc 23.81, Est GFR (MDRD) Af Amer 18 L, Est GFR (MDRD) Non-Af 15 L, BUN/Creatinine Ratio 9.0 L, Glucose 149 H, Calcium 7.9 L 02/01/20 09:35: Urine Color Yellow, Urine Clarity Cloudy, Urine pH 8.0, Ur Specific [place] 1.010, Urine Protein 100 H, Urine Glucose (UA) 50 H, Urine Ketones 5 H, Urine Occult Blood 250 H, Urine Nitrite Negative, Urine Bilirubin Negative, Urine Urobilinogen Normal, Ur Leukocyte Esterase 500 H, Urine RBC > 100 SEEN, Urine WBC >100 SEEN, Ur Squamous Epith Cells 0 SEEN, Urine Bacteria 0 SEEN, Urine Mucus 0 SEEN 02/01/20 09:52: Total Creatine Kinase 84585 H Current Medications Acetaminophen (Tylenol) 650 mg PO Q6H PRN PRN PRN Reason: Pain (1-11/24) or Fever Last Admin: 02/01/20 07:59 Dose: 650 mg Documented by: Albuterol Sulfate (Ventolin Aerosols) 2.5 mg INHALATION Q2H PRN PRN PRN Reason: WHEEZING Carvedilol (Coreg) 25 mg PO BID [facility] Last Admin: 01/31/20 22:22 Dose: 25 mg Documented by: Famotidine (Pepcid) 20 mg PO DAILY [facility] Last Admin: 01/31/20 08:59 Dose: 20 mg Documented by: Gabapentin (Neurontin) 400 mg PO BID [facility] Last Admin: 01/31/20 22:22 Dose: 400 mg Documented by: Heparin Sodium (Porcine) (Heparin Na) 5,000 unit SC Q8 [facility] Last Admin: 02/01/20 05:49 Dose: 5,000 unit Documented by: Hydralazine HCl (Apresoline Iv) 10 mg IV Q6H PRN PRN PRN Reason: SBP>160 or DBP>100 Last Admin: 01/28/20 00:30 Dose: 10 mg Documented by: Sodium Chloride () 250 mls @ 15 mls/hr IV .[id number] PRN PRN Reason: Saline Flush Sodium Chloride () 250 mls @ 15 mls/hr IV .[id number] PRN PRN Reason: Additional IVPB Infusion Cefazolin Sodium 3 gm/ Sodium (Chloride) 115 mls @ 150 mls/hr IV X1 ONE Stop: 02/01/20 13:45 Last Admin: 02/01/20 10:51 Dose: 150 mls/hr Documented by: Cefazolin Sodium 2 gm/ Sodium (Chloride) 110 mls @ 150 mls/hr IV X1 ONE Stop: 02/01/20 10:57 Ondansetron HCl (Zofran Odt) 4 mg PO Q6H PRN PRN PRN Reason: NAUSEA Oxycodone HCl (Oxyir) 5 mg PO Q6H PRN PRN PRN Reason: Pain Score 5-10/10 Last Admin: 02/01/20 07:59 Dose: 5 mg Documented by: Senna/Docusate Sodium (Senokot-S, Rosalba-Colace) 2 tablet GT BID PRN PRN PRN Reason: Constipation Sodium Chloride () 10 - 40 ml IV UD PRN PRN Reason: SALINE FLUSH Last Admin: 01/30/20 21:20 Dose: 10 ml Documented by: Medical Necessity - Tobacco Use Smoking Status: Current every day smoker Tobacco Use: Cigarettes Assessment/Plan All Active Problems Cardiopulmonary arrest with successful resuscitation (Acute) Hypocalcemia (Acute) Hyperkalemia (Acute) KEITH (acute kidney injury) (Acute) Metabolic acidosis, increased anion gap (Acute) Respiratory failure with hypoxia (Acute) Pulseless electrical activity with heart block (Acute) Ventricular fibrillation seen on nurse monitoring (Acute) Gross hematuria (Acute) LV dysfunction (Acute) Non-STEMI (non-ST elevated myocardial infarction) (Acute) Fever (Acute) 1. Acute hypoxic resp failure 2/2 cardiac arrest, aspiration pna, cardiomyopathy and volume overload - extubated 01/26. Pt without significant recovery of renal function. Will continue to be dialyzed as o/p after DC. Pt going to SNF. Consult to Gen surg for tunneled dialysis cath. Discussed with nephrology. Confirmed with ID that its ok to put in dialysis cath. -recurrent likely due to rhabdo -will pull emerson and check UA/Cx with complaints of emerson irritation. -WBC improved. -he remains off Abx with improvement in his respiratory status, completed unasyn for aspiration pna -check venous UA for ongoing LE edema. 2. KEITH, hyperkalemia, hypocalcemia, hyperphosphatemia, acute rhabdo - dialysis per [place] [facility]. To have tunneled cath placed today 3. Abnormal LFTs due to shock liver - improved. hep panel neg. 4. Cardiomyopathy - unclear type, ?cocaine induced. EF 20%. Cardiology following. Weight is significantly up, aggressive fluid removal with dialysis. Follow up as o/p for ongoing care/workup. 5. Elevated troponins, NSTEMI - cardio following - Post cardiac arrest. no CP at this time. Elevation may be at least partially due to acute rhabdo. 6. Polysubstance abuse - cocaine, marijuana 7. Anemia - normocytic. stable. DVT ppx: heparin This patient was seen by Gino Blancas PA-C under the supervision of Doctor Gurdeep. <Jignesh Mackenzie - Last Filed: 02/01/20 11:39> Vitals/I&O's: Vital Signs Temp Pulse Resp BP Pulse Ox 98.2 F 83 18 138/72 H 97 02/01/20 04:00 02/01/20 06:52 02/01/20 04:00 02/01/20 04:00 02/01/20 04:00 Oxygen Flow Rate (L/min) 2 Oxygen Delivery Method Room Air Weight: 134.8 kg Body Mass Index (BMI) 36.3 Finger Stick Blood Glucose 160 Intake and Output for Last 24 Hours 01/30/20 01/31/20 02/01/20 23:59 23:59 23:59 Intake Total 1325 / 1325 755 / 755 1000 / 1000 Output Total 250 / 250 4200 / 4200 50 / 50 Balance 1075 / 1075 -3445 / -3445 950 / 950 Laboratory Results 01/26/20 : Hep Bs Antibody Cancelled 01/31/20 : Hepatitis Be Antibody Pending 02/01/20 04:56: WBC 12.2 H, RBC 3.74 L, Hgb 11.1 L, Hct 36.7 L, MCV 98.1 H D, MCH 29.7, MCHC 30.2 L D, RDW Std Deviation 50.0 H, RDW Coeff of Jennifer 13.9, Plt Count 210, MPV 9.4, Immature Gran % (Auto) 3.700 H, Neut % (Auto) 60.4, Lymph % (Auto) 13.3 L, [place] % (Auto) 18.9 H, Eos % (Auto) 2.9, Baso % (Auto) 0.8, Absolute Neuts (auto) 7.4, Absolute Lymphs (auto) 1.63, Nucleated RBC % 0, Differential Comment SCANNED, Diff Path Review May foll 02/01/20 04:56: Sodium 129 L, Potassium 4.4, Chloride 99, Carbon Dioxide 20.0 L, Anion Gap 10, BUN 45 H, Creatinine 4.98 H, Estim Creat Clear Calc 23.81, Est GFR (MDRD) Af Amer 18 L, Est GFR (MDRD) Non-Af 15 L, BUN/Creatinine Ratio 9.0 L, Glucose 149 H, Calcium 7.9 L 02/01/20 09:35: Urine Color Yellow, Urine Clarity Cloudy, Urine pH 8.0, Ur Specific [place] 1.010, Urine Protein 100 H, Urine Glucose (UA) 50 H, Urine Ketones 5 H, Urine Occult Blood 250 H, Urine Nitrite Negative, Urine Bilirubin Negative, Urine Urobilinogen Normal, Ur Leukocyte Esterase 500 H, Urine RBC > 100 SEEN, Urine WBC >100 SEEN, Ur Squamous Epith Cells 0 SEEN, Urine Bacteria 0 SEEN, Urine Mucus 0 SEEN 02/01/20 09:52: Total Creatine Kinase 24746 H Current Medications Acetaminophen (Tylenol) 650 mg PO Q6H PRN PRN PRN Reason: Pain (-4/10) or Fever Last Admin: 02/01/20 07:59 Dose: 650 mg Documented by: Albuterol Sulfate (Ventolin Aerosols) 2.5 mg INHALATION Q2H PRN PRN PRN Reason: WHEEZING Carvedilol (Coreg) 25 mg PO BID [facility] Last Admin: 01/31/20 22:22 Dose: 25 mg Documented by: Famotidine (Pepcid) 20 mg PO DAILY [facility] Last Admin: 01/31/20 08:59 Dose: 20 mg Documented by: Gabapentin (Neurontin) 400 mg PO BID [facility] Last Admin: 01/31/20 22:22 Dose: 400 mg Documented by: Heparin Sodium (Porcine) (Heparin Na) 5,000 unit SC Q8 [facility] Last Admin: 02/01/20 05:49 Dose: 5,000 unit Documented by: Hydralazine HCl (Apresoline Iv) 10 mg IV Q6H PRN PRN PRN Reason: SBP>160 or DBP>100 Last Admin: 01/28/20 00:30 Dose: 10 mg Documented by: Sodium Chloride () 250 mls @ 15 mls/hr IV .[id number] PRN PRN Reason: Saline Flush Sodium Chloride () 250 mls @ 15 mls/hr IV .[id number] PRN PRN Reason: Additional IVPB Infusion Cefazolin Sodium 3 gm/ Sodium (Chloride) 115 mls @ 150 mls/hr IV X1 ONE Stop: 02/01/20 13:45 Last Admin: 02/01/20 10:51 Dose: 150 mls/hr Documented by: Cefazolin Sodium 2 gm/ Sodium (Chloride) 110 mls @ 150 mls/hr IV X1 ONE Stop: 02/01/20 10:57 Ondansetron HCl (Zofran Odt) 4 mg PO Q6H PRN PRN PRN Reason: NAUSEA Oxycodone HCl (Oxyir) 5 mg PO Q6H PRN PRN PRN Reason: Pain Score 5-10/10 Last Admin: 02/01/20 07:59 Dose: 5 mg Documented by: Senna/Docusate Sodium (Senokot-S, Rosalba-Colace) 2 tablet GT BID PRN PRN PRN Reason: Constipation Sodium Chloride () 10 - 40 ml IV UD PRN PRN Reason: SALINE FLUSH Last Admin: 01/30/20 21:20 Dose: 10 ml Documented by: Assessment/Plan This patient was seen in conjunction with Gino Blancas PA-C . I have independently interviewed and examined the patient and reviewed pertinent historical, laboratory, and other data. Please refer to Gino Blancas PA-C note for details of this patient's presentation, findings, and recommendations. I have reviewed Gino Blancas PA-C note and concur with documented findings. In brief, patient is 29-year-old gentleman admitted with cardiac arrest 01/31/2020: Patient seen more lethargic than usual. No significant improvement in his kidney function. Patient currently undergoing dialysis. CPK levels trending down 02/01/2020: Patient seen with complaints of chest discomfort which he attributed to CPR he received following his cardiac arrest. Consult was placed with Dr. Roa for placement of tunneled catheter for continuous dialysis . Venous duplex was also ordered in view of patient having left sided thigh swelling Physical Examination: GENERAL: cooperative HEENT: Atraumatic; EYES; Anicteric, Normal Conjunctiva NECK; supple, normal thyroid, RESPIRATORY: Diminished to auscultation CARDIOVASCULAR: Regular S1 S2, GI: soft, normoactive bowel sounds, : No Renal angle tenderness; EXTREMITIES: No edema, no clubbing, NEURO: Awake; no lateralizing signs. SKIN: No Rash PSYCH; Flat affect Assessment: 1. Acute hypoxic respiratory failure secondary to cardiac arrest 2. Drug induced cardiac arrest 3. Cardiomyopathy with ejection fraction of 30% 4. Elevated troponin secondary to acute non-STEMI as a result of cocaine 5. Acute kidney injury requiring dialysis 8. Hypocalcemia 7. Hyperkalemia 8. Hypophosphatemia 9. Acute rhabdomyolysis 10. Anemia 11. Acute hepatitis secondary to shock liver 12. Polysubstance abuse 13. DVT Prophylaxis?SCDs Recommendations: 1. I have discussed the results of my overview and impressions with the patient 2. Options for management were reviewed Inpatient E&M: 34611 Subs Hosp L2
--- NOTE | 2020-02-01 11:48 | NURSING ---
Updated patient's mother Jaleesa on POC and patient status.
--- NOTE | 2020-02-01 11:50 | RAD_ITS ---
STUDY: X-RAY CHEST REASON FOR EXAM: Male, 29 years old. Dialysis catheter placement. TECHNIQUE: Single AP portable view of the chest. COMPARISON: Comparison is made with prior study dated January 30, 2020. FINDINGS: A left-sided double-lumen dialysis catheter has been placed. The tip is at the junction of the left brachiocephalic vein and superior vena cava. Stable appearance of the right internal jugular venous catheter. The lungs are clear and expanded. There is no demonstrated pleural abnormality. Normal size heart. Normal mediastinum and ricki. Normal visualized pulmonary arteries. Normal visualized aortic arch and descending thoracic aorta. Normal visualized thoracic spine. Normal visualized ribs, clavicles, and shoulders. There is no demonstrated abnormality of the visualized soft tissue structures of the upper abdomen. RAD/CXR for Line Placement IMPRESSION: The tip of the left double-lumen dialysis catheter is at the junction of the left brachiocephalic vein and superior vena cava. Electronically Signed: Sam Kamara, at 12:27 EDT , Service support ,
[2020-02-01 11:59] LABS: Pathologist Review Reviewed
[2020-02-01 12:08] LABS: Pathologist Review Reviewed
--- NOTE | 2020-02-01 12:41 | NURSING ---
Jacky Pagan RN notified this nurse that dialysis cath ok to use per Dr. Roa.
--- NOTE | 2020-02-01 12:44 | NURSING ---
VSA and am meds late d/t patient being taken for tunneled dialysis catheter placement. Post tunneled cath placement patient to receive dialysis treatment.
--- NOTE | 2020-02-01 14:32 | CASEMGMT ---
SW spoke with patient and let him know that SW did find a facility that will take him for therapy. SW explained that he will stay there and get daily therapy and they will transport him to and from dialysis. SW explained once he is stronger he can go home. SW asked if he is okay with this plan and he is in agreement. SW asked if he would like SW to call anyone to update them on this discharge plan. He said SW could call his mom. KIRSTIE called patient's mom, Jaleesa and left her a voice mail with the d/c plan. SW also left SW's phone number. Plan: CC pending patient being ready, receipt of dialysis schedule, and receipt of level of care from [facility]. Adrienne STRICKLAND MSW
[2020-02-01] MEDS: Heparin 10,000 UNITS/10 ML Vial IV (15:34)
[2020-02-01 15:47] LABS: Hepatitis Be Ab Negative (Negative)
--- NOTE | 2020-02-01 16:00 | DIALYSIS ---
Hemodialysis x 3 hours today post new tunneled line insertion to l.chest. -3000ml off. CVC line positional at first with pt movement, improved when pt rested. Heparin to close cvc to each lumen fill volume only today. Stable t/o. Report to Cherri DELUNA
--- NOTE | 2020-02-01 16:32 | PCM.PN.ID ---
Patient Problems: Active and Suspected Problems Cardiopulmonary arrest with successful resuscitation (Acute) Hypocalcemia (Acute) Hyperkalemia (Acute) KEITH (acute kidney injury) (Acute) Metabolic acidosis, increased anion gap (Acute) Respiratory failure with hypoxia (Acute) Pulseless electrical activity with heart block (Acute) Ventricular fibrillation seen on bus monitor (Acute) Gross hematuria (Acute) LV dysfunction (Acute) Non-STEMI (non-ST elevated myocardial infarction) (Acute) Fever (Acute) Subjective: Feeling ok, some chest soreness and leg aches, no fever. - Physical Exam Vitals/I&O's: Vital Signs Temp Pulse Resp BP Pulse Ox 99.7 F H 81 16 165/85 H 98 02/01/20 15:43 02/01/20 15:43 02/01/20 15:43 02/01/20 15:43 02/01/20 12:28 Oxygen Flow Rate (L/min) 2 Oxygen Delivery Method Room Air Weight: 134.8 kg Body Mass Index (BMI) 36.3 Finger Stick Blood Glucose 160 Intake and Output for Last 24 Hours 01/30/20 01/31/20 02/01/20 23:59 23:59 23:59 Intake Total 1325 / 1325 755 / 755 1515 / 1515 Output Total 250 / 250 4200 / 4200 3090 / 3090 Balance 1075 / 1075 -3445 / -3445 -1575 / -1575 General: Alert, Cooperative, No apparent distress Lungs: Clear to auscultation, Normal air movement Cardiovascular: Regular rate, Regular Rhythm Abdomen: Soft, Non Tender, Non-Distended Skin: No rashes Microbiology Past 72 Hours 01/30/20 13:45 Blood Culture (Wb) - Anticubital Right Blood Culture - Preliminary No growth in 48 hours. 01/30/20 13:40 Blood Culture (Wb) - Right Hand Blood Culture - Preliminary No growth in 48 hours. Laboratory Results 01/31/20 05:30: Diff Path Review Reviewed 01/31/20 : Hepatitis Be Antibody Negative 02/01/20 04:56: WBC 12.2 H, RBC 3.74 L, Hgb 11.1 L, Hct 36.7 L, MCV 98.1 H D, MCH 29.7, MCHC 30.2 L D, RDW Std Deviation 50.0 H, RDW Coeff of Jennifer 13.9, Plt Count 210, MPV 9.4, Immature Gran % (Auto) 3.700 H, Neut % (Auto) 60.4, Lymph % (Auto) 13.3 L, Bertie % (Auto) 18.9 H, Eos % (Auto) 2.9, Baso % (Auto) 0.8, Absolute Neuts (auto) 7.4, Absolute Lymphs (auto) 1.63, Nucleated RBC % 0, Differential Comment SCANNED, Diff Path Review Reviewed 02/01/20 04:56: Sodium 129 L, Potassium 4.4, Chloride 99, Carbon Dioxide 20.0 L, Anion Gap 10, BUN 45 H, Creatinine 4.98 H, Estim Creat Clear Calc 23.81, Est GFR (MDRD) Af Amer 18 L, Est GFR (MDRD) Non-Af 15 L, BUN/Creatinine Ratio 9.0 L, Glucose 149 H, Calcium 7.9 L 02/01/20 09:35: Urine Color Yellow, Urine Clarity Cloudy, Urine pH 8.0, Ur Specific [place] 1.010, Urine Protein 100 H, Urine Glucose (UA) 50 H, Urine Ketones 5 H, Urine Occult Blood 250 H, Urine Nitrite Negative, Urine Bilirubin Negative, Urine Urobilinogen Normal, Ur Leukocyte Esterase 500 H, Urine RBC > 100 SEEN, Urine WBC >100 SEEN, Ur Squamous Epith Cells 0 SEEN, Urine Bacteria 0 SEEN, Urine Mucus 0 SEEN 02/01/20 09:52: Total Creatine Kinase 74807 H Current Medications Acetaminophen (Tylenol) 650 mg PO Q6H PRN PRN PRN Reason: Pain (1-4/10) or Fever Last Admin: 02/01/20 07:59 Dose: 650 mg Documented by: Albuterol Sulfate (Ventolin Aerosols) 2.5 mg INHALATION Q2H PRN PRN PRN Reason: WHEEZING Carvedilol (Coreg) 25 mg PO BID [facility] Last Admin: 01/31/20 22:22 Dose: 25 mg Documented by: Famotidine (Pepcid) 20 mg PO DAILY [facility] Last Admin: 01/31/20 08:59 Dose: 20 mg Documented by: Gabapentin (Neurontin) 400 mg PO BID [facility] Last Admin: 01/31/20 22:22 Dose: 400 mg Documented by: Heparin Sodium (Porcine) (Heparin Na) 5,000 unit SC Q8 [facility] Last Admin: 02/01/20 05:49 Dose: 5,000 unit Documented by: Hydralazine HCl (Apresoline Iv) 10 mg IV Q6H PRN PRN PRN Reason: SBP>160 or DBP>100 Last Admin: 01/28/20 00:30 Dose: 10 mg Documented by: Sodium Chloride () 250 mls @ 15 mls/hr IV .[id number] PRN PRN Reason: Saline Flush Sodium Chloride () 250 mls @ 15 mls/hr IV .[id number] PRN PRN Reason: Additional IVPB Infusion Cefazolin Sodium 2 gm/ Sodium (Chloride) 110 mls @ 150 mls/hr IV X1 ONE Stop: 02/01/20 10:57 Sodium Chloride () 1,000 mls @ 50 mls/hr IV .Q20H [facility] Last Infusion: 02/01/20 12:03 Dose: Infused Documented by: Ondansetron HCl (Zofran Odt) 4 mg PO Q6H PRN PRN PRN Reason: NAUSEA Oxycodone HCl (Oxyir) 5 mg PO Q6H PRN PRN PRN Reason: Pain Score 5-10/10 Last Admin: 02/01/20 07:59 Dose: 5 mg Documented by: Senna/Docusate Sodium (Senokot-S, Rosalba-Colace) 2 tablet GT BID PRN PRN PRN Reason: Constipation Sodium Chloride () 10 - 40 ml IV UD PRN PRN Reason: SALINE FLUSH Last Admin: 01/30/20 21:20 Dose: 10 ml Documented by: Medical Necessity - Tobacco Use Smoking Status: Current every day smoker Tobacco Use: Cigarettes Route of nutrition/ use of supplements: [] Nutritional Intake: [] IV Site: [] Novak Catheter: [] - Assessment/Plan Antibiotics: [] Assessment/Plan: [] Active and Suspected Problems Cardiopulmonary arrest with successful resuscitation (Acute) Hypocalcemia (Acute) Hyperkalemia (Acute) KEITH (acute kidney injury) (Acute) Metabolic acidosis, increased anion gap (Acute) Respiratory failure with hypoxia (Acute) Pulseless electrical activity with heart block (Acute) Ventricular fibrillation seen on bus monitor (Acute) Gross hematuria (Acute) LV dysfunction (Acute) Non-STEMI (non-ST elevated myocardial infarction) (Acute) fever, leukocytosis with rhabdo, keith, cardiac arrest - covid neg. Repeat cxr clear. Now afebrile, off of abx for several days. Bcx neg so far. Wbc better today. Gave ok for tunneled HD cath placement. Will follow as needed, please call with any new issues.
[2020-02-01] MEDS: Bacitracin 500 UNITS/GM PACKET (16:34)
[2020-02-01] MEDS: Famotidine 20 MG Tablet PO (16:34)
--- NOTE | 2020-02-01 19:33 | NURSING ---
COOLEY WAS TAKEN OUT BY DAYSHIFT RN, UNCERTAIN OF TIME.
[2020-02-01] MEDS: Gabapentin 400 MG Capsule PO (23:04)
[2020-02-01] MEDS: Carvedilol 25 MG Tablet PO (23:04)
[2020-02-02] VITALS (9 sets, daily range): BP systolic 120–149; BP diastolic 64–79; PULSE 76–89; RESP 14–16; TEMP 37–37.3; O2SAT 96–100
[2020-02-02] MEDS: Acetaminophen 325 MG Tablet 650 MG PO ×3 (06:07→20:36)
[2020-02-02] MEDS: Heparin Injection (Vial) 5,000 UNIT/ML VIAL 5000 UNIT SC ×3 (06:07→21:52)
[2020-02-02] MEDS: oxyCODONE 5 MG Tablet PO ×3 (06:08→20:35)
[2020-02-02 06:42] LABS: Absolute Lymphocyte Count 2.04 X10^3/uL (0.83-4.51); Absolute Neutrophil Count 8.4 X10^3/uL (2.0-7.7); Basophil# 0.07 X10^3/uL; Basophil% 0.5 % (0-1); Eosinophil# 0.37 X10^3/uL; Eosinophils% 2.7 % (0-5); Hematocrit 31.9 % (40-54); Hemoglobin 10.8 g/dL (13.0-16.5); Lymphocyte # 2.04 X10^3/ul (4.0); Lymphocyte % 14.8 % (19-41); Mean Corp Hgb Conc 33.9 g/dL (32-36); Mean Corpuscular Hgb 29.7 pg (27.0-32.0); Mean Corpuscular Volume 87.6 fL (80-94); Mean Platelet Vol. 10.4 fl (6.2-12.0); Monocyte# 2.37 X10^3/uL; Monocyte% 17.2 % (0-10); NRBC Flagged by Analyzer 0 % (0-5); Neutrophil # 8.39 X10^3/uL (2.7-7.7); POSITIVE COUNT YES; POSITIVE DIFFERENTIAL YES; Platelet Count 220 K/mm3 (150-450); RBC Distribution Width CV 13.6 % (11.6-14.6); RBC Distribution Width SD 43.7 fl (35.1-43.9); Red Blood Count 3.64 M/mm3 (4.6-6.2); White Blood Count 13.8 K/mm3 (4.4-11.0)
--- NOTE | 2020-02-02 06:46 | PCM.PN.BLA ---
Progress Note Verbal check in with nursing staff Dialysis performed well with new tunneled dialysis catheter yesterday. Right IJ catheter was removed without incident. No current signs of bleeding. Constantin Roa M.D., F.A.C.S. STROKE Vital Signs/Narrative: Vital Signs Temp Pulse Resp BP Pulse Ox 02/02/20 04:40 99.2 F H 76 16 120/68 100 02/02/20 03:00 85
[2020-02-02 06:47] LABS: Differential Indicated SCAN CRITERIA MET
[2020-02-02 07:25] LABS: Differential Comment SCANNED
[2020-02-02 07:29] LABS: ALB/GLOB Ratio 0.5 RATIO (0.9-2.4); Alanine Aminotransfer ALT/SGPT 581 U/L (16-61); Albumin, Serum 1.8 g/dL (3.2-5.0); Alkaline Phosphatase 49 U/L (45-117); Anion Gap 10 (5-15); BUN 51 mg/dL (7-18); BUN/Creat Ratio 7.4 RATIO (10-20); Calcium,Total 7.9 mg/dL (8.5-10.1); Chloride 98 mmol/L (98-107); Creatinine, Serum 6.85 mg/dL (0.70-1.30); EST Glomerular Filtration Rate 10 mL/min (>60); Est Glom Filt Rate - Afr Amer 12 mL/min (>60); Estimated Creatinine Clearance 17.31 ml/min; Globulin 3.7 g/dL (2.2-4.2); Glucose 85 mg/dL (74-106); Potassium 4.5 mmol/L (3.5-5.1); Protein, Total 5.5 g/dL (6.4-8.2); Sodium Level 130 mmol/L (136-145)
--- NOTE | 2020-02-02 08:40 | CASEMGMT ---
Addendum entered by Emily Villa 02/02/20 12:40: Call placed to [facility] and spoke with Lorenzo. He states they have received all the updated medical info needed, but they are still waiting on confirmed chair time. He states there have some insurance issues. MIKIE PARTIDA made Lorenzo aware that pt does have a pending DINESH number and this was provided to him again. He states he will update this info in pt's records. Dialysis chair time pending, awaiting insurance approval. Original Note: MIKIE PARTIAD NOTE: HEP B antibody results faxed to [facility] at this time. Jailene OLSON RN, CM
[2020-02-02 09:11] LABS: AST(SGOT) 1348 U/L (15-37)
[2020-02-02] MEDS: Carvedilol 25 MG Tablet PO ×2 (10:19→21:52)
[2020-02-02] MEDS: Famotidine 20 MG Tablet PO (10:19)
[2020-02-02] MEDS: Gabapentin 400 MG Capsule PO (10:19)
--- NOTE | 2020-02-02 13:05 | PCM.PN.REN ---
Patient Problems: Active and Suspected Problems Cardiopulmonary arrest with successful resuscitation (Acute) Hypocalcemia (Acute) Hyperkalemia (Acute) KEITH (acute kidney injury) (Acute) Metabolic acidosis, increased anion gap (Acute) Respiratory failure with hypoxia (Acute) Pulseless electrical activity with heart block (Acute) Ventricular fibrillation seen on plane tender (Acute) Gross hematuria (Acute) LV dysfunction (Acute) Non-STEMI (non-ST elevated myocardial infarction) (Acute) Fever (Acute) Subjective: no sob/cp - Physical Exam Vitals/I&O's: Vital Signs Temp Pulse Resp BP Pulse Ox 99.2 F H 81 14 132/76 H 98 02/02/20 10:16 02/02/20 10:16 02/02/20 10:16 02/02/20 10:16 02/02/20 10:16 Oxygen Flow Rate (L/min) 2 Oxygen Delivery Method Room Air Weight: 130.2 kg Body Mass Index (BMI) 36.3 Finger Stick Blood Glucose 160 Intake and Output for Last 24 Hours 01/31/20 02/01/20 02/02/20 23:59 23:59 23:59 Intake Total 755 / 755 1755 / 2155 800 / 800 Output Total 4200 / 4200 3090 / 3090 Balance -3445 / -3445 -1335 / -935 800 / 800 General: Alert, Cooperative HEENT: Atraumatic, Normocephalic Oral: Moist Mucosa Neck: Supple, Trachea Midline Lungs: Clear to auscultation, Normal air movement, Rales Cardiovascular: Regular rate, Regular Rhythm, Normal S1, Normal S2 Abdomen: Bowel Sounds Present, Soft, Non Tender Extremities: No edema Microbiology Past 72 Hours 02/01/20 09:35 Urine, Clean Catch Urine Culture - Preliminary Culture exhibits no growth. 01/30/20 13:45 Blood Culture (Wb) - Anticubital Right Blood Culture - Preliminary No growth in 48 hours. 01/30/20 13:40 Blood Culture (Wb) - Right Hand Blood Culture - Preliminary No growth in 48 hours. Laboratory Results 01/31/20 : Hepatitis Be Antibody Negative 02/02/20 06:30: WBC 13.8 H, RBC 3.64 L, Hgb 10.8 L, Hct 31.9 L, MCV 87.6 D, MCH 29.7, MCHC 33.9 D, RDW Std Deviation 43.7, RDW Coeff of Jennifer 13.6, Plt Count 220, MPV 10.4, Immature Gran % (Auto) 3.800 H, Neut % (Auto) 61.0, Lymph % (Auto) 14.8 L, [place] % (Auto) 17.2 H, Eos % (Auto) 2.7, Baso % (Auto) 0.5, Absolute Neuts (auto) 8.4 H, Absolute Lymphs (auto) 2.04, Nucleated RBC % 0, Differential Comment SCANNED, Diff Path Review [facility] 02/02/20 06:30: Sodium 130 L, Potassium 4.5, Chloride 98, Carbon Dioxide 22.0, Anion Gap 10, BUN 51 H, Creatinine 6.85 H, Estim Creat Clear Calc 17.31, Est GFR (MDRD) Af Amer 12 L, Est GFR (MDRD) Non-Af 10 L, BUN/Creatinine Ratio 7.4 L, Glucose 85, Calcium 7.9 L, Total Bilirubin 0.90, AST 1348 H, ALT 581 H, Alkaline Phosphatase 49, Total Protein 5.5 L, Albumin 1.8 L, Globulin 3.7, Albumin/Globulin Ratio 0.5 L Current Medications Acetaminophen (Tylenol) 650 mg PO Q6H PRN PRN PRN Reason: Pain (-11/24) or Fever Last Admin: 02/02/20 06:07 Dose: 650 mg Documented by: Albuterol Sulfate (Ventolin Aerosols) 2.5 mg INHALATION Q2H PRN PRN PRN Reason: WHEEZING Carvedilol (Coreg) 25 mg PO BID [facility] Last Admin: 02/02/20 10:19 Dose: 25 mg Documented by: Famotidine (Pepcid) 20 mg PO DAILY [facility] Last Admin: 02/02/20 10:19 Dose: 20 mg Documented by: Gabapentin (Neurontin) 400 mg PO BID [facility] Last Admin: 02/02/20 10:19 Dose: 400 mg Documented by: Heparin Sodium (Porcine) (Heparin Na) 5,000 unit SC Q8 [facility]PL[facility] Last Admin: 02/02/20 06:07 Dose: 5,000 unit Documented by: Hydralazine HCl (Apresoline Iv) 10 mg IV Q6H PRN PRN PRN Reason: SBP>160 or DBP>100 Last Admin: 06/13/20 00:30 Dose: 10 mg Documented by: Sodium Chloride () 250 mls @ 15 mls/hr IV .[id number] PRN PRN Reason: Saline Flush Sodium Chloride () 250 mls @ 15 mls/hr IV .[id number] PRN PRN Reason: Additional IVPB Infusion Sodium Chloride () 1,000 mls @ 50 mls/hr IV .Q20H [facility] Last Infusion: 02/01/20 12:03 Dose: Infused Documented by: Ondansetron HCl (Zofran Odt) 4 mg PO Q6H PRN PRN PRN Reason: NAUSEA Oxycodone HCl (Oxyir) 5 mg PO Q6H PRN PRN PRN Reason: Pain Score 5-10/10 Last Admin: 02/02/20 06:08 Dose: 5 mg Documented by: Senna/Docusate Sodium (Senokot-S, Rosalba-Colace) 2 tablet GT BID PRN PRN PRN Reason: Constipation Sodium Chloride () 10 - 40 ml IV UD PRN PRN Reason: SALINE FLUSH Last Admin: 01/30/20 21:20 Dose: 10 ml Documented by: Medical Necessity - Tobacco Use Smoking Status: Current every day smoker Tobacco Use: Cigarettes Assessment/Plan All Active Problems Cardiopulmonary arrest with successful resuscitation (Acute) Hypocalcemia (Acute) Hyperkalemia (Acute) KEITH (acute kidney injury) (Acute) Metabolic acidosis, increased anion gap (Acute) Respiratory failure with hypoxia (Acute) Pulseless electrical activity with heart block (Acute) Ventricular fibrillation seen on plane tender (Acute) Gross hematuria (Acute) LV dysfunction (Acute) Non-STEMI (non-ST elevated myocardial infarction) (Acute) Fever (Acute) KEITH -ATN Hyperphosphatemia resolved Hypocalcemia Rhabdomyolysis NSTEMI Polysubstance abuse Respiratory failure s/p extubation Shock liver HF Dialysis tomorrow with ultrafiltration as tolerated edema better Had UA done after Novak removed noted sediment will repeat UA tomorrow urine cx negative 4 liters uf tomorrow IF tolerated Monitor I's and O's. s/p TDC appreciate surgery placing TDC Avoid nephrotoxins d/w patient and primary team dr. Knight.
--- NOTE | 2020-02-02 13:24 | PCM.TXEXTCAR ---
- Diet 02/01/20 11:40 Diet: Renal: 60 gm protein Is pt able to select menu?: Yes Diet Comments: low sodium - Routine Orders/Code Status Code Status: Full Code - Wound(s) L upper outer deltoid Wound Type: Puncture LEFT SUBCLAVIAN Wound Type: Surgical Incision R neck Wound Type: Surgical Incision - Therapies Physical Therapy: Eval and Treat Occupational Therapy: Eval and Treat - Problem/Diagnosis (1) Cardiopulmonary arrest with successful resuscitation Status: Acute Current Visit: Yes (2) Hyperkalemia Status: Acute Current Visit: Yes (3) KEITH (acute kidney injury) Status: Acute Current Visit: Yes (4) Respiratory failure with hypoxia Status: Acute Current Visit: Yes (5) LV dysfunction Status: Acute Current Visit: Yes (6) Non-STEMI (non-ST elevated myocardial infarction) Status: Acute Current Visit: Yes - Allergies/Procedures Done in Hospital Allergies/Adverse Reactions: Allergies No Known Allergies Allergy (Verified 01/25/20 11:08) Procedures: 2-D Echocardiogram, Dialysis - Type of Care/Length of Stay Estimated LOS: Convalescent Care Less Than 30 days Type of Care Needed: Skilled Rehab Potential: Good Prognosis: Good - Additional Orders/Day of Discharge H&P will serve as current which was dated: 01/25/20 Day of Discharge: 02/03/20 - Dietary and Speech Recommendations Dietitian Recommendations/Changes: Will continue regular, low sodium diet. Cardiac/low cholesterol diet when PO intake improves. - Follow Up Care Primary Care Physician: NOT,DEFINED [NON-STAFF] -
--- NOTE | 2020-02-02 13:51 | CASEMGMT ---
KIRSTIE faxed all necessary information to [facility] to obtain a level of care. Adrienne STRICKLAND BAKESHOP CLEANER
--- NOTE | 2020-02-02 15:20 | CASEMGMT ---
Addendum entered by Adrienne Mancia 02/02/20 15:36: SW spoke with patient and he is in agreement with going to [facility]. SW told him SW will call his mom likely tomorrow to update her on the change. SW also updated patient's RN. Adrienne MORALES Original Note: SW received a call from Christel with [facility]. They are not going to be able to take patient as they are not able to accept any admissions currently due to a resident testing positive for COVID. She said [facility] can accept patient if he is in agreement. KIRSTIE told her patient will likely be fine with it and SW will let him know. SW will also let RN CM know to call [facility] and ask that his treatment center be changed to the one in [place]. SW will talk with patient and his mom letting them know the situation and once [facility] is able to take patients again they can transfer him to [facility]. Plan: [facility] in [place] pending dialysis chair time and receipt of level of care. Adrienne MORALES
--- NOTE | 2020-02-02 16:12 | CASEMGMT ---
MIKIE PARTIDA NOTE: Call placed to [facility]. Spoke with Deysi, steam power plant operator. She was notified that plans are for pt to go to [facility] in [place]. MIKIE PARTIDA inquired if pt's treatment center can be changed to the one in [place]. She states they do have openings @ [place] on MWF and she will email them the records to have them change pt to [facility] center. [facility] in [place] PH: [phone] Awaiting Chair time for pt @ [facility] Treatment center in [place], pending insurance approval Jailene OLSON RN, CM
--- NOTE | 2020-02-02 16:22 | CHAPLAIN ---
Type of Pastoral Visit ___ Initial Visit _x__ Follow-up Visit ___ On-call Visit ___ General Patient Visit ___ Spiritual Assessment ___ Family Conference ___ Bereavement ___ Rapid Response ___ Code Blue ___ Other (describe below) Pastoral Care Referral From _x__ Patient ___ Family ___ Nurse ___ Physician ___ Contracts Advisor ___ Medical Doctor ___ Other (describe below) Sacrament/Intervention ___ Active listening ___ Anointing ___ Evangelical ___ Bereavement ___ Communion ___ Isidra exploration ___ ___ Life review _x__ Prayer ___ Reconciliation ___ Sacrament of Sick _x__ Supportive presence ___ Wedding ___ Other (describe below) Pastoral Comments this was a brief follow up visit as welcomed by the patient from previous time; pt was sleeping but was awakened when this senior financial came into room; pt did invite senior financial for brief visit, a prayer, and invitation to try again tomorrow for more time; pt was pleasant and offered that he was glad to have someone visit since he is not able to see his family;
[2020-02-02] MEDS: Gabapentin 100 MG Capsule 200 MG PO (16:41)
--- NOTE | 2020-02-02 16:42 | PCM.PROGNOTE ---
Patient Problems: Active and Suspected Problems Cardiopulmonary arrest with successful resuscitation (Acute) Hypocalcemia (Acute) Hyperkalemia (Acute) KEITH (acute kidney injury) (Acute) Metabolic acidosis, increased anion gap (Acute) Respiratory failure with hypoxia (Acute) Pulseless electrical activity with heart block (Acute) Ventricular fibrillation seen on monitor and storage bin tender (Acute) Gross hematuria (Acute) LV dysfunction (Acute) Non-STEMI (non-ST elevated myocardial infarction) (Acute) Fever (Acute) Subjective: Patient was seen and examined today, I briefly talked with nephrology about his care today. Patient's creatinine and BUN remain elevated, patient's liver enzymes have improved. Patient voices no complaints of this examiner today-he has no complaints of any shortness of breath or chest discomfort. We are currently awaiting approval for the patient to go to a [place] [facility] for short-term rehab services. - Physical Exam Vitals/I&O's: Vital Signs Temp Pulse Resp BP Pulse Ox 98.6 F 77 16 144/79 H 97 02/02/20 16:15 02/02/20 16:15 02/02/20 16:15 02/02/20 16:15 02/02/20 16:15 Oxygen Flow Rate (L/min) 2 Oxygen Delivery Method Room Air Weight: 130.2 kg Body Mass Index (BMI) 36.3 Finger Stick Blood Glucose 160 Intake and Output for Last 24 Hours 01/31/20 02/01/20 02/02/20 23:59 23:59 23:59 Intake Total 755 / 755 1755 / 2155 1040 / 1040 Output Total 4200 / 4200 3090 / 3090 Balance -3445 / -3445 -1335 / -935 1040 / 1040 General: Alert, Oriented x3, Cooperative, No apparent distress, Well developed, Well nourished HEENT: Atraumatic, PERRLA, EOMI, Normocephalic Oral: Moist Mucosa Neck: Supple, No JVD, Trachea Midline, Thyroid Normal Size and Texture Lungs: Clear to auscultation, Normal air movement, No rhonchi, No wheeze, No rales Cardiovascular: Regular rate, Regular Rhythm, Normal S1, Normal S2, No murmurs, PMI Normal, No rub noted, No Gallop Abdomen: Bowel Sounds Present, Soft, Non Tender, Non-Distended, No hernias noted Extremities: No clubbing, No cyanosis, No edema, Capillary Refill Less than 3 Seconds Skin: No rashes, No breakdown Musculoskeletal: No Tenderness to Palpation of Joints or Extremities Neurological: Cranial nerves II-XII grossly intact, Neuro grossly intact, Sensory exam intact to light touch and pain, Coordination normal Psych/Mental Status: Normal Affect, Appropriate, Alert and oriented to time, place, person, mood and affect Microbiology Past 72 Hours 02/01/20 09:35 Urine, Clean Catch Urine Culture - Preliminary Culture exhibits no growth. 01/30/20 13:45 Blood Culture (Wb) - Anticubital Right Blood Culture - Preliminary No growth in 48 hours. 01/30/20 13:40 Blood Culture (Wb) - Right Hand Blood Culture - Preliminary No growth in 48 hours. Laboratory Results 02/02/20 06:30: WBC 13.8 H, RBC 3.64 L, Hgb 10.8 L, Hct 31.9 L, MCV 87.6 D, MCH 29.7, MCHC 33.9 D, RDW Std Deviation 43.7, RDW Coeff of Jennifer 13.6, Plt Count 220, MPV 10.4, Immature Gran % (Auto) 3.800 H, Neut % (Auto) 61.0, Lymph % (Auto) 14.8 L, [place] % (Auto) 17.2 H, Eos % (Auto) 2.7, Baso % (Auto) 0.5, Absolute Neuts (auto) 8.4 H, Absolute Lymphs (auto) 2.04, Nucleated RBC % 0, Differential Comment SCANNED, Diff Path Review December02/02/20 06:30: Sodium 130 L, Potassium 4.5, Chloride 98, Carbon Dioxide 22.0, Anion Gap 10, BUN 51 H, Creatinine 6.85 H, Estim Creat Clear Calc 17.31, Est GFR (MDRD) Af Amer 12 L, Est GFR (MDRD) Non-Af 10 L, BUN/Creatinine Ratio 7.4 L, Glucose 85, Calcium 7.9 L, Total Bilirubin 0.90, AST 1348 H, ALT 581 H, Alkaline Phosphatase 49, Total Protein 5.5 L, Albumin 1.8 L, Globulin 3.7, Albumin/Globulin Ratio 0.5 L Current Medications Acetaminophen (Tylenol) 650 mg PO Q6H PRN PRN PRN Reason: Pain (1-4/10) or Fever Last Admin: 02/02/20 14:19 Dose: 650 mg Documented by: Albuterol Sulfate (Ventolin Aerosols) 2.5 mg INHALATION Q2H PRN PRN PRN Reason: WHEEZING Carvedilol (Coreg) 25 mg PO BID [facility] Last Admin: 02/02/20 10:19 Dose: 25 mg Documented by: Famotidine (Pepcid) 20 mg PO DAILY [facility] Last Admin: 02/02/20 10:19 Dose: 20 mg Documented by: [facility] Heparin Sodium (Porcine) (Heparin Na) 5,000 unit SC Q8 [facility] Last Admin: 02/02/20 13:57 Dose: 5,000 unit Documented by: Hydralazine HCl (Apresoline Iv) 10 mg IV Q6H PRN PRN PRN Reason: SBP>160 or DBP>100 Last Admin: 01/28/20 00:30 Dose: 10 mg Documented by: Sodium Chloride () 250 mls @ 15 mls/hr IV .[id number] PRN PRN Reason: Saline Flush Sodium Chloride () 250 mls @ 15 mls/hr IV .[id number] PRN PRN Reason: Additional IVPB Infusion Sodium Chloride () 1,000 mls @ 50 mls/hr IV .Q20H [facility] Last Infusion: 02/01/20 12:03 Dose: Infused Documented by: Ondansetron HCl (Zofran Odt) 4 mg PO Q6H PRN PRN PRN Reason: NAUSEA Oxycodone HCl (Oxyir) 5 mg PO Q6H PRN PRN PRN Reason: Pain Score 5-10/10 Last Admin: 02/02/20 14:19 Dose: 5 mg Documented by: Senna/Docusate Sodium (Senokot-S, Rosalba-Colace) 2 tablet GT BID PRN PRN PRN Reason: Constipation Sodium Chloride () 10 - 40 ml IV UD PRN PRN Reason: SALINE FLUSH Last Admin: 01/30/20 21:20 Dose: 10 ml Documented by: Medical Necessity - Tobacco Use Smoking Status: Current every day smoker Tobacco Use: Cigarettes Assessment/Plan All Active Problems Cardiopulmonary arrest with successful resuscitation (Acute) Hypocalcemia (Acute) Hyperkalemia (Acute) KEITH (acute kidney injury) (Acute) Metabolic acidosis, increased anion gap (Acute) Respiratory failure with hypoxia (Acute) Pulseless electrical activity with heart block (Acute) Ventricular fibrillation seen on monitor and storage bin tender (Acute) Gross hematuria (Acute) LV dysfunction (Acute) Non-STEMI (non-ST elevated myocardial infarction) (Acute) Fever (Acute) #1 acute hypoxic respiratory failure secondary to cardiac arrest-patient is currently on room air #2 cardiomyopathy with ejection fraction of 30%-etiology unclear at this time, cardiology does not feel the patient needs a heart catheterization performed at this time, patient is currently on beta-blockers #3 acute kidney injury-patient is still requiring dialysis #4 non-STEMI #5 polysubstance abuse #6 shock liver with elevated liver enzymes #7 acute rhabdomyolysis #8 hyponatremia Inpatient E&M: 99868 Subs Hosp L2
[2020-02-02] MEDS: 0.9% Normal Saline 1,000 ML 50 ML IV (17:14)
[2020-02-03] VITALS (11 sets, daily range): BP systolic 134–153; BP diastolic 68–87; PULSE 75–89; RESP 14–20; TEMP 36.9–37.5; O2SAT 93–99
[2020-02-03] MEDS: Acetaminophen 325 MG Tablet 650 MG PO ×3 (04:04→21:16)
[2020-02-03] MEDS: oxyCODONE 5 MG Tablet PO ×3 (04:04→21:15)
[2020-02-03] MEDS: Heparin Injection (Vial) 5,000 UNIT/ML VIAL 5000 UNIT SC ×3 (06:56→21:14)
--- NOTE | 2020-02-03 08:46 | CASEMGMT ---
Addendum entered by Tona Pascual 02/03/20 15:07: Call back from Lorenzo to verify who pt lives with and what their assets are. Advised Lorenzo that pt lives with his uncle but that pt is not a dependent of uncle and per pt, uncle does not provide for him at all. Lorenzo is updated and now states 'I don't know that we will be able to get this done today.' This RN CM questions Lorenzo as to why it took 3 days for the patient insurability assessment to be sent to be completed and why none of these questions were asked previously in regards to pt financial situation. Lorenzo does not answer at this time and states he will talk to Diego in financial again at this time. Call to Rochelle at [facility] to update at this time and she states that pt will now be going with a chair time at 1245 so that [facility] can better set up transportation. Kimberly RN CM Addendum entered by Tona Pascual 02/03/20 14:47: This RN CM spoke with Lorenzo from [facility] dialysis again regarding financial approval and he states they need to know how much money pt has or if he paid into any taxes. Advised Lorenzo that pt has no money per Faviola THACKER and that pt has only been in [place] for 4 months so no tax info available. This RN CM has advised Lorenzo multiple times that pt was previously on Medicaid in [place] prior to moving to [place] and thus should qualify for [facility] as well but Lorenzo states he will go over with financial again and then call this RN CM back. Kimberly RN CM Addendum entered by Tona Pascual 02/03/20 10:32: Call back from Rochelle at [facility] and she states that they have not received financial approval for pt yet at this time. Call placed to Lorenzo at [facility] to check on financial status and he states that they need a patient insurability assessment completed as pt is still pending Medicaid. Paper work faxed from [facility] admissions at this time and being completed by pt/Faviola THACKER at this time. This will be faxed back olga so that pt can get approved financially and can then be discharged. Lorenzo states that they are working on this at their end as well. Kimberly DELUNA CM Addendum entered by Tona Pascual 02/03/20 09:21: Call back from Rochelle at [facility] and she states that their physician approved pt and his chair time will be MWF at 0445 with 0415 arrival time the first day and then 0430 arrival time thereafter. Rochelle aware that pt will most likely have dialysis here today and then be transferred to [facility] later today, voices understanding and she states that they will expect pt Thursday am. Faviola THACKER aware to arrange SNF, voices understanding. Kimberly DELUNA CM Original Note: Call to Rochelle at [facility] to verify info received for pt and to update on admission to [facility] in [place]. Rochelle states she sent all info to their physician who needs to approve and then she will call this RN HELGA back. Kimberly DELUNA CM
--- NOTE | 2020-02-03 09:18 | CASEMGMT ---
KIRSTIE called Christel with [facility] and left her a voice mail letting her know that SW received level of care from [facility] and his dialysis schedule will be M,W, and F at 445a. He will need to be there at 415 on Thursday and then 430 after that. Patient will receive dialysis today and then go to [facility] unless something comes up. Plan: [facility] in [place]. Adrienne STRICKLAND GIFTS OFFICER
--- NOTE | 2020-02-03 10:53 | CASEMGMT ---
SW received a form for patient to complete Patient Insurability Assessment and a COVID questionnaire form [facility]. KIRSTIE completed forms and faxed back to [facility]. KIRSTIE also called [place] [employer] and assisted patient in canceling his [place] Medicaid. KIRSTIE also faxed orders and level of care to Christel with [facility]. Await official approval from [facility] and for patient's dialysis to be completed. Adrienne STRICKLAND MSW
[2020-02-03 12:18] LABS: Pathologist Review Reviewed
--- NOTE | 2020-02-03 12:25 | DIALYSIS ---
HD x 4 hours complete. Tolerated tx well. UF of 4000ml. Used left chest wall dialysis catheter. Catheter is positional. Ports closed with heparin per fill volume. Caps placed. Dressing intact. Report was given to MIKIE Perez.
--- NOTE | 2020-02-03 12:56 | CHAPLAIN ---
Type of Pastoral Visit ___ Initial Visit _x__ Follow-up Visit ___ On-call Visit ___ General Patient Visit ___ Spiritual Assessment ___ Family Conference ___ Bereavement ___ Rapid Response ___ Code Blue ___ Other (describe below) Pastoral Care Referral From _x__ Patient ___ Family ___ Nurse ___ Physician ___ Car Dryer ___ Resin Painter ___ Other (describe below) Sacrament/Intervention ___ Active listening ___ Anointing ___ Moravian ___ Bereavement ___ Communion ___ Isidra exploration ___ ___ Life review ___ Prayer ___ Reconciliation ___ Sacrament of Sick _x__ Supportive presence ___ Wedding ___ Other (describe below) Pastoral Comments patient is receiving dialysis and watching TV; brief conversation and offer of ongoing support
[2020-02-03] MEDS: Gabapentin 100 MG Capsule 200 MG PO ×2 (13:05→21:14)
[2020-02-03] MEDS: Carvedilol 25 MG Tablet PO ×2 (13:05→21:15)
[2020-02-03] MEDS: Heparin 10,000 UNITS/10 ML Vial IV (13:07)
[2020-02-03] MEDS: Famotidine 20 MG Tablet PO (13:07)
--- NOTE | 2020-02-03 13:14 | PN.RENAL_ITS ---
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) Gross hematuria (Acute) LV dysfunction (Acute) Non-STEMI (non-ST elevated myocardial infarction) (Acute) Fever (Acute) Subjective: still LE discomfort but thinks better uop no sob - Physical Exam Vitals/I&O's: Vital Signs Temp Pulse Resp BP Pulse Ox 98.9 F 87 16 134/77 H 95 02/03/20 12:24 02/03/20 12:24 02/03/20 12:24 02/03/20 12:24 02/03/20 10:00 Oxygen Flow Rate (L/min) 2 Oxygen Delivery Method Room Air Weight: 130.4 kg Body Mass Index (BMI) 36.3 Finger Stick Blood Glucose 160 Intake and Output for Last 24 Hours 02/01/20 02/02/20 02/03/20 23:59 23:59 23:59 Intake Total 1755 / 2155 1430 / 1430 1105 / 1105 Output Total 3090 / 3090 200 / 200 4125 / 4125 Balance -1335 / -935 1230 / 1230 -3020 / -3020 General: Alert, Cooperative HEENT: Atraumatic, EOMI Neck: Supple Lungs: Clear to auscultation, Normal air movement, No rhonchi Cardiovascular: Regular rate, Regular Rhythm, Normal S1, Normal S2 Abdomen: Bowel Sounds Present, Soft, Non Tender Extremities: No clubbing Microbiology Past 72 Hours 02/01/20 09:35 Urine, Clean Catch Urine Culture - Final Culture exhibits no growth. 01/30/20 13:45 Blood Culture (Wb) - Anticubital Right Blood Culture - Preliminary No growth in 48 hours. 01/30/20 13:40 Blood Culture (Wb) - Right Hand Blood Culture - Preliminary No growth in 48 hours. Laboratory Results 02/02/20 06:30: Diff Path Review Reviewed Current Medications Acetaminophen (Tylenol) 650 mg PO Q6H PRN PRN PRN Reason: Pain (1-4/10) or Fever Last Admin: 02/03/20 10:04 Dose: 650 mg Documented by: Albuterol Sulfate (Ventolin Aerosols) 2.5 mg INHALATION Q2H PRN PRN PRN Reason: WHEEZING Carvedilol (Coreg) 25 mg PO BID [facility] Last Admin: 02/03/20 13:05 Dose: 25 mg Documented by: Famotidine (Pepcid) 20 mg PO DAILY [facility] Last Admin: 02/03/20 13:07 Dose: 20 mg Documented by: Gabapentin (Neurontin) 200 mg PO BIDCM [facility] Last Admin: 02/03/20 13:05 Dose: 200 mg Documented by: Heparin Sodium (Porcine) (Heparin Na) 5,000 unit SC Q8 [facility] Last Admin: 02/03/20 06:56 Dose: 5,000 unit Documented by: Hydralazine HCl (Apresoline Iv) 10 mg IV Q6H PRN PRN PRN Reason: SBP>160 or DBP>100 Last Admin: 01/28/20 00:30 Dose: 10 mg Documented by: Sodium Chloride () 250 mls @ 15 mls/hr IV .[id number] PRN PRN Reason: Saline Flush Sodium Chloride () 250 mls @ 15 mls/hr IV .[id number] PRN PRN Reason: Additional IVPB Infusion Sodium Chloride () 1,000 mls @ 50 mls/hr IV .Q20H [facility] Last Infusion: 02/03/20 11:20 Dose: 50 mls/hr Documented by: Ondansetron HCl (Zofran Odt) 4 mg PO Q6H PRN PRN PRN Reason: NAUSEA Oxycodone HCl (Oxyir) 5 mg PO Q6H PRN PRN PRN Reason: Pain Score 5-10/10 Last Admin: 02/03/20 10:04 Dose: 5 mg Documented by: Senna/Docusate Sodium (Senokot-S, Rosalba-Colace) 2 tablet GT BID PRN PRN PRN Reason: Constipation Sodium Chloride () 10 - 40 ml IV UD PRN PRN Reason: SALINE FLUSH Last Admin: 01/30/20 21:20 Dose: 10 ml Documented by: Medical Necessity - Tobacco Use Smoking Status: Current every day smoker Tobacco Use: Cigarettes Assessment/Plan All Active Problems Cardiopulmonary arrest with successful resuscitation (Acute) Hypocalcemia (Acute) Hyperkalemia (Acute) KEITH (acute kidney injury) (Acute) Metabolic acidosis, increased anion gap (Acute) Respiratory failure with hypoxia (Acute) Pulseless electrical activity with heart block (Acute) 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 Had UA done after Novak removed noted sediment awaiting repeat UA today Monitor I's and O's. Avoid nephrotoxins d/w patient and SW and HD RN.
[2020-02-03] MEDS: 0.9% Normal Saline 1,000 ML 50 ML IV (15:03)
--- NOTE | 2020-02-03 15:07 | CASEMGMT ---
KIRSTIE called Christel with [facility] and let her know we are having difficulties with [facility] approving patient because he is pending Medicaid. KIRSTIE told her we are not sure if we will hear back from them today so he may not be coming today. Adrienne STRICKLAND FISH BIN TENDER
--- NOTE | 2020-02-03 15:26 | CASEMGMT ---
KIRSTIE called patient's mom and left her a voice mail letting her know about the change in nursing homes and the complications with the dialysis center. SW let her know that he may not go today. KIRSTIE left it that if she does not hear from SW again today that means he is still here at [facility]. KIRSTIE also let patient know there are some complications with the dialysis center and he may be stuck here until Thursday at least. [facility] Adrienne STRICKLAND AUTOMOTIVE POWER ELECTRONICS ENGINEER
--- NOTE | 2020-02-03 16:00 | PCM.PROGNOTE ---
Patient Problems: Active and Suspected Problems Cardiopulmonary arrest with successful resuscitation (Acute) Hypocalcemia (Acute) Hyperkalemia (Acute) KEITH (acute kidney injury) (Acute) Metabolic acidosis, increased anion gap (Acute) Respiratory failure with hypoxia (Acute) Pulseless electrical activity with heart block (Acute) Ventricular fibrillation seen on potline monitor (Acute) Gross hematuria (Acute) LV dysfunction (Acute) Non-STEMI (non-ST elevated myocardial infarction) (Acute) Fever (Acute) Subjective: Patient was seen and examined today, he underwent dialysis today, he has no complaints of any pain to this examiner or shortness of breath or chest pain. We have not yet received approval for dialysis for the patient when he is transferred to an extended care facility. Objective: General: Alert, Oriented x3, Cooperative, No apparent distress, Well developed, Well nourished HEENT: Atraumatic, PERRLA, EOMI, Normocephalic Oral: Moist Mucosa Neck: Supple, No JVD, Trachea Midline, Thyroid Normal Size and Texture Lungs: Clear to auscultation, Normal air movement, No rhonchi, No wheeze, No rales Cardiovascular: Regular rate, Regular Rhythm, Normal S1, Normal S2, No murmurs, PMI Normal, No rub noted, No Gallop Abdomen: Bowel Sounds Present, Soft, Non Tender, Non-Distended, No hernias noted Extremities: No clubbing, No cyanosis, No edema, Capillary Refill Less than 3 Seconds Skin: No rashes, No breakdown Musculoskeletal: No Tenderness to Palpation of Joints or Extremities Neurological: Cranial nerves II-XII grossly intact, Neuro grossly intact, Sensory exam intact to light touch and pain, Coordination normal Psych/Mental Status: Normal Affect, Appropriate, Alert and oriented to time, place, person, mood and affect - Physical Exam Vitals/I&O's: Vital Signs Temp Pulse Resp BP Pulse Ox 99.5 F H 75 16 145/68 H 99 02/03/20 15:14 02/03/20 15:14 02/03/20 15:14 02/03/20 15:14 02/03/20 15:14 Oxygen Flow Rate (L/min) 2 Oxygen Delivery Method Room Air Weight: 130.4 kg Body Mass Index (BMI) 36.3 Finger Stick Blood Glucose 160 Intake and Output for Last 24 Hours 02/01/20 02/02/20 02/03/20 23:59 23:59 23:59 Intake Total 1755 / 2155 1430 / 1430 1200 / 1200 Output Total 3090 / 3090 200 / 200 4125 / 4125 Balance -1335 / -935 1230 / 1230 -2925 / -2925 Microbiology Past 72 Hours 02/01/20 09:35 Urine, Clean Catch Urine Culture - Final Culture exhibits no growth. 01/30/20 13:45 Blood Culture (Wb) - Anticubital Right Blood Culture - Preliminary No growth in 48 hours. 01/30/20 13:40 Blood Culture (Wb) - Right Hand Blood Culture - Preliminary No growth in 48 hours. Laboratory Results 02/02/20 06:30: Diff Path Review Reviewed Current Medications Acetaminophen (Tylenol) 650 mg PO Q6H PRN PRN PRN Reason: Pain (-11/24) or Fever Last Admin: 02/03/20 10:04 Dose: 650 mg Documented by: Albuterol Sulfate (Ventolin Aerosols) 2.5 mg INHALATION Q2H PRN PRN PRN Reason: WHEEZING Carvedilol (Coreg) 25 mg PO BID [facility] Last Admin: 02/03/20 13:05 Dose: 25 mg Documented by: Famotidine (Pepcid) 20 mg PO DAILY [facility] Last Admin: 02/03/20 13:07 Dose: 20 mg Documented by: Gabapentin (Neurontin) 200 mg PO BIDCM [facility] Last Admin: 02/03/20 13:05 Dose: 200 mg Documented by: Heparin Sodium (Porcine) (Heparin Na) 5,000 unit SC Q8 [facility] Last Admin: 02/03/20 15:05 Dose: 5,000 unit Documented by: Hydralazine HCl (Apresoline Iv) 10 mg IV Q6H PRN PRN PRN Reason: SBP>160 or DBP>100 Last Admin: 01/28/20 00:30 Dose: 10 mg Documented by: Sodium Chloride () 250 mls @ 15 mls/hr IV .[id number] PRN PRN Reason: Saline Flush Sodium Chloride () 250 mls @ 15 mls/hr IV .[id number] PRN PRN Reason: Additional IVPB Infusion Sodium Chloride () 1,000 mls @ 50 mls/hr IV .Q20H [facility] Last Admin: 02/03/20 15:03 Dose: 50 mls/hr Documented by: Ondansetron HCl (Zofran Odt) 4 mg PO Q6H PRN PRN PRN Reason: NAUSEA Oxycodone HCl (Oxyir) 5 mg PO Q6H PRN PRN PRN Reason: Pain Score 5-10/10 Last Admin: 02/03/20 10:04 Dose: 5 mg Documented by: Senna/Docusate Sodium (Senokot-S, Rosalba-Colace) 2 tablet GT BID PRN PRN PRN Reason: Constipation Sodium Chloride () 10 - 40 ml IV UD PRN PRN Reason: SALINE FLUSH Last Admin: 01/30/20 21:20 Dose: 10 ml Documented by: Medical Necessity - Tobacco Use Smoking Status: Current every day smoker Tobacco Use: Cigarettes Assessment/Plan All Active Problems Cardiopulmonary arrest with successful resuscitation (Acute) Hypocalcemia (Acute) Hyperkalemia (Acute) KEITH (acute kidney injury) (Acute) Metabolic acidosis, increased anion gap (Acute) Respiratory failure with hypoxia (Acute) Pulseless electrical activity with heart block (Acute) Ventricular fibrillation seen on potline monitor (Acute) Gross hematuria (Acute) LV dysfunction (Acute) Non-STEMI (non-ST elevated myocardial infarction) (Acute) Fever (Acute) #1 acute hypoxic respiratory failure secondary to cardiac arrest-patient is currently on room air, again we are currently awaiting approval for dialysis services when the patient goes to an extended care facility for temporary rehab. It is evident that this may not occur until Thursday of next week. #2 cardiomyopathy with ejection fraction of 30%-etiology unclear at this time, cardiology does not feel the patient needs a heart catheterization performed at this time, patient is currently on beta-blockers #3 acute kidney injury-patient is still requiring dialysis #4 non-STEMI #5 polysubstance abuse #6 shock liver with elevated liver enzymes, I will repeat a CMP tomorrow #7 acute rhabdomyolysis #8 hyponatremia-recheck labs Inpatient E&M: [id number] Subs Hosp L2
--- NOTE | 2020-02-03 16:19 | NURSING ---
Update provided to patient's mother over the phone
[2020-02-04] VITALS (8 sets, daily range): BP systolic 125–148; BP diastolic 63–81; PULSE 77–95; RESP 14–16; TEMP 36.9–37.3; O2SAT 96–99
[2020-02-04] MEDS: Heparin Injection (Vial) 5,000 UNIT/ML VIAL 5000 UNIT SC ×3 (05:13→21:37)
[2020-02-04 07:07] LABS: ALB/GLOB Ratio 0.6 RATIO (0.9-2.4); AST(SGOT) 541 U/L (15-37); Alanine Aminotransfer ALT/SGPT 250 U/L (16-61); Alkaline Phosphatase 51 U/L (45-117); Anion Gap 8 (5-15); BUN 54 mg/dL (7-18); BUN/Creat Ratio 7.6 RATIO (10-20); Calcium,Total 7.7 mg/dL (8.5-10.1); Chloride 96 mmol/L (98-107); Creatinine, Serum 7.07 mg/dL (0.70-1.30); EST Glomerular Filtration Rate 10 mL/min (>60); Est Glom Filt Rate - Afr Amer 12 mL/min (>60); Estimated Creatinine Clearance 16.77 ml/min; Globulin 3.4 g/dL (2.2-4.2); Glucose 94 mg/dL (74-106); Potassium 3.8 mmol/L (3.5-5.1); Protein, Total 5.4 g/dL (6.4-8.2); Sodium Level 131 mmol/L (136-145)
[2020-02-04] MEDS: Acetaminophen 325 MG Tablet 650 MG PO ×3 (09:09→21:42)
[2020-02-04] MEDS: Gabapentin 100 MG Capsule 200 MG PO (09:09)
[2020-02-04] MEDS: oxyCODONE 5 MG Tablet PO ×3 (09:09→21:43)
[2020-02-04] MEDS: Carvedilol 25 MG Tablet PO ×2 (09:09→21:37)
[2020-02-04] MEDS: Famotidine 20 MG Tablet PO (09:09)
--- NOTE | 2020-02-04 09:45 | PN.RENAL_ITS ---
Patient Problems: Active and Suspected Problems Cardiopulmonary arrest with successful resuscitation (Acute) Hypocalcemia (Acute) Hyperkalemia (Acute) KEITH (acute kidney injury) (Acute) Metabolic acidosis, increased anion gap (Acute) Respiratory failure with hypoxia (Acute) Pulseless electrical activity with heart block (Acute) Ventricular fibrillation seen on conveyor monitor (Acute) Gross hematuria (Acute) LV dysfunction (Acute) Non-STEMI (non-ST elevated myocardial infarction) (Acute) Fever (Acute) Subjective: Following for KEITH. Dialysis dependent. Pt denies CP, SOB or nausea. No edema. - Physical Exam Vitals/I&O's: Vital Signs Temp Pulse Resp BP Pulse Ox 99.1 F 77 16 148/74 H 99 02/04/20 09:02 02/04/20 09:02 02/04/20 09:02 02/04/20 09:02 02/04/20 09:02 Oxygen Flow Rate (L/min) 2 Oxygen Delivery Method Room Air Weight: 130.4 kg Body Mass Index (BMI) 36.3 Finger Stick Blood Glucose 160 Intake and Output for Last 24 Hours 02/02/20 02/03/20 02/04/20 23:59 23:59 23:59 Intake Total 1430 / 1430 2000 / 2000 500 / 500 Output Total 200 / 200 4375 / 4375 Balance 1230 / 1230 -2375 / -2375 500 / 500 General: Alert, Oriented x3 HEENT: Atraumatic Oral: Moist Mucosa Neck: Supple Lungs: Clear to auscultation Cardiovascular: Normal S1, Normal S2, No murmurs Abdomen: Bowel Sounds Present, Soft, Non Tender Extremities: No edema Microbiology Past 72 Hours 02/01/20 09:35 Urine, Clean Catch Urine Culture - Final Culture exhibits no growth. 01/30/20 13:45 Blood Culture (Wb) - Anticubital Right Blood Culture - Preliminary No growth in 48 hours. 01/30/20 13:40 Blood Culture (Wb) - Right Hand Blood Culture - Preliminary No growth in 48 hours. Laboratory Results 02/02/20 06:30: Diff Path Review Reviewed 02/04/20 05:20: Sodium 131 L, Potassium 3.8, Chloride 96 L, Carbon Dioxide 27.0, Anion Gap 8, BUN 54 H, Creatinine 7.07 H, Estim Creat Clear Calc 16.77, Est GFR (MDRD) Af Amer 12 L, Est GFR (MDRD) Non-Af 10 L, BUN/Creatinine Ratio 7.6 L, Glucose 94, Calcium 7.7 L, Total Bilirubin 0.80, AST 541 H, ALT 250 H, Alkaline Phosphatase 51, Total Protein 5.4 L, Albumin 2.0 L, Globulin 3.4, Albumin/Globulin Ratio 0.6 L Current Medications Acetaminophen (Tylenol) 650 mg PO Q6H PRN PRN PRN Reason: Pain (1-4/10) or Fever Last Admin: 02/04/20 09:09 Dose: 650 mg Documented by: Albuterol Sulfate (Ventolin Aerosols) 2.5 mg INHALATION Q2H PRN PRN PRN Reason: WHEEZING Carvedilol (Coreg) 25 mg PO BID [facility] Last Admin: 02/04/20 09:09 Dose: 25 mg Documented by: Famotidine (Pepcid) 20 mg PO DAILY [facility] Last Admin: 02/04/20 09:09 Dose: 20 mg Documented by: Gabapentin (Neurontin) 200 mg PO BIDCM [facility] Last Admin: 02/04/20 09:09 Dose: 200 mg Documented by: Heparin Sodium (Porcine) (Heparin Na) 5,000 unit SC Q8 [facility] Last Admin: 02/04/20 05:13 Dose: 5,000 unit Documented by: Hydralazine HCl (Apresoline Iv) 10 mg IV Q6H PRN PRN PRN Reason: SBP>160 or DBP>100 Last Admin: 01/28/20 00:30 Dose: 10 mg Documented by: Sodium Chloride () 250 mls @ 15 mls/hr IV .[id number] PRN PRN Reason: Saline Flush Sodium Chloride () 250 mls @ 15 mls/hr IV .[id number] PRN PRN Reason: Additional IVPB Infusion Sodium Chloride () 1,000 mls @ 50 mls/hr IV .Q20H [facility] Last Admin: 02/03/20 15:03 Dose: 50 mls/hr Documented by: Ondansetron HCl (Zofran Odt) 4 mg PO Q6H PRN PRN PRN Reason: NAUSEA Oxycodone HCl (Oxyir) 5 mg PO Q6H PRN PRN PRN Reason: Pain Score 5-10/10 Last Admin: 02/04/20 09:09 Dose: 5 mg Documented by: Senna/Docusate Sodium (Senokot-S, Rosalba-Colace) 2 tablet GT BID PRN PRN PRN Reason: Constipation Sodium Chloride () 10 - 40 ml IV UD PRN PRN Reason: SALINE FLUSH Last Admin: 01/30/20 21:20 Dose: 10 ml Documented by: Medical Necessity - Tobacco Use Smoking Status: Current every day smoker Tobacco Use: Cigarettes Assessment/Plan All Active Problems Cardiopulmonary arrest with successful resuscitation (Acute) Hypocalcemia (Acute) Hyperkalemia (Acute) KEITH (acute kidney injury) (Acute) Metabolic acidosis, increased anion gap (Acute) Respiratory failure with hypoxia (Acute) Pulseless electrical activity with heart block (Acute) Ventricular fibrillation seen on conveyor monitor (Acute) Gross hematuria (Acute) LV dysfunction (Acute) Non-STEMI (non-ST elevated myocardial infarction) (Acute) Fever (Acute) Impression: KEITH -ATN Hyperphosphatemia-resolved Hypocalcemia Rhabdomyolysis NSTEMI Polysubstance abuse Respiratory failure s/p extubation Shock liver HF Plan: Tolerated HD well yesterday. No need for HD today. Continue HD MWF while continuing to monitor for signs of renal recovery. So far, pt is still oliguric and is still dialysis dependent. Eating well, so we can stop IVF. Monitor I's and O's. Awaiting approval for dialysis at rehab.
[2020-02-04 12:04] LABS: Mucous, Urine 0 SEEN /hpf (<or=2+)
[2020-02-04 12:17] LABS: Color, Urine Yellow (Yellow); Glucose, Dipstick Normal (Normal); Ketone-Dipstick Negative (Negative); Leukocyte Esterase-Dipstick 500 /ul (Negative); Nitrite-Dipstick Negative (Negative); Occult Blood-Urine 250 /ul (Negative); Protein-Dipstick 30 mg/dl (Negative); Urine Bilirubin Dipstick Negative (Negative); Urine Clarity Sl. Cloudy (Clear); Urine Urobilinogen Normal (Normal)
[2020-02-04 12:29] LABS: Bacteria RARE /hpf (None Seen); Red Blood Cells-Urine 5-10 SEEN /hpf (0-5); Squamous Epithelial Cells - UA 0-5 SEEN /hpf (0-5); White Blood Cells 25-50 SEEN /hpf (0-5)
--- NOTE | 2020-02-04 17:03 | PN_ITS ---
Patient Problems: Active and Suspected Problems Cardiopulmonary arrest with successful resuscitation (Acute) Hypocalcemia (Acute) Hyperkalemia (Acute) KEITH (acute kidney injury) (Acute) Metabolic acidosis, increased anion gap (Acute) Respiratory failure with hypoxia (Acute) Pulseless electrical activity with heart block (Acute) Ventricular fibrillation seen on cardiac catheterization technologist (Acute) Gross hematuria (Acute) LV dysfunction (Acute) Non-STEMI (non-ST elevated myocardial infarction) (Acute) Fever (Acute) Subjective: Patient was seen and examined today, he has no complaints of any shortness of breath or chest discomfort, he does not complain of any chills or fever. I talked briefly with nephrology about his care today. Objective: General: Alert, Oriented x3, Cooperative, No apparent distress, Well developed, Well nourished HEENT: Atraumatic, PERRLA, EOMI, Normocephalic Oral: Moist Mucosa Neck: Supple, No JVD, Trachea Midline, Thyroid Normal Size and Texture Lungs: Clear to auscultation, Normal air movement, No rhonchi, No wheeze, No rales Cardiovascular: Regular rate, Regular Rhythm, Normal S1, Normal S2, No murmurs, PMI Normal, No rub noted, No Gallop Abdomen: Bowel Sounds Present, Soft, Non Tender, Non-Distended, No hernias noted Extremities: No clubbing, No cyanosis, No edema, Capillary Refill Less than 3 Seconds Skin: No rashes, No breakdown Musculoskeletal: No Tenderness to Palpation of Joints or Extremities Neurological: Cranial nerves II-XII grossly intact, Neuro grossly intact, Sensory exam intact to light touch and pain, Coordination normal Psych/Mental Status: Normal Affect, Appropriate, Alert and oriented to time, place, person, mood and affect - Physical Exam Vitals/I&O's: Vital Signs Temp Pulse Resp BP Pulse Ox 98.7 F 86 14 125/65 H 98 02/04/20 15:05 02/04/20 15:05 02/04/20 15:05 02/04/20 15:05 02/04/20 15:05 Oxygen Flow Rate (L/min) 2 Oxygen Delivery Method Room Air Weight: 130.4 kg Body Mass Index (BMI) 36.3 Finger Stick Blood Glucose 160 Intake and Output for Last 24 Hours 02/02/20 02/03/20 02/04/20 23:59 23:59 23:59 Intake Total 1430 / 1430 1999 / 1999 1440.83 / 1440.83 Output Total 200 / 200 4375 / 4375 450 / 450 Balance 1230 / 1230 -2375 / -2375 990.83 / 990.83 Microbiology Past 72 Hours 01/30/20 13:45 Blood Culture (Wb) - Anticubital Right Blood Culture - Final No growth in 5 days. 01/30/20 13:40 Blood Culture (Wb) - Right Hand Blood Culture - Final No growth in 5 days. 02/01/20 09:35 Urine, Clean Catch Urine Culture - Final Culture exhibits no growth. Laboratory Results 02/04/20 05:20: Sodium 131 L, Potassium 3.8, Chloride 96 L, Carbon Dioxide 27.0, Anion Gap 8, BUN 54 H, Creatinine 7.07 H, Estim Creat Clear Calc 16.77, Est GFR (MDRD) Af Amer 12 L, Est GFR (MDRD) Non-Af 10 L, BUN/Creatinine Ratio 7.6 L, Glucose 94, Calcium 7.7 L, Total Bilirubin 0.80, AST 541 H, ALT 250 H, Alkaline Phosphatase 51, Total Protein 5.4 L, Albumin 2.0 L, Globulin 3.4, Albumin/Globulin Ratio 0.6 L 02/04/20 11:58: Urine Color Yellow, Urine Clarity Sl. Cloudy, Urine pH 8.0, Ur Specific [place] 1.010, Urine Protein 30 H, Urine Glucose (UA) Normal, Urine Ketones Negative, Urine Occult Blood 250 H, Urine Nitrite Negative, Urine Bilirubin Negative, Urine Urobilinogen Normal, Ur Leukocyte Esterase 500 H, Urine RBC 5-10 SEEN, Urine WBC 25-50 SEEN, Ur Squamous Epith Cells 0-5 SEEN, Ur Renal Epithelial Cell WASHERY BOSS, Urine Bacteria RARE, Urine Mucus 0 SEEN Current Medications Acetaminophen (Tylenol) 650 mg PO Q6H PRN PRN PRN Reason: Pain (1-4/10) or Fever Last Admin: 02/04/20 15:09 Dose: 650 mg Documented by: Albuterol Sulfate (Ventolin Aerosols) 2.5 mg INHALATION Q2H PRN PRN PRN Reason: WHEEZING Carvedilol (Coreg) 25 mg PO BID [facility] Last Admin: 02/04/20 09:09 Dose: 25 mg Documented by: Famotidine (Pepcid) 20 mg PO DAILY [facility] Last Admin: 02/04/20 09:09 Dose: 20 mg Documented by: Heparin Sodium (Porcine) (Heparin Na) 5,000 unit SC Q8 [facility] Last Admin: 02/04/20 13:23 Dose: 5,000 unit Documented by: Sodium Chloride () 250 mls @ 15 mls/hr IV .[id number] PRN PRN Reason: Saline Flush Sodium Chloride () 250 mls @ 15 mls/hr IV .[id number] PRN PRN Reason: Additional IVPB Infusion Ondansetron HCl (Zofran Odt) 4 mg PO Q6H PRN PRN PRN Reason: NAUSEA Oxycodone HCl (Oxyir) 5 mg PO Q6H PRN PRN PRN Reason: Pain Score 5-10/10 Last Admin: 02/04/20 15:09 Dose: 5 mg Documented by: Senna/Docusate Sodium (Senokot-S, Rosalba-Colace) 2 tablet GT BID PRN PRN PRN Reason: Constipation Sodium Chloride () 10 - 40 ml IV UD PRN PRN Reason: SALINE FLUSH Last Admin: 01/30/20 21:20 Dose: 10 ml Documented by: Medical Necessity - Tobacco Use Smoking Status: Current every day smoker Tobacco Use: Cigarettes Assessment/Plan All Active Problems Cardiopulmonary arrest with successful resuscitation (Acute) Hypocalcemia (Acute) Hyperkalemia (Acute) KEITH (acute kidney injury) (Acute) Metabolic acidosis, increased anion gap (Acute) Respiratory failure with hypoxia (Acute) Pulseless electrical activity with heart block (Acute) Ventricular fibrillation seen on cardiac catheterization technologist (Acute) Gross hematuria (Acute) LV dysfunction (Acute) Non-STEMI (non-ST elevated myocardial infarction) (Acute) Fever (Acute) #1 acute hypoxic respiratory failure secondary to cardiac arrest-patient is currently on room air, again we are currently awaiting approval for dialysis services when the patient goes to an extended care facility for temporary rehab. #2 cardiomyopathy with ejection fraction of 30%-etiology unclear at this time, cardiology does not feel the patient needs a heart catheterization performed at this time, patient is currently on beta-blockers #3 acute kidney injury-patient is still requiring dialysis fattening today was 7.07. Labs will be repeated tomorrow #4 non-STEMI #5 polysubstance abuse #6 shock liver with elevated liver enzymes, I will repeat a CMP tomorrow #7 acute rhabdomyolysis-resolved #8 hyponatremia-recheck labs Inpatient E&M: 95226 Subs Hosp L2
[2020-02-05] VITALS (9 sets, daily range): BP systolic 127–148; BP diastolic 68–78; PULSE 82–89; RESP 14–18; TEMP 36.7–37.7; O2SAT 97–100
[2020-02-05] MEDS: Heparin Injection (Vial) 5,000 UNIT/ML VIAL 5000 UNIT SC ×3 (05:33→21:51)
[2020-02-05] MEDS: Acetaminophen 325 MG Tablet 650 MG PO ×4 (05:38→23:27)
[2020-02-05] MEDS: oxyCODONE 5 MG Tablet PO ×4 (05:39→23:28)
[2020-02-05 07:32] LABS: Albumin, Serum 1.2 g/dL (3.2-5.0); BUN 72 mg/dL (7-18); BUN/Creat Ratio 8.3 RATIO (10-20); Calcium,Total 7.5 mg/dL (8.5-10.1); Chloride 97 mmol/L (98-107); Creatinine, Serum 8.66 mg/dL (0.70-1.30); EST Glomerular Filtration Rate 8 mL/min (>60); Est Glom Filt Rate - Afr Amer 9 mL/min (>60); Estimated Creatinine Clearance 13.69 ml/min; Glucose 95 mg/dL (74-106); Phosphorus 5.1 mg/dL (2.5-4.9); Potassium 4.3 mmol/L (3.5-5.1); Sodium Level 126 mmol/L (136-145)
--- NOTE | 2020-02-05 08:18 | PCM.PN.REN ---
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 Pt complains of mild chest pain. No SOB. No nausea, vomiting or diarrhea. - Physical Exam Vitals/I&O's: Vital Signs Temp Pulse Resp BP Pulse Ox 98.7 F 89 16 136/70 H 98 02/05/20 02:20 02/05/20 07:00 02/05/20 02:20 02/05/20 02:20 02/05/20 02:20 Oxygen Flow Rate (L/min) 2 Oxygen Delivery Method Room Air Weight: 130.5 kg Body Mass Index (BMI) 36.3 Finger Stick Blood Glucose 160 Intake and Output for Last 24 Hours 02/03/20 02/04/20 02/05/20 23:59 23:59 23:59 Intake Total 1999 / 1999 1940.83 / 1940.83 200 / 200 Output Total 4375 / 4375 450 / 450 550 / 550 Balance -2375 / -2375 1490.83 / 1490.83 -350 / -350 General: Alert, Oriented x3 HEENT: Atraumatic, Normocephalic Oral: Moist Mucosa Neck: Supple Lungs: Clear to auscultation Cardiovascular: Normal S1, Normal S2, No murmurs Abdomen: Bowel Sounds Present, Soft, Non Tender Extremities: Edema - 3+ LE Microbiology Past 72 Hours 01/30/20 13:45 Blood Culture (Wb) - Anticubital Right Blood Culture - Final No growth in 5 days. 01/30/20 13:40 Blood Culture (Wb) - Right Hand Blood Culture - Final No growth in 5 days. 02/01/20 09:35 Urine, Clean Catch Urine Culture - Final Culture exhibits no growth. Laboratory Results 02/04/20 11:58: Urine Color Yellow, Urine Clarity Sl. Cloudy, Urine pH 8.0, Ur Specific [place] 1.010, Urine Protein 30 H, Urine Glucose (UA) Normal, Urine Ketones Negative, Urine Occult Blood 250 H, Urine Nitrite Negative, Urine Bilirubin Negative, Urine Urobilinogen Normal, Ur Leukocyte Esterase 500 H, Urine RBC 5-10 SEEN, Urine WBC 25-50 SEEN, Ur Squamous Epith Cells 0-5 SEEN, Ur Renal Epithelial Cell HANDLE ASSEMBLER, Urine Bacteria RARE, Urine Mucus 0 SEEN 02/05/20 06:15: Sodium 126 L, Potassium 4.3, Chloride 97 L, Carbon Dioxide 19.0 L, BUN 72 H, Creatinine 8.66 H*, Estim Creat Clear Calc 13.69, Est GFR (MDRD) Af Amer 9 L, Est GFR (MDRD) Non-Af 8 L, BUN/Creatinine Ratio 8.3 L, Glucose 95, Calcium 7.5 L, Phosphorus 5.1 H, Albumin 1.2 L Current Medications Acetaminophen (Tylenol) 650 mg PO Q6H PRN PRN PRN Reason: Pain (1-4/10) or Fever Last Admin: 02/05/20 05:38 Dose: 650 mg Documented by: Albuterol Sulfate (Ventolin Aerosols) 2.5 mg INHALATION Q2H PRN PRN PRN Reason: WHEEZING Carvedilol (Coreg) 25 mg PO BID [facility] Last Admin: 02/04/20 21:37 Dose: 25 mg Documented by: Famotidine (Pepcid) 20 mg PO DAILY [facility] Last Admin: 02/04/20 09:09 Dose: 20 mg Documented by: Heparin Sodium (Porcine) (Heparin Na) 5,000 unit SC Q8 [facility] Last Admin: 02/05/20 05:33 Dose: 5,000 unit Documented by: Sodium Chloride () 250 mls @ 15 mls/hr IV .[id number] PRN PRN Reason: Saline Flush Sodium Chloride () 250 mls @ 15 mls/hr IV .[id number] PRN PRN Reason: Additional IVPB Infusion Ondansetron HCl (Zofran Odt) 4 mg PO Q6H PRN PRN PRN Reason: NAUSEA Oxycodone HCl (Oxyir) 5 mg PO Q6H PRN PRN PRN Reason: Pain Score 5-10/10 Last Admin: 02/05/20 05:39 Dose: 5 mg Documented by: Senna/Docusate Sodium (Senokot-S, Rosalba-Colace) 2 tablet GT BID PRN PRN PRN Reason: Constipation Sodium Chloride () 10 - 40 ml IV UD PRN PRN Reason: SALINE FLUSH Last Admin: 01/30/20 21:20 Dose: 10 ml Documented by: Medical Necessity - Tobacco Use Smoking Status: Current every day smoker Tobacco Use: Cigarettes Assessment/Plan All Active Problems Cardiopulmonary arrest with successful resuscitation (Acute) Hypocalcemia (Acute) Hyperkalemia (Acute) KEITH (acute kidney injury) (Acute) Metabolic acidosis, increased anion gap (Acute) Respiratory failure with hypoxia (Acute) Pulseless electrical activity with heart block (Acute) Ventricular fibrillation seen on carpet floor layer apprentice (Acute) Gross hematuria (Acute) LV dysfunction (Acute) Non-STEMI (non-ST elevated myocardial infarction) (Acute) Fever (Acute) Impression: KEITH -ATN Hyperphosphatemia-improving Hyponatremia Hypocalcemia Rhabdomyolysis NSTEMI Polysubstance abuse Respiratory failure s/p extubation Shock liver HF Plan: Tolerated HD well on 02/03/20. No need for HD today. Next HD tomorrow. Continue HD MWF while continuing to monitor for signs of renal recovery. So far, pt is still dialysis dependent. O>I with HD. Eating well, so we can stop IVF. Hyponatremia is due to water intake in the setting of oliguric KEITH-limit fluid intake to 1.5 L/day. No current need for for phos binder since phos level is <5.5. Monitor I's and O's. Awaiting approval for dialysis at rehab prior to discharge.
[2020-02-05] MEDS: Famotidine 20 MG Tablet PO (09:12)
[2020-02-05] MEDS: Carvedilol 25 MG Tablet PO ×2 (09:12→21:51)
--- NOTE | 2020-02-05 15:24 | PN_ITS ---
Patient Problems: Active and Suspected Problems Cardiopulmonary arrest with successful resuscitation (Acute) Hypocalcemia (Acute) Hyperkalemia (Acute) KEITH (acute kidney injury) (Acute) Metabolic acidosis, increased anion gap (Acute) Respiratory failure with hypoxia (Acute) Pulseless electrical activity with heart block (Acute) Ventricular fibrillation seen on surveillance system monitor (Acute) Gross hematuria (Acute) LV dysfunction (Acute) Non-STEMI (non-ST elevated myocardial infarction) (Acute) Fever (Acute) Subjective: Patient was seen and examined today, his sodium was 126 today, creatinine was 8.66. I talked briefly with nephrology about his care, patient continues to request pain medications for muscle pain. I stopped the patient's Neurontin yesterday. - Physical Exam Vitals/I&O's: Vital Signs Temp Pulse Resp BP Pulse Ox 98.1 F 84 16 137/74 H 100 02/05/20 14:47 02/05/20 15:00 02/05/20 14:47 02/05/20 14:47 02/05/20 14:47 Oxygen Flow Rate (L/min) 2 Oxygen Delivery Method Room Air Weight: 130.5 kg Body Mass Index (BMI) 36.3 Finger Stick Blood Glucose 160 Intake and Output for Last 24 Hours 02/03/20 02/04/20 02/05/20 23:59 23:59 23:59 Intake Total 1999 1940.83 / 1940.83 200 / 200 Output Total 4375 / 4375 450 / 450 550 / 550 Balance -2375 / -2375 1490.83 / 1490.83 -350 / -350 General: Alert, Oriented x3, Cooperative HEENT: Atraumatic, PERRLA, EOMI, Normocephalic Oral: Moist Mucosa Neck: Supple, No JVD, Negative Carotid Bruits Lungs: Clear to auscultation, Normal air movement, No rhonchi, No wheeze Cardiovascular: Regular rate, Regular Rhythm, Normal S1, Normal S2, No murmurs, PMI Normal Abdomen: Bowel Sounds Present, Soft, Non Tender, Non-Distended, No hernias noted Extremities: No clubbing, Capillary Refill Less than 3 Seconds Skin: No rashes, No breakdown Musculoskeletal: No Tenderness to Palpation of Joints or Extremities Neurological: Cranial nerves II-XII grossly intact, Neuro grossly intact, Sensory exam intact to light touch and pain, Coordination normal Psych/Mental Status: Normal Affect, Appropriate, Alert and oriented to time, place, person, mood and affect Microbiology Past 72 Hours 01/30/20 13:45 Blood Culture (Wb) - Anticubital Right Blood Culture - Final No growth in 5 days. 01/30/20 13:40 Blood Culture (Wb) - Right Hand Blood Culture - Final No growth in 5 days. 02/01/20 09:35 Urine, Clean Catch Urine Culture - Final Culture exhibits no growth. Laboratory Results 02/05/20 06:15: Sodium 126 L, Potassium 4.3, Chloride 97 L, Carbon Dioxide 19.0 L, BUN 72 H, Creatinine 8.66 H*, Estim Creat Clear Calc 13.69, Est GFR (MDRD) Af Amer 9 L, Est GFR (MDRD) Non-Af 8 L, BUN/Creatinine Ratio 8.3 L, Glucose 95, Calcium 7.5 L, Phosphorus 5.1 H, Albumin 1.2 L Current Medications Acetaminophen (Tylenol) 650 mg PO Q6H PRN PRN PRN Reason: Pain (1-4/10) or Fever Last Admin: 02/05/20 11:09 Dose: 650 mg Documented by: Albuterol Sulfate (Ventolin Aerosols) 2.5 mg INHALATION Q2H PRN PRN PRN Reason: WHEEZING Carvedilol (Coreg) 25 mg PO BID [facility] Last Admin: 02/05/20 09:12 Dose: 25 mg Documented by: Famotidine (Pepcid) 20 mg PO DAILY [facility] Last Admin: 02/05/20 09:12 Dose: 20 mg Documented by: Heparin Sodium (Porcine) (Heparin Na) 5,000 unit SC Q8 [facility] Last Admin: 02/05/20 14:51 Dose: 5,000 unit Documented by: Sodium Chloride () 250 mls @ 15 mls/hr IV .[id number] PRN PRN Reason: Saline Flush Sodium Chloride () 250 mls @ 15 mls/hr IV .[id number] PRN PRN Reason: Additional IVPB Infusion Ondansetron HCl (Zofran Odt) 4 mg PO Q6H PRN PRN PRN Reason: NAUSEA Oxycodone HCl (Oxyir) 5 mg PO Q6H PRN PRN PRN Reason: Pain Score 5-10/10 Last Admin: 02/05/20 11:09 Dose: 5 mg Documented by: Senna/Docusate Sodium (Senokot-S, Rosalba-Colace) 2 tablet GT BID PRN PRN PRN Reason: Constipation Sodium Chloride () 10 - 40 ml IV UD PRN PRN Reason: SALINE FLUSH Last Admin: 01/30/20 21:20 Dose: 10 ml Documented by: Medical Necessity - Tobacco Use Smoking Status: Current every day smoker Tobacco Use: Cigarettes Assessment/Plan All Active Problems Cardiopulmonary arrest with successful resuscitation (Acute) Hypocalcemia (Acute) Hyperkalemia (Acute) KEITH (acute kidney injury) (Acute) Metabolic acidosis, increased anion gap (Acute) Respiratory failure with hypoxia (Acute) Pulseless electrical activity with heart block (Acute) Ventricular fibrillation seen on surveillance system monitor (Acute) Gross hematuria (Acute) LV dysfunction (Acute) Non-STEMI (non-ST elevated myocardial infarction) (Acute) Fever (Acute) #1 acute hypoxic respiratory failure secondary to cardiac arrest-patient is currently on room air, again we are currently awaiting approval for dialysis services when the patient goes to an extended care facility for temporary rehab. #2 cardiomyopathy with ejection fraction of 30%-etiology unclear at this time, cardiology does not feel the patient needs a heart catheterization performed at this time, patient is currently on beta-blockers #3 acute kidney injury-patient is still requiring dialysis fattening today was 8.66. Patient will require dialysis tomorrow #4 non-STEMI #5 polysubstance abuse #6 shock liver with elevated liver enzymes-last time his enzymes were checked they were improving #7 acute rhabdomyolysis-resolved #8 hyponatremia-I discussed this with nephrology, they stated that this will be corrected with dialysis. Inpatient E&M: 34450 Subs Hosp L2
--- NOTE | 2020-02-05 15:47 | NURSING ---
This RN taking over care at this time
[2020-02-06] VITALS (9 sets, daily range): BP systolic 132–169; BP diastolic 68–90; PULSE 74–100; RESP 12–20; TEMP 36.9–37.2; O2SAT 98–100
[2020-02-06] MEDS: Heparin Injection (Vial) 5,000 UNIT/ML VIAL 5000 UNIT SC ×3 (05:34→22:08)
[2020-02-06 07:17] LABS: Albumin, Serum 2.1 g/dL (3.2-5.0); BUN 86 mg/dL (7-18); BUN/Creat Ratio 8.4 RATIO (10-20); Calcium,Total 7.7 mg/dL (8.5-10.1); Chloride 94 mmol/L (98-107); EST Glomerular Filtration Rate 6 mL/min (>60); Est Glom Filt Rate - Afr Amer 8 mL/min (>60); Estimated Creatinine Clearance 11.62 ml/min; Glucose 95 mg/dL (74-106); Phosphorus 6.6 mg/dL (2.5-4.9); Potassium 4.5 mmol/L (3.5-5.1); Sodium Level 129 mmol/L (136-145)
--- NOTE | 2020-02-06 08:45 | ECHOL_ITS ---
Reason For Study: CHF Procedure This was a limited 2D transthoracic echocardiogram. Exam performed portable in patient room. Left Ventricle Normal size and thickness. The estimated ejection fraction is 65 %. Normal diastology for age. No regional wall motion abnormalities noted. Right Ventricle Normal size and thickness. Normal systolic function. Atria Normal left atrium. Normal right atrium. Normal atrial septum. Mitral Valve The mitral valve is structurally normal. No prolapse or stenosis seen. Tricuspid Valve Normal tricuspid valve. Trivial tricuspid valve insufficiency. Unable to estimate RV systolic pressure due to insufficient tricuspid regurgitant envelope. Aortic Valve Normal aortic valve. Trisinus/trileaflet aortic valve. Pulmonic Valve Normal pulmonic valve. Great Vessels Normal aortic root. Normal arch. Normal inferior vena cava. Inferior vena cava collapse with sniff. Pericardium/Pleural Trivial pericardial effusion. There are no echocardiographic indications of cardiac tamponade. MMode/2D Measurements & Calculations LVIDd: 5.5 cm IVSd: 1.9 cm LVIDs: 3.4 cm LVPWd: 1.7 cm FS: 37.9 % Doppler Measurements & Calculations Lat Peak E' Norm: 14.3 cm/sec Med Peak E' Norm: 10.3 cm/sec Interpretation Summary The estimated ejection fraction is 65 %. Normal diastology for age. Trivial tricuspid valve insufficiency. Unable to estimate RV systolic pressure due to insufficient tricuspid regurgitant envelope. Trivial pericardial effusion. There are no echocardiographic indications of cardiac tamponade. Compared to echo report dated 01/25/2020, LV function has markedly improved from 25% to 65% today. Ordering Physician: Joshua Barajas Performed By: Nick Young RCS
--- NOTE | 2020-02-06 09:55 | CASEMGMT ---
Addendum entered by Tona Pascual 02/06/20 14:49: Call to Lorenzo at [facility](ext [phone]) and he states no update on financial approval for pt at this time but he states it may come later today or tomorrow. CM to follow. Kimberly DELUNA CM Addendum entered by Tona Pascual 02/06/20 10:21: Pt states that he will not longer be able to stay with uncle d/t reason for this admission and pt also states that there is no way that his uncle will give up that info anyway. Call to [facility] to advise Jacqueline of current situation and info and she states that she will go ahead and submit all the information that she has at this time, but she is unsure if it will go thru without uncles info even though pt is not a dependent and will no longer be able to live there. Faviola THACKER aware, voices understanding. Kimberly DELUNA CM Addendum entered by Tona Pascual 02/06/20 10:12: Call back from Jacqueline at [facility] admissions and she states that even though pt is not a dependent of his uncle's that they still need to know his uncles estimated annual income to process request. Faviola THACKER aware and into room to speak with pt. Kimberly DELUNA CM Original Note: Call to [facility] dialysis to check on financial approval and per rep, it has still not been approved financially and Lorenzo is unable to speak with this RN CM at this time. [facility] to call this RN CM back when able. Rep aware that pt has been ready for discharge since 02/03/2020, voices understanding. Kimberly DELUNA CM
[2020-02-06] MEDS: Acetaminophen 325 MG Tablet 650 MG PO ×2 (10:02→20:18)
[2020-02-06] MEDS: oxyCODONE 5 MG Tablet PO ×2 (10:02→20:17)
[2020-02-06] MEDS: Famotidine 20 MG Tablet PO (10:03)
[2020-02-06] MEDS: Carvedilol 25 MG Tablet PO ×2 (10:03→22:07)
--- NOTE | 2020-02-06 10:18 | CASEMGMT ---
[facility]ra wants patient's uncle's income since he was staying there. SW spoke with patient and he said there is no way they will give SW any information on their income. SW asked if his uncle is going to let him stay with him when he gets out of the snf. He said no, that was the last straw. He said he is essentially homeless. RN HELGA will call Ciar[facility] and see what they say. Adrienne MORALES
--- NOTE | 2020-02-06 13:50 | CASEMGMT ---
KIRSTIE called Christel at [facility] and gave her an update. Continue to wait on Ciarra STRICKLAND MSW
--- NOTE | 2020-02-06 15:23 | PN.RENAL_ITS ---
Patient Problems: Active and Suspected Problems Cardiopulmonary arrest with successful resuscitation (Acute) Hypocalcemia (Acute) Hyperkalemia (Acute) KEITH (acute kidney injury) (Acute) Metabolic acidosis, increased anion gap (Acute) Respiratory failure with hypoxia (Acute) Pulseless electrical activity with heart block (Acute) Ventricular fibrillation seen on ear machine operator (Acute) Gross hematuria (Acute) LV dysfunction (Acute) Non-STEMI (non-ST elevated myocardial infarction) (Acute) Fever (Acute) Subjective: no new complaints - Physical Exam Vitals/I&O's: Vital Signs Temp Pulse Resp BP Pulse Ox 99.0 F 77 18 156/85 H 100 02/06/20 09:55 02/06/20 12:00 02/06/20 09:55 02/06/20 09:55 02/06/20 09:55 Oxygen Flow Rate (L/min) 2 Oxygen Delivery Method Room Air Weight: 130.4 kg Body Mass Index (BMI) 36.3 Finger Stick Blood Glucose 160 Intake and Output for Last 24 Hours 02/04/20 02/05/20 02/06/20 23:59 23:59 23:59 Intake Total 1940.83 / 1940.83 320 / 920 800 / 800 Output Total 450 / 450 850 / 1250 1825 / 1825 Balance 1490.83 / 1490.83 -530 / -330 -1025 / -1025 General: Alert, Oriented x3, Cooperative HEENT: Atraumatic, PERRLA, EOMI, Normocephalic Neck: Supple, No JVD, Negative Carotid Bruits Lungs: Clear to auscultation, Normal air movement Cardiovascular: Regular rate, No murmurs Abdomen: Bowel Sounds Present, Soft, Non Tender Extremities: Capillary Refill Less than 3 Seconds, Edema Skin: No rashes, No breakdown Musculoskeletal: No Tenderness to Palpation of Joints or Extremities Neurological: Cranial nerves II-XII grossly intact Psych/Mental Status: Normal Affect, Appropriate Microbiology Past 72 Hours 01/30/20 13:45 Blood Culture (Wb) - Anticubital Right Blood Culture - Final No growth in 5 days. 01/30/20 13:40 Blood Culture (Wb) - Right Hand Blood Culture - Final No growth in 5 days. Laboratory Results 02/06/20 06:30: Sodium 129 L, Potassium 4.5, Chloride 94 L, Carbon Dioxide 23.0, BUN 86 H, Creatinine 10.20 H*, Estim Creat Clear Calc 11.62, Est GFR (MDRD) Af Amer 8 L, Est GFR (MDRD) Non-Af 6 L, BUN/Creatinine Ratio 8.4 L, Glucose 95, Calcium 7.7 L, Phosphorus 6.6 H, Albumin 2.1 L Current Medications Acetaminophen (Tylenol) 650 mg PO Q6H PRN PRN PRN Reason: Pain (1-4/10) or Fever Last Admin: 02/06/20 10:02 Dose: 650 mg Documented by: Albuterol Sulfate (Ventolin Aerosols) 2.5 mg INHALATION Q2H PRN PRN PRN Reason: WHEEZING Carvedilol (Coreg) 25 mg PO BID [facility] Last Admin: 02/06/20 10:03 Dose: 25 mg Documented by: Famotidine (Pepcid) 20 mg PO DAILY [facility] Last Admin: 02/06/20 10:03 Dose: 20 mg Documented by: Heparin Sodium (Porcine) (Heparin Na) 5,000 unit SC Q8 [facility] Last Admin: 02/06/20 14:04 Dose: 5,000 unit Documented by: Sodium Chloride () 250 mls @ 15 mls/hr IV .[id number] PRN PRN Reason: Saline Flush Sodium Chloride () 250 mls @ 15 mls/hr IV .[id number] PRN PRN Reason: Additional IVPB Infusion Ondansetron HCl (Zofran Odt) 4 mg PO Q6H PRN PRN PRN Reason: NAUSEA Oxycodone HCl (Oxyir) 5 mg PO Q6H PRN PRN PRN Reason: Pain Score 5-10/10 Last Admin: 02/06/20 10:02 Dose: 5 mg Documented by: Senna/Docusate Sodium (Senokot-S, Rosalba-Colace) 2 tablet GT BID PRN PRN PRN Reason: Constipation Sodium Chloride () 10 - 40 ml IV UD PRN PRN Reason: SALINE FLUSH Last Admin: 01/30/20 21:20 Dose: 10 ml Documented by: Medical Necessity - Tobacco Use Smoking Status: Current every day smoker Tobacco Use: Cigarettes Assessment/Plan All Active Problems Cardiopulmonary arrest with successful resuscitation (Acute) Hypocalcemia (Acute) Hyperkalemia (Acute) KEITH (acute kidney injury) (Acute) Metabolic acidosis, increased anion gap (Acute) Respiratory failure with hypoxia (Acute) Pulseless electrical activity with heart block (Acute) Ventricular fibrillation seen on ear machine operator (Acute) Gross hematuria (Acute) LV dysfunction (Acute) Non-STEMI (non-ST elevated myocardial infarction) (Acute) Fever (Acute) KEITH anasarca severe rhabdomyolysis cardiac arrest drug overdose seen on HD today still has massive edema. continue UF as tolerated off fluids urine output has picked up has a LIJ tunneled line in place next HD thursday waiting for placement
--- NOTE | 2020-02-06 16:39 | PCM.PROGNOTE ---
Patient Problems: Active and Suspected Problems Cardiopulmonary arrest with successful resuscitation (Acute) Hypocalcemia (Acute) Hyperkalemia (Acute) KEITH (acute kidney injury) (Acute) Metabolic acidosis, increased anion gap (Acute) Respiratory failure with hypoxia (Acute) Pulseless electrical activity with heart block (Acute) Ventricular fibrillation seen on monitoring engineer (Acute) Gross hematuria (Acute) LV dysfunction (Acute) Non-STEMI (non-ST elevated myocardial infarction) (Acute) Fever (Acute) Subjective: Patient was seen and examined today, he continues to lie in bed, he does not complain of any chest discomfort or shortness of breath. Patient underwent dialysis today. Patient's sodium was 129 this morning his creatinine was 10.2. Objective: General: Alert, Oriented x3, Cooperative HEENT: Atraumatic, PERRLA, EOMI, Normocephalic Oral: Moist Mucosa Neck: Supple, No JVD, Negative Carotid Bruits Lungs: Clear to auscultation, Normal air movement, No rhonchi, No wheeze Cardiovascular: Regular rate, Regular Rhythm, Normal S1, Normal S2, No murmurs, PMI Normal Abdomen: Bowel Sounds Present, Soft, Non Tender, Non-Distended, No hernias noted Extremities: No clubbing, Capillary Refill Less than 3 Seconds Skin: No rashes, No breakdown Musculoskeletal: No Tenderness to Palpation of Joints or Extremities Neurological: Cranial nerves II-XII grossly intact, Neuro grossly intact, Sensory exam intact to light touch and pain, Coordination normal Psych/Mental Status: Flat affect, alert and oriented to time, place, person, mood and affect - Physical Exam Vitals/I&O's: Vital Signs Temp Pulse Resp BP Pulse Ox 99.0 F 86 18 156/85 H 100 02/06/20 09:55 02/06/20 15:34 02/06/20 09:55 02/06/20 09:55 02/06/20 09:55 Oxygen Flow Rate (L/min) 2 Oxygen Delivery Method Room Air Weight: 130.4 kg Body Mass Index (BMI) 36.3 Finger Stick Blood Glucose 160 Intake and Output for Last 24 Hours 02/04/20 02/05/20 02/06/20 23:59 23:59 23:59 Intake Total 1940.83 / 1940.83 320 / 920 800 / 800 Output Total 450 / 450 850 / 1250 1825 / 1825 Balance 1490.83 / 1490.83 -530 / -330 -1025 / -1025 Microbiology Past 72 Hours 01/30/20 13:45 Blood Culture (Wb) - Anticubital Right Blood Culture - Final No growth in 5 days. 01/30/20 13:40 Blood Culture (Wb) - Right Hand Blood Culture - Final No growth in 5 days. Laboratory Results 02/06/20 06:30: Sodium 129 L, Potassium 4.5, Chloride 94 L, Carbon Dioxide 23.0, BUN 86 H, Creatinine 10.20 H*, Estim Creat Clear Calc 11.62, Est GFR (MDRD) Af Amer 8 L, Est GFR (MDRD) Non-Af 6 L, BUN/Creatinine Ratio 8.4 L, Glucose 95, Calcium 7.7 L, Phosphorus 6.6 H, Albumin 2.1 L Current Medications Acetaminophen (Tylenol) 650 mg PO Q6H PRN PRN PRN Reason: Pain (1-4/10) or Fever Last Admin: 02/06/20 10:02 Dose: 650 mg Documented by: Albuterol Sulfate (Ventolin Aerosols) 2.5 mg INHALATION Q2H PRN PRN PRN Reason: WHEEZING Carvedilol (Coreg) 25 mg PO BID [facility] Last Admin: 02/06/20 10:03 Dose: 25 mg Documented by: Famotidine (Pepcid) 20 mg PO DAILY [facility] Last Admin: 02/06/20 10:03 Dose: 20 mg Documented by: Heparin Sodium (Porcine) (Heparin Na) 5,000 unit SC Q8 [facility] Last Admin: 02/06/20 14:04 Dose: 5,000 unit Documented by: Sodium Chloride () 250 mls @ 15 mls/hr IV .[id number] PRN PRN Reason: Saline Flush Sodium Chloride () 250 mls @ 15 mls/hr IV .[id number] PRN PRN Reason: Additional IVPB Infusion Ondansetron HCl (Zofran Odt) 4 mg PO Q6H PRN PRN PRN Reason: NAUSEA Oxycodone HCl (Oxyir) 5 mg PO Q6H PRN PRN PRN Reason: Pain Score 5-10/10 Last Admin: 02/06/20 10:02 Dose: 5 mg Documented by: Senna/Docusate Sodium (Senokot-S, Rosalba-Colace) 2 tablet GT BID PRN PRN PRN Reason: Constipation Sodium Chloride () 10 - 40 ml IV UD PRN PRN Reason: SALINE FLUSH Last Admin: 01/30/20 21:20 Dose: 10 ml Documented by: Medical Necessity - Tobacco Use Smoking Status: Current every day smoker Tobacco Use: Cigarettes Assessment/Plan All Active Problems Cardiopulmonary arrest with successful resuscitation (Acute) Hypocalcemia (Acute) Hyperkalemia (Acute) KEITH (acute kidney injury) (Acute) Metabolic acidosis, increased anion gap (Acute) Respiratory failure with hypoxia (Acute) Pulseless electrical activity with heart block (Acute) Ventricular fibrillation seen on monitoring engineer (Acute) Gross hematuria (Acute) LV dysfunction (Acute) Non-STEMI (non-ST elevated myocardial infarction) (Acute) Fever (Acute) #1 acute hypoxic respiratory failure secondary to cardiac arrest-patient is currently on room air, again we are currently awaiting approval for dialysis services when the patient goes to an extended care facility for temporary rehab. #2 cardiomyopathy with ejection fraction of 30%-etiology unclear at this time, cardiology does not feel the patient needs a heart catheterization performed at this time, patient is currently on beta-blockers #3 acute kidney injury-patient is still requiring dialysis fattening today was 10.2, BUN was 86. #4 non-STEMI #5 polysubstance abuse #6 shock liver with elevated liver enzymes-last time his enzymes were checked they were improving #7 acute rhabdomyolysis-resolved #8 hyponatremia-improved today Inpatient E&M: [id number] [facility] Hosp L2
--- NOTE | 2020-02-06 19:28 | DIALYSIS ---
4.5 hr hemodialysis tx complete. pt tolerated well. net uf 4500ml. vss, pt stable. next tx 02/07 or prn per automation and controls manager.
[2020-02-06] MEDS: Heparin 10,000 UNITS/10 ML Vial IV (20:39)
[2020-02-07 02:59] VITALS: PULSE 91
[2020-02-07] MEDS: oxyCODONE 5 MG Tablet PO ×3 (03:59→16:05)
[2020-02-07] MEDS: Acetaminophen 325 MG Tablet 650 MG PO ×3 (03:59→16:05)
[2020-02-07 04:10] VITALS: BP 145/78; PULSE 87; RESP 18; TEMP 37.1; O2SAT 98
[2020-02-07] MEDS: Heparin Injection (Vial) 5,000 UNIT/ML VIAL 5000 UNIT SC ×2 (05:38→13:04)
[2020-02-07 06:55] VITALS: PULSE 82
--- NOTE | 2020-02-07 09:08 | PCM.PN.CARD ---
Subjectve: Patient sitting in a chair, no acute distress. Telemetry negative. Objective: Vital Signs Temp Pulse Resp BP Pulse Ox 98.7 F 82 18 145/78 H 98 02/07/20 04:10 02/07/20 06:55 02/07/20 04:10 02/07/20 04:10 02/07/20 04:10 Oxygen Flow Rate (L/min) 2 Oxygen Delivery Method Room Air Weight: 280 lb 10.375 oz Body Mass Index (BMI) 36.3 Finger Stick Blood Glucose 160 Intake and Output for Last 24 Hours 02/05/20 02/06/20 02/07/20 23:59 23:59 23:59 Intake Total 320 / 920 1040 / 1040 120 / 120 Output Total 850 / 1250 7322 / 7322 1000 / 1000 Balance -530 / -330 -6282 / -6282 -880 / -880 General: Awake, Alert, Oriented x 3 HEENT: PERRL, EOMI, Sclera Non Icteric Neck: Supple, Good ROM, No Lymph Node Enlargement Lungs: Clear to auscultation Cardiovascular: Regular Rhythm, Normal S1, Normal S2, No Murmurs, No Rubs, No Gallops Vascular: No Carotid Bruits, Normal Femoral Pulses, Normal Radial Pulses, Normal Dorsalis Pedal Pulse, Normal Posterior Tibial Pulses Abdomen: Bowel Sounds Present, Soft, Non Tender, No HSM, No Organomegaly Extremities: No Cyanosis, No Clubbing, No edema Neurological: No Focal Motor or Sensory Deficit Rhythm: EKG: ECHO: Stress Test: Cardiac Cath: PCI: CT Surgery: Holter monitor: EPS: PPM: CXR: Chest CT Scan: Medical Necessity - Tobacco Use Smoking Status: Current every day smoker Tobacco Use: Cigarettes Assessment/Plan 1. Non-STEMI: Repeat echocardiogram done yesterday 02/05/2021, demonstrated normalization of his LV function with an EF around 65% and trivial pericardial effusion. I would not recommend diagnostic coronary catheterization at this time particularly given his renal insufficiency and need for dialysis. My hope is that his kidneys will slowly improve despite his rhabdomyolysis, and I would not want to do anything to insult them. Another option would be for him to undergo a stress test once he has recovered, but he is having difficulty walking as a result of his acute illness recovery. The meantime we will continue his Coreg 25 mg p.o. twice daily. His blood pressure has improved, but there are spikes most likely a result of his need for dialysis. We may add hydralazine for additional blood pressure control once he is stabilized on dialysis. 2. Thank you very much for the opportunity to participate in the cardiac care of your patient. Patient may follow-up with Dr. Barajas going forward. We will sign off, please call with any questions. Inpatient E&M: [id number] [facility] Hosp L2
--- NOTE | 2020-02-07 09:36 | CASEMGMT ---
Addendum entered by Tona Pascual 02/07/20 16:27: Call back from Sherrie at [facility] and she states they will take pt at this time. Cherri DELUNA and Lonnie, [facility] medical unit secretary, provided with number to call nursing report and fax number for orders at this time. Pt already set up for transport by Faviola THACKER at 1800. Dr. Knight aware and states placing orders for pt at this time. Pt updated on all by Faviola THACKER at this time, voices understanding. Kimberly RN CM Addendum entered by Tona Pascual 02/07/20 15:27: Call back from Sherrie at [facility] and she states that their corporate has been trying to reach pt without success. Faviola THACKER into room to assist pt in calling [facility] corporate back to answer their questions and then pt needs to call [facility] at [facility] to give consent to transfer. [facility] will then call this RN CM back to advise whether they will take pt or not. Dr. Knight and Cherri DELUNA updated, voice understanding. Dr. Knight states will discharge pt today if accepted at [facility]. Cleo, U charge, and Lonnie [facility] medical unit secretary, updated at this time, voice understanding. Kimberly RN HELGA Addendum entered by Tona aPscual 02/07/20 11:58: Call back from Sherrie at [facility] and she states that pt qualifies for LTACH at this time. She is updated with pt financial info which was obtained from pt by Faviola THACKER. [facility] states that pt has to now be approved thru their administration at this time. [facility] will call this RN CM back with final approval. [facility] will also call pt via cell phone in regards to verbal consent. Pt updated at this time, voices understanding. Kimberly RN HELGA Addendum entered by Tona Pascual 02/07/20 09:59: Call to Sherrie at [facility] LT[facility] in regards to pt at this time. She states that they do take pending DINESH and they will look over referral at this time. Kimberly RN CM Original Note: This RN CM received call from Jacqueline at [facility] and she states that because pt is KEITH and has no path of payment, then they will not financially approve him at this time unless [facility] would complete a single payer agreement for 90 days with [facility], so basically stating that [facility] will cover dialysis for pt if medicaid does not go through. Faviola THACKER updated on all, voices understanding. Kimberly DELUNA CM
[2020-02-07 09:53] VITALS: BP 137/69; PULSE 84; RESP 16; TEMP 37.2; O2SAT 100
[2020-02-07] MEDS: Carvedilol 25 MG Tablet PO (09:57)
[2020-02-07] MEDS: Famotidine 20 MG Tablet PO (09:57)
--- NOTE | 2020-02-07 10:00 | CASEMGMT ---
RN HELGA talked with [facility] and they are not willing to take patient on pending medicaid. KIRSTIE spoke with Araceli at [employer]. She will send paperwork to KIRSTIE at [facility] for patient to sign. She will also talk with her boat outfitting supervisor about getting patient Presumptive Medicaid. Adrienne STRICKLAND MSW
--- NOTE | 2020-02-07 12:44 | CASEMGMT ---
SW completed Medicaid paperwork with patient and had him sign the papers. His employer happened to call while SW was in the room and she said she would fax patient's last 4 pay stubs. SW did receive these and faxed signed paperwork and pay stubs to [facility]. RN HELGA is working with LTACH to see if they can accept patient. Adrienne STRICKLAND MSW
--- NOTE | 2020-02-07 14:18 | PCM.PN.REN ---
Patient Problems: Active and Suspected Problems Cardiopulmonary arrest with successful resuscitation (Acute) Hypocalcemia (Acute) Hyperkalemia (Acute) KEITH (acute kidney injury) (Acute) Metabolic acidosis, increased anion gap (Acute) Respiratory failure with hypoxia (Acute) Pulseless electrical activity with heart block (Acute) Ventricular fibrillation seen on window assembler (Acute) Gross hematuria (Acute) LV dysfunction (Acute) Non-STEMI (non-ST elevated myocardial infarction) (Acute) Fever (Acute) Subjective: NO NEW COMPLAINTS - Physical Exam Vitals/I&O's: Vital Signs Temp Pulse Resp BP Pulse Ox 99 F 84 16 137/69 H 100 02/07/20 09:53 02/07/20 09:53 02/07/20 09:53 02/07/20 09:53 02/07/20 09:53 Oxygen Flow Rate (L/min) 2 Oxygen Delivery Method Room Air Weight: 127.3 kg Body Mass Index (BMI) 36.3 Finger Stick Blood Glucose 160 Intake and Output for Last 24 Hours 02/05/20 02/06/20 02/07/20 23:59 23:59 23:59 Intake Total 320 / 920 1040 / 1040 360 / 360 Output Total 850 / 1250 7322 / 7322 1550 / 1550 Balance -530 / -330 -6282 / -6282 -1190 / -1190 General: Alert, Oriented x3, Cooperative HEENT: Atraumatic, PERRLA, EOMI, Normocephalic Neck: Supple, No JVD, Negative Carotid Bruits Lungs: Clear to auscultation, Normal air movement Cardiovascular: Regular rate, No murmurs Abdomen: Bowel Sounds Present, Soft, Non Tender Extremities: Capillary Refill Less than 3 Seconds, Edema Skin: No rashes, No breakdown Musculoskeletal: No Tenderness to Palpation of Joints or Extremities Neurological: Cranial nerves II-XII grossly intact Psych/Mental Status: Normal Affect, Appropriate Microbiology Past 72 Hours 01/30/20 13:45 Blood Culture (Wb) - Anticubital Right Blood Culture - Final No growth in 5 days. 01/30/20 13:40 Blood Culture (Wb) - Right Hand Blood Culture - Final No growth in 5 days. Current Medications Acetaminophen (Tylenol) 650 mg PO Q6H PRN PRN PRN Reason: Pain (-11/24) or Fever Last Admin: 02/07/20 10:00 Dose: 650 mg Documented by: Albuterol Sulfate (Ventolin Aerosols) 2.5 mg INHALATION Q2H PRN PRN PRN Reason: WHEEZING Carvedilol (Coreg) 25 mg PO BID [facility] Last Admin: 02/07/20 09:57 Dose: 25 mg Documented by: Famotidine (Pepcid) 20 mg PO DAILY [facility] Last Admin: 02/07/20 09:57 Dose: 20 mg Documented by: Heparin Sodium (Porcine) (Heparin Na) 5,000 unit SC Q8 [facility] Last Admin: 02/07/20 13:04 Dose: 5,000 unit Documented by: Sodium Chloride () 250 mls @ 15 mls/hr IV .[id number] PRN PRN Reason: Saline Flush Sodium Chloride () 250 mls @ 15 mls/hr IV .[id number] PRN PRN Reason: Additional IVPB Infusion Ondansetron HCl (Zofran Odt) 4 mg PO Q6H PRN PRN PRN Reason: NAUSEA Oxycodone HCl (Oxyir) 5 mg PO Q6H PRN PRN PRN Reason: Pain Score 5-10/10 Last Admin: 02/07/20 10:00 Dose: 5 mg Documented by: Senna/Docusate Sodium (Senokot-S, Rosalba-Colace) 2 tablet GT BID PRN PRN PRN Reason: Constipation Sodium Chloride () 10 - 40 ml IV UD PRN PRN Reason: SALINE FLUSH Last Admin: 01/30/20 21:20 Dose: 10 ml Documented by: Medical Necessity - Tobacco Use Smoking Status: Current every day smoker Tobacco Use: Cigarettes Assessment/Plan All Active Problems Cardiopulmonary arrest with successful resuscitation (Acute) Hypocalcemia (Acute) Hyperkalemia (Acute) KEITH (acute kidney injury) (Acute) Metabolic acidosis, increased anion gap (Acute) Respiratory failure with hypoxia (Acute) Pulseless electrical activity with heart block (Acute) Ventricular fibrillation seen on window assembler (Acute) Gross hematuria (Acute) LV dysfunction (Acute) Non-STEMI (non-ST elevated myocardial infarction) (Acute) Fever (Acute) KEITH anasarca severe rhabdomyolysis cardiac arrest drug overdose still has massive edema. continue UF as tolerated urine output has picked up has a LIJ tunneled line in place next Thursday waiting for placement
[2020-02-07 15:06] VITALS: PULSE 84
[2020-02-07 15:52] VITALS: BP 155/85; PULSE 79; RESP 18; TEMP 37.1; O2SAT 100
--- NOTE | 2020-02-07 16:02 | CASEMGMT ---
Sherrie from [facility] asked if patient could call her and another person at the LTACH as they have questions. SW went to patient's room and let him know the facility we are trying to get him to needs to talk with him. He called both people while SW was in the room. KIRSTIE did set up transport for 6p via [facility]. Await phone call from Sherrie at [facility]. Adrienne STRICKLAND MSW
--- NOTE | 2020-02-07 16:32 | CASEMGMT ---
[facility] in [place] is able to accept patient. SW notified patient, his mom, and RN. SW gave patient the name and address of [facility]. [facility] will fax orders once they are complete. KIRSTIE will call [facility] to update them on patient's d/c. Plan: d/c to [facility] in [place]. [facility] transported him via cot. Adrienne STRICKLAND MSW
--- NOTE | 2020-02-07 16:40 | NURSING ---
Report called to Keerthi siddiqui [facility] at this time.
--- NOTE | 2020-02-07 18:06 | PCM.DC.SUM ---
Discharge Date and Diagnosis - Problem List Patient Problems: Active and Suspected Problems Cardiopulmonary arrest with successful resuscitation (Acute) Hypocalcemia (Acute) Hyperkalemia (Acute) KEITH (acute kidney injury) (Acute) Metabolic acidosis, increased anion gap (Acute) Respiratory failure with hypoxia (Acute) Pulseless electrical activity with heart block (Acute) Ventricular fibrillation seen on monitor technician (Acute) Gross hematuria (Acute) LV dysfunction (Acute) Non-STEMI (non-ST elevated myocardial infarction) (Acute) Fever (Acute) Date of Admission: 01/25/20 Date of Discharge: 02/07/20 - Primary Discharge Diagnosis Acute Problems: Active Problems #1 Cardiopulmonary arrest with successful resuscitation (Acute) #2 acute hypoxic respiratory failure secondary to cardiac arrest #3 cardiomyopathy-etiology unclear #4 acute kidney injury requiring hemodialysis secondary to ATN #5 non-STEMI #6 polysubstance abuse #7 shock liver #8 acute rhabdomyolysis Hospital Course and Treatment Operations: - - Tunneled hemodialysis catheter placement Procedures: Dialysis Summary of Care Provided: The patient is a 29 year old M was seen in the emergency room at [facility] after being brought in with decreased level of consciousness. Patient underwent work-up in the emergency room which included CT of the head and CT of the C-spine. Patient was noted to have a wide-complex rhythm and due to unresponsiveness of the patient, he underwent intubation. Patient subsequently lost pulses and he was treated for hyperkalemia and PEA. After administration of calcium chloride and bicarb patient's complex narrowed. Patient's labs initially showed a potassium of 4.9, creatinine of 1.97, BUN of 24, AST of 1825, ALT of 310, repeat labs done approximately 90 minutes later showed an elevated potassium at 7.1 however. Troponin was obtained which was elevated at 1, K CPK was obtained which was elevated at 147,973. Patient was transferred to ICU and cardiology was contacted for evaluation, echocardiogram showed a reduced ejection fraction of 20%, he was seen in consultation by critical care while in the ICU as well as cardiology and nephrology. Patient was felt to have had a STEMI with elevated troponins. Patient's kidney functions deteriorated over the next several days and the patient had to undergo hemodialysis. Patient was ultimately extubated and was weaned to room air. Patient remained weak and was seen by PT and OT, patient had a tunnel dialysis catheter inserted for continuing dialysis. Patient had a long protracted hospital course but improved during his hospitalization. Due to the patient's lack of insurance, it became problematic to get the patient into a long term facility for inpatient rehab services due to the dialysis company refusing to provide dialysis for the patient due to his lack of insurance. He was finally evaluated by an LTAC who agreed to accept the patient. On 02/07/2020, patient was seen and examined: On examination he appeared lethargic and sleepy. Vital signs as documented. Skin warm and dry and without overt rashes. Neck without JVD, neck was supple, trachea midline, thyroid was normal. Lungs clear bilaterally, normal air movement was noted. Heart exam notable for regular rhythm, normal sounds and absence of murmurs, rubs or gallops. Abdomen unremarkable and without evidence of organomegaly, masses, or abdominal aortic enlargement. Bowel sounds are present, abdomen is not distended. Extremities-marked lower extremity edema was noted bilaterally, no cyanosis was noted, no clubbing was noted. Neuro: Cranial nerves II through XII are grossly intact, no focal motor deficits were noted, sensation to light touch and pinprick intact, motor exam 5/5 throughout. Psych: Patient is alert and oriented x3, he does not appear anxious or depressed, he does not appear agitated. Patient appears stable for discharge to an LTAC on 02/07/2020. Patient Problems: Active and Suspected Problems Cardiopulmonary arrest with successful resuscitation (Acute) Hypocalcemia (Acute) Hyperkalemia (Acute) KEITH (acute kidney injury) (Acute) Metabolic acidosis, increased anion gap (Acute) Respiratory failure with hypoxia (Acute) Pulseless electrical activity with heart block (Acute) Ventricular fibrillation seen on monitor technician (Acute) Gross hematuria (Acute) LV dysfunction (Acute) Non-STEMI (non-ST elevated myocardial infarction) (Acute) Fever (Acute) - Physical Exam Vitals/I&O's: Vital Signs Temp Pulse Resp BP Pulse Ox 98.8 F 79 18 155/85 H 100 02/07/20 15:52 02/07/20 15:52 02/07/20 15:52 02/07/20 15:52 02/07/20 15:52 Oxygen Flow Rate (L/min) 2 Oxygen Delivery Method Room Air Weight: 127.3 kg Body Mass Index (BMI) 36.3 Finger Stick Blood Glucose 160 Intake and Output for Last 24 Hours 0602/06/20 02/07/20 23:59 23:59 23:59 Intake Total 320 / 920 1040 / 1040 360 / 360 Output Total 850 / 1250 7322 / 7322 1550 / 1550 Balance -530 / -330 -6282 / -6282 -1190 / -1190 Microbiology Past 72 Hours 01/30/20 13:45 Blood Culture (Wb) - Anticubital Right Blood Culture - Final No growth in 5 days. 01/30/20 13:40 Blood Culture (Wb) - Right Hand Blood Culture - Final No growth in 5 days. Current Medications Acetaminophen (Tylenol) 650 mg PO Q6H PRN PRN PRN Reason: Pain (1-4/10) or Fever Last Admin: 02/07/20 16:05 Dose: 650 mg Documented by: Albuterol Sulfate (Ventolin Aerosols) 2.5 mg INHALATION Q2H PRN PRN PRN Reason: WHEEZING Carvedilol (Coreg) 25 mg PO BID ON LICENSE OF [facility] Last Admin: 02/07/20 09:57 Dose: 25 mg Documented by: Famotidine (Pepcid) 20 mg PO DAILY ON LICENSE OF [facility] Last Admin: 02/07/20 09:57 Dose: 20 mg Documented by: Heparin Sodium (Porcine) (Heparin Na) 5,000 unit SC Q8 ON LICENSE OF [facility] Last Admin: 02/07/20 13:04 Dose: 5,000 unit Documented by: Sodium Chloride () 250 mls @ 15 mls/hr IV .[id number] PRN PRN Reason: Saline Flush Sodium Chloride () 250 mls @ 15 mls/hr IV .[id number] PRN PRN Reason: Additional IVPB Infusion Ondansetron HCl (Zofran Odt) 4 mg PO Q6H PRN PRN PRN Reason: NAUSEA Oxycodone HCl (Oxyir) 5 mg PO Q6H PRN PRN PRN Reason: Pain Score 5-10/10 Last Admin: 02/07/20 16:05 Dose: 5 mg Documented by: Senna/Docusate Sodium (Senokot-S, Rosalba-Colace) 2 tablet GT BID PRN PRN PRN Reason: Constipation Sodium Chloride () 10 - 40 ml IV UD PRN PRN Reason: SALINE FLUSH Last Admin: 01/30/20 21:20 Dose: 10 ml Documented by: Home Medications: Medications to take at Discharge Acetaminophen [Tylenol Tablet] 650 mg PO Q6H PRN PRN tab 02/02/20 Carvedilol [Coreg (Beta Estelle)] 25 mg PO BID tab 02/02/20 Oxycodone [Oxyir] 5 mg PO Q6H PRN PRN 2 Days #7 tab 02/07/20 Following Prescrptions Were Given to Patient: Oxycodone [Oxyir] 5 mg PO Q6H PRN PRN 2 Days #7 tab PRN Reason: Pain Score 1-10/10 Prescription Printed Primary Care Physician: NOT,DEFINED [NON-STAFF] - Disposition: Assisted Acute Care Minutes spent on discharge:: 33 Patient Condition:: Stable Medical Necessity - Tobacco Use Smoking Status: Current every day smoker Tobacco Use: Cigarettes Meaningful Use Info Meaningful Use Diagnoses (Choose all that apply): None applicable Inpatient E&M: 31658 Disch Hosp
--- NOTE | 2020-02-08 10:27 | CASEMGMT ---
KIRSTIE called Christel with [facility] and left her a voice mail letting her know that patient went to an LTACH because we could not get his outpatient dialysis approved. KIRSTIE also called Araceli at [facility] letting her know where patient went. KIRSTIE also called [facility] and spoke with Veena Mccurdy. KIRSTIE told her SW does not need the level of care or the convalescent for patient as he went to an LTACH. She said they are not able to withdrawal it, but she will make note of it. Adrienne STRICKLAND MSW
== END 2020-02-07 18:28 | DRG 280 ==
LOC: ED 11:39 → ICU 12:04 → PCU 01-28 16:18
PROVIDERS: Internal Medicine; Internal Medicine Critical Care Medicine; Internal Medicine Infectious Disease; Internal Medicine Nephrology; Physician Assistant; Surgery; Admitting Provider Internal Medicine; Emergency Provider Emergency Medicine; Visit Provider Internal Medicine
PROC: 02H633Z Insertion of Infusion Device into Right Atrium, Percutaneous Approach (ICD-10-PCS; principal; 2020-02-01 12:45)
DX: I46.9 Cardiac arrest, cause unspecified (principal); I21.4 Non-ST elevation (NSTEMI) myocardial infarction; N17.0 Acute kidney failure with tubular necrosis; K72.00 Acute and subacute hepatic failure without coma; J69.0 Pneumonitis due to inhalation of food and vomit; J96.01 Acute respiratory failure with hypoxia; E87.2 Acidosis; M62.82 Rhabdomyolysis; I50.20 Unspecified systolic (congestive) heart failure; G81.91 Hemiplegia, unspecified affecting right dominant side; G81.94 Hemiplegia, unspecified affecting left nondominant side; E87.1 Hypo-osmolality and hyponatremia; B17.9 Acute viral hepatitis, unspecified; I42.9 Cardiomyopathy, unspecified; R57.9 Shock, unspecified; I11.0 Hypertensive heart disease with heart failure; F10.129 Alcohol abuse with intoxication, unspecified; E83.51 Hypocalcemia; E87.5 Hyperkalemia; I49.01 Ventricular fibrillation; E66.9 Obesity, unspecified; Z68.36 Body mass index [BMI] 36.0-36.9, adult; F17.210 Nicotine dependence, cigarettes, uncomplicated; D64.9 Anemia, unspecified; F12.10 Cannabis abuse, uncomplicated; R40.2410 Glasgow coma scale score 13-15, unspecified time; Z99.2 Dependence on renal dialysis; R31.0 Gross hematuria; F14.10 Cocaine abuse, uncomplicated; Z79.899 Other long term (current) drug therapy; I45.9 Conduction disorder, unspecified
CPT/HCPCS: 31500; 31720; 36415; 36600; 70450; 71045; 72125; 76000; 76770; 80048; 80053; 80069; 80074; 80076; 80307; 80320; 81001; 82330; 82550; 82803; 83735; 84100; 84478; 84484; 85025; 85610; 85730; 86707; 87040; 87086; 87635; 90937; 92950; 93005; 93306; 93308; 93970; 94002; 94003; 94660; 94770; 97110; 97162; 97166; 97530; 97535; 97802; 97803; 99251; 99285; G2023; J7030; J7040; J7050; J7120; A4216; C1751; C1752; G0257; G0463; G0480; J0610; J3490; U0003

== ENCOUNTER 2021-03-20 12:38 | Emergency (ER) | payer MEDICAID, SELFPAY ==
[2020-01-26 09:53] VITALS: BMI 36.3
[2021-03-20 12:39] VITALS: BP 143/77; PULSE 69; RESP 16; TEMP 36.7; O2SAT 100; BMI 30.5
--- NOTE | 2021-03-20 13:24 | RAD_ITS ---
STUDY: X-RAY - CERVICAL SPINE REASON FOR EXAM: Male, 30 years old. Injury/Pain TECHNIQUE: 3 view(s) of the cervical spine were obtained. COMPARISON: None FINDINGS: Normal anterior atlantoaxial articulation. Normal odontoid process. Normal cervical lordosis. Normal vertebral bodies and endplates. Normal disc space heights. Normal visualized intervertebral neuroforamina. The soft tissue structures are unremarkable. RAD/Cerv Spine 2 or 3 Views IMPRESSION: Normal x-ray examination of the visualized cervical spine. Electronically Signed: Pieter Stahl MD at 14:52 EDT Tel , Service support ,
--- NOTE | 2021-03-20 13:24 | RAD_ITS ---
STUDY: X-RAY - LUMBAR SPINE REASON FOR EXAM: Male, 30 years old. Injury/Pain TECHNIQUE: 3 view(s) of the lumbar spine were obtained. COMPARISON: None FINDINGS: Normal lumbar lordosis. There is no substantial scoliosis. There is a normal alignment of the vertebrae. Normal vertebral bodies and endplates. Normal disc space heights. The soft tissue structures are unremarkable. RAD/Lumbar Spine 2 or 3 Views IMPRESSION: Normal x-ray examination of the lumbar spine. Electronically Signed: Pieter Stahl MD at 14:59 EDT Tel , Service support ,
--- NOTE | 2021-03-20 13:25 | RAD_ITS ---
STUDY: X-RAY - LEFT KNEE REASON FOR EXAM: Male, 30 years old. Injury/Pain TECHNIQUE: 4 view(s) of the knee. COMPARISON: None. FINDINGS: Normal visualized distal femur. Normal visualized proximal tibia and fibula. Normal proximal tibiofibular articulation. Normal medial femorotibial compartment. Normal lateral femorotibial compartment. Normal patellofemoral articulation. The soft tissue structures are unremarkable. RAD/Knee 4 or More Views IMPRESSION: Normal x-ray examination of the knee. Electronically Signed: Pieter Stahl MD at 14:49 EDT Tel , Service support ,
[2021-03-20 15:11] VITALS: BP 132/90; PULSE 65; RESP 16; O2SAT 97
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
== END 2021-03-20 15:29 | disposition home or self-care (01) ==
PROVIDERS: Emergency Provider Emergency Medicine
DX: S16.1XXA Strain of muscle, fascia and tendon at neck level, initial encounter (principal); S30.0XXA Contusion of lower back and pelvis, initial encounter; S39.012A Strain of muscle, fascia and tendon of lower back, initial encounter; S80.02XA Contusion of left knee, initial encounter; V43.62XA Car passenger injured in collision with other type car in traffic accident, initial encounter; Y92.410 Unspecified street and highway as the place of occurrence of the external cause; J45.909 Unspecified asthma, uncomplicated; F17.210 Nicotine dependence, cigarettes, uncomplicated
CPT/HCPCS: 72040; 72100; 73564; 99282

== ENCOUNTER 2023-02-13 23:58 | Inpatient (IN) | payer MEDICAID, SELFPAY ==
[2023-02-13 23:59] VITALS: BP 141/100; PULSE 77; RESP 18; TEMP 36.5; O2SAT 100
[2023-02-14] VITALS (7 sets, daily range): BP systolic 108–135; BP diastolic 59–84; PULSE 55–78; RESP 16–20; TEMP 36.5–37.2; O2SAT 96–100; BMI 33.3
--- NOTE | 2023-02-14 00:26 | EX.ED.DYSGE1 ---
HPI History of Present Illness Chief Complaint: Substance Abuse Informant: patient Narrative Narrative: Patient is a 32-year-old male with past medical history of polysubstance abuse. In 2019 secondary to his substance abuse he has she underwent cardiopulmonary arrest. Patient states that after that event he developed chronic foot pain and in order to treat his recurrent foot pain he began snorting heroin. He states that he uses roughly 1 g a day. He states his last dose was earlier this morning. He states that he is used to his pain and feels like he no longer needs to have the heroin on board to cope with it. He is looking for help with detox from the illicit drug use and with this comes in for evaluation [facility] Medical History Asthma Cardiopulmonary arrest with successful resuscitation Polysubstance abuse Tobacco use Home Medications acetaminophen 325 mg tablet 650 mg (2 x 325 mg) PO Q6H PRN PRN Pain (-11/24) or Fever 02/02/20 [Rx Last Taken Unknown] carvedilol 25 mg tablet 25 mg PO BID 02/02/20 [Rx Last Taken Unknown] Allergy/AdvReac Type Severity Reaction Status Date / Time No Known Allergies Allergy Verified 03/20/21 12:40 Family History (Updated 02/14/23 @ 00:[address] Katey Jaffe MD) Mother No problems noted. Father No problems noted. Social History (Updated 02/14/23 @ 00:[address] Katey Jaffe MD) household members: significant other Smoking Status: Current every day smoker tobacco type: cigarettes alcohol intake: current alcohol intake frequency: a few times a month substance use type: marijuana and heroin ROS ROS ED Constitutional Constitutional ED: Denies chills or fever(s) ENT ENT ED: Denies sore throat Cardiovascular Cardiovascular: Denies chest pain Respiratory/Chest Respiratory/Chest: Denies cough or dyspnea Gastrointestinal Gastrointestinal: Denies abdominal pain, diarrhea, nausea or vomiting Genitourinary Genitourinary ED: Denies dysuria Musculoskeletal Musculoskeletal: Reports other Details: Chronic foot pain Integumentary Denies rash Neurologic Neurologic: Denies headache(s) Psychiatric Psychiatric: Denies suicidal ideation or suicidal thoughts Hematologic/Lymphatic Hematologic/Lymphatic: Denies easy bleeding or easy bruising EXAM Physical Exam Const Vital Signs: 02/13/23 23:59 Temperature 97.7 F L Temperature Source Temporal Pulse Rate 77 Respiratory Rate 18 Blood Pressure 141/100 H Blood Pressure Mean 113 Pulse Ox 100 Oxygen Delivery Method Room Air Positive well nourished and well developed General Appearance ED: well developed HEENT Reports moist mucous membranes Eyes EOMs intact bilaterally Eyes Narrative: Pupils are constricted consistent with opioid use Neck supple Resp normal respiratory effort and clear to auscultation bilaterally Cardio regular rate and regular rhythm GI non-tender and non-distended GI Narrative: Abdomen is soft nontender nondistended with hypoactive bowel sounds no voluntary guarding or rigidity no pulsatile mass Auscultation: hypoactive bowel sounds Palpation: soft Extremity normal to inspection Neuro oriented x3 and CN's II-XII intact bilaterally Sensorium / Orientation: alert Psych mental status grossly normal Psych Narrative: No homicidal or suicidal ideation Skin no rashes or lesions noted MDM MDM MDM Narrative Medical decision making narrative: Patient presented to the ER mildly hypertensive otherwise with stable vitals. He reported that he has been using roughly 1 g of heroin daily. He states it is now his desire to stop using and he is concerned about the withdrawal symptoms and therefore presents for potential help with detox. At this time he does not have signs of secondary infection or cardiovascular disease so basic blood work will be obtained secondary to his polysubstance abuse such as CBC basic metabolic urine tox and alcohol values. Medicine was contacted with concerns/need for detox and they do agree to accept the patient to their service at this time to help with this. Patient was informed of the admission he is agreeable to it and therefore will be admitted to the medical floor to help with heroin/opioid detoxification History & Record Review Discussion w/independent historian: Patient Management Discussion w/another healthcare provider: Hospitalist Discharge Plan Dx/Rx/DC Orders Clinical Impression: Polysubstance abuse, Desire for detoxification Disposition Disposition: Acute Care Hospital [facility] Discharge Date/Time: 02/14/23 01:35
--- NOTE | 2023-02-14 00:40 | PCM.HP.STD ---
HPI - General General Date of Admission: 02/14/23 Date of Service: 02/14/23 Chief Complaint: Acute Opiate Withdrawal HPI Narrative The patient is a 32 y/o M w/ PMHx: Asthma, Tobacco use, Polysubstance abuse (Cannabis, Heroin), Hx Cardiopulmonary arrest w/ ROSC w/ associated KEITH 2/2 ATN requiring transient HD, Shock liver 01/2020 who presents to the [facility] ED on 02/14/23 w/ noted acute opiate withdrawal onset starting over the last several hours following last dose ~ 12 hours prior to presentation with normally ~ 2 gm daily snorted with abdominal cramping, generalized body aches and pains, rhinorrhea, fatigue and interest in attaining clean status. He notes he has used substances to control peripheral neuropathy pain. Patient current lives with his girlfriend and notes she does not use substances. He does report following up after his substance related cardiac arrest and is no longer on medications. Work-up in the ED included T97.7, heart rate 77, BP 141/100, respiratory rate 18, 100% on room air, pending CBC, BMP, hepatic profile, alcohol level as well as urine drug screen upon requested evaluation of patient. [facility] Medical History Asthma Cardiopulmonary arrest with successful resuscitation Polysubstance abuse Tobacco use Home Medications acetaminophen 325 mg tablet 650 mg (2 x 325 mg) PO Q6H PRN PRN Pain (1-10) or Fever 02/02/20 [Rx Last Taken Unknown] carvedilol 25 mg tablet 25 mg PO BID 02/02/20 [Rx Last Taken Unknown] Allergy/AdvReac Type Severity Reaction Status Date / Time No Known Allergies Allergy Verified 03/20/21 12:40 Family History (Updated 02/14/23 @ 00:[address] Katey Jaffe MD) Mother No problems noted. Father No problems noted. no surgical history Social History (Updated 02/14/23 @ 00:[address] Katey Jaffe MD) household members: significant other Smoking Status: Current every day smoker tobacco type: cigarettes Smoking packs per day: 0.5 Smoking cigarettes per day: 10.0 alcohol intake: current alcohol intake frequency: a few times a month substance use type: marijuana and heroin ROS ROS Narrative Admission Review of Systems: CONSTITUTIONAL: No weight loss, fever, chills, + weakness or fatigue. HEENT: + Rhinorrhea, tearing. Eyes: No visual loss, blurred vision, double vision or yellow sclerae. Ears, Nose, Throat: No hearing loss, sneezing, congestion, sore throat. SKIN: No rash or itching, lesions, wounds. CARDIOVASCULAR: No chest pain, chest pressure or chest discomfort, palpitations, edema, orthopnea, syncopal events. RESPIRATORY: No shortness of breath, cough or sputum, wheezing, hemoptysis. GASTROINTESTINAL: + anorexia, abdominal cramping, No nausea, vomiting, diarrhea, melena, BRBPR. GENITOURINARY: No dysuria, frequency, urgency or retention. NEUROLOGICAL: No headache, dizziness, syncope, paralysis, ataxia, numbness or tingling in the extremities, focal weakness, change in bowel or bladder control, seizure. MUSCULOSKELETAL: + muscle, back pain, joint pain or stiffness. HEMATOLOGIC: No anemia, bleeding or bruising. LYMPHATICS: No enlarged nodes. No history of splenectomy. PSYCHIATRIC: No history of depression or anxiety. ENDOCRINOLOGIC: No reports of sweating, cold or heat intolerance. No polyuria or polydipsia. ALLERGIES: + history of asthma. Vital Signs Vital Signs Vital Signs: 02/13/23 23:59 Temperature 97.7 F L Temperature Source Temporal Pulse Rate 77 Respiratory Rate 18 Blood Pressure 141/100 H Blood Pressure Mean 113 Pulse Ox 100 Oxygen Delivery Method Room Air Physical Exam Narrative Physical Examination: General: Awake, alert, oriented x 3 and cooperative, seated upright in the ED bed in no apparent distress, reports mild abdominal cramping, rhinorrhea, fatigue. Skin: Normal color, normal turgor, no icterus, no cyanosis. HEENT: AT/NC, EOMI, PERRLA, moderately dry MM, no carotid bruits or JVD noted, mild rhinorrhea noted. Lungs: CTA bilaterally, moderate effort, mild decrease BL bases, no rales, ronchi or wheezing. Heart: Regular rate and rhythm; no gallop, rub audible. Abdomen: Soft, mild generalized discomfort but no rebound or guarding, ND, hyperactive BS, no HSM. Extremities: No cyanosis, clubbing, or edema. Neurological: Patient awake, alert, oriented as noted, cognitive function intact; pupils equally reactive to light and accommodation, cranial nerves II-XII grossly normal, moving all 4 extremities, no focal deficits, strength mildly global decreased secondary to progressing acute withdrawal symptoms Psychiatric: Affect appears fatigued, no acute evidence of depressive or anxiety feelings. Assessment & Plan Assessment/Plan (1) Opiate withdrawal: PLAN: Plan The patient is a 32 y/o M w/ PMHx: Asthma, Tobacco use, Polysubstance abuse (Cannabis, Heroin), Hx Cardiopulmonary arrest w/ ROSC w/ associated KEITH 2/2 ATN requiring transient HD, Shock liver 01/2020 who presents to the [facility] ED on 02/14/23 w/ noted acute opiate withdrawal onset starting over the last several hours following last dose ~ 12 hours prior to presentation. #1. Acute Opiate Withdrawal: Will admit to [facility], routine labs including CBC, CMP, urine for drug screen obtained in the ED and pending upon evaluation, will initiate and continue on protocol with tapering course of Subutex, as needed tylenol, bowel regimen, gabapentin, Bentyl, Vistaril, methocarbamol, clonidine, PRN nightly trazodone for insomnia, IV fluids, IV antiemetics. Once patient clinically improved and completion of taper nearing will plan consultation with case management for transition to next level of rehabilitation care. #2. Elevated BP without clear diagnosis Hypertension: Patient following arrest and ROSC with cardiomyopathy was discharged on metoprolol BB therapy but notes he has been this off for some time, denies HTN history, elevated BP upon presentation but acutely withdrawing, will continue to monitor and add oral regimen if appropriate, PRN IV hydralazine in interim. #3. Polysubstance Abuse: Given ongoing substance abuse per discussion with patient will obtain HIV, hepatitis panel. Patient currently not candidate for hep C treatment currently as needs to be clean, sober x 6 months, documented attendance NA or AA meetings, counseling and ongoing negative drug screens. Encouraged PCP establishment and follow-up. #4. Hx Cardiopulmonary arrest: 01/2020 cardiac arrest w/ ROSC w/ associated KEITH 2/2 ATN requiring transient HD, Shock liver, ECHO 02/06/20 with EF 65%, normal diastole for age, trivial TVI, trivial pericardial effusion with no evidence of any tamponade which was significantly improved from initial assessment 01/25/2020 with EF 25% at that time. #5. Chronic Asthma: Not on regimen, encouraged tobacco cessation as well as cannabis cessation, PRN albuterol. #6. Tobacco Abuse: Encouraged cessation, inpatient consultation per RT, NR if desired. #7. DVT prophylaxis: Low risk, encourage ambulation. Admission Evaluation Time spent evaluating chart, patient history, patient evaluation, care planning and discussion with specialists: 55 minutes. Charges/Coding Visit Charges Inpatient E&M: 47790 Init Hosp L2
[2023-02-14 01:02] LABS: Absolute Lymphocyte Count 2.69 X10^3/uL (0.83-4.51); Absolute Neutrophil Count 2.1 X10^3/uL (2.0-7.7); Basophil# 0.04 X10^3/uL; Basophil% 0.7 % (0-1); Eosinophil# 0.17 X10^3/uL; Eosinophils% 3.1 % (0-5); Hematocrit 46.1 % (40-54); Hemoglobin 15.7 g/dL (13.0-16.5); Lymphocyte # 2.69 X10^3/ul (0.83-4.51); Lymphocyte % 48.3 % (19-41); Mean Corp Hgb Conc 34.1 g/dL (32-36); Mean Corpuscular Hgb 30.3 pg (27.0-32.0); Mean Corpuscular Volume 88.8 fL (80-94); Mean Platelet Vol. 8.4 fl (6.2-12.0); Monocyte# 0.55 X10^3/uL; Monocyte% 9.9 % (0-10); NRBC Flagged by Analyzer 0 % (0-5); Neutrophil # 2.11 X10^3/uL (2.7-7.7); Neutrophil % 37.8 % (47-70); Platelet Count 298 K/mm3 (150-450); RBC Distribution Width CV 12.8 % (11.6-14.6); RBC Distribution Width SD 41.6 fl (35.1-43.9); Red Blood Count 5.19 M/mm3 (4.6-6.2); White Blood Count 5.6 K/mm3 (4.4-11.0)
[2023-02-14 01:21] LABS: Alcohol, Blood (Medical)-Serum < 3.0 mg/dL; Anion Gap 6 (5-15); BUN 12 mg/dL (7-18); BUN/Creat Ratio 11.1 RATIO (10-20); Calcium,Total 8.9 mg/dL (8.5-10.1); Chloride 101 mmol/L (98-107); Creatinine, Serum 1.08 mg/dL (0.70-1.30); EST Glomerular Filtration Rate 83 mL/min (>60); Est Glom Filt Rate - Afr Amer 101 mL/min (>60); Glucose 73 mg/dL (74-106); Potassium 3.6 mmol/L (3.5-5.1); Sodium Level 137 mmol/L (136-145)
[2023-02-14 01:27] LABS: AST(SGOT) 23 U/L (15-37); Alanine Aminotransfer ALT/SGPT 21 U/L (16-61); Albumin, Serum 3.9 g/dL (3.2-5.0); Alkaline Phosphatase 82 U/L (45-117); Bilirubin, Direct 0.19 mg/dL (0.00-0.30); Globulin 4.1 g/dL (2.2-4.2)
[2023-02-14 01:28] LABS: Amphetamine Urine VISTA POSITIVE (<1000 ng/mL); Barbiturate Urine VISTA NEGATIVE (< 200 ng/mL); Benzodiazepine Urine VISTA NEGATIVE (< 200 ng/mL); Cocaine Urine VISTA NEGATIVE (< 300 ng/mL); Ecstacy Urine VISTA POSITIVE (< 500 ng/mL); Methadone Urine VISTA NEGATIVE (< 300 ng/mL); PCP Urine VISTA NEGATIVE (< 25 ng/mL); THC Urine VISTA POSITIVE (< 50 ng/mL); Vista UDS pH Range 5
[2023-02-14] MEDS: Lactated Ringers 1,000 ML 125 ML IV (01:55)
[2023-02-14 01:57] LABS: HIV - WCH Non-Reactive (Nonreactive)
[2023-02-14] MEDS: Methocarbamol 750 MG Tablet 1500 MG PO ×2 (02:14→22:43)
[2023-02-14] MEDS: traZODone 100 MG Tablet PO ×2 (02:14→22:44)
[2023-02-14] MEDS: Buprenorphine HCl 2 MG TAB.SUBL SL ×3 (02:14→17:22)
[2023-02-14] MEDS: 0.9% Saline Lock 10 ML Syringe IV (02:15)
[2023-02-14 03:59] LABS: Hepatitis B Surface Antibody Non-Reactive; Hepatitis B Surface Antigen Non-Reactive (Nonreactive); Hepatitis C Antibody Non-Reactive (Nonreactive)
--- NOTE | 2023-02-14 07:36 | PN.HOSP_ITS ---
Reason for Visit Reason for Visit: Diagnoses Opioid use, unspecified with withdrawal (02/14/23) Subjective Subjective Feels ok. Objective Data Objective Data Vital Signs: Vital Signs Temp Pulse Resp BP Pulse Ox O2 Del Method 37.2 C 74 16 130/67 H 100 Room Air 02/14/23 02:05 02/14/23 02:05 02/14/23 02:05 02/14/23 02:05 02/14/23 02:05 02/14/23 02:05 Oxygen Delivery Method Room Air Weight: 111.5 kg Body Mass Index (BMI) 33.3 Intake & Output: Intake and Output for Last 24 Hours 02/12/23 02/13/23 02/14/23 23:59 23:59 23:59 Intake Total 320 / 320 Balance 320 / 320 Lab / Micro Data 02/14/23 00:40 02/14/23 00:40 Labs: Laboratory Results - last 24 hr 02/14/23 00:40: WBC 5.6, RBC 5.19, Hgb 15.7, Hct 46.1, MCV 88.8, MCH 30.3, MCHC 34.1, RDW Std Deviation 41.6, RDW Coeff of Jennifer 12.8, Plt Count 298, MPV 8.4, Immature Gran % (Auto) 0.200, Neut % (Auto) 37.8 L, Lymph % (Auto) 48.3 H, Braxton % (Auto) 9.9, Eos % (Auto) 3.1, Baso % (Auto) 0.7, Absolute Neuts (auto) 2.1, Absolute Lymphs (auto) 2.69, Nucleated RBC % 0, Sodium 137, Potassium 3.6, Chloride 101, Carbon Dioxide 30.0, Anion Gap 6, BUN 12, Creatinine 1.08, Est GFR (MDRD) Af Amer 101, Est GFR (MDRD) Non-Af 83, BUN/Creatinine Ratio 11.1, Glucose 73 L, Calcium 8.9, Total Bilirubin 0.70, Direct Bilirubin 0.19, AST 23, ALT 21, Alkaline Phosphatase 82, Total Protein 8.0, Albumin 3.9, Globulin 4.1, Urine Opiates Screen NEGATIVE, Urine Methadone Screen NEGATIVE, Ur Barbiturates Screen NEGATIVE, Ur Phencyclidine Scrn NEGATIVE, Ur Amphetamines Screen POSITIVE H, MDMA (Ecstasy) Screen POSITIVE H, U Benzodiazepines Scrn NEGATIVE, Urine Cocaine Screen NEGATIVE, U Cannabinoids Screen POSITIVE H, Ur Drug Screen Comment , Ethyl Alcohol < 3.0, HIV 1&2 Antibody Non-Reactive 02/14/23 00:44: Hep Bs Antigen Non-Reactive, Hep Bs Antibody Non-Reactive, He patitis C Antibody Non-Reactive Physical Exam Const alert and no apparent distress HEENT head/scalp atraumatic Extremity normal to inspection Neuro Sensorium / Orientation: awake and alert Psych affect normal Assessment & Plan Assessment/Plan (1) Opiate withdrawal: PLAN: On buprenorphine taper. Utilize additional agent to help with somatic issues associated with withdrawal. PLAN: Plan Chronic conditions: * h/o CPA: 2/2 overdose. occurred in 2019. Echo on 01/25/20 showed an EF of 25%, but subsequent echo on 02/06/2020 showed an EF of 65% * h/o KEITH: 2/2 overdose. kidney function now WNL * h/o rhabdomyolysis: in 2019 CPK exceeded 250k * polysubstance abuse: complicates chances of long-term sobriety * nicotine abuse: nicotine patch VTE prophylaxis: not indicated. ambulatory. Charges/Coding Visit Charges Inpatient E&M: 41610 Subs Hosp L1
[2023-02-14] MEDS: cloNIDine HCl 0.1 MG Tablet PO ×2 (09:32→22:44)
[2023-02-14] MEDS: Gabapentin 300 MG Capsule PO (09:33)
--- NOTE | 2023-02-14 10:47 | PN.HOSP_ITS ---
Reason for Visit Reason for Visit: Diagnoses Opioid use, unspecified with withdrawal (02/14/23) Subjective Subjective Feels well. Objective Data Objective Data Vital Signs: Vital Signs Temp Pulse Resp BP Pulse Ox O2 Del Method 37.1 C 61 18 122/75 H 99 Room Air 02/14/23 10:00 02/14/23 10:00 02/14/23 10:00 02/14/23 10:00 02/14/23 10:00 02/14/23 10:00 Oxygen Delivery Method Room Air Weight: 111.5 kg Body Mass Index (BMI) 33.3 Intake & Output: Intake and Output for Last 24 Hours 02/12/23 02/13/23 02/14/23 23:59 23:59 23:59 Intake Total 320 / 320 Balance 320 / 320 Lab / Micro Data 02/14/23 00:40 02/14/23 00:40 Labs: Laboratory Results - last 24 hr 02/14/23 00:40: WBC 5.6, RBC 5.19, Hgb 15.7, Hct 46.1, MCV 88.8, MCH 30.3, MCHC 34.1, RDW Std Deviation 41.6, RDW Coeff of Jennifer 12.8, Plt Count 298, MPV 8.4, Immature Gran % (Auto) 0.200, Neut % (Auto) 37.8 L, Lymph % (Auto) 48.3 H, Mcduffie % (Auto) 9.9, Eos % (Auto) 3.1, Baso % (Auto) 0.7, Absolute Neuts (auto) 2.1, Absolute Lymphs (auto) 2.69, Nucleated RBC % 0, Sodium 137, Potassium 3.6, Chloride 101, Carbon Dioxide 30.0, Anion Gap 6, BUN 12, Creatinine 1.08, Est GFR (MDRD) Af Amer 101, Est GFR (MDRD) Non-Af 83, BUN/Creatinine Ratio 11.1, Glucose 73 L, Calcium 8.9, Total Bilirubin 0.70, Direct Bilirubin 0.19, AST 23, ALT 21, Alkaline Phosphatase 82, Total Protein 8.0, Albumin 3.9, Globulin 4.1, Urine Opiates Screen NEGATIVE, Urine Methadone Screen NEGATIVE, Ur Barbiturates Screen NEGATIVE, Ur Phencyclidine Scrn NEGATIVE, Ur Amphetamines Screen POSITIVE H, MDMA (Ecstasy) Screen POSITIVE H, U Benzodiazepines Scrn NEGATIVE, Urine Cocaine Screen NEGATIVE, U Cannabinoids Screen POSITIVE H, Ur Drug Screen Comment , Ethyl Alcohol < 3.0, HIV 1&2 Antibody Non-Reactive 02/14/23 00:44: Hep Bs Antigen Non-Reactive, Hep Bs Antibody Non-Reactive, H epatitis C Antibody Non-Reactive Physical Exam Resp normal respiratory effort, no retractions, no use of accessory muscles and clear to auscultation bilaterally Cardio regular rate, regular rhythm, S1 normal heart sound and S2 normal heart sound GI normal to inspection, nondistended, normoactive bowel sounds
[2023-02-14] MEDS: Acetaminophen 325 MG Tablet 650 MG PO (17:22)
[2023-02-14] MEDS: hydrOXYzine PAM 25 MG Capsule 50 MG PO (17:22)
[2023-02-15] MEDS: Buprenorphine HCl 2 MG TAB.SUBL SL ×3 (01:41→17:39)
[2023-02-15] MEDS: Methocarbamol 750 MG Tablet 1500 MG PO ×2 (05:18→13:28)
[2023-02-15] MEDS: hydrOXYzine PAM 25 MG Capsule 50 MG PO ×2 (05:18→13:28)
[2023-02-15] MEDS: Acetaminophen 325 MG Tablet 650 MG PO (05:18)
[2023-02-15 05:23] VITALS: BP 129/71; PULSE 65; RESP 16; TEMP 36.9; O2SAT 99
--- NOTE | 2023-02-15 07:18 | PN.HOSP_ITS ---
Reason for Visit Reason for Visit: Diagnoses Opioid use, unspecified with withdrawal (02/14/23) Subjective Subjective Still feels sick. Tolerated some oral today. Objective Data Objective Data Vital Signs: Vital Signs Temp Pulse Resp BP Pulse Ox O2 Del Method 36.9 C 65 16 129/71 H 99 Room Air 02/15/23 05:23 02/15/23 05:23 02/15/23 05:23 02/15/23 05:23 02/15/23 05:23 02/15/23 05:23 Oxygen Delivery Method Room Air Weight: 111.5 kg Body Mass Index (BMI) 33.3 Intake & Output: Intake and Output for Last 24 Hours 02/13/23 02/14/23 02/15/23 23:59 23:59 23:59 Intake Total 2276 / 2276 Balance 2276 / 2276 Lab / Micro Data 02/14/23 00:40 02/14/23 00:40 Physical Exam Const alert and no apparent distress Constitutional Narrative: wrapped in blankets except his eyes. Assessment & Plan Assessment/Plan (1) Opiate withdrawal: PLAN: On buprenorphine taper. Utilize additional agent to help with somatic issues associated with withdrawal. PLAN: Plan Chronic conditions: * h/o CPA: 2/2 overdose. occurred in 2019. Echo on 01/25/20 showed an EF of 25%, but subsequent echo on 02/06/2020 showed an EF of 65% * h/o KEITH: 2/2 overdose. Had been on UF at that time for anasarca. kidney function now WNL * h/o rhabdomyolysis: in 2019 CPK exceeded 250k * polysubstance abuse: complicates chances of long-term sobriety * nicotine abuse: nicotine patch VTE prophylaxis: not indicated. ambulatory. Disposition: should be ready for discharge 02/16. He will need to meet with addiction services prior to discharge. Charges/Coding Visit Charges Inpatient E&M: 17901 Subs Hosp L1
[2023-02-15 07:51] VITALS: O2SAT 96
[2023-02-15] MEDS: Gabapentin 300 MG Capsule PO ×2 (10:27→22:29)
[2023-02-15 11:02] VITALS: BP 105/60; PULSE 58; RESP 18; TEMP 36.9; O2SAT 98
[2023-02-15] MEDS: Dicyclomine 10 MG Capsule 20 MG PO ×2 (15:30→22:29)
[2023-02-15 15:59] VITALS: BP 118/65; PULSE 96; RESP 18; TEMP 36.7; O2SAT 98
[2023-02-15 22:22] VITALS: BP 116/64; PULSE 55; RESP 16; TEMP 37.2; O2SAT 100
[2023-02-15] MEDS: traZODone 100 MG Tablet PO (22:29)
[2023-02-15 22:40] VITALS: BP 115/68; PULSE 56; RESP 16; TEMP 36.8; O2SAT 99
[2023-02-16] MEDS: Buprenorphine HCl 2 MG TAB.SUBL SL ×2 (01:30→13:04)
[2023-02-16 05:00] VITALS: BP 98/48; PULSE 50; RESP 16; TEMP 36.7; O2SAT 100
[2023-02-16 07:10] VITALS: O2SAT 95
[2023-02-16] MEDS: Dicyclomine 10 MG Capsule 20 MG PO (10:44)
--- NOTE | 2023-02-16 10:57 | DCINST_ITS ---
Discharge Instructions Diet Discharge Diet: No restrictions Activity Discharge Activity: Return to Normal Activity Dressing / Incision Call your doctor if you observe: Fever of 101 or Higher, Shortness of breath, Dizziness, Fainting spells, Swelling in the ankles, Chest pain and Increased palpitations (irregular heartbeat) Follow Up Care Test Results: Test results from this visit will be discussed in further detail at your follow- up appointment, if applicable. Discharge Plan Admission Admit Date/Time: 02/14/23 00:36 Attending Provider: Victor M Fontana Primary Care Provider: Care Physician,No Primary Consulting Providers: Katey Jaffe Eric Discharge Orders/Prescriptions Prescriptions: Continued carvedilol 25 MG tablet 25 mg PO BID 0RF acetaminophen 325 MG tablet 650 mg PO Q6H PRN PRN (Reason: Pain (-10) or Fever) 0RF Referrals / Follow Up: Care Physician,No Primary [Primary Care Provider] - Disposition Disposition (needs filled in before D/C Order can be placed): Home, Self Care
[2023-02-16 11:00] VITALS: BP 112/58; PULSE 53; RESP 16; TEMP 36.8; O2SAT 99
--- NOTE | 2023-02-16 13:33 | DS.PCM_ITS ---
Providers Date of Admission: 02/14/23 Primary Care Physician: No Primary Care Phys Reason For Visit: OPIATE WITHDRAWAL Diagnosis Discharge Diagnosis (1) Opiate withdrawal: Status: Acute Code(s): F11.93 - Opioid use, unspecified with withdrawal Medications at Discharge Home Medications acetaminophen 325 mg tablet 650 mg (2 x 325 mg) PO Q6H PRN PRN Pain (1-4/10) or Fever 02/02/20 carvedilol 25 mg tablet 25 mg PO BID 02/02/20 Hospital Course Operations None Procedures None Summary of Care Provided Minutes Spent on Discharge: 31 Hospital Course: Per HPI: The patient is a 32 y/o M w/ PMHx: Asthma, Tobacco use, Polysubstance abuse (Cannabis, Heroin), Hx Cardiopulmonary arrest w/ ROSC w/ associated KEITH / ATN requiring transient HD, Shock liver 01/2020 who presents to the [facility] ED on 02/14/23 w/ noted acute opiate withdrawal onset starting over the last several hours following last dose ~ 12 hours prior to presentation with normally ~ 2 gm daily snorted with abdominal cramping, generalized body aches and pains, rhino rrhea, fatigue and interest in attaining clean status. He notes he has used substances to control peripheral neuropathy pain. Patient current lives with his girlfriend and notes she does not use substances. He does report following up after his substance related cardiac arrest and is no longer on medications. Work-up in the ED included T97.7, heart rate 77, BP 141/100, respiratory rate 18, 100% on room air, pending CBC, BMP, hepatic profile, alcohol level as well as urine drug screen upon requested evaluation of patient. Hospital Course: 1. Opiate withdrawal?32-year-old male with previous issues with polysubstance abuse presented to the hospital requesting detox. He has had a previous cardiac arrest due to overdose as well as kidney disease associated with this episode. He has been doing well during this hospitalization he did complete his Subutex dosing while here and I discussed with him the possibility discharging home for looking for an inpatient rehab, he did not feel that inpatient rehab was necessary for him and he elected to go home today. I do recommend that he follow-up with 180 on discharge. I discussed with him the plan for discharge today he expressed understanding of the risk benefits going home and want to go home today. Physical Exam Narrative General: Alert, Oriented x3, Cooperative, No apparent distress HEENT: Atraumatic, PERRLA, EOMI, Normocephalic Oral: Moist Mucosa Neck: Supple, No JVD Lungs: Clear to auscultation, Normal air movement, No rhonchi, No wheeze, No rales Cardiovascular: Regular rate, Regular Rhythm, Normal S1, Normal S2, No murmurs Abdomen: Soft, Non Tender, Non-Distended, No Hepato-splenomegaly Extremities: No edema, Capillary Refill Less than 3 Seconds Skin: No rashes, No breakdown Musculoskeletal: No Tenderness to Palpation of Joints or Extremities Neurological: Cranial nerves II-XII grossly intact, Motor Exam 5/5 strength th roughout, Sensory exam intact to light touch and pain Psych/Mental Status: Normal Affect, Appropriate Weight / BMI Weight Weight: 245 lb 13.047 oz Body Mass Index (BMI) 33.3 ABG / Lab / Microbiology Data 02/14/23 00:40 02/14/23 00:40 D/C Instructions Discharge Diet: No restrictions Call your doctor if you observe: Fever of 101 or Higher, Shortness of breath, Dizziness, Fainting spells, Swelling in the ankles, Chest pain and Increased palpitations (irregular heartbeat) Meaningful Use Info Meaningful Use Diagnoses (Choose all that apply): None applicable Discharge Plan Admission Admit Date/Time: 02/14/23 00:36 Attending Provider: Victor M Fontana Primary Care Provider: Care Physician,No Primary Consulting Providers: Katey Jaffe Eric Discharge Orders/Prescriptions Prescriptions: Continued carvedilol 25 MG tablet 25 mg PO BID 0RF acetaminophen 325 MG tablet 650 mg PO Q6H PRN PRN (Reason: Pain (-11/24) or Fever) 0RF Referrals / Follow Up: Care Physician,No Primary [Primary Care Provider] - Disposition Disposition (needs filled in before D/C Order can be placed): Home, Self Care Charges/Coding Visit Charges Inpatient E&M: 58606 Disch Hosp >30min
== END 2023-02-16 13:11 | disposition home or self-care (01) | DRG 773 ==
LOC: ED 02-14 00:36 → MS3 02-14 00:44
PROVIDERS: Admitting Provider Family Medicine; Emergency Provider Emergency Medicine; Visit Provider Family Medicine
DX: F11.23 Opioid dependence with withdrawal (principal); F12.90 Cannabis use, unspecified, uncomplicated; Z86.74 Personal history of sudden cardiac arrest; F17.210 Nicotine dependence, cigarettes, uncomplicated; G62.9 Polyneuropathy, unspecified; R03.0 Elevated blood-pressure reading, without diagnosis of hypertension
CPT/HCPCS: 80048; 80076; 80307; 82077; 85025; 86703; 86706; 86803; 87340; 97802; 99283; J7120; A4216

== ENCOUNTER 2023-03-26 16:53 | Emergency (ER) | payer MEDICAID, SELFPAY ==
[2023-03-26 16:54] VITALS: BP 125/75; PULSE 103; RESP 18; TEMP 37.3; O2SAT 95; BMI 32.8
--- NOTE | 2023-03-26 17:24 | CT_ITS ---
STUDY: CT BRAIN WITHOUT CONTRAST REASON FOR EXAM: Male, 32 years old. ams RADIATION DOSAGE (If Supplied By Facility): CTDIvol = ( 44.99 ) mGy, DLP = ( 947.97 ) mGycm TECHNIQUE: Transaxial CT imaging of the brain was performed without administration of intravenous contrast material. Individualized dose optimization techniques were used for this CT. COMPARISON: No relevant priors. FINDINGS: Normal soft tissue structures. Normal calvarium. Normal size ventricles and extra-axial spaces for the patient''s age. Normal white matter tracts of the cerebral hemispheres. Normal basal ganglia and thalami. Normal brainstem. Normal cerebellum. There is no intracranial hemorrhage. There are no findings of an acute ischemic infarction. Normal visualized paranasal sinuses. CT/Brain/Head without Contrast IMPRESSION: Normal unenhanced CT scan of the brain. Electronically Signed: Juan Will MD at 18:19 EDT ,
--- NOTE | 2023-03-26 17:24 | CT_ITS ---
STUDY: CT CERVICAL SPINE WITHOUT CONTRAST REASON FOR EXAM: Male, 32 years old. ams RADIATION DOSAGE (If Supplied By Facility): CTDIvol = ( 24.38 ) mGy, DLP = ( 1062.54 ) mGycm TECHNIQUE: High resolution transaxial imaging was performed without contrast material. Sagittal and coronal images were reconstructed. Individualized dose optimization techniques were used for this CT. COMPARISON: None FINDINGS: Normal craniovertebral junction. Normal anterior atlantoaxial articulation. Normal odontoid process. Normal cervical lordosis. Normal vertebral bodies and posterior osseous elements. C2-3: Normal endplates. Normal disc height and morphology. Normal central canal and intervertebral neuroforamina. C3-4: Normal endplates. Normal disc height and morphology. Normal central canal and intervertebral neuroforamina. C4-5: Normal endplates. Normal disc height and morphology. Normal central canal and intervertebral neuroforamina. C5-6: Normal endplates. Normal disc height and morphology. Normal central canal and intervertebral neuroforamina. C6-7: Normal endplates. Normal disc height and morphology. Normal central canal and intervertebral neuroforamina. C7-T1: Normal endplates. Normal disc height and morphology. Normal central canal and intervertebral neuroforamina. Normal visualized soft tissue structures. CT/Spine Cervical without Contras IMPRESSION: Normal unenhanced CT examination of the cervical spine. Electronically Signed: Juan Will MD at 18:20 EDT ,
--- NOTE | 2023-03-26 17:24 | EKG12_ITS ---
Test Reason : SUB ABUSE Blood Pressure : / mmHG Vent. Rate : 086 BPM Atrial Rate : 086 BPM P-R Int : 146 ms QRS Dur : 078 ms QT Int : 360 ms P-R-T Axes : 074 046 039 degrees QTc Int : 430 ms Normal sinus rhythm Normal ECG Confirmed by KLELY OLIVAS, TAI ([id number]), order editor BRYCE COPELAND ([id number]) on 03/30/2023 8:26:59 AM Referred By: Confirmed By:MERCEDES MENDOZA MD
[2023-03-26] MEDS: 0.9% Normal Saline 1,000 ML 1000 ML IV (17:37)
[2023-03-26 17:38] VITALS: O2SAT 95
[2023-03-26 17:56] LABS: Absolute Lymphocyte Count 1.82 X10^3/uL (0.83-4.51); Absolute Neutrophil Count 2.2 X10^3/uL (2.0-7.7); Basophil# 0.05 X10^3/uL; Eosinophil# 0.04 X10^3/uL; Eosinophils% 0.8 % (0-5); Hematocrit 45.1 % (40-54); Hemoglobin 14.6 g/dL (13.0-16.5); Lymphocyte # 1.82 X10^3/ul (0.83-4.51); Lymphocyte % 37.8 % (19-41); Mean Corp Hgb Conc 32.4 g/dL (32-36); Mean Corpuscular Hgb 29.3 pg (27.0-32.0); Mean Corpuscular Volume 90.6 fL (80-94); Monocyte# 0.67 X10^3/uL; Monocyte% 13.9 % (0-10); NRBC Flagged by Analyzer 0 % (0-5); Neutrophil # 2.23 X10^3/uL (2.7-7.7); Neutrophil % 46.3 % (47-70); Platelet Count 303 K/mm3 (150-450); RBC Distribution Width CV 13.2 % (11.6-14.6); RBC Distribution Width SD 43.8 fl (35.1-43.9); Red Blood Count 4.98 M/mm3 (4.6-6.2); White Blood Count 4.8 K/mm3 (4.4-11.0)
--- NOTE | 2023-03-26 18:05 | RAD_ITS ---
STUDY: X-RAY CHEST REASON FOR EXAM: Male, 32 years old. chest pain TECHNIQUE: AP portable COMPARISON: February 01, 2020 FINDINGS: The lungs are clear and expanded. There is no demonstrated pleural abnormality. Normal size heart. Normal mediastinum and ricki. Normal visualized pulmonary arteries. Mildly calcified aortic arch and descending thoracic aorta. Dorsal spine and shoulders demonstrate degenerative change. Normal visualized ribs, and clavicles.. There is no demonstrated abnormality of the visualized soft tissue structures of the upper abdomen. RAD/Chest 1 View (Portable) IMPRESSION: No acute cardiopulmonary pathology Electronically Signed: Juan Will MD at 18:18 EDT ,
[2023-03-26 18:06] LABS: Anion Gap 5 (5-15); BUN 14 mg/dL (7-18); BUN/Creat Ratio 11.3 RATIO (10-20); Calcium,Total 8.8 mg/dL (8.5-10.1); Chloride 105 mmol/L (98-107); Creatinine, Serum 1.24 mg/dL (0.70-1.30); EST Glomerular Filtration Rate 71 mL/min (>60); Est Glom Filt Rate - Afr Amer 86 mL/min (>60); Glucose 133 mg/dL (74-106); Potassium 3.5 mmol/L (3.5-5.1); Sodium Level 137 mmol/L (136-145); Troponin-I HS (w/2H Reflex) 5 pg/mL (3.0-78.0)
--- NOTE | 2023-03-26 18:08 | EX.ED.DYSGE1 ---
HPI History of Present Illness Chief Complaint: Alt LOC Narrative Narrative: 32-year-old male found minimally responsive on a public bench. Apparently he was released from half-way today. He admitted to nursing staff that he snorted something. Patient appears sweaty and he is confused. His speech is slurred. It is hard to redirect him. It is unclear if he drink alcohol but he does admit to this. He has significant history of cardiac arrest in the past. He also has had an NSTEMI. Patient is a poor informant is unclear if he had any trauma. [facility] Medical History Asthma Cardiopulmonary arrest with successful resuscitation Desire for detoxification Opiate withdrawal Polysubstance abuse Polysubstance abuse Tobacco use Home Medications acetaminophen 325 mg tablet 650 mg (2 x 325 mg) PO Q6H PRN PRN Pain (-11/24) or Fever 02/02/20 [Rx Last Taken Unknown] carvedilol 25 mg tablet 25 mg PO BID 02/02/20 [Rx Last Taken Unknown] Allergy/AdvReac Type Severity Reaction Status Date / Time No Known Allergies Allergy Verified 03/20/21 12:40 Family History (Updated 02/14/23 @ 00:[address] Katey Jaffe MD) Mother No problems noted. Father No problems noted. Social History (Updated 02/14/23 @ 00:[address] Katey Jaffe MD) household members: significant other Smoking Status: Current every day smoker tobacco type: cigarettes alcohol intake: current alcohol intake frequency: a few times a month substance use type: marijuana and heroin ROS ROS ED Review of Systems ROS Unobtainable: due to mental condition and due to mental status EXAM Physical Exam Const Vital Signs: 03/26/23 16:54 03/26/23 17:38 03/26/23 21:11 Temperature 99.1 F Temperature Source Temporal Pulse Rate 103 H Respiratory Rate 18 16 Blood Pressure 125/75 H Blood Pressure Mean 91 Pulse Ox 95 95 Oxygen Delivery Method Room Air Positive unkempt General Appearance ED: unkempt and diaphoretic HEENT Reports moist mucous membranes Eyes PERRL and EOMs intact bilaterally Chest Wall inspection of chest normal and palpation of chest normal Resp normal respiratory effort and clear to auscultation bilaterally Auscultation: Negative for rales, rhonchi or wheezes Cardio regular rate and regular rhythm GI normal to inspection, nondistended, normoactive bowel sounds Extremity normal to inspection General Extremety ED: Negative for edema or tenderness General Extremity: Negative for edema Neuro CN's II-XII intact bilaterally and no sensory deficits noted Sensorium / Orientation: orientation impaired Motor Exam: general weakness Psych Psych Narrative: Confused Appearance: unkempt Skin no rashes or lesions noted MDM MDM MDM Narrative Medical decision making narrative: 32-year-old male found on a public bench unresponsive/minimally responsive. He is awake and alert and talking here. He admitted to nursing staff that he snorted something and it is unclear what this was. He admitted to me he took melatonin and then every I asked him a question he trails off and does not finish his sentence. He keeps falling asleep. I do not see any evidence of trauma to the brain however given his history and being found minimally responsive I will obtain a CBC to assess white blood cell count, hemoglobin, platelets. BMP to assess renal function, electrolytes, glucose. High-sensitivity troponin and EKG to assess for ischemia or dysrhythmia. Chest x-ray to rule out pneumonia. CT brain and cervical spine will be obtained because the patient is altered. CT brain and cervical spine are negative for acute findings. Chest x-ray my interpretation shows no acute process. EKG on my interpretation shows a normal sinus rhythm with ventricular rate of 86 bpm without sign of ischemic change or ectopy. CBC, BMP within normal limits. High-sensitivity troponin is 5. Urine drug screen positive for content voids and MDMA. Patient still a little altered and he is at times walking and dancing around the room other times he appears to be staring off. Will continue to monitor him. His workup was ultimately negative. I did ask him to try to find a ride however he stares at his phone blankly and is not able to use it correctly. Patient continue to be monitored. She was able to call for a ride for him. He is awaiting discharge when sober ride shows up. Impression: 1. Altered mental status 2. MDMA abuse 3. Cannabinoid abuse, Lab Data Attestation: I reviewed the patient's lab results. Labs: Laboratory Results - last 24 hr 03/26/23 03/26/23 17:33 19:14 WBC 4.8 RBC 4.98 Hgb 14.6 Hct 45.1 MCV 90.6 MCH 29.3 MCHC 32.4 RDW Std Deviation 43.8 RDW Coeff of Jennifer 13.2 Plt Count 303 MPV 9.0 Immature Gran % (Auto) 0.200 Neut % (Auto) 46.3 L Lymph % (Auto) 37.8 Hanson % (Auto) 13.9 H Eos % (Auto) 0.8 Baso % (Auto) 1.0 Absolute Neuts (auto) 2.2 Absolute Lymphs (auto) 1.82 Nucleated RBC % 0 Sodium 137 Potassium 3.5 Chloride 105 Carbon Dioxide 27.0 Anion Gap 5 BUN 14 Creatinine 1.24 Estim Creat Clear Calc 93.00 Est GFR (MDRD) Af Amer 86 Est GFR (MDRD) Non-Af 71 BUN/Creatinine Ratio 11.3 Glucose 133 H Calcium 8.8 Troponin I High Sens 5 Urine Opiates Screen NEGATIVE Urine Methadone Screen NEGATIVE Ur Barbiturates Screen NEGATIVE Ur Phencyclidine Scrn NEGATIVE Ur Amphetamines Screen NEGATIVE MDMA (Ecstasy) Screen POSITIVE H U Benzodiazepines Scrn NEGATIVE Urine Cocaine Screen NEGATIVE U Cannabinoids Screen POSITIVE H Ur Drug Screen Comment Ethyl Alcohol < 3.0 Radiography Diagnostic Testing: Clinical Impression(s) from Imaging Studies Brain CT 03/26/23 17:24 IMPRESSION: Normal unenhanced CT scan of the brain. Electronically Signed: Juan Will MD at 18:19 EDT , Cervical Spine CT 03/26/23 17:24 IMPRESSION: Normal unenhanced CT examination of the cervical spine. Electronically Signed: Juan Will MD at 18:20 EDT , Chest X-Ray 03/26/23 18:05 IMPRESSION: No acute cardiopulmonary pathology Electronically Signed: Juan Will MD at 18:18 EDT , Discharge Plan Triage Chief Complaint: Alt LOC ED Provider: Nghia Costa Dx/Rx/DC Orders Instructions: ED ALOC, ED Drug Abuse Prescriptions: No Action carvedilol 25 MG tablet 25 mg PO BID 0RF acetaminophen 325 MG tablet 650 mg PO Q6H PRN PRN (Reason: Pain (-11/24) or Fever) 0RF Primary Care Provider: Care Physician,No [facility]5 [facility] Care Physician,No Primary [Primary Care Provider] - Disposition Disposition: Home, Self Care Discharge Date/Time: 03/26/23 21:12
[2023-03-26 18:09] LABS: Alcohol, Blood (Medical)-Serum < 3.0 mg/dL
[2023-03-26 19:33] LABS: Amphetamine Urine VISTA NEGATIVE (<1000 ng/mL); Barbiturate Urine VISTA NEGATIVE (< 200 ng/mL); Benzodiazepine Urine VISTA NEGATIVE (< 200 ng/mL); Cocaine Urine VISTA NEGATIVE (< 300 ng/mL); Ecstacy Urine VISTA POSITIVE (< 500 ng/mL); Methadone Urine VISTA NEGATIVE (< 300 ng/mL); PCP Urine VISTA NEGATIVE (< 25 ng/mL); THC Urine VISTA POSITIVE (< 50 ng/mL); Vista UDS pH Range 4
[2023-03-26 19:39] LABS: Reflex Troponin-HS? (from REC) Y
--- NOTE | 2023-03-26 20:38 | ED.RN ---
FRIEND JILLIAN CALLED PER PT REQUEST. FRIEND IS COMING TO CLINICAL ENGINEERING DIRECTOR PT.
[2023-03-26 21:11] VITALS: RESP 16
== END 2023-03-26 21:12 | disposition home or self-care (01) ==
PROVIDERS: Emergency Provider Student in an Organized Health Care Education/Training Program; Visit Provider Student in an Organized Health Care Education/Training Program
DX: R41.82 Altered mental status, unspecified (principal); R47.81 Slurred speech; F17.210 Nicotine dependence, cigarettes, uncomplicated; F12.90 Cannabis use, unspecified, uncomplicated
CPT/HCPCS: 70450; 71045; 72125; 80048; 80307; 82077; 84484; 85025; 93005; 96360; 99285; J7030; A4216

== ENCOUNTER 2023-08-28 04:58 | Emergency (ER) | payer MEDICAID, SELFPAY ==
[2023-08-28 05:00] VITALS: BP 161/97; PULSE 117; RESP 16; TEMP 36.8; O2SAT 97; BMI 25.8
--- NOTE | 2023-08-28 05:01 | EDS_ITS ---
HPI History of Present Illness Chief Complaint: Lower Extremity Injury [facility] Medical History Asthma Cardiopulmonary arrest with successful resuscitation Desire for detoxification Opiate withdrawal Polysubstance abuse Polysubstance abuse Tobacco use Home Medications NK 08/28/23 [History Last Taken Unknown] Allergy/AdvReac Type Severity Reaction Status Date / Time No Known Allergies Allergy Verified 08/28/23 04:58 Family History (Updated 02/14/23 @ 00:[address] Katey Jaffe MD) Mother No problems noted. Father No problems noted. Social History (Updated 02/14/23 @ 00:[address] Katey Jaffe MD) household members: significant other Smoking Status: Current every day smoker tobacco type: cigarettes alcohol intake: current alcohol intake frequency: a few times a month substance use type: marijuana and heroin EXAM Physical Exam Const Vital Signs: 08/28/23 05:00 08/28/23 05:15 08/28/23 05:37 Temperature 98.2 F Temperature Source Temporal Pulse Rate 117 H 100 99 Respiratory Rate 16 18 17 Blood Pressure 161/97 H 161/97 H Blood Pressure Mean 118 118 Pulse Ox 97 98 98 MDM MDM MDM Narrative Medical decision making narrative: HISTORY OF PRESENT ILLNESS: 33-year-old male presents with bilateral foot pain. States he has had pain for 3 years. Thinks he had glass stuck in his foot 1 month ago. He came in tonight because he could not walk as long as he normally can walk. Denies any inciting event or any trauma. REVIEW OF SYSTEMS: Pertinent positives: Foot pain Pertinent negatives: Numbness, tingling PHYSICAL EXAM: Nursing triage notes reviewed, Vital signs reviewed Constitutional: please see mdm HENT: MMM Eyes: Pupils equal round and reactive to light, Extraocular muscles intact Neck: No stridor, no JVD, full neck ROM Lungs: Clear to auscultation, No wheezing or rales. No increased work of breathing, no conversational dyspnea, no accessory muscle use, no nasal flaring. No respiratory distress noted Heart: Regular rate and rhythm, No murmurs, No rubs and No gallops, 2+ distal pulses (radial, femoral, posterior tibial) in all extremities Abdomen: Soft, there is no tenderness, rigidity, rebound or guarding, no obvious peritoneal signs, no palpable pulsatile abdominal masses, no auscultated abdominal bruit : No CVAT Extremities: No edema, bilateral feet warm well-perfused, no obvious deformities no signs of infection Neuro: Intact sensation L1-S1 dermatomal distributions. Intact 5/5 strength in hip flexion (T12-L3). Knee extension (L2-L4). Ankle dorsiflexion (L4-L5). Ankle plantar flexion (S1). Great toe extension (L5). 2+ patellar and Achilles DTRs. Skin: No rash or lesions noted MEDICAL DECISION MAKING: Chief Complaint: Foot pain External records reviewed: Recent ED visits Factors affecting care: NSTEMI, Social determinants of health: Polysubstance abuse MDM Narrative: Patient hemodynamically stable, afebrile, nontoxic-appearing. Bilateral lower extremities neurovascular intact, no obvious deformities, no signs of infection, compartments are soft, calves are nontender. The patient endorses 3 years of foot pain. I do not suspect the patient to have any acute life or limb threatening pathology at this time no indication for further imaging or testing at this time. The patient is appropriate for discharge home. During the patient's ED stay he all been admitted he is here to have a warm place to sit down and to charge his phone. Attempted to charge his phone vladimir sherine did not have appropriate business solution analyst. He was discharged in stable condition The patient and/or family, caregivers express understanding. The patient and/or family, caregivers agrees with the plan. Shared decision making: I will have a discussion with the patient and or visitors regarding risk/benefits of further testing or admission. They will be made aware of of the risk/benefits inherent in this decision they will be given the opportunity to voice understanding. Total critical care time today provided was at least 0 minutes. This excludes separately billable procedures. Critical care time (if documented) is secondary to the patient having high probability of clinically significant/life threatening deterioration in the patient's condition which required my urgent intervention. Impression: 1. Foot pain Dispo: Discharge . Discharge Plan Triage Chief Complaint: Lower Extremity Injury ED Provider: Chidi Jackson Dx/Rx/DC Orders Instructions: Understanding Plantar Fasciitis Prescriptions: No Action NK Primary Care Provider: Care Physician,No Primary Referrals: Ba Licea DPM [Med Staff - Active Staff] - Care Physician,No Primary [Primary Care Provider] - Activity Restrictions/Additional Instructions: Thank you for trusting us with your care today! Please take Tylenol (2 pills, 650 mg), ibuprofen (2 pills, 400 mg) every 6 hours as needed for pain and fever control. Please return to the emergency department if your symptoms change or worsen. Please follow with your primary care physician and/or podiatry for further outpatient evaluation and management. Disposition Disposition: Home, Self Care Discharge Date/Time: 08/28/23 05:38
[2023-08-28 05:15] VITALS: BP 161/97; PULSE 100; RESP 18; O2SAT 98
[2023-08-28 05:37] VITALS: PULSE 99; RESP 17; O2SAT 98
== END 2023-08-28 05:38 | disposition home or self-care (01) ==
LOC: ED 05:21
PROVIDERS: Emergency Provider Emergency Medicine; Visit Provider Emergency Medicine
DX: M79.671 Pain in right foot (principal); F17.210 Nicotine dependence, cigarettes, uncomplicated; M79.672 Pain in left foot
CPT/HCPCS: 99282

== ENCOUNTER 2023-09-06 19:05 | Emergency (ER) | payer MEDICAID, SELFPAY ==
[2023-09-06 19:05] VITALS: BP 108/88; PULSE 91; RESP 18; TEMP 36.4; O2SAT 100; BMI 28.1
--- NOTE | 2023-09-06 19:21 | EDS_ITS ---
HPI History of Present Illness Chief Complaint: Wound Narrative Narrative: 33-year-old male who denies significant past medical history presents with infection of his right thumb that he states has had for 2 weeks. He states it became inflamed and swollen. Denies any injury. He then started having drainage of his right thumb. There was an area underneath that opened up on his skin and has had purulent drainage with a small amount of bleeding. He denies any fevers or chills. No nausea or vomiting, no other symptoms. PFSH PFS Medical History Asthma Cardiopulmonary arrest with successful resuscitation Desire for detoxification Opiate withdrawal Polysubstance abuse Polysubstance abuse Tobacco use Home Medications doxycycline hyclate 100 mg tablet 100 mg PO BID 10 days #20 tabs 09/06/23 [Rx Last Taken Unknown] Allergy/AdvReac Type Severity Reaction Status Date / Time No Known Allergies Allergy Verified 09/06/23 19:40 Family History Mother No problems noted. Father No problems noted. Social History household members: significant other Smoking Status: Current every day smoker tobacco type: cigarettes alcohol intake: current alcohol intake frequency: a few times a month substance use type: marijuana and heroin ROS ROS ED ROS Narrative Constitutional: No fever, no chills. HEENT: No sore throat. No neck pain. No loss of vision. No rhinorrhea. Cardiovascular: No chest pain. No palpitations. No pedal edema. Respiratory: No cough, no shortness of breath. Abdominal: No abdominal pain. No nausea. No vomiting. Genitourinary: No dysuria. No hematuria. Musculoskeletal: No myalgias. Right thumb pain with swelling, also noted drainage. Neurologic: No headaches. No dizziness. No lightheadedness. Skin: No rash. No change in color. Psychiatric: No depression. No anxiety. EXAM Physical Exam Narrative Exam Narrative: Afebrile. Vital signs noted. HEENT: Normocephalic. Atraumatic. PERRL, EOMI. Neck soft and supple. No point tenderness or step off. Cardiovascular: Regular rate and rhythm. No murmurs, rubs, or gallops appreciated. Respiratory: No tachypnea. Lungs clear to auscultation bilaterally. Gastrointestinal: Abdomen soft, nontender, with normoactive bowel sounds. No rebound or guarding. Neurological: Awake. Alert. Nonfocal, nonlateralizing. Skin: No rash. Normal color. No pallor. Musculoskeletal: No pedal edema. Full range of motion extremities. Inspection of the right thumb after patient removed a large Band-Aid does show circumferential swelling of the tuft and the area of the IP joint. There is purulent drainage noted around the base of the nail, and a small area of skin that opened up with purulent drainage and serosanguineous drainage. Additionally, the epidermal layer is lightened and slightly macerated consistent with keeping a bandage on it. Const Vital Signs: 09/06/23 19:05 Temperature 97.5 F L Temperature Source Temporal Pulse Rate 91 Respiratory Rate 18 Blood Pressure 108/88 H Blood Pressure Mean 94 Pulse Ox 100 Oxygen Delivery Method Room Air MDM MDM MDM Narrative Medical decision making narrative: Concern is for osteomyelitis versus paronychial infection. I have low suspicion for sepsis at this time. He is afebrile. I do feel x-rays are indicated to look for any bony destruction or underlying fracture, although the patient states that he has had not had any trauma. I will obtain basic laboratory work including CBC to look for leukocytosis, CMP, and a lactic acid. I reviewed his prior records and his problem list he has had PEA and ventricular fibrillation along with a metabolic acidosis, hyperkalemia, and hypocalcemia. I reviewed the patient's laboratory work and he has normal white count. Lactic acid is normal. Hemoglobin stable at 10. This emma panel is grossly unremarkable. I do not feel he is septic from this. Upon repeat examination he is resting comfortably. I do feel he probably has more of a paronychial infection and cellulitis of his right thumb. I do not suspect a intra-articular septic joint as he has flexion extension of his right IP joint. X-rays of the thumb and 3 views interpreted by myself independently show no evidence of bony erosion or fracture. I reviewed the radiology report which confirms my independent interpretation. At this point in time, I feel he can be discharged on outpatient antibiotics. He was given his first dose of doxycycline here and a prescription written for the next 10 days to take twice a day. [facility] few days. I do not feel he requires observation or admission. I stressed the importance of taking his antibiotics. Return instructions to the emergency department were reviewed. Disposition is discharged home in stable condition. History & Record Review Discussion w/independent historian: Patient Additional record(s) reviewed:: Prior ED visit Lab Data Attestation: I reviewed the patient's lab results. Discharge Plan Triage Chief Complaint: Wound ED Provider: Chris Coleman Dx/Rx/DC Orders Clinical Impression: Acute paronychia of right thumb, Cellulitis of right thumb Instructions: ED Cellulitis, ED Paronychia of the Finger or Toe Prescriptions: New doxycycline hyclate 100 mg tablet 100 mg PO BID 10 Days Qty: 20 0RF Primary Care Provider: Care Physician,No Primary Referrals: Rupa Mathur [Non-Staff] - 3-5 Days Care Physician,No Primary [Primary Care Provider] - Activity Restrictions/Additional Instructions: Have your wound rechecked in the next 3 to 5 days. 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 Disposition Disposition: Home, Self Care
--- OUTSIDE RECORDS SUMMARY | 2023-09-06 19:34 | XMS RPT_ITS | CCD ---
Author Name Unknown Address [address] [place] [address] Organization [facility] Care Team Providers Care Ply Cutter Name Role Phone Romina Elliott MD Primary Care Provider Unavailable Primary Care Provider Unavailabl Romina Buckner MD Primary Care Provider SKYLAR IRBY Referring Unavailable ROMINA ELLIOTT Primary Care Unavailab ROMINA Ureña Primary Care Unavailab SKYLAR Cabezas Attending Unavailable Medications Completed/Discontinued Medications Medication Drug Class(es) Dates Sig (Normalized) Sig (Original) amLODIPine 5 mg oral tablet (5 sources) Dihydropyridine Calcium Channel Estelle Start: 06-13-2020 take 1 tablet by mouth once daily amLODIPine (NORVASC) 5 mg tablet Indications: Hypertension, essential Take 1 tablet by mouth once daily. 90 tablet 1 06/13/2020 Active Problems Active Problems Problem Classification Problem Date Documented Da te Episodic/Chronic Essential hypertension (5 sources) Essential hypertension; Translations: [Essential (primary) hypertension] Onset: 06-15-2020 06-15-2020 Chronic Other connective tissue disease (1 source) Dysfunction of posterior tibial tendon; Translations: [Posterior tibial tendinitis, unspecified leg] Episodic Other nervous system disorders (2 sources) Neuropathy; Translations: [Polyneuropathy, unspecified] Chronic Residual codes; unclassified (1 source) Pain; Translations: [Pain, unspecified] 10-16-2022 Episodic Past or Other Problems Problem Classification Problem Date Documented Da te Episodic/Chronic Residual codes; unclassified (1 source) Pain, unspecified; Translations: [Pain] Onset: 10-16-2022 Episodic Results Test Name Value Interpretation Reference Range Facil ity Encounters Encounter Date Encounter Type Care Provider Facility Start: 05-21-2023 Telephone encounter Akira Elliott MD Work Phone: [facility] Procedures Date Procedure Procedure Detail Performing Clinician Start: 10-16-2022 Radex foot complete minimum 3 views Skylar Tatiana Work Phone: Plan of Treatment Date Care Activity Detail Author Start: 04-17-2023 Influenza vaccination Influenza Vaccine (#1) [facility] Start: 08-17-2022 DEPRESSION ASSESSMENT DEPRESSION ASSESSMENT [facility] Start: 04-17-2022 Influenza vaccination INFLUENZA (#1) [facility] Start: 06-13-2021 ANNUAL PCP TEAM CHRONIC DISEASE VISIT ANNUAL PCP TEAM CHRONIC DISEASE VISIT [facility] Start: 2008 Urine microalbumin profile [facility] Start: 2007 BP CONTROLLED (<130/80) BP CONTROLLED (<130/80) [facility] Start: 2007 HEPATITIS C SCREENING HEPATITIS C SCREENING [facility] Start: 2007 HIV SCREENING HIV SCREENING [facility] Start: 1995 PNEUMOCOCCAL (1 - PCV) PNEUMOCOCCAL (1 - PCV) [facility] Start: 1995 Pneumococcal vaccination Pneumococcal Vaccine (1 - PCV) [facility] Start: 1989 COVID-19 VACCINE (#1) COVID-19 VACCINE (#1) [facility] Start: 1989 HEPATITIS B (1 of 3 - 3-dose series) HEPATITIS B (1 of 3 - 3-dose series) [facility] Start: 1989 Hepatitis B Vaccine (1 of 3 - 3-dose series) Hepatitis B Vaccine (1 of 3 - 3-dose series) [facility] End: 10-17-2023 EMG(NEURO/NI) EMG(NEURO/NI) EMG Routine Posterior tibial tendon dysfunction Neuropathy 1 Occurrences starting 10/16/2022 until 10/17/2023 [facility] Work Phone: Payers Date Payer Category Payer Medicaid [place] [employer] [place] [employer] [id number] 2022-Present [phone] [address] [place] [address] Medicaid [id number] 2022 Medicaid [id number] Social History Date Type Detail Facility Start: 05-25-2020 Tobacco smoking stat us NHIS Smokes tobacco daily [facility] History of tobacco use Cigarette Smoker [facility] Start: 05-25-2020 End: 09-06-2022 Cigarettes smoked current (pack per day) - Reported 0.3 [facility] Start: 05-25-2020 Tobacco use and exposure Smoke less tobacco non-user [facility] Start: 10-16-2022 Alcohol intake Ex-drinker (finding) [facility] Start: 1989 Sex Assigned At Not on file [facility] Start: 09-06-2022 End: 10-16-2022 Tobacco use panel [facility] National Score (1-10 0), lower number is lower risk 80 [facility] Clinical Notes 10-16-2022 to 05-21-2023 Telephone Encounter - Pina Bucio LPN - 05/21/2023 2:30 PM EDTTelephone Encounter - Michelle Hammonds LPN - 10/17/2022 4:14 PM ESTTelephone Encounter - Michelle Hammonds LPN - 10/17/2022 3:56 PM EST Note Date & Type Note Facility 05-21-2023 Miscellaneous Notes Formattin g of this note might be different from the original. Not able to reach patient. Not seen in primary care since initial establish care visit 06/13/20. Will remove as PCP. documented in this encounter [facility] 10-17-2022 Miscellaneous Notes Formattin g of this note might be different from the original. New orders were place. New orders were faxed to [facility] along with face sheet. Michelle Hammonds LPN Images from the original note were not included. Skylar Romero 3 minutes ago (3:52 PM) I wanted both limbs checked Skylar Irby DPM Emperatriz calling from [facility]. They need the EMG order changed to include the specific limb that is to be checked. Monalisa Lobato documented in this encounter [facility] 10-16-2022 Miscellaneous Notes Formattin g of this note might be different from the original. EMG referral was placed for [facility]. Order for EMG and face sheet was Faxed to [facility]. Michelle Hammonds LPN documented in this encounter [facility] 10-16-2022 Note HNO ID: [id number] Author: Skylar Irby Service: ? Author Type: Physician Type: Progress Notes Filed: 10/17/2022 8:47 AM Note Text: Initial Podiatric Office Visit: Chief Complaint: This 32 year old male who presents with chief complaint:b/l foot pain HPI Patient presents to clinic for evaluation of b/l feet. Patient complains of pain, numbness and tingling in both feet. Patient states that this has been going on for a couple of year. Patient does not currently take anything for the pain other than tylenol prn. He has tried over the counter inserts but he wonders if he needs more custom orthotic PAIN EVALUATION 10/16/2022 1108 Pain Level: 10 8-10/10 Pain Location: Other: See Comment Description: Numbness;Other: See comment;Tingling feels like needles and pins Duration Amount of Time: -- several months Duration Units: Months Frequency: Continuous Intervention/Comfort measure: Reposition;Relaxation No results found for: HBA1C PCP: Romina Elliott MD PAST MEDICAL HISTORY Diagnosis Date Acute KS ([facility]) 01/25/2020 KEITH (acute kidney injury) ([facility]) 01/25/2020 Heart failure ([facility]) 01/25/2020 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 amLODIPine (NORVASC) 5 mg tablet Take 1 tablet by mouth once daily. carvedilol (COREG) 25 mg tablet Take 1 tablet by mouth twice daily with meals. famotidine (PEPCID) 20 mg tablet Take 1 tablet by mouth twice daily. DULoxetine (CYMBALTA) 30 mg capsule Take 1 capsule by mouth once daily. b complex, c, folic acid 1 mg renal vitamins (RENAL CAPS) 1 mg capsule Take 1 capsule by mouth once daily. gabapentin (NEURONTIN) 300 mg capsule Take 1 capsule by mouth three times daily for 30 days. No current facility-administered medications for this visit. ALLERGIES No Known Allergies No past surgical history on file. FAMILY HISTORY Problem Relation Age of Onset Emphysema Father Diabetes Maternal Grandmother Cancer Maternal Grandmother Diabetes Maternal Grandfather Social History Tobacco Use Smoking status: Every Day Packs/day: 0.25 Types: Cigarettes Smokeless tobacco: Never Vaping Use Vaping Use: Never used Substance Use Topics Alcohol use: Not Currently Drug use: Yes Types: Marijuana Comment: once a week REVIEW OF SYSTEMS GENERAL: Negative for Malaise, significant weight loss, fever RESPIRATORY: Negative for cough, wheezing and shortness of breath CARDIOVASCULAR: Negative for chest pain, leg swelling and palpitations GI: Negative for abdominal discomfort, blood in stools or black stools and change in bowel habits : Negative for dysuria, frequency and incontinence MUSCULOSKELETAL: Negative for joint pain or swelling, back pain, and muscle pain. SKIN: Negative for lesions, rash, and itching. HEMATOLOGY/LYMPHOLOGY Negative for prolonged bleeding, bruising easily, and swollen nodes. ENDOCRINE: Negative for cold or heat intolerance, polyuria, polydipsia and goiter. NEURO: negative Physical Exam: Constitutional: Pt is a well developed 32 year old male who is alert, oriented and cooperative Eyes: Following during examination. No redness or drainage. Respiratory: RR normal and nonlabored. Even breathing. No evidence of distress or shortness of breath. Psychology: Patient is engaged during conversation. Normal affect and mood. Does not appear depressed or anxious during encounter. Vascular: Dorsalis pedis and posterior tibial pulses palpable as b/l Capillary Fill time < 5 seconds to digits 1-5 b/l Skin temperature warm to warm proximal to distal b/l Hair growth present to digits Neurological: intact light touch/epicritic sensation Vibratory sensation decreased b/l decreased protective sensation + significant neurological deficits Dermatological: Nails 1-5 b/l appear normal. Webspaces clean and dry 1-4 b/l. Skin appears well hydrated and supple. good color, texture, turgor. No open lesions present. Prior callus noted to ball of b/l feet. No ulceration noted Musculoskeletal/Orthopaedic: Patient has pain to palpation of medial arch b/l Foot type is pronated structurally AJ ROM is full with knee extended and flexed 1st MPJ is full when loaded and no pain or crepitus are noted with ROM. MTJ, STJ are full and free of pain and crepitus. +5/5 muscle strength dorsiflexion, plantarflexion, inversion, eversion b/l Radiographs: 3 views b/l foot ordered October 16, 2022: I have personally reviewed and interpreted these XR myself: flatfoot noted b/l. Bunion noted to left foot ASSESSMENT: (M76.829) Posterior tibial tendon dysfunction (primary encounter diagnosis) (G62.9) Neuropathy PLAN: 1. History and physical examination performed. 2. XR reviewed with patient (more content not included)... [facility] 10-16-2022 Note HNO ID: [id number] Author: Jessenia Heard RN Service: ? Author Type: ? Type: Progress Notes Filed: 10/17/2022 8:47 AM Note Text: AMB ROOMING INTAKE FLOWSHEET DATA Risk Screening Do you have concerns about personal safety or safety in the home?: No Pain Pain Level: 10 (8-10/10) Pain Location: Other: See Comment Description: Numbness, Other: See comment, Tingling (feels like needles and pins) Duration Amount of Time: (several months) Duration Units: Months Frequency: Continuous Intervention/Comfort measure: Reposition, Relaxation Patient presents with: Left Foot - Established Patient, Pain Right Foot - Established Patient, Pain Patient c/o numbness, tingling and a sharp pins and needles feeling in both feet. It is constant but worse at night. States it is hard for him to stand all the time. [facility] 10-16-2022 History of Presen t illness Narrative Images from the original note were not included. Initial Podiatric Office Visit: Chief Complaint: This 32 year old male who presents with chief complaint:b/l foot pain HPI Patient presents to clinic for evaluation of b/l feet. Patient complains of pain, numbness and tingling in both feet. Patient states that this has been going on for a couple of year. Patient does not currently take anything for the pain other than tylenol prn. He has tried over the counter inserts but he wonders if he needs more custom orthotic PAIN EVALUATION 10/16/2022 1108 Pain Level: 10 8-10/10 Pain Location: Other: See Comment Description: Numbness;Other: See comment;Tingling feels like needles and pins Duration Amount of Time: -- several months Duration Units: Months Frequency: Continuous Intervention/Comfort measure: Reposition;Relaxation No results found for: HBA1C PCP: Romina Elliott MD PAST MEDICAL HISTORY Diagnosis Date Acute KS ([facility]) 01/25/2020 KEITH (acute kidney injury) ([facility]) 01/25/2020 Heart failure ([facility]) 01/25/2020 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 amLODIPine (NORVASC) 5 mg tablet Take 1 tablet by mouth once daily. carvedilol (COREG) 25 mg tablet Take 1 tablet by mouth twice daily with meals. famotidine (PEPCID) 20 mg tablet Take 1 tablet by mouth twice daily. DULoxetine (CYMBALTA) 30 mg capsule Take 1 capsule by mouth once daily. b complex, c, folic acid 1 mg renal vitamins (RENAL CAPS) 1 mg capsule Take 1 capsule by mouth once daily. gabapentin (NEURONTIN) 300 mg capsule Take 1 capsule by mouth three times daily for 30 days. No current facility-administered medications for this visit. ALLERGIES No Known Allergies No past surgical history on file. FAMILY HISTORY Problem Relation Age of Onset Emphysema Father Diabetes Maternal Grandmother Cancer Maternal Grandmother Diabetes Maternal Grandfather Social History Tobacco Use Smoking status: Every Day Packs/day: 0.25 Types: Cigarettes Smokeless tobacco: Never Vaping Use Vaping Use: Never used Substance Use Topics Alcohol use: Not Currently Drug use: Yes Types: Marijuana Comment: once a week REVIEW OF SYSTEMS GENERAL: Negative for Malaise, significant weight loss, fever RESPIRATORY: Negative for cough, wheezing and shortness of breath CARDIOVASCULAR: Negative for chest pain, leg swelling and palpitations GI: Negative for abdominal discomfort, blood in stools or black stools and change in bowel habits : Negative for dysuria, frequency and incontinence MUSCULOSKELETAL: Negative for joint pain or swelling, back pain, and muscle pain. SKIN: Negative for lesions, rash, and itching. HEMATOLOGY/LYMPHOLOGY Negative for prolonged bleeding, bruising easily, and swollen nodes. ENDOCRINE: Negative for cold or heat intolerance, polyuria, polydipsia and goiter. NEURO: negative Physical Exam: Constitutional: Pt is a well developed 32 year old male who is alert, oriented and cooperative Eyes: Following during examination. No redness or drainage. Respiratory: RR normal and nonlabored. Even breathing. No evidence of distress or shortness of breath. Psychology: Patient is engaged during conversation. Normal affect and mood. Does not appear depressed or anxious during encounter. Vascular: Dorsalis pedis and posterior tibial pulses palpable as b/l Capillary Fill time < 5 seconds to digits 1-5 b/l Skin temperature warm to warm proximal to distal b/l Hair growth present to digits Neurological: intact light touch/epicritic sensation Vibratory sensation decreased b/l decreased protective sensation + significant neurological deficits Dermatological: Nails 1-5 b/l appear normal. Webspaces clean and dry 1-4 b/l. Skin appears well hydrated and supple. good color, texture, turgor. No open lesions present. Prior callus noted to ball of b/l feet. No ulceration noted Musculoskeletal/Orthopaedic: Patient has pain to palpation of medial arch b/l Foot type is pronated structurally AJ ROM is full with knee extended and flexed 1st MPJ is full when loaded and no pain or crepitus are noted with ROM. MTJ, STJ are full and free of pain and crepitus. +5/5 muscle strength dorsiflexion, plantarflexion, inversion, eversion b/l Radiographs: 3 views b/l foot ordered October 16, 2022: I have personally reviewed and interpreted these XR myself: flatfoot noted b/l. Bunion noted to left foot ASSESSMENT: (M76.829) Posterior tibial tendon dysfunction (primary encounter diagnosis) (G62.9) Neuropathy PLAN: 1. History and physical examination performed. 2. XR reviewed with patient and interpreted today 3. Discussed flatfoot. Will order custom orthotics. 4. Discussed numbness. Will check emg. He has been on neurontin in the past. Will place him on 100 mg bid. If he needs this long duration, would send him to pain management 5. He reduces callus himself. He can continue with pummice stone as needed. Recommend lotion to his foot Skylar Irby DPM Podiatry [address] [place] [facility] [address] Dept: [phone] Dept AMB ROOMING INTAKE FLOWSHEET DATA Risk Screening Do you have concerns about personal safety or safety in the home?: No Pain Pain Level: 10 (8-10/10) Pain Location: Other: See Comment Description: Numbness, Other: See comment, Tingling (feels like needles and pins) Duration Amount of Time: (several months) Duration Units: Months Frequency: Continuous Intervention/Comfort measure: Reposition, Relaxation Patient presents with: Left Foot - Established Patient, Pain Right Foot - Established Patient, Pain Patient c/o numbness, tingling and a sharp pins and needles feeling in both feet. It is constant but worse at night. States it is hard for him to stand all the time. documented in this encounter [facility] 10-16-2022 Note HNO ID: [id number] Author: RT Sarah(R) Service: ? Author Type: Technologist Type: Progress Notes Filed: 10/16/2022 11:11 AM Note Text: Radiology Service Progress Note PATIENT NAME: Wesley Burk DATE OF SERVICE: October 16, 2022 TIME: 11:09 AM PATIENT IDENTITY VERIFICATION COMPLETED USING TWO (2) IDENTIFIERS: Name and Date of confirmed by patient verbally. FALL SCREENING: Has the patient had 2 falls in the last year or 1 fall with injury or currently using an Ambulatory Assistive Device (Walker, Cane, Wheelchair, Crutches, etc.)? No PATIENT GENDER DATA: Male PATIENT RELEVANT IMPLANT DATA REVIEWED: Not Applicable RADIOLOGY DEPARTMENT: General X-ray: Exam(s) Completed: Lower Extremity X-Ray(s): Feet, Bilateral and Wt. Bearing PERIPHERAL IV DATA: Not applicable SIGNED BY: RT Sarah(R) October 16, 2022 11:09 AM [facility] 10-16-2022 History of Presen t illness Narrative Radiology Service Progress Note PATIENT NAME: Wesley Burk DATE OF SERVICE: October 16, 2022 TIME: 11:09 AM PATIENT IDENTITY VERIFICATION COMPLETED USING TWO (2) IDENTIFIERS: Name and Date of confirmed by patient verbally. FALL SCREENING: Has the patient had 2 falls in the last year or 1 fall with injury or currently using an Ambulatory Assistive Device (Walker, Cane, Wheelchair, Crutches, etc.)? No PATIENT GENDER DATA: Male PATIENT RELEVANT IMPLANT DATA REVIEWED: Not Applicable RADIOLOGY DEPARTMENT: General X-ray: Exam(s) Completed: Lower Extremity X-Ray(s): Feet, Bilateral and Wt. Bearing PERIPHERAL IV DATA: Not applicable SIGNED BY: RT Sarah(R) October 16, 2022 11:09 AM documented in this encounter [facility] Diagnosis Neuropathy- Primary Mononeuritis of unspecified site [facility] Diagnosis Pain Generalized pain documented in this encounter [facility] for referral (narrative)* Outpatient Procedure (Routine) - Pending Review Specialty Diagnoses / Procedures Referred By Madalyn robertson Referred To [facility] Diagnoses Posterior tibial tendon dysfunction Neuropathy Procedures EMG(NEURO/NI) NERVE CONDUCTION STUDIES 9-10 STUDIES Skylar Irby [address] [place] [address] Neurological [place] [address] [place] [address] Referral ID Status Reason Start Date Expiration Date Visits Requested Visits Authorized [id number] Pending Review Auto-Generat ed Referral 10/16/2022 10/17/2023 1 1 [facility] for referral (narrative)* Outpatient Procedure (Routine) - Pending Review Specialty Diagnoses / Procedures Referred By Contac t Referred To [facility] [place] Diagnoses Neuropathy Procedures EMG(NEURO/NI) NERVE CONDUCTION STUDIES 9-10 STUDIES Skylar Irby [address] [place] [address] [place] [address] Referral ID Status Reason Start Date Expiration Date Visits Requested Visits Authorized [id number] Pending Review Auto-Generat ed Referral 10/17/2022 10/18/2023 1 1 * Outpatient Procedure (Routine) - Pending Review Specialty Diagnoses / Procedures Referred By Contac t Referred To Contact [facility] [place] Diagnoses Neuropathy Procedures EMG(NEURO/NI) NERVE CONDUCTION STUDIES 9-10 STUDIES Skylar Irby [address] [place] [address] [place] [address] Referral ID Status Reason Start Date Expiration Date Visits Requested Visits Authorized [id number] Pending Review Auto-Generat ed Referral 10/17/2022 10/18/2023 1 1 [facility] for referral (narrative)* Diagnostic Procedure Only (Routine) - Closed Specialty Diagnoses / Procedures Referred By Contac t Referred To Contact XR IMAGING Diagnoses Pain Procedures XR FOOT GENERAL 3V AP/LAT/OBL BILATERAL RADEX FOOT COMPLETE MINIMUM 3 VIEWS Skylar Irby [address] [place] [address] Xr Imaging [id number] Referral ID Status Reason Start Date Expiration Date V isits Requested Visits Authorized [id number] Closed Auto-Generate d Referral 10/16/2022 11/15/2023 [facility] Procedure Only (Routine) - Closed Specialty Diagnoses / Procedures Referred By Contac t Referred To Contact XR IMAGING Diagnoses Pain Procedures XR FOOT GENERAL 3V AP/LAT/OBL BILATERAL RADEX FOOT COMPLETE MINIMUM [address] [address] [place] [address] Referral ID Status Reason Start Date Expiration Date V isits Requested Visits Authorized [id number] Closed Auto-Generate d Referral 10/16/2022 11/15/2023 1 1 [facility] Summary Purpose Family History No Family History Records Found Advance Directives No Advanced Directives Records Found Additional Source Comments Source Comments (unrecognize d section and content) In the event this informatio n is protected by the Federal Confidentiality of Alcohol and Drug Abuse Patient Records regulations: The Federal rules restrict any use of the information to criminally investigate or prosecute any alcohol or drug abuse patient.[facility] the event this information is protected by the Federal Confidentiality of Alcohol and Drug Abuse Patient Records regulations: The Federal rules restrict any use of the information to criminally investigate or prosecute any alcohol or drug abuse patient.[facility] the event this information is protected by the Federal Confidentiality of Alcohol and Drug Abuse Patient Records regulations: The Federal rules restrict any use of the information to criminally investigate or prosecute any alcohol or drug abuse patient.[facility] the event this information is protected by the Federal Confidentiality of Alcohol and Drug Abuse Patient Records regulations: The Federal rules restrict any use of the information to criminally investigate or prosecute any alcohol or drug abuse patient.[facility] the event this information is protected by the Federal Confidentiality of Alcohol and Drug Abuse Patient Records regulations: The Federal rules restrict any use of the information to criminally investigate or prosecute any alcohol or drug abuse patient.[facility] Reason for Visit (unrecogniz ed section and content) Reason Comments Established Patient Pain Reason Comments change in order Reason Comments Hypertension Care Teams (unrecognized sec tion and content) Ply Cutter Relationship Specialty Start Date End Date Romina Elliott MD [address] [place] [address] PCP - General Family Medicine 06/13/20 Ply Cutter Relationship Specialty Start Date End Date Romina Elliott MD [address] [place] [address] PCP - General Family Medicine 06/13/20 Ply Cutter Relationship Specialty Start Date End Date Romina Elliott MD [address] [place], [place] [id number] PCP - General Family Medicine 06/13/20 05/20/23 (unrecognized sect ion and content) No Status Records Found INFORMATION SOURCE (unrecogn ized section and content) FOR RECORDS PERTAINING TO PATIENTS WHO ARE OR HAVE BEEN ENROLLED IN A CHEMICAL DEPENDENCY/SUBSTANCEABUSE PROGRAM, SOME INFORMATION MAY BE OMITTED. This clinical summary was aggregated from multiple sources. Caution should be exercised in using it in the provision of clinical care. This summary normalizes information from multiple sources, and as a consequence, information in this document may materially change the coding, format and clinical context of patient data. In addition, data may be omitted in some cases. CLINICAL DECISIONS SHOULD BE BASED ON THE PRIMARY CLINICAL RECORDS. [employer] provides no warranty or guarantee of the accuracy or completeness of information in this document.
--- NOTE | 2023-09-06 19:40 | RAD_ITS ---
STUDY: X-RAY - RIGHT HAND, ATTENTION FIRST FINGER REASON FOR EXAM: Male, 33 years old. Infection, pain -- First digit/thumb TECHNIQUE: 3 view(s) of the finger were obtained. COMPARISON: None. FINDINGS: Normal metacarpal head. Normal metacarpophalangeal joint. Normal proximal phalanx. Normal distal phalanx. Normal interphalangeal joint. There is no demonstrated fracture. Possible mild soft tissue swelling distally. Otherwise normal radiopaque foreign body. RAD/Finger(s) Min 2 Views IMPRESSION: No acute fracture or subluxation. No radiopaque foreign body. Electronically Signed: Kristine Underwood MD at 20:01 EST ,
[2023-09-06 19:43] VITALS: BP 108/88; PULSE 91; RESP 18; TEMP 36.4; O2SAT 100
[2023-09-06 19:45] LABS: Absolute Lymphocyte Count 2.96 X10^3/uL (0.83-4.51); Absolute Neutrophil Count 1.6 X10^3/uL (2.0-7.7); Basophil# 0.07 X10^3/uL; Basophil% 1.2 % (0-1); Eosinophils% 3.5 % (0-5); Hematocrit 31.6 % (40-54); Hemoglobin 10.1 g/dL (13.0-16.5); Lymphocyte # 2.96 X10^3/ul (0.83-4.51); Lymphocyte % 51.2 % (19-41); Mean Corpuscular Hgb 27.6 pg (27.0-32.0); Mean Corpuscular Volume 86.3 fL (80-94); Mean Platelet Vol. 8.2 fl (6.2-12.0); Monocyte# 0.91 X10^3/uL; Monocyte% 15.7 % (0-10); NRBC Flagged by Analyzer 0 % (0-5); Neutrophil # 1.62 X10^3/uL (2.7-7.7); Neutrophil % 28.1 % (47-70); POSITIVE MORPHOLOGY YES; Platelet Count 314 K/mm3 (150-450); RBC Distribution Width CV 15.1 % (11.6-14.6); Red Blood Count 3.66 M/mm3 (4.6-6.2); White Blood Count 5.8 K/mm3 (4.4-11.0)
[2023-09-06 19:57] LABS: Differential Indicated SCAN CRITERIA MET
[2023-09-06 20:08] LABS: ALB/GLOB Ratio 0.6 RATIO (0.9-2.4); AST(SGOT) 152 U/L (15-37); Alanine Aminotransfer ALT/SGPT 124 U/L (16-61); Albumin, Serum 2.6 g/dL (3.2-5.0); Alkaline Phosphatase 72 U/L (45-117); Anion Gap 5 (5-15); BUN 12 mg/dL (7-18); Calcium,Total 8.4 mg/dL (8.5-10.1); Chloride 103 mmol/L (98-107); EST Glomerular Filtration Rate 118 mL/min (>60); Est Glom Filt Rate - Afr Amer 142 mL/min (>60); Estimated Creatinine Clearance 154.93 ml/min; Globulin 4.3 g/dL (2.2-4.2); Glucose 115 mg/dL (74-106); Lactic Acid 1.6 mmol/L (0.4-1.9); Potassium 3.9 mmol/L (3.5-5.1); Protein, Total 6.9 g/dL (6.4-8.2); Sodium Level 136 mmol/L (136-145)
[2023-09-06 20:09] LABS: Differential Comment SCANNED
[2023-09-06] MEDS: Doxycycline 100 MG CAPSULE PO (20:19)
[2023-09-06 20:22] LABS: Atypical Lymphocyte 1+ %
== END 2023-09-06 20:30 | disposition home or self-care (01) ==
PROVIDERS: Emergency Provider Emergency Medicine; Visit Provider Emergency Medicine
DX: L03.011 Cellulitis of right finger (principal); F17.290 Nicotine dependence, other tobacco product, uncomplicated
CPT/HCPCS: 73140; 80053; 83605; 85025; 99283; A4216

== ENCOUNTER 2023-10-14 04:35 | Inpatient (IN) | payer MEDICAID, SELFPAY ==
[2023-10-14 04:36] VITALS: BP 140/73; PULSE 113; RESP 18; TEMP 36.7; O2SAT 93; BMI 25.7
--- NOTE | 2023-10-14 04:44 | RAD_ITS ---
INDICATION: 2nd toe pain/wound, swelling in RLE EXAMINATION/TECHNIQUE: X-RAY - RIGHT XR Foot Min 3 Views 3 VIEWS COMPARISON: FINDINGS: SOFT TISSUES: Metallic foreign body possibly needle fragment in the soft tissues at the plantar aspect of the big toe. BONES/JOINTS: Osteomyelitis of the distal phalanx of the second toe.. Normal alignment. Preservation of the joint space.. No sclerotic or destructive changes observed. RAD/Foot min 3 Views IMPRESSION: Osteomyelitis of the distal phalanx of the second toe. Metallic foreign body in the soft tissues at the plantar aspect of the big toe. Electronically Signed: Puma Chavez MD at 5:37 EST ,
--- NOTE | 2023-10-14 04:45 | EX.ED.DYSGE1 ---
HPI History of Present Illness Chief Complaint: Abscess Informant: patient and EMS Narrative Narrative: Patient presents because his right leg was hurting earlier but is not now. He presents at 4:30 in the morning by EMS who states they removed him from a house with about 30 people in it and he has been physically agitated throughout transport. Patient denies using drugs other than marijuana. He denies methamphetamine. He states his right leg was cramping really badly earlier but is not now. He states he has wounds to the end of both second toes, the right one has been there for at least 16 years, but his right lower extremity has been edematous for about a week and he states he is concerned that since the right toe is hurting, that he is getting septic and he does not want to lose his toe or leg. PFSH PFS Medical History Asthma Cardiopulmonary arrest with successful resuscitation Desire for detoxification Opiate withdrawal Polysubstance abuse Polysubstance abuse Tobacco use Allergy/AdvReac Type Severity Reaction Status Date / Time No Known Allergies Allergy Verified 09/06/23 19:40 Family History Mother No problems noted. Father No problems noted. Social History household members: significant other Smoking Status: Current every day smoker tobacco type: cigarettes alcohol intake: current alcohol intake frequency: a few times a month substance use type: marijuana and heroin ROS ROS ED Constitutional Constitutional ED: Denies chills or fever(s) Eyes Eyes: Denies change in vision or diplopia ENT ENT ED: Denies rhinorrhea or sore throat Cardiovascular Cardiovascular: Denies chest pain or palpitations Respiratory/Chest Respiratory/Chest: Denies cough or dyspnea Gastrointestinal Gastrointestinal: Denies abdominal pain, diarrhea, nausea or vomiting Genitourinary Genitourinary ED: Denies dysuria or hematuria Musculoskeletal Musculoskeletal: Reports as per HPI and extremity pain; Denies back pain or neck pain Integumentary Reports as per HPI and wounds; Denies abscess or rash Neurologic Neurologic: Denies headache(s), paresthesias or weakness Psychiatric Psychiatric: Denies suicidal ideation or suicidal thoughts EXAM Physical Exam Const Vital Signs: 10/14/23 04:36 Temperature 98.1 F Temperature Source Temporal Pulse Rate 113 H Respiratory Rate 18 Blood Pressure 140/73 H Blood Pressure Mean 95 Pulse Ox 93 Oxygen Delivery Method Room Air Positive well nourished and well developed General Appearance ED: well developed and NAD HEENT Reports moist mucous membranes normocephalic and atraumatic Eyes PERRL and EOMs intact bilaterally Neck full ROM and supple Resp normal respiratory effort and clear to auscultation bilaterally Cardio regular rate, regular rhythm and no murmurs GI non-tender and non-distended Auscultation: normoactive bowel sounds Palpation: soft Back/Spine no CVA tenderness General Back: other FROM Extremity normal to inspection Extremity Narrative: Tender at the wound at the distal aspect of the right second toe. There is a wound at the distal aspect of the left second toe that is nontender. General Extremety ED: Yes edema and tenderness; Negative for pulses abnormal General Extremity: edema right lower extremity moderate (To the knee without calf tenderness or palpable cord or erythema/cellulitis); Negative for pulses abnormal Neuro oriented x3, CN's II-XII intact bilaterally and no sensory deficits noted Sensorium / Orientation: awake and alert Motor Exam: strength 5/5 throughout Psych Psych Narrative: Psychomotor agitation. Anxious. Follows commands. Purposeful movements. Skin no rashes or lesions noted Skin Narrative: As above, there are wounds at the end of both second toes. He has steel-toed boots on, and the second toes symmetrically are longer than all the other toes. There is no discharge or bleeding from either wound. The right one is tender and the left one is not. MDM MDM MDM Narrative Medical decision making narrative: Differential here includes chronic wound with acute infection, there is a possibility of osteomyelitis, his right lower leg is edematous without signs of cellulitis so DVT is in the realm of possibility. For these reasons, labs, with ESR and CRP, and a right foot x-ray as well as D-dimer were obtained. Labs reviewed including his elevated D-dimer. The patient presents when venous Doppler is not available, however it is at the end of mini shifter and when a.m. vascular technicians arrive, I think it would be reasonable to obtain the study. His white blood count is within normal limits and there is no left shift, but he has an elevated ESR and an elevated CRP, and on my interpretation, three-view x-ray series of the right foot is showing demineralization of the distal phalanx of the second toe, consistent with where the wound is and likely osteomyelitis. Vancomycin is ordered. His vital signs are stable he is not septic. Discussed with Dr. Siegel, we discussed the past medical history and the fact that he is going to get a venous evaluation for possible DVT. Recommends admission to medicine and he will gladly consult and agrees with the antibiotics at this time. Lab Data Attestation: I reviewed the patient's lab results. Labs: Laboratory Results - last 24 hr 10/14/23 10/14/23 04:59 05:30 WBC 9.6 RBC 3.77 L Hgb 10.0 L Hct 32.8 L MCV 87.0 MCH 26.5 L MCHC 30.5 L RDW Std Deviation 48.5 H RDW Coeff of Jennifer 15.2 H Plt Count 400 MPV 8.6 Immature Gran % (Auto) 0.300 Neut % (Auto) 40.3 L Lymph % (Auto) 41.2 H [place] % (Auto) 16.9 H Eos % (Auto) 0.4 Baso % (Auto) 0.9 Absolute Neuts (auto) 3.9 Absolute Lymphs (auto) 3.97 Nucleated RBC % 0 Differential Comment SCANNED ESR 73 H D-Dimer Quant (PE/DVT) 1.87 H* Sodium Cancelled 137 Potassium Cancelled 3.6 Chloride Cancelled 102 Carbon Dioxide Cancelled 32.0 Anion Gap Cancelled 3 L BUN Cancelled 13 Creatinine Cancelled 1.03 Estim Creat Clear Calc Cancelled 110.92 Est GFR (MDRD) Af Amer Cancelled 106 Est GFR (MDRD) Non-Af Cancelled 88 BUN/Creatinine Ratio Cancelled 12.6 Glucose Cancelled 111 H Calcium Cancelled 8.0 L C-React Prot Ext Range Cancelled 31.80 H Management Discussion w/another healthcare provider: Hospitalist and Certified Coding Specialist (Podiatry Dr. Siegel) Discharge Plan Dx/Rx/DC Orders Clinical Impression: Osteomyelitis of second toe of right foot, Edema of right lower extremity Disposition Disposition: Acute Care [facility]
[2023-10-14 05:09] LABS: Absolute Lymphocyte Count 3.97 X10^3/uL (0.83-4.51); Absolute Neutrophil Count 3.9 X10^3/uL (2.0-7.7); Basophil# 0.09 X10^3/uL; Basophil% 0.9 % (0-1); Eosinophil# 0.04 X10^3/uL; Eosinophils% 0.4 % (0-5); Hematocrit 32.8 % (40-54); Lymphocyte # 3.97 X10^3/ul (0.83-4.51); Lymphocyte % 41.2 % (19-41); Mean Corp Hgb Conc 30.5 g/dL (32-36); Mean Corpuscular Hgb 26.5 pg (27.0-32.0); Mean Platelet Vol. 8.6 fl (6.2-12.0); Monocyte# 1.63 X10^3/uL; Monocyte% 16.9 % (0-10); NRBC Flagged by Analyzer 0 % (0-5); Neutrophil # 3.88 X10^3/uL (2.7-7.7); Neutrophil % 40.3 % (47-70); POSITIVE DIFFERENTIAL YES; Platelet Count 400 K/mm3 (150-450); RBC Distribution Width CV 15.2 % (11.6-14.6); RBC Distribution Width SD 48.5 fl (35.1-43.9); Red Blood Count 3.77 M/mm3 (4.6-6.2); White Blood Count 9.6 K/mm3 (4.4-11.0)
[2023-10-14 05:14] LABS: Differential Indicated SCAN CRITERIA MET
[2023-10-14 05:30] LABS: D-Dimer Quantitative (DVT/PE) 1.87 FEU/ug/m (0.27-0.49)
--- NOTE | 2023-10-14 05:38 | VDLE_ITS ---
Reason For Study: Right leg swelling RIGHT GSV is normal. CFV is compressible, spontaneous, phasic, competent and demonstrates normal augmentation. FV is compressible, spontaneous, phasic, competent and demonstrates normal augmentation. POP V is compressible, spontaneous, phasic, competent and demonstrates normal augmentation. T/P Trunk is compressible. PTV is compressible. RT PerV is compressible. Enlarged lymph node noted in the right groin that measures 3.50 x 1.16 cm. Procedure This is a venous duplex using B-mode, color flow and spectral Doppler. Exam performed portable in ED. A preliminary report was called and/or faxed to Dr. Castorena. VL/Venous Duplex US, Unilateral Interpretation Summary Deep veins of the right lower extremity are patent and compressible segmentally . There is no evidence of right lower extremity deep vein thrombosis. The right great sapheno us vein appears patent and compressible segmentally. Prominent right inguinal lymph node noted that measures 3.50 x 1.16 cm. Ordering Physician: MD Khari Castorena Performed By: Tona Posey RVT
[2023-10-14 05:45] LABS: Erythrocyte Sedimentation Rate 73 mm/hr (0-20)
[2023-10-14 05:51] LABS: Anion Gap 3 (5-15); BUN 13 mg/dL (7-18); BUN/Creat Ratio 12.6 RATIO (10-20); Chloride 102 mmol/L (98-107); Creatinine, Serum 1.03 mg/dL (0.70-1.30); EST Glomerular Filtration Rate 88 mL/min (>60); Est Glom Filt Rate - Afr Amer 106 mL/min (>60); Estimated Creatinine Clearance 110.92 ml/min; Glucose 111 mg/dL (74-106); Potassium 3.6 mmol/L (3.5-5.1); Sodium Level 137 mmol/L (136-145)
[2023-10-14 06:23] LABS: Differential Comment SCANNED
[2023-10-14] MEDS: Vancomycin HCl 1,250 MG in 0.9% Normal Saline (250mL Bag) 250 ML 167 MG IV (06:31)
--- NOTE | 2023-10-14 07:52 | HP.PCM_ITS ---
HPI - General General Date of Admission: 10/14/23 Date of Service: 10/14/23 Chief Complaint: right leg pain and abscess HPI Narrative BARBARA BURK, is a 33 M with a PMH as outlined who presents via the ED with a complaitn of right leg swelling and pain for 1 week. He has chronic wounds on both second toes, but the one on the right is worse. He denied any fever, chills, palpitations, dizziness, nausea, vomiting or any other symptoms. He came in from a house of over 30 people which appears to be a drug house. He has previously been admitted for cardiopulmonary arrest due to ventricular fibrillation. Vitals in the ED were BP of 140/73, RR of 18 and temp of 98.1F and he was saturating at 93% on room air. Labs showed hb of 10 with wbc of 9.6 and platelets of 400. ESR is 73. Chemistry was significant for calcium of 8 and CRP of 31.8. X-ray of the foot done was concerning for osteomyelitis of the distal phalanx of the second toe with a metallic foreign body in the soft tissues of the plantar aspect of the big toe. He has been admitted to be managed for osteomyelitis of the right second toe. [facility] Medical History Asthma Cardiopulmonary arrest with successful resuscitation Desire for detoxification Opiate withdrawal Polysubstance abuse Polysubstance abuse Tobacco use Allergy/AdvReac Type Severity Reaction Status Date / Time No Known Allergies Allergy Verified 09/06/23 19:40 Family History Mother No problems noted. Father No problems noted. Surgical History no surgical history Social History household members: significant other Smoking Status: Current every day smoker tobacco type: cigarettes alcohol intake: current alcohol intake frequency: a few times a month substance use type: marijuana and heroin ROS ROS Narrative Patient lethargic but able to answer questions. Constitutional Constitutional: Reports malaise and weakness; Denies anorexia, chills, fatigue or fever(s) Eyes Eyes: Denies change in vision ENT HEENT: Denies dysphagia or headache(s) Cardiovascular Cardiovascular: Denies chest pain, edema, orthopnea, palpitations, paroxysmal nocturnal dyspnea or syncope Respiratory/Chest Respiratory/Chest: Denies cough, shortness of breath at rest, shortness of breath with exertion or wheezing Gastrointestinal Gastrointestinal: Denies abdominal pain, diarrhea, dyspepsia, nausea or vomiting Genitourinary Genitourinary: Denies dysuria Integumentary Integumentary: Reports dry skin Neurologic Neurologic: Reports confusion and weakness; Denies dizziness, focal weakness, lack of coordination, numbness or seizures Vital Signs Vital Signs Vital Signs: 10/14/23 04:36 Temperature 98.1 F Temperature Source Temporal Pulse Rate 113 H Respiratory Rate 18 Blood Pressure 140/73 H Blood Pressure Mean 95 Pulse Ox 93 Oxygen Delivery Method Room Air Weight Weight: 189 lb 9.561 oz Body Mass Index (BMI) 25.7 Physical Exam Const alert Constitutional Narrative: lethargic, looks unkempt HEENT normocephalic, head/scalp atraumatic, moist oral mucous membranes and oropharynx normal Mouth: dry mucous membranes Eyes PERRL and EOMs intact bilaterally Neck no lymphadenopathy and supple Lymph Lymphatic: no lymphadenopathy noted and no lymphedema noted Resp Resp Narrative: mildly diminished breath sounds bibasally, no wheezes or crackles. On room air. Cardio regular rate, regular rhythm, S1 normal heart sound, S2 normal heart sound and no murmurs GI normal to inspection, nondistended, normoactive bowel sounds, soft to palpation, non-tender and non-distended Extremity Extremity Narrative: Has moderate edema of the right foot and leg. Has chronic ulcerations of the tip of the second toe on both feet. No visible discharge. Skin Skin Narrative: as under extremities Neuro CN's II-XII intact bilaterally, no focal motor deficits, no sensory deficits noted and deep tendon reflexes 2+ bilaterally Psych Psych Narrative: lethargic Mood & Affect: flat affect Results Lab / Micro Data 10/14/23 04:59 10/14/23 05:30 Labs: Laboratory Results - last 24 hr 10/14/23 04:59: WBC 9.6, RBC 3.77 L, Hgb 10.0 L, Hct 32.8 L, MCV 87.0, MCH 26.5 L, MCHC 30.5 L, RDW Std Deviation 48.5 H, RDW Coeff of Jennifer 15.2 H, Plt Count 400, MPV 8.6, Immature Gran % (Auto) 0.300, Neut % (Auto) 40.3 L, Lymph % (Auto) 41.2 H, [place] % (Auto) 16.9 H, Eos % (Auto) 0.4, Baso % (Auto) 0.9, Absolute Neuts (auto) 3.9, Absolute Lymphs (auto) 3.97, Nucleated RBC % 0, Differential Comment SCANNED, ESR 73 H, D-Dimer Quant (PE/DVT) 1.87 H*, Sodium Cancelled, Potassium Cancelled, Chloride Cancelled, Carbon Dioxide Cancelled, Anion Gap Cancelled, BUN Cancelled, Creatinine Cancelled, Estim Creat Clear Calc Cancelled, Est GFR (MDRD) Af Amer Cancelled, Est GFR (MDRD) Non-Af Cancelled, BUN/Creatinine Ratio Cancelled, Glucose Cancelled, Calcium Cancelled, C-React Prot Ext Range Cancelled 10/14/23 05:30: Sodium 137, Potassium 3.6, Chloride 102, Carbon Dioxide 32.0, Anion Gap 3 L, BUN 13, Creatinine 1.03, Estim Creat Clear Calc 110.92, Est GFR (MDRD) Af Amer 106, Est GFR (MDRD) Non-Af 88, BUN/Creatinine Ratio 12.6, Glucose 111 H, Calcium 8.0 L, C-React Prot Ext Range 31.80 H Assessment & Plan Assessment/Plan (1) Osteomyelitis of second toe of right foot: (2) Edema of right lower extremity: PLAN: Plan #RLE osteomyelitis * admitted with a complaint of right leg swelling. Also has chronic ulcers of the tip of the second toes of both feet. * X-ray of the foot concerning for osteomyelitis. * Start on IV vancomycin. Will add on IV Zosyn. Podiatry consulted. * Will await podiatry recommendations. * #History of polysubstance abuse: * Patient known to use MDMA and amphetamines as well as cannabinoids. Urine tox was tested positive for these in the past. * Will get urine tox. * Will monitor. * #History of cardiovascular arrest due to ventricular fibrillation: Currently stable. Will monitor closely. DVT prophylaxis: Lovenox Charges/Coding Visit Charges Inpatient E&M: 50969 Init Hosp L3
[2023-10-14 08:02] VITALS: BP 127/63; PULSE 89; RESP 20; TEMP 36.9; O2SAT 97
[2023-10-14 10:39] VITALS: BMI 23.7
[2023-10-14 10:46] VITALS: BP 125/89; PULSE 65; RESP 16; TEMP 36.5; O2SAT 96
[2023-10-14] MEDS: 0.9% Normal Saline (1000mL) 1,000 ML 125 ML IV ×2 (11:43→22:03)
[2023-10-14] MEDS: Enoxaparin 40 MG/0.4 ML Syringe SC (11:44)
--- NOTE | 2023-10-14 12:40 | PHA.PHARE_ITS ---
Consult Antibiotic Management Pharmacy has been consulted to manage selected antibiotic: Vancomycin Type of Intervention Type of Consult: New start Suspected Infection Suspected Infection: Skin/Soft tissue Prior Doses of Antibiotics Prior Doses of Antibiotics Received/Current Regimen: received vanc 1250mg IV x1 in E.R. starting at 06:31 today Labs Labs: Sodium 137 mmol/L (136-145) 10/14/23 05:30 Potassium 3.6 mmol/L (3.5-5.1) 10/14/23 05:30 Chloride 102 mmol/L (98-107) 10/14/23 05:30 Carbon Dioxide 32.0 mmol/L (21.0-32.0) 10/14/23 05:30 Anion Gap 3 (5-15) L 10/14/23 05:30 BUN 13 mg/dL (7-18) 10/14/23 05:30 Creatinine 1.03 mg/dL (0.70-1.30) 10/14/23 05:30 Est GFR (MDRD) Af Amer 106 mL/min (>60) 10/14/23 05:30 Est GFR (MDRD) Non-Af 88 mL/min (>60) 10/14/23 05:30 BUN/Creatinine Ratio 12.6 RATIO (10-20) 10/14/23 05:30 Glucose 111 mg/dL (74-106) H 10/14/23 05:30 Dosing Weight Weight used for dosin.8 kg Estimated Creatinine Clearance Estimated Creatinine Clearance: 111 ml/min Goal Trough Goal Trough: 15-20 mcg/mL Pharmacy Plan for Drug Dosing Pharmacy Plan for Drug Dosing: Recommend a starting dose of 1500mg IV q8h per [facility] dosing protocol. Will begin LUZ since the patient only received 1250mg as the initial dose in E.R. about 6 hours ago. Will check a trough before the 3rd dose of 1500mg (4th dose overall). Pharmacy Service will continue to monitor and adjust dosing as required. Follow-Up Labs Follow-Up Labs: Trough: Vancomycin Date/Time Labs Ordered Labs to be done on [date and time ordered]: 0129
[2023-10-14] MEDS: Vancomycin HCl 1,500 MG in 0.9% Normal Saline (500mL Bag) 500 ML 250 MG IV ×2 (14:52→22:04)
--- NOTE | 2023-10-14 17:26 | CON.PCM_ITS ---
Assessment & Plan Assessment/Plan (1) Osteomyelitis of second toe of right foot: (2) Edema of right lower extremity: (3) Other hereditary and idiopathic neuropathies: (4) Non-pressure chronic ulcer of other part of left foot with fat layer exposed : PLAN: Plan Evaluation performed. Reviewed diagnostic data. There is evidence of osteomyelitis right 2nd toe - discussed options with him. Given findings discus sed right 2nd toe amputation, also chronic left 2nd toe ulceration with hammer toe- discussed flexor tenotomy. Reviewed procedures, possible benefits vs risks. He would like to proceed with procedures, but he relates he has to leave. I advised against leaving hospital, and if he leaves it would be against medical advise. Advised him risks of worsening infection and further complications. No culture obtained as there is significant callus and dry eschar to right 2nd toe. Will plan to take culture in surgery. If patient is agreeable to stay we will plan to add on for tomorrow afternoon or Thursday. Ordered left foot xrays, 3 views. Patient is on IV antibiotics Vanc/Zosyn. Podiatry will continue to follow, thank you for consultation. HPI Consult Data Date of Consult: 10/14/23 HPI Narrative Reason for Consultation: Toe infection HPI Narrative: BARBARA BURK, is a 33 M who presents with right 2nd toe, foot and leg swelling. He relates it has been like this for a week. He relates he has neuropathy which is chronic. He relates someone call an ambulance for him to get foot checked out, he was brought to [facility] ER, xrays right foot were obtained and noted to have osteolysis of the distal phalanx of the right 2nd toe. He has been admitted for further management, he has been started on IV antibiotics. No culture has been able to be obtained as nothing is draining. He has hx of polysubstance abuse. He denies alcohol use. He relates he has to leave to get his phone and wallet, he relates no one can bring them to him. He is resting in bed. [facility] Medical History Asthma Cardiopulmonary arrest with successful resuscitation Desire for detoxification Opiate withdrawal Polysubstance abuse Polysubstance abuse Tobacco use Allergy/AdvReac Type Severity Reaction Status Date / Time No Known Allergies Allergy Verified 09/06/23 19:40 Family History Mother No problems noted. Father No problems noted. Surgical History no surgical history Social History household members: significant other Smoking Status: Current every day smoker tobacco type: cigarettes alcohol intake: current alcohol intake frequency: a few times a month substance use type: marijuana and heroin Physical Exam Narrative Right 2nd toe very swollen and bullous, edema goes to foot and leg, there is significant HPK tissue and eschar to the distal 2nd toe, there is chronic contra cture of the 2nd toe as well, left 2nd toe with ulceration to the distal tip down to subc tissue with granular base and viable margins with no evidence of infection, no visible abscess bilateral, no fluctuance, no crepitus, no drainage bilateral foot/ankle or leg, pedal pulses intact bilateral with no evidence of ischemia bilateral. Chronic peripheral neuropathy bilateral, but he does relate to POP to the distal 2nd toes. Chronic hammer toes bilateral. No other open lesions foot or ankle bilateral. No other POP or pain on ROM to the rest of the foot or ankle bilateral. Const oriented x3 and no apparent distress Lab / Micro Data 10/14/23 04:59 10/14/23 05:30 Labs: Laboratory Results - last 24 hr 10/14/23 04:59: WBC 9.6, RBC 3.77 L, Hgb 10.0 L, Hct 32.8 L, MCV 87.0, MCH 26.5 L, MCHC 30.5 L, RDW Std Deviation 48.5 H, RDW Coeff of Jennifer 15.2 H, Plt Count 400, MPV 8.6, Immature Gran % (Auto) 0.300, Neut % (Auto) 40.3 L, Lymph % (Auto) 41.2 H, Bent % (Auto) 16.9 H, Eos % (Auto) 0.4, Baso % (Auto) 0.9, Absolute Neuts (auto) 3.9, Absolute Lymphs (auto) 3.97, Nucleated RBC % 0, Differential Comment SCANNED, ESR 73 H, D-Dimer Quant (PE/DVT) 1.87 H*, Sodium Cancelled, Potassium Cancelled, Chloride Cancelled, Carbon Dioxide Cancelled, Anion Gap Cancelled, BUN Cancelled, Creatinine Cancelled, Estim Creat Clear Calc Cancelled, Est GFR (MDRD) Af Amer Cancelled, Est GFR (MDRD) Non-Af Cancelled, BUN/Creatinine Ratio Cancelled, Glucose Cancelled, Calcium Cancelled, C-React Prot Ext Range Cancelled 10/14/23 05:30: Sodium 137, Potassium 3.6, Chloride 102, Carbon Dioxide 32.0, Anion Gap 3 L, BUN 13, Creatinine 1.03, Estim Creat Clear Calc 110.92, Est GFR (MDRD) Af Amer 106, Est GFR (MDRD) Non-Af 88, BUN/Creatinine Ratio 12.6, Glucose 111 H, Calcium 8.0 L, C-React Prot Ext Range 31.80 H Imaging Radiology Impression Foot X-Ray 10/14/23 04:44 IMPRESSION: Osteomyelitis of the distal phalanx of the second toe. Metallic foreign body in the soft tissues at the plantar aspect of the big toe. Electronically Signed: Puma Chavez MD at 5:37 EST Reading Location ID and State: [facility] / [place] Tel , Service support ,
--- NOTE | 2023-10-14 17:45 | RAD_ITS ---
STUDY: X-RAY - LEFT FOOT CLINICAL: Male, 33 years old. Ulcer 2nd toe distally TECHNIQUE: 3 view(s) of the foot. COMPARISON: None. FINDINGS: Normal talus, calcaneus, and tarsal bones. Normal visualized subtalar, talonavicular, calcaneocuboid, tarsal and tarsometatarsal articulations. Normal metatarsi. Normal metatarsophalangeal joint of the great toe. Normal tibial and fibular sesamoid bones. Normal interphalangeal joint of the great toe. Normal phalanges of the great toe. Normal second through fifth metatarsophalangeal joints. There is soft tissue swelling and irregularity of the second toe. There is cortical indistinctness suggesting erosive change of the tuft of the second distal phalanx. RAD/Foot min 3 Views IMPRESSION: Osteomyelitis of the second distal phalanx. Electronically Signed: Khari Vitale MD at 19:38 EST ,
[2023-10-14 18:00] VITALS: BP 132/84; PULSE 74; RESP 16; TEMP 36.6; O2SAT 100
--- OUTSIDE RECORDS SUMMARY | 2023-10-14 18:47 | XMS RPT_ITS | CCD ---
Author Name Unknown Address [address] [place] [address] Organization [facility] Care Team Providers Care Blue Line Hanger Name Role Phone Romina Elliott MD Primary [...] Start: 04-17-2023 Influenza vaccination Influenza Vaccine (#1) [facility] Start: 08-17-2022 DEPRESSION ASSESSMENT DEPRESSION ASSESSMENT [facility] Start: 04-17-2022 Influenza vaccination INFLUENZA (#1) [facility] Start: 06-13-2021 ANNUAL PCP TEAM CHRONIC DISEASE VISIT ANNUAL PCP TEAM CHRONIC DISEASE VISIT [facility] Start: 2008 Urine microalbumin profile [facility] Start: 2007 BP CONTROLLED (<130/80) BP CONTROLLED (<130/80) [facility] Start: 2007 HEPATITIS C SCREENING HEPATITIS C SCREENING [facility] Start: 2007 HIV SCREENING HIV SCREENING [facility] Start: 1995 PNEUMOCOCCAL (1 - PCV) PNEUMOCOCCAL (1 - PCV) [facility] Start: 1995 Pneumococcal vaccination Pneumococcal Vaccine (1 - PCV) [facility] Start: 1989 COVID-19 VACCINE (#1) COVID-19 VACCINE (#1) [facility] Start: 1989 HEPATITIS B (1 of 3 - 3-dose series) HEPATITIS B (1 of 3 - 3-dose series) [facility] Start: 1989 Hepatitis B Vaccine (1 of 3 - 3-dose series) Hepatitis B Vaccine (1 of 3 - 3-dose series) [facility] End: 10-17-2023 EMG(NEURO/NI) EMG(NEURO/NI) EMG Routine Posterior tibial tendon dysfunction Neuropathy 1 Occurrences starting 10/16/2022 until 10/17/2023 [facility] Work Phone: Payers Date Payer Category Payer Medicaid [employer] [employer] [employer] [id number] 2022-Present [phone] [address] [place] [address] Medicaid [id number] 2022 Medicaid [id number] Social History Date Type Detail Facility Start: 05-25-2020 Tobacco smoking stat us NHIS Smokes tobacco daily [facility] History of tobacco use Cigarette Smoker C [facility] Start: 05-25-2020 End: 09-06-2022 Cigarettes smoked current (pack per day) - Reported 0.3 [facility] Start: 05-25-2020 Tobacco use and exposure Smoke less tobacco non-user [facility] Start: 10-16-2022 Alcohol intake Ex-drinker (finding) [facility] Start: 1989 Sex Assigned At Not on file C [facility] Start: 09-06-2022 End: 10-16-2022 Tobacco use panel [facility] National Score (1-10 0), lower number is lower risk 80 [facility] Clinical Notes 10-16-2022 to 05-21-2023 Telephone [...] remove as PCP. documented in this encounter [facility] 10-17-2022 Miscellaneous Notes Formattin g of this note might be different from the original. New orders were place. New orders were faxed to [facility] along with face sheet. Michelle Hammonds LPN Images from the original note were not included. Skylar Romero 3 minutes ago (3:52 PM) I wanted both limbs checked Skylar Irby DPM Emperatriz calling from [facility]. They need the EMG order changed to include the specific limb that is to be checked. Monalisa Lobato documented in this encounter [facility] 10-16-2022 Miscellaneous Notes Formattin g of this note might be different from the original. EMG referral was placed for [facility]. Order for EMG and face sheet was Faxed to [facility]. Michelle Hammonds LPN documented in this encounter [facility] 10-16-2022 Note HNO ID: [id number] Author: Skylar Irby Service: ? 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 [facility] 10-16-2022 Note HNO ID: [id number] Author: Jessenia Heard RN Service: ? Author [...] for him to stand all the time. 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 documented in this encounter [facility] 10-16-2022 Note HNO ID: [id number] Author: RT Sarah(R) Service: ? Author Type: [...] RT Sarah(R) October 16, 2022 11:09 AM [facility] 10-16-2022 History of Presen t illness [...] 2022 11:09 AM documented in this encounter [facility] Diagnosis Neuropathy- Primary Mononeuritis of unspecified site [facility] Diagnosis Pain Generalized pain documented in this encounter [facility] for referral (narrative)* Outpatient Procedure (Routine) - Pending Review Specialty Diagnoses / Procedures Referred By Madalyn robertson Referred To [facility] Diagnoses Posterior tibial tendon dysfunction Neuropathy Procedures EMG(NEURO/NI) NERVE CONDUCTION STUDIES 9-10 STUDIES Skylar Irby [address] [place] [address] Neurological [place] [address] [place] [address] Referral ID Status Reason Start Date Expiration Date Visits Requested Visits Authorized [id number] Pending Review Auto-Generat ed Referral 10/16/2022 10/17/2023 1 1 [facility] for referral (narrative)* Outpatient Procedure (Routine) - Pending Review Specialty Diagnoses / Procedures Referred By Contac t Referred To [facility] [place] Diagnoses Neuropathy Procedures EMG(NEURO/NI) NERVE CONDUCTION STUDIES 9-10 STUDIES Skylar Irby [address] [place] [address] [place] [address] Referral ID Status Reason Start Date Expiration Date Visits Requested Visits Authorized [id number] Pending Review Auto-Generat ed Referral 10/17/2022 10/18/2023 1 1 * Outpatient Procedure (Routine) - Pending Review Specialty Diagnoses / Procedures Referred By Contac t Referred To Contact [facility] [place] Diagnoses Neuropathy Procedures EMG(NEURO/NI) NERVE CONDUCTION STUDIES 9-10 STUDIES Skylar Irby [address] [place] [address] [place] [address] Referral ID Status Reason Start Date Expiration Date Visits Requested Visits Authorized [id number] Pending Review Auto-Generat ed Referral 10/17/2022 10/18/2023 1 1 [facility] for referral (narrative)* Diagnostic Procedure Only (Routine) - Closed Specialty Diagnoses / Procedures Referred By Contac t Referred To Contact XR IMAGING Diagnoses Pain Procedures XR FOOT GENERAL 3V AP/LAT/OBL BILATERAL RADEX FOOT COMPLETE MINIMUM 3 VIEWS Skylar Irby [address] [place] [address] Xr Imaging [facility] Referral ID Status Reason Start Date Expiration Date V isits Requested Visits Authorized [id number] Closed Auto-Generate d Referral 10/16/2022 11/15/2023 [facility] Procedure Only (Routine) - Closed Specialty Diagnoses / Procedures Referred By Contac t Referred To Contact XR IMAGING Diagnoses Pain Procedures XR FOOT GENERAL 3V AP/LAT/OBL BILATERAL RADEX FOOT COMPLETE MINIMUM [address] [address] [place] [address] Referral ID Status Reason Start Date Expiration Date V isits Requested Visits Authorized [id number] Closed Auto-Generate d Referral 10/16/2022 11/15/2023 1 1 [facility] Summary Purpose Family History No Family [...] or prosecute any alcohol or drug abuse patient.[facility] the event this information is protected by the Federal Confidentiality of Alcohol and Drug Abuse Patient Records regulations: The Federal rules restrict any use of the information to criminally investigate or prosecute any alcohol or drug abuse patient.[facility] Hospital[facility] the event this information is protected by the Federal Confidentiality of Alcohol and Drug Abuse Patient Records regulations: The Federal rules restrict any use of the information to criminally investigate or prosecute any alcohol or drug abuse patient.[facility] Hospital[facility] the event this information is protected by the Federal Confidentiality of Alcohol and Drug Abuse Patient Records regulations: The Federal rules restrict any use of the information to criminally investigate or prosecute any alcohol or drug abuse patient.[facility] the event this information is protected by the Federal Confidentiality of Alcohol and Drug Abuse Patient Records regulations: The Federal rules restrict any use of the information to criminally investigate or prosecute any alcohol or drug abuse patient.[facility] Reason for Visit (unrecogniz ed section and content) Reason Comments Established Patient Pain Reason Comments change in order Reason Comments Hypertension Care Teams (unrecognized sec tion and content) Blue Line Hanger Relationship Specialty Start Date End Date Romina Elliott MD [address] [place] [address] PCP - General Family Medicine 06/13/20 Blue Line Hanger Relationship Specialty Start Date End Date Romina Elliott MD [address] [place] [address] PCP - General Family Medicine 06/13/20 Blue Line Hanger Relationship Specialty Start Date End Date Romina Elliott MD [address] [place], [place] [id number] PCP - General Family Medicine 06/13/20 05/20/23 [...] BE BASED ON THE PRIMARY CLINICAL RECORDS. [employer] provides no warranty or guarantee of the accuracy or completeness of information in this document.
--- OUTSIDE RECORDS SUMMARY | 2023-10-14 19:11 | XMS RPT_ITS | CCD ---
Author Name Unknown Address [address] [place] [address] Organization [facility] Care Team Providers Care Piling Cutter Name Role Phone Romina Elliott MD [...] Start: 04-17-2023 Influenza vaccination Influenza Vaccine (#1) [facility] c Start: 08-17-2022 DEPRESSION ASSESSMENT DEPRESSION ASSESSMENT [facility] Start: 04-17-2022 Influenza vaccination INFLUENZA (#1) [facility] Start: 06-13-2021 ANNUAL PCP TEAM CHRONIC DISEASE VISIT ANNUAL PCP TEAM CHRONIC DISEASE VISIT [facility] Start: 2008 Urine microalbumin profile [facility] Start: 2007 BP CONTROLLED (<130/80) BP CONTROLLED (<130/80) [facility] Start: 2007 HEPATITIS C SCREENING HEPATITIS C SCREENING [facility] Start: 2007 HIV SCREENING HIV SCREENING [facility] Start: 1995 PNEUMOCOCCAL (1 - PCV) PNEUMOCOCCAL (1 - PCV) [facility] Start: 1995 Pneumococcal vaccination Pneumococcal Vaccine (1 - PCV) [facility] Start: 1989 COVID-19 VACCINE (#1) COVID-19 VACCINE (#1) [facility] Start: 1989 HEPATITIS B (1 of 3 - 3-dose series) HEPATITIS B (1 of 3 - 3-dose series) [facility] Start: 1989 Hepatitis B Vaccine (1 of 3 - 3-dose series) Hepatitis B Vaccine (1 of 3 - 3-dose series) [facility] End: 10-17-2023 EMG(NEURO/NI) EMG(NEURO/NI) EMG Routine Posterior tibial tendon dysfunction Neuropathy 1 Occurrences starting 10/16/2022 until 10/17/2023 [facility] Work Phone: Payers Date Payer Category Payer Medicaid [place] [employer] [employer] [id number] 2022-Present [phone] [address] [place] [address] Medicaid [id number] 2022 Medicaid [id number] Social History Date Type Detail Facility Start: 05-25-2020 Tobacco smoking stat us NHIS Smokes tobacco daily [facility] History of tobacco use Cigarette Smoker C [facility] Start: 05-25-2020 End: 09-06-2022 Cigarettes smoked current (pack per day) - Reported 0.3 [facility] Start: 05-25-2020 Tobacco use and exposure Smoke less tobacco non-user [facility] Start: 10-16-2022 Alcohol intake Ex-drinker (finding) [facility] Start: 1989 Sex Assigned At Not on file C [facility] Start: 09-06-2022 End: 10-16-2022 Tobacco use panel [facility] National Score (1-10 0), lower number is lower risk 80 [facility] Clinical Notes 10-16-2022 to 05-21-2023 Telephone Encounter [...] remove as PCP. documented in this encounter [facility] 10-17-2022 Miscellaneous Notes Formattin g of this note might be different from the original. New orders were place. New orders were faxed to [facility] along with face sheet. Michelle Hammonds LPN Images from the original note were not included. Skylar Romero 3 minutes ago (3:52 PM) I wanted both limbs checked Skylar Irby DPM Emperatriz calling from [facility]. They need the EMG order changed to include the specific limb that is to be checked. Monalisa Lobato documented in this encounter [facility] 10-16-2022 Miscellaneous Notes Formattin g of this note might be different from the original. EMG referral was placed for [facility]. Order for EMG and face sheet was Faxed to [facility]. Michelle Hammonds LPN documented in this encounter [facility] 10-16-2022 Note HNO ID: [id number] Author: Skylar Irby Service: ? 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 [facility] 10-16-2022 Note HNO ID: [id number] Author: Jessenia Heard RN Service: ? Author [...] for him to stand all the time. 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 documented in this encounter [facility] 10-16-2022 Note HNO ID: [id number] Author: RT Sarah(R) Service: ? Author Type: [...] RT Sarah(R) October 16, 2022 11:09 AM [facility] 10-16-2022 History of Presen t illness [...] 2022 11:09 AM documented in this encounter [facility] documented [facility] Diagnosis Neuropathy- Primary Mononeuritis of unspecified site documented [facility] this [facility] Diagnosis Pain Generalized pain documented in this encounter [facility] for referral (narrative)* Outpatient Procedure (Routine) - Pending Review Specialty Diagnoses / Procedures Referred By Madalyn robertson Referred To [facility] Diagnoses Posterior tibial tendon dysfunction Neuropathy Procedures EMG(NEURO/NI) NERVE CONDUCTION STUDIES 9-10 STUDIES Skylar Irby [address] [place] [address] Neurological [place] [address] [place] [address] Referral ID Status Reason Start Date Expiration Date Visits Requested Visits Authorized [id number] Pending Review Auto-Generat ed Referral 10/16/2022 10/17/2023 1 1 [facility] for referral (narrative)* Outpatient Procedure (Routine) - Pending Review Specialty Diagnoses / Procedures Referred By Contac t Referred To [facility] [place] Diagnoses Neuropathy Procedures EMG(NEURO/NI) NERVE CONDUCTION STUDIES 9-10 STUDIES Skylar Irby [address] [place] [address] [place] [address] Referral ID Status Reason Start Date Expiration Date Visits Requested Visits Authorized [id number] Pending Review Auto-Generat ed Referral 10/17/2022 10/18/2023 1 1 * Outpatient Procedure (Routine) - Pending Review Specialty Diagnoses / Procedures Referred By Contac t Referred To Contact [facility]UR[facility] [place] Diagnoses Neuropathy Procedures EMG(NEURO/NI) NERVE CONDUCTION STUDIES 9-10 STUDIES Skylar Irby [address] [place] [address] [place] [address] Referral ID Status Reason Start Date Expiration Date Visits Requested Visits Authorized [id number] Pending Review Auto-Generat ed Referral 10/17/2022 10/18/2023 1 1 [facility] for referral (narrative)* Diagnostic Procedure Only (Routine) - Closed Specialty Diagnoses / Procedures Referred By Contac t Referred To Contact XR IMAGING Diagnoses Pain Procedures XR FOOT GENERAL 3V AP/LAT/OBL BILATERAL RADEX FOOT COMPLETE MINIMUM 3 VIEWS Skylar Irby [address] [place] [address] Xr Imaging [facility] Referral ID Status Reason Start Date Expiration Date V isits Requested Visits Authorized [id number] Closed Auto-Generate d Referral 10/16/2022 11/15/2023 1 [facility] Diagnostic Procedure Only (Routine) - Closed Specialty Diagnoses / Procedures Referred By Contac t Referred To Contact XR IMAGING Diagnoses Pain Procedures XR FOOT GENERAL 3V AP/LAT/OBL BILATERAL RADEX FOOT COMPLETE MINIMUM [address] [address] [place] [address] Referral ID Status Reason Start Date Expiration Date V isits Requested Visits Authorized [id number] Closed Auto-Generate d Referral 10/16/2022 11/15/2023 1 1 [facility] Summary Purpose Family History No Family History [...] or prosecute any alcohol or drug abuse patient.[facility] the event this information is protected by the Federal Confidentiality of Alcohol and Drug Abuse Patient Records regulations: The Federal rules restrict any use of the information to criminally investigate or prosecute any alcohol or drug abuse patient.[facility] the event this information is protected by the Federal Confidentiality of Alcohol and Drug Abuse Patient Records regulations: The Federal rules restrict any use of the information to criminally investigate or prosecute any alcohol or drug abuse patient.[facility] Center[facility] the event this information is protected by the Federal Confidentiality of Alcohol and Drug Abuse Patient Records regulations: The Federal rules restrict any use of the information to criminally investigate or prosecute any alcohol or drug abuse patient.[facility] Center[facility] the event this information is protected by the Federal Confidentiality of Alcohol and Drug Abuse Patient Records regulations: The Federal rules restrict any use of the information to criminally investigate or prosecute any alcohol or drug abuse patient.[facility] Reason for Visit (unrecogniz ed section and content) Reason Comments Established Patient Pain Reason Comments change in order Reason Comments Hypertension Care Teams (unrecognized sec tion and content) Piling Cutter Relationship Specialty Start Date End Date Romina Elliott MD [address] [place] [address] PCP - General Family Medicine 06/13/20 Piling Cutter Relationship Specialty Start Date End Date Romina Elliott MD [address] [place] [address] PCP - General Family Medicine 06/13/20 Piling Cutter Relationship Specialty Start Date End Date Romina Elliott MD [address] [place], [place] [id number] PCP - General Family Medicine 06/13/20 05/20/23 [...] BE BASED ON THE PRIMARY CLINICAL RECORDS. [employer] provides no warranty or guarantee of the accuracy or completeness of information in this document.
[2023-10-14 19:19] LABS: Amphetamine Urine VISTA POSITIVE (<1000 ng/mL); Barbiturate Urine VISTA NEGATIVE (< 200 ng/mL); Benzodiazepine Urine VISTA NEGATIVE (< 200 ng/mL); Cocaine Urine VISTA NEGATIVE (< 300 ng/mL); Ecstacy Urine VISTA POSITIVE (< 500 ng/mL); Methadone Urine VISTA NEGATIVE (< 300 ng/mL); PCP Urine VISTA NEGATIVE (< 25 ng/mL); THC Urine VISTA POSITIVE (< 50 ng/mL); Vista UDS pH Range 7
[2023-10-14 22:07] VITALS: BP 139/88; PULSE 70; RESP 16; TEMP 36.6; O2SAT 100
[2023-10-15] MEDS: Piperacil/Tazobactam 3.375 GM in 0.9% Normal Saline (50mL MB+) 50 ML IV ×2 (00:39→05:52)
[2023-10-15 01:45] VITALS: BP 141/87; PULSE 64; RESP 16; TEMP 36.8; O2SAT 100
[2023-10-15 05:25] VITALS: BP 136/97; PULSE 68; RESP 16; TEMP 36.6; O2SAT 100
[2023-10-15] MEDS: Ondansetron 4 MG/2 ML Vial IV (08:32)
[2023-10-15] MEDS: 0.9% Saline Lock 10 ML Syringe IV ×2 (08:32→10:49)
[2023-10-15 08:52] LABS: Absolute Lymphocyte Count 1.82 X10^3/uL (0.83-4.51); Absolute Neutrophil Count 1.5 X10^3/uL (2.0-7.7); Basophil# 0.04 X10^3/uL; Eosinophil# 0.02 X10^3/uL; Eosinophils% 0.5 % (0-5); Hematocrit 37.1 % (40-54); Lymphocyte # 1.82 X10^3/ul (0.83-4.51); Lymphocyte % 45.6 % (19-41); Mean Corp Hgb Conc 32.3 g/dL (32-36); Mean Corpuscular Hgb 27.8 pg (27.0-32.0); Mean Corpuscular Volume 86.1 fL (80-94); Monocyte# 0.58 X10^3/uL; Monocyte% 14.5 % (0-10); NRBC Flagged by Analyzer 0 % (0-5); Neutrophil # 1.52 X10^3/uL (2.7-7.7); Neutrophil % 38.1 % (47-70); Platelet Count 366 K/mm3 (150-450); RBC Distribution Width CV 15.4 % (11.6-14.6); RBC Distribution Width SD 48.6 fl (35.1-43.9); Red Blood Count 4.31 M/mm3 (4.6-6.2)
[2023-10-15 09:17] VITALS: BP 136/86; PULSE 69; RESP 16; TEMP 36.6; O2SAT 100
[2023-10-15] MEDS: Gabapentin 300 MG Capsule PO (09:18)
[2023-10-15 09:42] LABS: Anion Gap 7 (5-15); BUN 8 mg/dL (7-18); BUN/Creat Ratio 10.4 RATIO (10-20); Calcium,Total 8.5 mg/dL (8.5-10.1); Chloride 104 mmol/L (98-107); Creatinine, Serum 0.77 mg/dL (0.70-1.30); EST Glomerular Filtration Rate 123 mL/min (>60); Est Glom Filt Rate - Afr Amer 149 mL/min (>60); Estimated Creatinine Clearance 152.77 ml/min; Glucose 81 mg/dL (74-106); Potassium 3.8 mmol/L (3.5-5.1); Sodium Level 133 mmol/L (136-145)
[2023-10-15 09:44] LABS: Vancomycin, Trough Level 14.1 ug/mL (5.0-15.0)
--- NOTE | 2023-10-15 10:14 | PCM.RX.CS ---
Consult Antibiotic Management Pharmacy has been consulted to manage selected antibiotic: Vancomycin Type of Intervention Type of Consult: Follow-up Suspected Infection Suspected Infection: Skin/Soft tissue and Osteomyelitis Prior Doses of Antibiotics Prior Doses of Antibiotics Received/Current Regimen: Currently on 1500mg iv q8h. Labs Labs: Sodium 133 mmol/L (136-145) L 10/15/23 08:38 Potassium 3.8 mmol/L (3.5-5.1) 10/15/23 08:38 Chloride 104 mmol/L (98-107) 10/15/23 08:38 Carbon Dioxide 22.0 mmol/L (21.0-32.0) 10/15/23 08:38 Anion Gap 7 (5-15) 10/15/23 08:38 BUN 8 mg/dL (7-18) 10/15/23 08:38 Creatinine 0.77 mg/dL (0.70-1.30) 10/15/23 08:38 Est GFR (MDRD) Af Amer 149 mL/min (>60) 10/15/23 08:38 Est GFR (MDRD) Non-Af 123 mL/min (>60) 10/15/23 08:38 BUN/Creatinine Ratio 10.4 RATIO (10-20) 10/15/23 08:38 Glucose 81 mg/dL (74-106) 10/15/23 08:38 Vancomycin Trough 14.1 ug/mL (5.0-15.0) 10/15/23 08:38 Dosing Weight Weight used for dosin.8 kg Estimated Creatinine Clearance Estimated Creatinine Clearance: 152ml/min Goal Trough Goal Trough: 15-20 mcg/mL Pharmacy Plan for Drug Dosing Pharmacy Plan for Drug Dosing: Patient on 1500mg iv q8h. Had order for trough level this AM @0430. Patient refused lab draw, therefore 0500 dose not given. Patient later agreed to lab draw and level reported as 14.1 @0838. This was ~10.5 hrs post dose. Since lab draw 4 hrs later than scheduled, it is expected level would have been in therapeutic range of 15-20mcg/ml if done at 0430. Recommend continuing same dose with another trough level before another 4th dose per protocol. Pharmacy Service will continue to monitor and adjust dosing as required. Follow-Up Labs Follow-Up Labs: Trough: Vancomycin (3.1.24 @0930)
[2023-10-15] MEDS: Vancomycin HCl 1,500 MG in 0.9% Normal Saline (500mL Bag) 500 ML 250 MG IV (10:49)
[2023-10-15] MEDS: Acetaminophen 325 MG Tablet 650 MG PO (10:50)
[2023-10-15] MEDS: Buprenorphine HCl 2 MG TAB.SUBL 4 MG SL (10:50)
[2023-10-15] MEDS: Methocarbamol 750 MG Tablet PO (10:50)
[2023-10-15] MEDS: Enoxaparin 40 MG/0.4 ML Syringe SC (10:50)
[2023-10-15] MEDS: oxyCODONE 5 MG Tablet PO (10:50)
--- NOTE | 2023-10-15 13:11 | PN_ITS ---
Subjective Subjective Patient seen and examined.He complained of withdrawal symptoms from opiates, which he admits to abusing. He is due for MRI of the lower extremities. Objective Data Objective Data Vital Signs: Vital Signs Temp Pulse Resp BP Pulse Ox O2 Del Method 97.9 F 69 16 136/86 H 100 Room Air 10/15/23 09:17 10/15/23 09:17 10/15/23 09:17 10/15/23 09:17 10/15/23 09:17 10/15/23 09:17 Oxygen Delivery Method Room Air Weight: 180 lb 12.465 oz Body Mass Index (BMI) 23.7 Intake & Output: Intake and Output for Last 24 Hours 10/13/23 10/14/23 10/15/23 23:59 23:59 23:59 Intake Total 2325 / 2325 1870 / 1870 Output Total 1900 / 1900 1000 / 1000 Balance 425 / 425 870 / 870 Lab / Micro Data 10/15/23 08:38 10/15/23 08:38 Labs: Laboratory Results - last 24 hr 10/14/23 18:53: Urine Opiates Screen NEGATIVE, Urine Methadone Screen NEGATIVE, Ur Barbiturates Screen NEGATIVE, Ur Phencyclidine Scrn NEGATIVE, Ur Amphetamines Screen POSITIVE H, MDMA (Ecstasy) Screen POSITIVE H, U Benzodiazepines Scrn NEGATIVE, Urine Cocaine Screen NEGATIVE, U Cannabinoids Screen POSITIVE H, Ur Drug Screen Comment 10/15/23 08:38: WBC 4.0 L, RBC 4.31 L, Hgb 12.0 L, Hct 37.1 L, MCV 86.1, MCH 2 7.8, MCHC 32.3 D, RDW Std Deviation 48.6 H, RDW Coeff of Jennifer 15.4 H, Plt Count 366, MPV 8.0, Immature Gran % (Auto) 0.300, Neut % (Auto) 38.1 L, Lymph % (Auto) 45.6 H, [place] % (Auto) 14.5 H, Eos % (Auto) 0.5, Baso % (Auto) 1.0, Absolute Neuts (auto) 1.5 L, Absolute Lymphs (auto) 1.82, Nucleated RBC % 0, Sodium 133 L , Potassium 3.8, Chloride 104, Carbon Dioxide 22.0, Anion Gap 7, BUN 8, Creatinine 0.77, Estim Creat Clear Calc 152.77, Est GFR (MDRD) Af Amer 149, Est GFR (MDRD) Non-Af 123, BUN/Creatinine Ratio 10.4, Glucose 81, Calcium 8.5, Vancomycin Trough 14.1 Radiography Diagnostic Testing: Radiology Impression Foot X-Ray 10/14/23 04:44 IMPRESSION: Osteomyelitis of the distal phalanx of the second toe. Metallic foreign body in the soft tissues at the plantar aspect of the big toe. Electronically Signed: Puma Chavez MD at 5:37 EST , Venous Doppler Study 10/14/23 05:38 Interpretation Summary Deep veins of the right lower extremity are patent and compressible segmentally. There is no evidence of right lower extremity deep vein thrombosis. The right great saphenous vein appears patent and compressible segmentally. Prominent right inguinal lymph node noted that measures 3.50 x 1.16 cm. Ordering Physician: MD Khari Castorena Performed By: Tona Posey Lissy Foot X-Ray 10/14/23 17:45 IMPRESSION: Osteomyelitis of the second distal phalanx. Electronically Signed: Khari Vitale MD at 19:38 EST , Physical Exam Const alert Constitutional Narrative: lethargic HEENT normocephalic, head/scalp atraumatic, moist oral mucous membranes and oropharynx normal Eyes PERRL and EOMs intact bilaterally Neck no lymphadenopathy and supple Lymph Lymphatic: no lymphadenopathy noted and no lymphedema noted Resp Resp Narrative: mildly diminished breath sounds bibasally, no wheezes or crackles. On room air. Cardio regular rate, regular rhythm, S1 normal heart sound, S2 normal heart sound and no murmurs GI normal to inspection, nondistended, normoactive bowel sounds, soft to palpation, non-tender and non-distended Extremity Extremity Narrative: Has moderate edema of the right foot and leg. Has chronic ulcerations of the tip of the second toe on both feet. No visible discharge. Skin Skin Narrative: as under extremities Neuro CN's II-XII intact bilaterally, no focal motor deficits, no sensory deficits noted and deep tendon reflexes 2+ bilaterally Psych Psych Narrative: lethargic Mood & Affect: flat affect Assessment & Plan Assessment/Plan (1) Osteomyelitis of second toe of right foot: (2) Edema of right lower extremity: PLAN: Plan #RLE osteomyelitis * admitted with a complaint of right leg swelling. Also has chronic ulcers of the tip of the second toes of both feet. * X-ray of the foot concerning for osteomyelitis. * on IV vancomycin and zosyn * for MRI of his lower extremities today * per podiatry, for surgery tomorrow. * #History of polysubstance abuse: * Patient known to use MDMA and amphetamines as well as cannabinoids. Urine tox was tested positive for these in the past. * urine tox positive for amphetamines and MDMA as well as cannabinoids * #History of cardiovascular arrest due to ventricular fibrillation: Currently stable. Will monitor closely. DVT prophylaxis: Lovenox Charges/Coding Visit Charges Inpatient E&M: 00004 Subs Hosp L2
--- NOTE | 2023-10-15 13:42 | NURSING ---
Patient leaving AMA. Papers signed and on chart. MD and charge nurse aware.
--- NOTE | 2023-10-16 07:36 | DS.PCM_ITS ---
Providers Date of Admission: 10/14/23 Date of Discharge: 10/15/23 Primary Care Physician: No Primary Care Phys Consultations 10/14/23 10:54 Consult: Podiatry Routine Consulting Provider: Juan Siegel Reason for Consult: bilateral foot ulcers, conern for osteomyelitis EMERGENT Consult: No MD Notified: Yes Date Notified: 10/14/23 Time Notified: 10:54 Method of Notification: ED Physician Initiated Reason For Visit: CELLULITIS AND SWELLING OF THE RLE Diagnosis Discharge Diagnosis (1) Osteomyelitis of second toe of right foot: Status: Acute Code(s): M86.9 - Osteomyelitis, unspecified (2) Edema of right lower extremity: Status: Acute Code(s): R60.0 - Localized edema Plan #RLE osteomyelitis * admitted with a complaint of right leg swelling. Also has chronic ulcers of the tip of the second toes of both feet. * X-ray of the foot concerning for osteomyelitis. * on IV vancomycin and zosyn * for MRI of his lower extremities today * per podiatry, for surgery tomorrow. * #History of polysubstance abuse: * Patient known to use MDMA and amphetamines as well as cannabinoids. Urine tox was tested positive for these in the past. * urine tox positive for amphetamines and MDMA as well as cannabinoids * #History of cardiovascular arrest due to ventricular fibrillation: Currently stable. Will monitor closely. DVT prophylaxis: [facility] Course Operations None Procedures None Summary of Care Provided Minutes Spent on Discharge: 55 Hospital Course: BARBARA BURK, is a 33 M with a PMH as outlined who presents via the ED with a complaint of right leg swelling and pain for 1 week. He was admitted on 10/14/2023. He has chronic wounds on both second toes, but the one on the right is worse. He denied any fever, chills, palpitations, dizziness, nausea, vomiting or any other symptoms. He came in from a house of over 30 people which appears to be a drug house. He has previously been admitted for cardiopulmonary arrest due to ventricular fibrillation. Vitals in the ED were BP of 140/73, RR of 18 and temp of 98.1F and he was saturating at 93% on room air. Labs showed hb of 10 with wbc of 9.6 and platelets of 400. ESR is 73. Chemistry was significant for calcium of 8 and CRP of 31.8. X-ray of the foot done was concerning for osteomyelitis of the distal phalanx of the second toe with a metallic foreign body in the soft tissues of the plantar aspect of the big toe. He was admitted to be managed for osteomyelitis of the right second toe. Podiatry was consulted. MRI was ordered due to concern for osteomyelitis. Plan was for patient to have surgery done by podiatry on 10/15/2023. However, patient signed out AMA on 10/15/2023. Patient was seen and examined on the day he signed out AMA. He had no complaints and was ok with staying in the hospital. He however subsequently signed out AMA. Physical Exam Const alert Constitutional Narrative: lethargic HEENT normocephalic, head/scalp atraumatic, hearing grossly normal bilaterally, moist oral mucous membranes and oropharynx normal Mouth: oral and palatal mucosa normal Eyes PERRL and EOMs intact bilaterally Neck no lymphadenopathy and supple Lymph Lymphatic: no lymphadenopathy noted and no lymphedema noted Resp Resp Narrative: mildly diminished breath sounds bibasally, no wheezes or crackles. On room air. Cardio regular rate, regular rhythm, S1 normal heart sound, S2 normal heart sound and no murmurs GI normal to inspection, nondistended, normoactive bowel sounds, soft to palpation, non-tender and non-distended Extremity Extremity Narrative: Has moderate edema of the right foot and leg. Has chronic ulcerations of the tip of the second toe on both feet. No visible discharge. Skin Skin Narrative: as under extremities Neuro oriented x3, CN's II-XII intact bilaterally, moves all extremities, no focal motor deficits, no sensory deficits noted and deep tendon reflexes 2+ bilaterally Sensorium / Orientation: awake Motor Exam: strength 5/5 throughout Psych Psych Narrative: lethargic Mood & Affect: flat affect Weight / BMI Weight Weight: 180 lb 12.465 oz Body Mass Index (BMI) 23.7 ABG / Lab / Microbiology Data 10/15/23 08:38 10/15/23 08:38 Laboratory: Laboratory Results - last 24 hr 10/15/23 08:38: WBC 4.0 L, RBC 4.31 L, Hgb 12.0 L, Hct 37.1 L, MCV 86.1, MCH 27.8, MCHC 32.3 D, RDW Std Deviation 48.6 H, RDW Coeff of Jennifer 15.4 H, Plt Count 366, MPV 8.0, Immature Gran % (Auto) 0.300, Neut % (Auto) 38.1 L, Lymph % (Auto) 45.6 H, [place] % (Auto) 14.5 H, Eos % (Auto) 0.5, Baso % (Auto) 1.0, Absolute Neuts (auto) 1.5 L, Absolute Lymphs (auto) 1.82, Nucleated RBC % 0, Sodium 133 L , Potassium 3.8, Chloride 104, Carbon Dioxide 22.0, Anion Gap 7, BUN 8, Creatinine 0.77, Estim Creat Clear Calc 152.77, Est GFR (MDRD) Af Amer 149, Est GFR (MDRD) Non-Af 123, BUN/Creatinine Ratio 10.4, Glucose 81, Calcium 8.5, Vancomycin Trough 14.1 Meaningful Use Info Meaningful Use Diagnoses (Choose all that apply): None applicable Discharge Plan Admission Admit Date/Time: 10/14/23 07:58 Primary Reason for Your Visit: osteomyelitis Attending Provider: Jayde Crisostomo Primary Care Provider: Care Physician,No Primary Consulting Providers: Juan Siegel Discharge Orders/Prescriptions Referrals / Follow Up: Care Physician,No Primary [Primary Care Provider] - Disposition Disposition (needs filled in before D/C Order can be placed): Against Medical Advice Charges/Coding Visit Charges Inpatient E&M: 53753 Disch Hosp >30min
== END 2023-10-15 13:51 | disposition left against medical advice (07) | DRG 344 ==
LOC: ED 06:10 → PCU 10:09
PROVIDERS: Admitting Provider Student in an Organized Health Care Education/Training Program; Emergency Provider Emergency Medicine; Visit Provider Student in an Organized Health Care Education/Training Program
DX: M86.8X7 Other osteomyelitis, ankle and foot (principal); L97.519 Non-pressure chronic ulcer of other part of right foot with unspecified severity; Z86.74 Personal history of sudden cardiac arrest; L97.522 Non-pressure chronic ulcer of other part of left foot with fat layer exposed; F11.13 Opioid abuse with withdrawal; F17.210 Nicotine dependence, cigarettes, uncomplicated; G60.9 Hereditary and idiopathic neuropathy, unspecified; R60.0 Localized edema; Z53.29 Procedure and treatment not carried out because of patient's decision for other reasons; Z87.898 Personal history of other specified conditions
CPT/HCPCS: 36415; 73630; 80048; 80202; 80307; 85025; 85379; 85652; 86140; 93971; 99284; J7030; J7040; J7050; A4216; J2405

== ENCOUNTER 2025-05-17 18:51 | Emergency (ER) | payer MEDICAID, SELFPAY ==
[2025-05-17 18:52] VITALS: BP 134/66; PULSE 60; RESP 16; TEMP 36.9; O2SAT 94
[2025-05-17 18:54] VITALS: BP 134/66; PULSE 60; RESP 14; TEMP 36.9; O2SAT 94
--- NOTE | 2025-05-17 22:54 | EKG12_ITS ---
Test Reason : CP Blood Pressure : */* mmHG Vent. Rate : 51 BPM Atrial Rate : 51 BPM P-R Int : 196 ms QRS Dur : 94 ms QT Int : 410 ms P-R-T Axes : 42 8 23 degrees QTcB Int : 377 ms Sinus bradycardia Otherwise normal ECG Confirmed by Ba Mendez ([id number]), editor trade journal BRYCE COPELAND ([id number]) on 05/19/2025 7:20:08 AM Referred By: Confirmed By: Ba Mendez
--- NOTE | 2025-05-17 22:55 | EX.ED.DYSGE1 ---
HPI History of Present Illness Chief Complaint: Lower Extremity Injury Detail of Chief Complaint: Bilateral lower extremity swelling. Informant: patient Onset/Context/Timing Onset: Today and Yesterday Context: Gradual Onset Timing: Continuous Current Severity: Mild Maximum Severity: Mild Narrative Narrative: 35-year-old male history of polysubstance abuse says he has been clean. Prior cardiac arrest due to kidney failure. States since yesterday he has noticed swelling to both lower extremities both feet. He is short of breath with walking. He denies any chest pain. Denies any recent illness. 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 Father No problems noted. Social History household members: significant other Smoking Status: Current every day smoker tobacco type: cigarettes alcohol intake: current alcohol intake frequency: a few times a month substance use type: marijuana and heroin ROS ROS ED ROS Narrative Lower extremity swelling. Exertional dyspnea. Constitutional Constitutional ED: Denies chills or fever(s) Eyes Eyes: Denies blurry vision ENT ENT ED: Denies ear pain Cardiovascular Cardiovascular: Denies chest pain Respiratory/Chest Respiratory/Chest: Reports dyspnea and dyspnea on exertion; Denies cough Gastrointestinal Gastrointestinal: Denies abdominal pain or constipation Genitourinary Genitourinary ED: Denies dysuria or hematuria Musculoskeletal Musculoskeletal: Denies arthralgias Integumentary Denies abscess Neurologic Neurologic: Denies headache(s) Psychiatric Psychiatric: Denies anxiety or depression Endocrine Endocrinology: Denies cold intolerance Hematologic/Lymphatic Hematologic/Lymphatic: Reports none Allergic/Immunologic Allergic/Immunologic ED: Denies mouth swelling, tongue swelling or urticaria EXAM Physical Exam Narrative Exam Narrative: 35-year-old male sitting upright in bed. Vital signs stable afebrile. Pulse ox 94% on room air no hypoxia. H EENT exam pupils round react to light. Moist mutes members. Neck nontender JVD. No lymphadenopathy. Lungs clear to auscultation bilaterally. Heart rate about 60 no murmur. Chest wall ribs nontender. Abdomen soft nontender. No peritoneal signs. Back nontender. Moving all 4 extremities. 1+ pitting edema both lower extremities with edema up to about his knees bilaterally. Dorsi plantarflexion intact. He has had the second toe of his left foot recent sected and one of the toes of his right foot resected. Neurologically he is awake and alert. Answering questions and following commands. Const Vital Signs: 05/17/25 18:52 05/17/25 18:54 05/18/25 00:40 Temperature 98.5 F 98.5 F 98.4 F Temperature Source Oral Oral Oral Pulse Rate 60 60 52 L Respiratory Rate 16 14 17 Blood Pressure 134/66 H 134/66 H 147/88 H Blood Pressure Mean 88 88 107 Pulse Ox 94 94 99 Oxygen Delivery Method Room Air Room Air Room Air 05/18/25 01:54 Temperature Temperature Source Pulse Rate 53 L Respiratory Rate 16 Blood Pressure Blood Pressure Mean Pulse Ox Oxygen Delivery Method MDM MDM MDM Narrative Medical decision making narrative: 35-year-old male bilateral lower extremity pitting edema. Prior history of cardiac arrest from kidney disease. Cardiac workup will be performed. This could be secondary to congestive heart failure versus other etiologies such as renal disease. Repeat exam patient is doing well. Chest x-ray shows chronic changes. His labs are basically unremarkable. Exams unchanged at around 2:21 AM. He will be discharged home with close outpatient follow-up. Patient is comfortable with the plan. He is resting comfortably. He will be referred to local primary care physicians for outpatient follow-up. History & Record Review Discussion w/independent historian: Patient Additional record(s) reviewed:: Prior inpatient record, Prior outpatient record, Prior ED visit and Prior labs Lab Data Attestation: I reviewed the patient's lab results. Lab results narrative: CBC shows a white count of 5. H&H 13 and 41. Platelets 258. Electrolytes show a gap of 14. Normal BUN of 14 and creatinine 1.1. Glucose 88. Initial troponin is 9. 2-hour troponin is 11. BNP is 131. Labs: Laboratory Results - last 24 hr 05/17/25 05/17/25 05/18/25 23:30 23:30 00:42 WBC Cancelled 5.1 Corrected WBC Cancelled RBC Cancelled 4.77 Hgb Cancelled 13.7 Hct Cancelled 41.2 MCV Cancelled 86.4 MCH Cancelled 28.7 MCHC Cancelled 33.3 RDW Std Deviation Cancelled 42.2 RDW Coeff of Jennifer Cancelled 13.4 Plt Count Cancelled 258 MPV Cancelled 9.0 Immature Gran % (Auto) Cancelled 0.200 Neut % (Auto) Cancelled 36.6 L Lymph % (Auto) Cancelled 45.4 H [place] % (Auto) Cancelled 10.1 H Eos % (Auto) Cancelled 7.1 H Baso % (Auto) Cancelled 0.6 Absolute Neuts (auto) Cancelled 1.9 L Absolute Lymphs (auto) Cancelled 2.30 Total Counted Cancelled Neutrophils % (Manual) Cancelled Band Neutrophils % Cancelled Lymphocytes % (Manual) Cancelled Monocytes % (Manual) Cancelled Eosinophils % (Manual) Cancelled Basophils % (Manual) Cancelled Metamyelocytes % Cancelled Myelocytes % Cancelled Promyelocytes % Cancelled Blast Cells % Cancelled Plasma Cell % (Manual) Cancelled Other Cells % Cancelled Nucleated RBC % Cancelled 0 Nucleated RBCs/100 WBC Cancelled Differential Comment Cancelled Diff Path Review Cancelled Hypersegmented Neuts Cancelled Atypical Lymphocytes Cancelled Reactive Lymphocytes Cancelled Smudge Cells Cancelled Toxic Granulation Cancelled Toxic Vacuolation Cancelled Dohle Bodies Cancelled Herrera Rods Cancelled Platelet Estimate Cancelled Plt Morphology Comment Cancelled RBC Morphology Cancelled Cancelled Polychromasia Cancelled Hypochromasia Cancelled Basophilic Stippling Cancelled Anisocytosis Cancelled Microcytosis Cancelled Macrocytosis Cancelled Spherocytes Cancelled Sickle Cells Cancelled Target Cells Cancelled Tear Drop Cells Cancelled Ovalocytes Cancelled Stomatocytes Cancelled [place]ultz-[place] Bodies Cancelled Ringle Cells Cancelled Bite Cells Cancelled Crenated Cell Cancelled Acanthocytes (Spur) Cancelled Rouleaux Cancelled Schistocytes Cancelled Sodium 137 Potassium 4.6 Chloride 104 Carbon Dioxide 18.9 L Anion Gap 14 BUN 14 Creatinine 1.13 Est GFR (MDRD) Non-Af 86 BUN/Creatinine Ratio 12.6 Glucose 88 Calcium 8.9 Troponin T High Sens 9 Troponin T Hi Sens 2 Hr NT pro BNP II 131 05/18/25 01:27 WBC Corrected WBC RBC Hgb Hct MCV MCH MCHC RDW Std Deviation RDW Coeff of Jennifer Plt Count MPV Immature Gran % (Auto) Neut % (Auto) Lymph % (Auto) [place] % (Auto) Eos % (Auto) Baso % (Auto) Absolute Neuts (auto) Absolute Lymphs (auto) Total Counted Neutrophils % (Manual) Band Neutrophils % Lymphocytes % (Manual) Monocytes % (Manual) Eosinophils % (Manual) Basophils % (Manual) Metamyelocytes % Myelocytes % Promyelocytes % Blast Cells % Plasma Cell % (Manual) Other Cells % Nucleated RBC % Nucleated RBCs/100 WBC Differential Comment Diff Path Review Hypersegmented Neuts Atypical Lymphocytes Reactive Lymphocytes Smudge Cells Toxic Granulation Toxic Vacuolation Dohle Bodies Herrera Rods Platelet Estimate Plt Morphology Comment RBC Morphology Polychromasia Hypochromasia Basophilic Stippling Anisocytosis Microcytosis Macrocytosis Spherocytes Sickle Cells Target Cells Tear Drop Cells Ovalocytes Stomatocytes Shultz-Cent[place] Bodies Ringle Cells Bite Cells Crenated Cell Acanthocytes (Spur) Rouleaux Schistocytes Sodium Potassium Chloride Carbon Dioxide Anion Gap BUN Creatinine Est GFR (MDRD) Non-Af BUN/Creatinine Ratio Glucose Calcium Troponin T High Sens Troponin T Hi Sens 2 Hr 11 NT pro BNP II Radiography Chest X-Ray - ED: Read by ED Physician, Heart, Lungs, Mediastinum, Bony Structures, No Acute Disease and Chronic Changes Diagnostic Testing: Chest x-ray, 2 views, AP and lateral, interpreted by myself shows normal cardiac silhouette. Normal lung shields. No signs of pleural effusions or significant CHF. Chronic changes. Rhythm Strip Rhythm Strip: Sinus bradycardia Rate: 51 Ectopy: None EKG Initial EKG: Attestation: I personally reviewed and interpreted this EKG as follows: Interpretation: No Acute Injury Pattern and Sinus Bradycardia Comments: Sinus bradycardia rate of 51 no acute signs of TX or ischemia. Prior: No Prior Discharge Plan Triage Chief Complaint: Lower Extremity Injury ED Provider: Helder Trevino Dx/Rx/DC Orders Clinical Impression: Peripheral edema, History of cardiac arrest, History of kidney disease Instructions: ED Peripheral Edema, Bilateral Primary Care Provider: Care Physician,No Primary Referrals: Ruby Sheffield MD [Med Staff - [employer] [place], Internal Medicine] - As soon as possible Care Physician,No Primary [Primary Care Provider, Medical] Jamila Lackey, [employer] [[facility], [facility]] - As soon as possible Activity Restrictions/Additional Instructions: Elevate your leg to decrease swelling. Your labs look good tonight. Follow-up with a local primary care physician for further evaluation to see why your legs are swelling. Get an appointment to be seen as soon as possible. Print Language: [place]an Disposition Disposition: Home, Self Care
--- NOTE | 2025-05-17 23:59 | RAD_ITS ---
PROCEDURE: CHEST PA AND LATERAL 05/18/2025 REASON FOR EXAM: CHEST PAIN TECHNIQUE: Procedure Code: RADCXR Modality: DX Procedure: CHEST PA AND LATERAL COMPARISON: 03/26/2023. FINDINGS: Interval appearance of mild bilateral basilar atelectatic pulmonary changes. There is no demonstrated pleural abnormality. Normal heart and pericardium. Normal mediastinum and ricki. Normal visualized pulmonary arteries. Normal visualized aortic arch and descending thoracic aorta. Normal visualized thoracic spine. Normal visualized ribs, clavicles, and shoulders. There is no demonstrated abnormality of the visualized soft tissue structures of the upper abdomen. RAD/Chest PA and Lateral IMPRESSION: Interval appearance of mild bilateral basilar atelectatic pulmonary changes. [facility]
[2025-05-18 00:40] VITALS: BP 147/88; PULSE 52; RESP 17; TEMP 36.9; O2SAT 99
[2025-05-18 00:46] LABS: Anion Gap 14 (5-15); BUN 14 mg/dL (4-19); BUN/Creat Ratio 12.6 RATIO (10-20); Calcium,Total 8.9 mg/dL (7.6-11.0); Carbon Dioxide 18.9 mmol/L (21.0-32.0); Chloride 104 mmol/L (98-108); Glucose 88 mg/dL (70-99); Potassium 4.6 mmol/L (3.3-5.1); Pro- Brain NATRIURETIC PEPTIDE 131 pg/mL (<=450); Troponin T High Sensitivity 9 ng/L (<=22)
[2025-05-18 00:54] LABS: Hematocrit 41.2 % (40-54); Hemoglobin 13.7 g/dL (13.0-16.5); Immature Granulocytes Count 0.010 X10^3/uL (0.0-0.0); Mean Corp Hgb Conc 33.3 g/dL (32-36); Mean Corpuscular Volume 86.4 fL (80-94); Mean Platelet Vol. 9.0 fl (6.2-12.0); NRBC Flagged by Analyzer 0 % (0-5); Platelet Count 258 K/mm3 (150-450); RBC Distribution Width CV 13.4 % (11.6-14.6); RBC Distribution Width SD 42.2 fl (35.1-43.9); Red Blood Count 4.77 M/mm3 (4.6-6.2); White Blood Count 5.1 K/mm3 (4.4-11.0)
[2025-05-18 01:53] LABS: Troponin T High Sens 2 HR 11 ng/L (<=22)
[2025-05-18 01:54] VITALS: PULSE 53; RESP 16
== END 2025-05-18 02:31 | disposition home or self-care (01) ==
PROVIDERS: Emergency Provider Emergency Medicine; Visit Provider Emergency Medicine
DX: R60.0 Localized edema (principal); F11.99 Opioid use, unspecified with unspecified opioid-induced disorder; F17.210 Nicotine dependence, cigarettes, uncomplicated; F12.90 Cannabis use, unspecified, uncomplicated; R06.09 Other forms of dyspnea; Z86.74 Personal history of sudden cardiac arrest
CPT/HCPCS: 71046; 80048; 83880; 84484; 85025; 93005; 99284; A4216